=== PATIENT | male | born 1960 | race Caucasian/White ===

== ENCOUNTER 2018-08-30 12:33 | Emergency (ER) | payer OTHER ==
[2018-08-30] MEDS ORDERED: cloNIDine HCl 0.1 MG TAB ONE ×2 (13:21→14:18)
--- NOTE | 2018-08-30 14:29 | EKG ---
Test Date: 2018-08-30 Test Time: 13:43:54 Goodwill Representative: COLE MEASUREMENT RESULTS: Intervals: Rate: 64 TN: 186 QRSD: 88 QT: 424 QTc: 437 [place]: P: 76 TN: 186 QRS: 32 T: 66 INTERPRETIVE STATEMENTS: Normal sinus rhythm Normal ECG Compared to ECG 11/12/2015 10:42:46 No significant changes Electronically Signed On 08-30-18 14:28:56 CDT by Mingo Solis
--- NOTE | 2018-08-30 15:04 | EDPHYS ---
Physician Documentation [facility] Name: Frankie Padilla Age: 58 yrs Sex: Male : 1960 Arrival Date: 08/30/2018 Time: 12:42 Bed 8 Private MD: Madhu Quinteros ED Physician Chino Melendez HPI: 08/30 14:00 This 58 yrs old Male presents to ER via Wheelchair with complaints of High pm1 Blood Pressure. 14:00 The patient has elevated blood pressure and discovered this at a physician's office, pm1 and sent to the emergency department for evaluation. Onset: The symptoms/episode began/occurred Patient with a history of high blood pressure for multiple years. Patient has not taken his blood pressure medication for at least 5 years. Patient does not recall the name of the medication that he used to take for HTN. PCP is Neli. Patient seen by Dr. Cordero this AM for treatment and evaluation of his dementia and was sent to the ER for evaluation of his high blood pressure . Modifying factors: The symptoms are aggravated by discontinuation of meds, unknown medication. Last took blood pressure medication about 5 years. Took a single medication at that time. Not taking any medications until today. Was given a sample for dementia by Dr. Cordero today. Associated signs and symptoms: Pertinent negatives: chest pain, dizziness, dyspnea, headache, nausea, visual changes, vomiting, weakness. The patient has experienced similar episodes in the past, chronically. The patient has been recently seen by a physician: Dr. Cordero. 14:00 Patient without any complaints except for the presence of hypertension. pm1 Historical: - Allergies: 13:03 NKA; iw - PMHx: 13:05 Hypertension; Dementia; PseudoBulbar Affect; iw - Immunization history:: Adult Immunizations unknown. - Ebola Screening: : Patient negative for fever greater than or equal to 101.5 degrees Fahrenheit, and additional compatible Ebola Virus Disease symptoms Patient denies exposure to infectious person Patient denies travel to an Ebola-affected area in the 21 days before illness onset No symptoms or risks identified at this time. - Social history:: Smoking status: unknown. ROS: 14:00 Constitutional: Negative for fever, chills, and weight loss, Eyes: Negative for injury, pm1 pain, redness, and discharge, ENT: Negative for injury, pain, and discharge, Neck: Negative for injury, pain, and swelling, Cardiovascular: Negative for chest pain, palpitations, and edema, Respiratory: Negative for shortness of breath, cough, wheezing, and pleuritic chest pain, Abdomen/GI: Negative for abdominal pain, nausea, vomiting, diarrhea, and constipation, Back: Negative for injury and pain, : Negative for injury, bleeding, discharge, and swelling, MS/Extremity: Negative for injury and deformity, Skin: Negative for injury, rash, and discoloration, Neuro: Negative for headache, weakness, numbness, tingling, and seizure. Exam: 14:00 Constitutional: This is a well developed, well nourished patient who is awake, alert, pm1 and in no acute distress. Head/Face: Normocephalic, atraumatic. Eyes: Pupils equal round and reactive to light, extra-ocular motions intact. Lids and lashes normal. Conjunctiva and sclera are non-icteric and not injected. Cornea within normal limits. Periorbital areas with no swelling, redness, or edema. ENT: Nares patent. No nasal discharge, no septal abnormalities noted. Tympanic membranes are normal and external auditory canals are clear. Oropharynx with no redness, swelling, or masses, exudates, or evidence of obstruction, uvula midline. Mucous membranes moist. Neck: Trachea midline, no thyromegaly or masses palpated, and no cervical lymphadenopathy. Supple, full range of motion without nuchal rigidity, or vertebral point tenderness. No Meningismus. Chest/axilla: Normal chest wall appearance and motion. Nontender with no deformity. No lesions are appreciated. Cardiovascular: Regular rate and rhythm with a normal S1 and S2. No gallops, murmurs, or rubs. No pulse deficits. Respiratory: Lungs have equal breath sounds bilaterally, clear to auscultation and percussion. No rales, rhonchi or wheezes noted. No increased work of breathing, no retractions or nasal flaring. Abdomen/GI: Soft, non-tender, with normal bowel sounds. No distension or tympany. No guarding or rebound. No evidence of tenderness throughout. Back: No spinal tenderness. No costovertebral tenderness. Full range of motion. Skin: Warm, dry with normal turgor. Normal color with no rashes, no lesions, and no evidence of cellulitis. MS/ Extremity: Pulses equal, no cyanosis. Neurovascular intact. Full, normal range of motion. 14:00 Neuro: Orientation: is normal, Mentation: is normal, Cranial nerves: CN II- XII are normal as tested, Cerebellar function: normal finger to nose testing, Motor: is normal, moves all fours, strength is normal, strength is 5/5 in all extremities, Sensation: is normal, no obvious gross deficits, Gait: is steady, at a normal pace, without difficulty. Vital Signs: 13:03 BP 245 / 121; Pulse 64; Resp 16; Temp 98.2; Pulse Ox 98% on R/A; iw 15:17 BP 191 / 101; Pulse 60; Resp 18; Pulse Ox 100% on R/A; Pain 0/10; mg2 MDM: 12:46 Patient medically screened. pm1 14:55 ED course: Patient walking out the door to leave the ER. Asked the patient to return to pm1 his room and stay for a few minutes to at least be prescribed a blood pressure medication. Instructed the patient to follow up with his PCP for continued management of his blood pressure. 14:59 Data reviewed: vital signs. Data interpreted: Pulse oximetry: on room air is 98 %. pm1 Interpretation: normal. Counseling: I had a detailed discussion with the patient and/or guardian regarding: the historical points, exam findings, and any diagnostic results supporting the discharge/admit diagnosis, the need for outpatient follow up, Cyber Forensics Analyst and/or PCP, to return to the emergency department if symptoms worsen or persist or if there are any questions or concerns that arise at home. 08/30 13:11 Order name: EKG; Complete Time: 13:11 pm1 08/30 13:11 Order name: EKG - Nurse/Tech; Complete Time: 14:10 pm1 Administered Medications: 13:19 Drug: cloNIDine 0.2 mg Route: PO; jl7 14:09 Follow up: Response: No adverse reaction bp 14:13 Drug: cloNIDine 0.1 mg Route: PO; bp 15:16 Follow up: Response: No adverse reaction; Marked relief of symptoms; Blood sugar is mg2 lowered Disposition: 17:57 Co-signature as Attending Physician, Chino Melendez MD. rn Disposition: 08/30/18 15:03 Discharged to Home. Impression: Essential (primary) hypertension. - Condition is Stable. - Discharge Instructions: Hypertension, How to Take Your Blood Pressure, Ophj-at-Q[place], DASH Eating Plan, Managing Your Hypertension. - Prescriptions for Norvasc 10 mg Oral Tablet - take 1 tablet by ORAL route once daily; 30 tablet. - Medication Reconciliation Form, Thank You Letter form. - Follow up: Emergency Department; When: As needed; Reason: Worsening of condition. Follow up: Madhu Quinteros DO; When: 1 - 2 days; Reason: Recheck today's complaints, Continuance of care, Re-evaluation by your physician. - Problem is new. - Symptoms have improved. Signatures: Elina Leal, RN RN iw Chino Melendez MD MD rn Marinas, Patrick, MARIA ESTHER SURVEILLANCE DUAL RATE OFFICER pm1 Genoveva Iverson RN RN jl7 Mark Nair, RN RN bp Trey Jacob, RN RN mg2 Corrections: (The following items were deleted from the chart) 15:19 15:03 08/30/2018 15:03 Discharged to Home. Impression: Essential (primary) mg2 hypertension. Condition is Stable. Forms are Medication Reconciliation Form, Thank You Letter, Antibiotic Education, Prescription Opioid Use. Follow up: Emergency Department; When: As needed; Reason: Worsening of condition. Follow up: Madhu Quinteros; When: 1 - 2 days; Reason: Recheck today's complaints, Continuance of care, Re-evaluation by your physician. Problem is new. Symptoms have improved. pm1
--- NOTE | 2018-08-30 15:04 | ER ---
Nurse's Notes [facility] Name: Frankie Padilla Age: 58 yrs Sex: Male : 1960 Arrival Date: 08/30/2018 Time: 12:42 Bed 8 Private MD: Madhu Quinteros Diagnosis: Essential (primary) hypertension Presentation: 08/30 12:52 Presenting complaint: Friend states: was sent by Dr. Cordero for high BP, was 235/127, iw pt states he is prescribed a BP medicine but doesn't know what it is and hasn't been taking it. Transition of care: patient was not received from another setting of care. Onset of symptoms was August 30, 2018. Risk Assessment: Do you want to hurt yourself or someone else? Patient reports no desire to harm self or others. Initial Sepsis Screen: Does the patient meet any 2 criteria? No. Patient's initial sepsis screen is negative. Does the patient have a suspected source of infection? No. Patient's initial sepsis screen is negative. Care prior to arrival: None. 12:52 Method Of Arrival: Wheelchair iw 12:52 Acuity: LATESHA 3 iw Historical: - Allergies: 13:03 NKA; iw - PMHx: 13:05 Hypertension; Dementia; PseudoBulbar Affect; iw - Immunization history:: Adult Immunizations unknown. - Ebola Screening: : Patient negative for fever greater than or equal to 101.5 degrees Fahrenheit, and additional compatible Ebola Virus Disease symptoms Patient denies exposure to infectious person Patient denies travel to an Ebola-affected area in the 21 days before illness onset No symptoms or risks identified at this time. - Social history:: Smoking status: unknown. Screenin:20 Abuse screen: Denies threats or abuse. Denies injuries from another. Nutritional jl7 screening: No deficits noted. Tuberculosis screening: No symptoms or risk factors identified. Fall Risk None identified. Assessment: 13:20 General: Appears in no apparent distress. uncomfortable, Behavior is cooperative, jl7 anxious, quiet. Pain: Denies pain. Neuro: Level of Consciousness is awake, alert, obeys commands, Oriented to person, place, time, Denies weakness blurred vision dizziness, headache. Cardiovascular: Denies chest pain, lightheadedness, nausea, Patient's skin is warm and dry. Respiratory: Airway is patent Respiratory effort is even, unlabored, Respiratory pattern is regular, symmetrical. GI: No signs and/or symptoms were reported involving the gastrointestinal system. Patient currently denies diarrhea, nausea, vomiting. : No signs and/or symptoms were reported regarding the genitourinary system. EENT: No signs and/or symptoms were reported regarding the EENT system. Derm: Skin is pink, warm \T\ dry. Musculoskeletal: Range of motion: intact in all extremities. Vital Signs: 13:03 BP 245 / 121; Pulse 64; Resp 16; Temp 98.2; Pulse Ox 98% on R/A; iw 15:17 BP 191 / 101; Pulse 60; Resp 18; Pulse Ox 100% on R/A; Pain 0/10; mg2 ED Course: 12:42 Patient arrived in ED. mr 12:42 Madhu Quinteros DO is Private Physician. mr 12:46 Juan Frausto NP is PHCP. pm1 12:46 Chino Melendez MD is Attending Physician. pm1 12:59 Triage completed. iw 13:04 Genoveva Iverson, VALERIE is Primary Nurse. jl7 13:20 Patient has correct armband on for positive identification. Placed in gown. Bed in low jl7 position. Call light in reach. Side rails up X 1. double needle stitcher on. Pulse ox on. NIBP on. 13:37 Arm band placed on right wrist. jl7 14:05 EKG done, by health care technician. reviewed by Juan Frausto NP. sm3 15:02 Madhu Quinteros DO is Referral Physician. pm1 15:17 No provider procedures requiring assistance completed. Patient did not have IV access mg2 during this emergency room visit. Administered Medications: 13:19 Drug: cloNIDine 0.2 mg Route: PO; jl7 14:09 Follow up: Response: No adverse reaction bp 14:13 Drug: cloNIDine 0.1 mg Route: PO; bp 15:16 Follow up: Response: No adverse reaction; Marked relief of symptoms; Blood sugar is mg2 lowered Outcome: 15:03 Discharge ordered by . pm1 15:18 Discharged to home ambulatory, with family. mg2 15:18 Condition: stable 15:18 Discharge instructions given to patient, family, Instructed on discharge instructions, follow up and referral plans. medication usage, Demonstrated understanding of instructions, follow-up care, medications, Prescriptions given X 1. 15:19 Patient left the ED. mg2 Signatures: Arlene Conklin Irene, RN RN iw Juan Frausto NP HEALTHCARE CUSTOMER SERVICE pm1 Genoveva Iverson RN RN jl7 Mark Nair RN RN bp Trey Jacob RN RN mg2 Cassie Us 3
[2018-08-30 15:24] VITALS: TEMP 98.2
[2018-08-30 15:25] VITALS: BP 191/101; O2SAT 100
== END 2018-08-30 15:19 | disposition home or self-care (01) ==
LOC: ER 12:33
DX: I10 Essential (primary) hypertension (principal); F03.90 Unspecified dementia, unspecified severity, without behavioral disturbance, psychotic disturbance, mood disturbance, and anxiety
CPT/HCPCS: 93005; 99284

== ENCOUNTER 2018-11-13 15:31 | Inpatient (IN) | payer OTHER ==
--- NOTE | 2018-11-13 18:21 | RAD REPORT ---
EXAM DESCRIPTION: RAD - Femur Right - 11/13/2018 5:26 pm CLINICAL HISTORY: Fall, femur pain COMPARISON: None. FINDINGS: Transverse fracture of the femoral neck is present. The patient has a short femoral neck. Fracture is primarily subcapital. There is impaction present. No pathologic bone component. No AVN or focal femoral head acute finding. There is no dislocation. No pathologic bone process suspected. Sha ft and distal femur show no acute findings. There degenerative changes of the knee joint and postsurg ical changes to the proximal tibia that are only partially imaged. Mild SI joint degenerative changes are present. No acute findings of the right hemipelvis. No air or foreign body in the soft tissues. IMPRESSION: Impacted right femoral neck fracture.
--- NOTE | 2018-11-13 19:01 | RAD REPORT ---
EXAM DESCRIPTION: CT - Hip Right Wo Con - 11/13/2018 6:48 pm CLINICAL HISTORY: Fall, femur fracture, hip pain COMPARISON: Right femur films same date TECHNIQUE: Axial 2 millimeter thick images of the right hip joint were obtained including most of th e right hemipelvis. Sagittal and coronal reformatted images were generated and reviewed. The CT scan was performed using dose optimization techniques as appropriate to a performed exam incl uding one or more of the following: Automated exposure control, adjustment of the mA and/or kV accord ing to patient size (this includes techniques or standardized protocols for targeted exams where dose is matched to indication/reason for exam) and use of iterative reconstruction technique. FINDINGS: Transverse fracture of the right femoral neck is present. This is subcapital location lexi g the lateral margin and midportion of the cervical neck anteriorly. There is impaction along the pos terior margin of the fracture. No pathologic component. No AVN or focal femoral head finding. No disl ocation. No intertrochanteric involvement is present. No significant joint effusion is identifiable. There is minimal contusion in the periarticular soft t issues. Imaged portions of the right hemipelvis show old right ischium fracture. An acute fracture of the rig ht hemipelvis is not identified. There are old fracture changes to the superior pubic ramus. IMPRESSION: Right femoral neck fracture impacted along the posterior margin. No intertrochanteric involvement. No pathologic component. Old fracture changes to the right ischium and right superior pubic ramus.
[2018-11-13 19:16] LABS: Absolute Lymphocytes (CBC) 0.7 K/uL (0.7-4.9); Absolute Monocytes 1.1 K/uL (0.1-1.3); Absolute Neutrophil 13.4 K/uL (1.8-8.0); Basophils % 0.5 % (0-1.3); Eosinophils % 0.1 % (0-4.4); Hematocrit 31.4 % (39.6-49.0); Lymphocytes % 4.6 % (15.3-44.8); MPV 8.4 fL (7.6-11.3); Monocytes % 7.4 % (3.3-12.3); RBC Red Blood Cell Count 3.45 M/uL (4.33-5.43)
--- NOTE | 2018-11-13 19:27 | ER ---
Nurse's Notes [facility] Name: Frankie Padilla Age: 58 yrs Sex: Male : 1960 Arrival Date: 11/13/2018 Time: 15:32 Bed 9 Private MD: Diagnosis: Nondisplaced fracture of base of neck of right femur Presentation: 11/13 15:32 Presenting complaint: Patient states: fall from a standing position and hurt R leg, hj denies hitting and denies LOC; A\T\O x 4;. Transition of care: patient was not received from another setting of care. Onset of symptoms was November 13, 2018. Risk Assessment: Do you want to hurt yourself or someone else? Patient reports no desire to harm self or others. Initial Sepsis Screen: Does the patient meet any 2 criteria? No. Patient's initial sepsis screen is negative. Does the patient have a suspected source of infection? No. Patient's initial sepsis screen is negative. Care prior to arrival: None. 15:32 Method Of Arrival: EMS: [facility] 15:32 Acuity: LATESHA 4 15:35 Mechanism of Injury: Fall from standing position. Trauma event details: Injury occurred hj in the [facility], Injury occurred: at home. Injury occurred: November 13, 2018. 15:35 Note provided pt gown to pt, pt came without shirt; per daughter, pt has been taking synthetic marijuana, daughter wanted to report the incident to APS;. Triage Assessment: 15:35 General: Appears in no apparent distress. uncomfortable, Behavior is calm, cooperative, hj appropriate for age. Pain: Complains of pain in right leg. Trauma Activation: Not Applicable Physician: ED Physician; Name: ; Notified At: ; Arrived At: Physician: General Surgeon; Name: ; Notified At: ; Arrived At: Physician: Radiology; Name: ; Notified At: ; Arrived At: Physician: Respiratory; Name: ; Notified At: ; Arrived At: Physician: Lab; Name: ; Notified At: ; Arrived At: Historical: - Allergies: 15:34 NKA; hj - PMHx: 15:34 Dementia; Hypertension; pseudobulbar affect; hj - Immunization history:: Adult Immunizations up to date. - Social history:: Smoking status: Patient uses tobacco products, Patient/guardian denies using alcohol. - Ebola Screening: : Patient negative for fever greater than or equal to 101.5 degrees Fahrenheit, and additional compatible Ebola Virus Disease symptoms Patient denies exposure to infectious person Patient denies travel to an Ebola-affected area in the 21 days before illness onset. Screenin:34 Abuse screen: Denies threats or abuse. Denies injuries from another. Nutritional hj screening: No deficits noted. Tuberculosis screening: No symptoms or risk factors identified. Fall Risk Fall in past 12 months (25 points). Primary Survey: 16:22 NO uncontrolled hemorrhage observed. A: The patient is alert. Airway: patent. mg2 Breathing/Chest: Respiratory pattern: regular, Respiratory effort: spontaneous, unlabored. Circulation: Skin color: pink. Disability Alert. Exposure/Environment: There is no evidence of uncontrolled external bleeding. Assessment: 16:21 General: Appears in no apparent distress. comfortable, Behavior is calm, cooperative. mg2 Pain: Complains of pain in right hip Pain does not radiate. Quality of pain is described as aching, Pain began 2 hours ago. Is intermittent. Neuro: Level of Consciousness is awake, alert, obeys commands, Oriented to person, place, time, situation. Cardiovascular: Capillary refill < 3 seconds Patient's skin is warm and dry. Respiratory: No deficits noted. GI: No signs and/or symptoms were reported involving the gastrointestinal system. : No deficits noted. EENT: No signs and/or symptoms were reported regarding the EENT system. Derm: Skin is intact, is healthy with good turgor, Skin is pink, warm \T\ dry. normal. Musculoskeletal: Circulation, motion, and sensation intact. Capillary refill < 3 seconds, Reports pain in right hip. 20:46 Reassessment: patient refused for sweeney catheter insertion. provider informed. mg2 22:16 Reassessment: Patient appears in no apparent distress at this time. Patient and/or mg2 family updated on plan of care and expected duration. Pain level reassessed. Patient is alert, oriented x 3, equal unlabored respirations, skin warm/dry/pink. blood pressure decreased. 22:17 Reassessment: nurse will call back to receive the report.. mg2 Vital Signs: 15:35 BP 172 / 88; Pulse 95; Resp 18; Temp 97.8(TE); Pulse Ox 98% on R/A; Weight 81.65 kg; hj Height 5 ft. 7 in. (170.18 cm); Pain 10/10; 18:00 BP 170 / 80; Pulse 90; Resp 18; Temp 97(O); Pulse Ox 100% on R/A; Pain 4/10; mg2 19:00 BP 185 / 89; Pulse 101; Resp 18; Temp 97(O); Pulse Ox 100% ; mg2 20:37 BP 211 / 100; Pulse 105; Resp 18; Temp 97.9(O); Pulse Ox 100% ; mg2 21:16 BP 205 / 104; Pulse 101; Resp 18; Pulse Ox 100% on R/A; Pain 8/10; mg2 21:56 BP 195 / 97; Pulse 102; Resp 18; Pulse Ox 100% on R/A; mg2 22:02 BP 186 / 101; Pulse 100; Resp 18; Temp 98(O); Pulse Ox 100% ; Pain 5/10; mg2 15:35 Body Mass Index 28.19 (81.65 kg, 170.18 cm) hj ED Course: 15:32 Patient arrived in ED. hj 15:34 Triage completed. hj 15:35 Arm band placed on right wrist. hj 15:35 Patient has correct armband on for positive identification. Placed in gown. Bed in low hj position. Call light in reach. Side rails up X 1. 15:59 gave conley no skid slippers to patient while still in lobby. bd 16:18 Trey Jacob, VALERIE is Primary Nurse. mg2 16:19 Brenda Herrera FNP-C is PHCP. kb 16:19 Michoacano Coyle MD is Attending Physician. kb 17:01 No provider procedures requiring assistance completed. mg2 17:26 Femur Right XRAY In Process Unspecified. EDMS 18:24 PHCP role handed off by Brenda Herrera FNP-C jr8 18:24 Jong Hassan PA is PHCP. jr8 18:49 Hip Right Wo Con In Process Unspecified. EDMS 18:56 CT completed. Patient tolerated procedure well. Patient moved back from CT. vm2 19:11 Inserted saline lock: 20 gauge in left antecubital area, using aseptic technique. Blood mg2 collected. 19:26 Jose Khan MD is Hospitalizing Provider. jr8 20:47 Patient admitted, IV remains in place. mg2 Administered Medications: 19:46 Drug: fentaNYL (PF) 75 mcg Route: IVP; Site: left antecubital; mg2 20:16 Follow up: Response: No adverse reaction; Marked relief of symptoms mg2 19:46 Drug: Zofran 4 mg Route: IVP; Site: left antecubital; mg2 20:15 Follow up: Response: No adverse reaction; Marked relief of symptoms mg2 20:15 Drug: NS 0.9% 1000 ml Route: IV; Rate: 1000 ml; Site: left antecubital; mg2 22:30 Follow up: Response: No adverse reaction; IV Status: Completed infusion mg2 20:46 Drug: Labetalol 10 mg Route: IVP; Infused Over: 2 mins; Site: left antecubital; mg2 21:14 Follow up: Response: No adverse reaction; Blood pressure is unchanged mg2 21:14 Drug: Magnesium Sulfate 2 grams Route: IVPB; Infused Over: 2 hrs; Site: left mg2 antecubital; 22:09 Follow up: Response: No adverse reaction; IV Status: Completed infusion mg2 21:15 Drug: Labetalol 10 mg Route: IVP; Infused Over: 2 mins; Site: left antecubital; mg2 21:30 Follow up: Response: No adverse reaction; Blood pressure is unchanged; Cardiac rhythm mg2 changed 21:16 Drug: hydrALAZINE 10 mg Route: IV; Rate: calculated rate; Site: left antecubital; mg2 22:09 Follow up: Response: No adverse reaction; Blood pressure is lowered; IV Status: mg2 Completed infusion 22:08 Drug: fentaNYL (PF) 75 mcg Route: IVP; Site: left antecubital; mg2 22:10 Follow up: Response: No adverse reaction mg2 Outcome: 19:26 Decision to Hospitalize by Provider. jr8 22:23 Admitted to Med/surg accompanied by tech, via stretcher, room 208, with chart, Report mg2 called to VALERIE Gonzalez 22:23 Condition: stable 22:23 Instructed on the need for admit, Demonstrated understanding of instructions. 22:58 Patient left the ED. mg2 Signatures: Dispatcher [employer] EDMS Brenda Herrera, ANDI PAULINO-Simona Bocanegra Josh, PA PA jr8 Amadeo Garcia RN RN Naina Nichole [facility] Trey Jacob, RN RN mg2 Corrections: (The following items were deleted from the chart) 15:38 15:35 Pulse 95bpm; Resp 18bpm; Pulse Ox 98% RA; Temp 97.8F Temporal; 81.65 kg; Height 5 hj ft. 7 in.; BMI: 28.1; Pain 10/10; hj 16:32 15:35 Note per daughter, pt has been taking synthetic marijuana, daughter wanted to hj report the incident to APS; hj 19:11 17:01 Patient did not have IV access during this emergency room visit. mg2 mg2 20:37 19:00 BP 211 / 100; Pulse 105bpm; Resp 18bpm; Pulse Ox 100%; Temp 97.9F Oral; mg2 mg2 21:56 21:56 BP 206 / 97; Pulse 102bpm; Resp 18bpm; Pulse Ox 100% RA; mg2 mg2
--- NOTE | 2018-11-13 19:28 | EDPHYS ---
Physician Documentation [facility] Name: Frankie Padilla Age: 58 yrs Sex: Male : 1960 Arrival Date: 11/13/2018 Time: 15:32 Bed 9 Private MD: ED Physician Michoacano Coyle HPI: 11/13 16:40 This 58 yrs old Male presents to ER via EMS with complaints of Fall Injury. kb 16:40 Details of fall: The patient fell from an upright position, while walking. Onset: The kb symptoms/episode began/occurred 3 hour(s) ago. Associated injuries: The patient sustained right quadriceps, painful injury. Severity of symptoms: At their worst the symptoms were moderate, in the emergency department the symptoms are unchanged. The patient has not experienced similar symptoms in the past. The patient has not recently seen a physician. Historical: - Allergies: 15:34 NKA; hj - PMHx: 15:34 Dementia; Hypertension; pseudobulbar affect; hj - Immunization history:: Adult Immunizations up to date. - Social history:: Smoking status: Patient uses tobacco products, Patient/guardian denies using alcohol. - Ebola Screening: : Patient negative for fever greater than or equal to 101.5 degrees Fahrenheit, and additional compatible Ebola Virus Disease symptoms Patient denies exposure to infectious person Patient denies travel to an Ebola-affected area in the 21 days before illness onset. ROS: 16:39 Constitutional: Negative for fever, chills, and weight loss, Cardiovascular: Negative kb for chest pain, palpitations, and edema, Respiratory: Negative for shortness of breath, cough, wheezing, and pleuritic chest pain, Abdomen/GI: Negative for abdominal pain, nausea, vomiting, diarrhea, and constipation, Back: Negative for injury and pain, Skin: Negative for injury, rash, and discoloration, Neuro: Negative for headache, weakness, numbness, tingling, and seizure. 16:39 MS/extremity: Positive for injury or acute deformity, pain, tenderness, of the right quadriceps. Exam: 16:39 Constitutional: This is a well developed, well nourished patient who is awake, alert, kb and in no acute distress. Head/Face: Normocephalic, atraumatic. Chest/axilla: Normal chest wall appearance and motion. Nontender with no deformity. No lesions are appreciated. Cardiovascular: Regular rate and rhythm with a normal S1 and S2. No gallops, murmurs, or rubs. Normal PMI, no JVD. No pulse deficits. Respiratory: Lungs have equal breath sounds bilaterally, clear to auscultation and percussion. No rales, rhonchi or wheezes noted. No increased work of breathing, no retractions or nasal flaring. Abdomen/GI: Soft, non-tender, with normal bowel sounds. No distension or tympany. No guarding or rebound. No evidence of tenderness throughout. Skin: Warm, dry with normal turgor. Normal color with no rashes, no lesions, and no evidence of cellulitis. Neuro: Awake and alert, GCS 15, oriented to person, place, time, and situation. Cranial nerves II-XII grossly intact. Motor strength 5/5 in all extremities. Sensory grossly intact. Cerebellar exam normal. Normal gait. 16:39 Musculoskeletal/extremity: Extremities: grossly normal except: noted in the right quadriceps: pain, tenderness, ROM: intact in all extremities, Circulation is intact in all extremities. Sensation intact. Vital Signs: 15:35 BP 172 / 88; Pulse 95; Resp 18; Temp 97.8(TE); Pulse Ox 98% on R/A; Weight 81.65 kg; hj Height 5 ft. 7 in. (170.18 cm); Pain 10/10; 18:00 BP 170 / 80; Pulse 90; Resp 18; Temp 97(O); Pulse Ox 100% on R/A; Pain 4/10; mg2 19:00 BP 185 / 89; Pulse 101; Resp 18; Temp 97(O); Pulse Ox 100% ; mg2 20:37 BP 211 / 100; Pulse 105; Resp 18; Temp 97.9(O); Pulse Ox 100% ; mg2 21:16 BP 205 / 104; Pulse 101; Resp 18; Pulse Ox 100% on R/A; Pain 8/10; mg2 21:56 BP 195 / 97; Pulse 102; Resp 18; Pulse Ox 100% on R/A; mg2 22:02 BP 186 / 101; Pulse 100; Resp 18; Temp 98(O); Pulse Ox 100% ; Pain 5/10; mg2 15:35 Body Mass Index 28.19 (81.65 kg, 170.18 cm) hj MDM: 16:20 Patient medically screened. kb 16:39 Data reviewed: vital signs, nurses notes. Data interpreted: Pulse oximetry: on room air kb is 98 %. Interpretation: normal. 18:36 Physician consultation: Ugo Garza MD was called at 18:36, was contacted at [facility] 18:36, regarding consult, patient's condition, and will see patient in inpatient room. 11/13 18:32 Order name: CBC with Diff; Complete Time: 21:03 [facility] 11/13 18:32 Order name: Basic Metabolic Panel; Complete Time: 21:03 [facility] 11/13 18:32 Order name: Protime (+inr); Complete Time: 19:55 [facility] 11/13 18:32 Order name: Ptt, Activated; Complete Time: 19:55 [facility] 11/13 20:01 Order name: LFT's [facility] 11/13 20:01 Order name: Magnesium [facility] 11/13 16:32 Order name: Femur Right XRAY; Complete Time: 18:24 kb 11/13 20:01 Order name: NT PRO-BNP [facility] 11/13 20:01 Order name: Troponin (emerg Dept Use Only) [facility] 11/13 20:43 Order name: CBC Smear Scan; Complete Time: 21:03 EDIN 11/13 20:48 Order name: Liver (Hepatic) Function; Complete Time: 21:03 EDIN 11/13 20:48 Order name: Troponin (Emerg Dept Use Only); Complete Time: 21:03 EDIN 11/13 20:48 Order name: NT PRO-BNP; Complete Time: 21:03 [facility] 11/13 20:48 Order name: Magnesium; Complete Time: 21:03 [facility] 11/13 17:52 Order name: Hip Right Wo Con; Complete Time: 19:26 [facility] 11/13 18:32 Order name: EKG - Nurse/Tech; Complete Time: 19:11 [facility] 11/13 18:32 Order name: EKG; Complete Time: 18:32 [facility] 11/13 18:32 Order name: IV; Complete Time: 19:11 [facility] 11/13 20:01 Order name: XRAY Chest (1 view) [facility] 11/13 20:01 Order name: Cardiac monitoring; Complete Time: 22:10 [facility] 11/13 20:01 Order name: Labs collected and sent; Complete Time: 22:10 8 11/13 21:38 Order name: RAD; Complete Time: 21:44 EDMS 11/13 20:01 Order name: O2 Per Protocol; Complete Time: 22:8 11/13 20:01 Order name: O2 Sat Monitoring; Complete Time: 22: Administered Medications: 19:46 Drug: fentaNYL (PF) 75 mcg Route: IVP; Site: left antecubital; mg2 20:16 Follow up: Response: No adverse reaction; Marked relief of symptoms mg2 19:46 Drug: Zofran 4 mg Route: IVP; Site: left antecubital; mg2 20:15 Follow up: Response: No adverse reaction; Marked relief of symptoms mg2 20:15 Drug: NS 0.9% 1000 ml Route: IV; Rate: 1000 ml; Site: left antecubital; mg2 22:30 Follow up: Response: No adverse reaction; IV Status: Completed infusion mg2 20:46 Drug: Labetalol 10 mg Route: IVP; Infused Over: 2 mins; Site: left antecubital; mg2 21:14 Follow up: Response: No adverse reaction; Blood pressure is unchanged mg2 21:14 Drug: Magnesium Sulfate 2 grams Route: IVPB; Infused Over: 2 hrs; Site: left mg2 antecubital; 22:09 Follow up: Response: No adverse reaction; IV Status: Completed infusion mg2 21:15 Drug: Labetalol 10 mg Route: IVP; Infused Over: 2 mins; Site: left antecubital; mg2 21:30 Follow up: Response: No adverse reaction; Blood pressure is unchanged; Cardiac rhythm mg2 changed 21:16 Drug: hydrALAZINE 10 mg Route: IV; Rate: calculated rate; Site: left antecubital; mg2 22:09 Follow up: Response: No adverse reaction; Blood pressure is lowered; IV Status: mg2 Completed infusion 22:08 Drug: fentaNYL (PF) 75 mcg Route: IVP; Site: left antecubital; mg2 22:10 Follow up: Response: No adverse reaction mg2 Disposition: 11/14 15:55 Co-signature as Attending Physician, Michoacano Coyle MD I agree with the assessment and kdr plan of care. Disposition: 11/13/18 19:26 Hospitalization ordered by Jose Khan for Inpatient Admission. Preliminary diagnosis is Nondisplaced fracture of base of neck of right femur. - Bed requested for Telemetry/MedSurg (Inpatient). - Status is Inpatient Admission. mg2 - Condition is Stable. - Problem is new. - Symptoms have improved. UTI on Admission? No Signatures: Dispatcher [employer] EDBrenda Dolan FNP-C DINING ROOM HOST-CkKenia Mckoy RN RN Michoacano Coyle MD MD [facility] Jong Hassan PA PA [id number] Amadeo Garcia RN RN Trey Jacob RN RN mg2 Corrections: (The following items were deleted from the chart) 11/13 17:48 17:32 Counseling: I had a detailed discussion with the patient and/or guardian regarding: the historical points, exam findings, and any diagnostic results supporting the discharge/admit diagnosis, radiology results, the need for outpatient follow up, a family practitioner, to return to the emergency department if symptoms worsen or persist or if there are any questions or concerns that arise at home, 19:51 19:26 Hospitalization Ordered by Jose Khan MD for Inpatient Admission. Preliminary diagnosis is Nondisplaced fracture of base of neck of right femur. Bed requested for Telemetry/MedSurg (Inpatient). Status is Inpatient Admission. Condition is Stable. Problem is new. Symptoms have improved. UTI on Admission? No. jr8 20:50 19:51 11/13/2018 19:26 Hospitalization Ordered by Jose Khan MD for Inpatient mw Admission. Preliminary diagnosis is Nondisplaced fracture of base of neck of right femur. Bed requested for Telemetry/MedSurg (Inpatient). Status is Inpatient Admission. Condition is Stable. Problem is new. Symptoms have improved. UTI on Admission? No. mary 20:51 20:50 11/13/2018 19:26 Hospitalization Ordered by Jose Khan MD for Inpatient mw Admission. Preliminary diagnosis is Nondisplaced fracture of base of neck of right femur. Bed requested for Telemetry/MedSurg (Inpatient). Status is Inpatient Admission. Condition is Stable. Problem is new. Symptoms have improved. UTI on Admission? No. mary 22:58 20:51 11/13/2018 19:26 Hospitalization Ordered by Jose Khan MD for Inpatient mg2 Admission. Preliminary diagnosis is Nondisplaced fracture of base of neck of right femur. Bed requested for Telemetry/MedSurg (Inpatient). Status is Inpatient Admission. Condition is Stable. Problem is new. Symptoms have improved. UTI on Admission? No. mw
[2018-11-13 19:44] LABS: BUN Blood Urea Nitrogen 79 mg/dL (7-18); Bicarbonate 21 mmol/L (21-32); Glucose Level 142 mg/dL (74-106); Potassium 4.9 mmol/L (3.5-5.1); Sodium Level 146 mmol/L (136-145)
[2018-11-13 19:45] LABS: Protime INR 1.19
[2018-11-13] MEDS ORDERED: FENTANYL CITR 100 MCG/2 ML ONE ×2 (19:48→22:15)
[2018-11-13] MEDS ORDERED: ONDANSETRON 4 MG/2 ML VIAL ONE (19:49)
[2018-11-13] MEDS ORDERED: NA CHLORIDE 0.9% 1,000 ML ONE (20:19)
[2018-11-13] MEDS ORDERED: MORPHINE 2 MG/ML SYR IV PRN (20:32)
[2018-11-13] MEDS ORDERED: ONDANSETRON 4 MG/2 ML VIAL IV PRN (20:32)
[2018-11-13] MEDS ORDERED: HYDROCODONE/APAP 10/325 TAB PO PRN (20:36)
[2018-11-13 20:42] LABS: Blood Morphology Comment NOT SEEN (NOT SEEN); Platelet Estimate DECR; Urine White Blood Cell Casts OK
[2018-11-13 20:47] LABS: ALT/SGPT 24 U/L (12-78); AST/SGOT 15 U/L (15-37); Albumin 3.3 g/dL (3.4-5.0); Alkaline Phosphatase 80 U/L (45-117); Bilirubin Direct 0.1 mg/dL (0-0.2); Bilirubin Total 0.3 mg/dL (0.2-1.0); Magnesium 1.5 mg/dL (1.8-2.4); NT PRO-BNP 2384 pg/mL (<125); Protein, Total 7.2 g/dL (6.4-8.2); Troponin (Emerg Dept Use Only) < 0.02 ng/mL (0.0-0.045)
[2018-11-13] MEDS ORDERED: LABETALOL 20 MG/4ML SYRINGE IV ONE ×2 (20:51→21:19)
[2018-11-13] MEDS ORDERED: CEFAZOLIN/NS 1gm 1 GM/50 ML BAG IVPB SCH (21:00)
[2018-11-13] MEDS ORDERED: Magnesium Sulfate 2gm IVPB 2 G/50 ML BAG IV ONE (21:19)
[2018-11-13] MEDS ORDERED: HYDRALAZINE HCL 20 MG/ML VIAL ONE (21:19)
--- NOTE | 2018-11-13 21:36 | RAD REPORT ---
EXAM DESCRIPTION: RAD - Chest Single View - 11/13/2018 8:18 pm CLINICAL HISTORY: Chest pain COMPARISON: September 2017 TECHNIQUE: AP portable chest image was obtained 2011 hours . FINDINGS: Lung volumes are low. No focal lung parenchymal process. Interstitial markings are not sub stantially different when adjusting for the shallow inspiration. Heart and vasculature are normal. No measurable pleural effusion and no pneumothorax. No acute bony abnormality seen. No acute aortic findings suspected. IMPRESSION: No acute cardiopulmonary process. No significant interval change.
[2018-11-13] MEDS ORDERED: CEFAZOLIN 1GM (PREMIX IV) 1 GM/50 ML BAG ONE (23:36)
[2018-11-13] MEDS ORDERED: NA CHLORIDE 0.9% 50 ML ONE (23:37)
[2018-11-14 00:50] LABS: Urine Appearance CLEAR; Urine Bilirubin NEGATIVE (NEG); Urine Blood 1+ (NEG); Urine Color YELLOW; Urine Glucose TRACE (NEG); Urine Protein 2+ (NEG); Urine Urobilinogen 0.2 mg/dL (0.2-1.0); Urine pH 5.5 (5.0-7.0)
[2018-11-14 01:27] LABS: Urine Microscopic Reflex ORDER UMIC
[2018-11-14 01:30] LABS: Urine Amorphous Sediment 1+ /HPF (NONE SEEN); Urine Bacteria <20 /HPF (NONE SEEN); Urine Culture Reflex Order NOT NEEDED; Urine RBC <5 /HPF (NONE SEEN)
[2018-11-14] MEDS ORDERED: MORPHINE 4 MG/ML SYR IV PRN (01:55)
[2018-11-14] MEDS ORDERED: D5 0.45 NS 1,000 ML IV SCH (03:00)
[2018-11-14] MEDS: TERAZOSIN HCL 1 MG CAP PO SCH ×2 (03:00→15:00)
[2018-11-14] MEDS: AMLODIPINE 10 MG TAB PO SCH ×2 (03:19→15:00)
[2018-11-14] MEDS: HYDROMORPHONE HCL 1 MG/ML INJ IV PRN ×2 (05:59→12:31)
[2018-11-14 06:19] LABS: Absolute Lymphocytes (CBC) 1.8 K/uL (0.7-4.9); Absolute Monocytes 1.1 K/uL (0.1-1.3); Absolute Neutrophil 7.4 K/uL (1.8-8.0); Basophils % 0.5 % (0-1.3); Eosinophils % 0.1 % (0-4.4); Hematocrit 28.4 % (39.6-49.0); Lymphocytes % 17.3 % (15.3-44.8); MPV 8.7 fL (7.6-11.3); Monocytes % 10.6 % (3.3-12.3); RBC Red Blood Cell Count 3.15 M/uL (4.33-5.43)
[2018-11-14 06:57] LABS: Albumin 3.1 g/dL (3.4-5.0); Bilirubin Total 0.4 mg/dL (0.2-1.0); Potassium 4.8 mmol/L (3.5-5.1); Protein, Total 6.7 g/dL (6.4-8.2); Protime INR 1.23
[2018-11-14] MEDS ORDERED: ALBUTEROL 2.5 MG/3 ML NEB SOL NEB PRN (07:33)
[2018-11-14] MEDS ORDERED: LORazepam 2 MG/ML VIAL IV PRN (07:37)
[2018-11-14] MEDS ORDERED: MAGNESIUM SULFATE 1 gm IVPB 1 GM/100 ML BAG IV ONE (08:23)
--- NOTE | 2018-11-14 08:26 | RAD REPORT ---
EXAM DESCRIPTION: RAD - Chest Single View - 11/14/2018 7:49 am CLINICAL HISTORY: COPD, shortness of breath COMPARISON: November 13, 2018 TECHNIQUE: AP portable chest image was obtained 0735 hour . FINDINGS: No acute lung parenchymal process seen. Lung markings are similar to comparison. Heart and vasculature are normal. No measurable pleural effusion and no pneumothorax. No acute bony abnormalit y seen. No acute aortic findings suspected. IMPRESSION: No acute cardiopulmonary process.
--- NOTE | 2018-11-14 08:46 | EKG ---
Test Date: 2018-11-13 Test Time: 18:59:43 Console Assembler: MG MEASUREMENT RESULTS: Intervals: Rate: 105 DE: 176 QRSD: 78 QT: 334 QTc: 441 [employer]: P: 67 DE: 176 QRS: 28 T: 71 INTERPRETIVE STATEMENTS: Sinus tachycardia Otherwise normal ECG Compared to ECG 08/30/2018 13:43:54 Sinus rhythm no longer present Electronically Signed On 11-14-18 08:46:20 [employer]IE[employer] by Mingo Solis
[2018-11-14] MEDS: FLUOCINONIDE 0.05% CREAM 30GM TOP SCH ×3 (08:52→21:35)
[2018-11-14] MEDS: CITALOPRAM 10 MG TABLET PO SCH (08:52)
[2018-11-14] MEDS: levETIRAcetam 500 MG TAB PO SCH ×2 (08:52→21:34)
[2018-11-14] MEDS ORDERED: LOSARTAN POTASSIUM 50 MG TABLET PO SCH (09:00)
[2018-11-14] MEDS ORDERED: ATENOLOL 25 MG TAB PO SCH (09:00)
[2018-11-14] MEDS: D5 0.45 NS 1,000 ML IV SCH ×2 (09:53→21:36)
--- NOTE | 2018-11-14 09:53 | P.HP ---
Certification for Inpatient Patient admitted to: Inpatient With expected LOS: >2 Midnights Patient will require the following post-hospital care: None Practitioner: I am a practitioner with admitting privileges, knowledge of patient current condition, hospital course, and medical plan of care. Services: Services provided to patient in accordance with Admission requirements found in Title 42 Section 412.3 of the Code of Federal Regulations Patient History Date of Service: 11/13/18 Reason for admission: Impacted right hip fracture; acute kidney failure on chronic kidney disease History of Present Illness: Patient is a 58-year-old gentleman who came into the hospital for after falling. Patient had not been feeling well and was very dizzy. Patient apparently fell and landed on the right side of his hip. CT scan revealed a right-sided impacted hip fracture. Toe has acute kidney failure. Has a history of chronic kidney disease and has been seeing a local Nephrology. However, his renal function has continued to deteriorate. His electrolytes are abnormal. He will be admitted to the hospital for further workup. Allergies No Known Allergies Allergy (Verified 11/14/18 01:58) Home Medications: Colchicine [Colcrys] 0.6 mg PO BID 05/22/13 Fluocinonide Cream [Lidex 0.05% Cream*] 15 gm TP TID 05/22/13 Citalopram Hydrobromide [Celexa] 1 tab PO DAILY 10/28/14 Losartan Potassium [Cozaar] 1 tab PO DAILY 10/28/14 Amlodipine [Norvasc*] 10 mg PO Q12H #180 tab 10/29/14 Atenolol [Tenormin*] 25 mg PO DAILY #90 tab 10/29/14 Terazosin HCl [Hytrin*] 2 mg PO Q12H #180 cap 10/29/14 levETIRAcetam [Keppra*] 500 mg PO BID #180 tab 10/29/14 - Past Medical/Surgical History Has patient received pneumonia vaccine in the past: Yes Diabetic: No -: HTN -: Kidney disease chronic stage 3 -: gout -: hepatomegaly -: psoriasis -: R leg surgery/[facility] (plate) -: R ankle surgery (bolt) - Family History Mother Medical History: Hypertension, Kidney disease Sister Medical History: Hypertension, Kidney disease - Social History Smoking Status: Current every day smoker Alcohol use: No CD- Drugs: No Place of Residence: Home Review of Systems 10-point ROS is otherwise unremarkable Physical Examination - Vital Signs Temperature: 98.9 F Blood Pressure: 152/84 Pulse: 111 Respirations: 18 Pulse Ox (%): 95 - Physical Exam General: Alert, In no apparent distress, Oriented x2, Delirious HEENT: Atraumatic, PERRLA, Mucous membr. moist/pink, EOMI, Sclerae nonicteric Neck: Supple, 2+ carotid pulse no bruit, No LAD, Without JVD or thyroid abnormality Respiratory: Clear to auscultation bilaterally, Normal air movement Cardiovascular: Regular rate/rhythm, Normal S1 S2, No murmurs Gastrointestinal: Normal bowel sounds, Soft and benign, Non-distended, No tenderness Musculoskeletal: No clubbing, No swelling, No tenderness Integumentary: No rashes Neurological: Normal speech, Normal tone, Sensation intact, Cranial nerves 3-12 intact, Normal affect, Abnormal gait, Abnormal strength, Abnormal cranial nerve function Lymphatics: No axilla or inguinal lymphadenopathy - Studies Laboratory Data (last 24 hrs) 11/13/18 19:05: Magnesium Cancelled, Total Bilirubin Cancelled, AST Cancelled, ALT Cancelled, Alkaline Phosphatase Cancelled 11/13/18 19:05: PT 14.1 H, INR 1.19, APTT 37.9 H 11/13/18 19:05: Sodium 146 H, Potassium 4.9, BUN 79 H, Creatinine 11.70 H*, Glucose 142 H, Magnesium 1.5 L, Total Bilirubin 0.3, AST 15, ALT 24, Alkaline Phosphatase 80 11/13/18 19:05: WBC 15.3 H, Hgb 10.4 L, Hct 31.4 L, Plt Count 142 L Assessment & Plan - Problems (Diagnosis) (1) Impacted fracture of right hip Current Visit: Yes Status: Acute (2) Acute kidney failure Current Visit: Yes Status: Acute (3) Chronic kidney disease stage 3 Current Visit: No Status: Active (4) Hypertensive disorder, systemic arterial Current Visit: No Status: Active - Plan -management per Orthopedic surgery -PT evaluation once surgery is completed -DVT prophylaxis with SCDs and then post-operatively with lovenox if renal function improves -IV hydration and IV antibiotics -NPO -strict blood pressure and blood sugar control -monitor electrolytes and blood count closely -Dc Oliva catheter in 48 hrs -pain control Discharge Plan: Home Plan to discharge in: Greater than 2 days - Advance Directives Does patient have a Living Will: No Does patient have a Durable POA for Healthcare: No - Code Status/Comfort Care Code Status Assessed: Yes Code Status: Full Code Critical Care: No Time Spent Managing PTS Care (In Minutes): 50
[2018-11-14] MEDS: ARFORMOTEROL TARTRATE 15 MCG/2 ML VIAL.NEB NEB SCH ×2 (09:56→20:30)
--- NOTE | 2018-11-14 09:59 | P.PN ---
Subjective Date of Service: 11/14/18 Primary Care Provider: Dr. Quinteros(Int. Med/Nephrology) Chief Complaint: Impacted right hip fracture; acute kidney failure on chronic kidney disease Subjective: Other (Patient stable this today. Pain controlled.) Physical Examination - Vital Signs Temperature: 98.9 F Blood Pressure: 152/84 Pulse: 111 Respirations: 18 Pulse Ox (%): 95 - Physical Exam General: Alert, In no apparent distress, Oriented x3, Cooperative HEENT: Atraumatic Neck: Supple Respiratory: Expiratory wheezes (Bilateral), Inspiratory wheezes (Bilateral) Cardiovascular: Abnormal pulses (Mild sinus tachycardia) Gastrointestinal: Normal bowel sounds, No tenderness, No masses, No rebound, No guarding Musculoskeletal: No erythema, No tenderness, No warmth Integumentary: No erythema, No warmth, No cyanosis Neurological: Normal speech, Normal strength at 5/5 x4 extr, Normal tone, Normal affect - Studies Laboratory Data (last 24 hrs) 11/13/18 19:05: Magnesium Cancelled, Total Bilirubin Cancelled, AST Cancelled, ALT Cancelled, Alkaline Phosphatase Cancelled 11/13/18 19:05: PT 14.1 H, INR 1.19, APTT 37.9 H 11/13/18 19:05: Sodium 146 H, Potassium 4.9, BUN 79 H, Creatinine 11.70 H*, Glucose 142 H, Magnesium 1.5 L, Total Bilirubin 0.3, AST 15, ALT 24, Alkaline Phosphatase 80 11/13/18 19:05: WBC 15.3 H, Hgb 10.4 L, Hct 31.4 L, Plt Count 142 L Medications List Reviewed: Yes Assessment & Plan Discharge Plan: Other (Inpatient rehab) Plan to discharge in: Greater than 2 days Physician Review Additional Text: Impression: Fall leading to right femoral neck fracture, impacted along posterior margin Acute on chronic renal disease stage 5 not on chronic dialysis with history of polycystic kidney disease Hypertension, uncontrolled COPD with mild exacerbation Tobacco abuse with possible underlying marijuana use Alcohol abuse Seizure disorder Psoriasis Fatty liver History of noncompliance and follow up Plan: Fall leading to right femoral neck fracture, impacted along posterior margin: Patient admitted for treatment. Case discussed with orthopedics. Patient will require surgery. Will need to assess his renal disease first. This may require dialysis catheter placement and dialysis. Case discussed with nephrology. All are in agreement including patient. Surgery consulted for dialysis catheter placement. Will also consult cardiology for cardiac clearance. Will check renal ultrasound, echocardiogram and lab. Will monitor and address closely. Patient likely will require inpatient rehab after treatment. Anticipate surgery for hip fracture likely as early as tomorrow afternoon if patient receives dialysis if not the following day. I will turn the service over to Dr. Escobedo tomorrow. I will go over the plan of care with her. Acute on chronic renal disease stage 5 not on chronic dialysis with history of polycystic kidney disease: Patient was to have started dialysis in 2017. Patient did not get dialysis catheter placed. Patient did not follow up with nephrology as well. Case discussed at length with nephrology. Will have patient obtain dialysis catheter for dialysis. Patient will likely continue with chronic dialysis is an outpatient. Compliance will need to be addressed in detail. Hypertension, uncontrolled: Restart and continue home medication. Will monitor and address appropriately. Will check echocardiogram. COPD with mild exacerbation: Will start COPD medication. Will maintain sats above 90%. Tobacco abuse with possible underlying marijuana use: Will check urine drug screen. Will provide nicotine patch as needed. Cessation education will be provided. Alcohol abuse: Will check alcohol level. Cessation education will be provided. Seizure disorder: Will continue with medication-Keppra. Will monitor closely. Psoriasis: Will continue with topical steroid. Patient can follow up with Dermatology as an outpatient to further address. Fatty liver: Previous ultrasound shows fatty liver. Will monitor renal function. History of noncompliance and follow up: Will address noncompliance in detail especially as the patient will likely require chronic dialysis at discharge. . No intertrochanteric involvement. No pathologic component. Old fracture changes to the right ischium and right superior pubic ramus. Time Spent Managing Pts Care (In Minutes): 55
[2018-11-14] MEDS ORDERED: HYDRALAZINE HCL 20 MG/ML VIAL IV PRN (10:07)
[2018-11-14 10:29] LABS: Barbiturates NEGATIVE (NEGATIVE); Benzodiazepines NEGATIVE (NEGATIVE); Cocaine NEGATIVE (NEGATIVE); METHAMPHETAM NEGATIVE (NEGATIVE); Methadone NEGATIVE (NEGATIVE); Opiates NEGATIVE (NEGATIVE); Phencyclidine NEGATIVE (NEGATIVE); THC Cannibis NEGATIVE (NEGATIVE)
--- NOTE | 2018-11-14 10:41 | CON ---
CARDIOLOGY CONSULT Reason For Consult: Preoperative evaluation. History Of Present Illness: Mr. Padilla is 58. He fell at some point. It is not very clear. 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 Family members were not present or available during the intervie w. Mr. Padilla is a heavy cigarette smoker. He is vague or in denial about alcohol use, but I believ e he is a heavy alcohol user. He had known difficulties with his kidney several years ago, but has n ot followed through or had any dialysis and today his creatinine is 11.7. He is somewhat confused, n ot in a lot of pain. Denies having chest pain. Physical Examination: General: He is awake, not oriented. Lungs: Revealed diffuse wheezing. Heart: Reveals a regular rate and rhythm. No significant abnormality. Abdomen: Soft. Extremities: No edema. Laboratory Data: The troponin level is normal. Creatinine 11.0, BUN 79, potassium 4.8. Liver funct ion numbers are lower normal. N-terminal proBNP 2384. Impression: The patient's cardiac situation is largely unknown at this point. Even though his EKG i s normal, I am suspicious there could be something wrong. He is certainly at risk for having alcohol -induced cardiomyopathy or coronary artery disease; so before he goes through surgery, I will recomme nd he have an echocardiogram. He needs to have a lot of pulmonary toilet and probably needs to have a hemodialysis catheter inserted and undergo at least a couple rounds of hemodialysis before general anesthesia is attempted. The break is across the right femoral neck and the recommendation from Dr. Garza is for a bipolar device to be placed; a more complicated procedure than a simple hip nailing, so taking the time to get him ready for surgery will be rose OREILLY Voice ID: [id number] Report ID: [id number]
[2018-11-14 10:58] LABS: Arterial Blood Carboxyhemoglob 1.4 % (0-1.5); Blood Gas Oxyhemoglobin 94.4 % (94-97); Blood O2 Saturation 96.6 % (92-98.5)
[2018-11-14] MEDS: IPRATROPIUM BROM 0.5MG/2.5ML NEB PRN ×2 (10:59→20:30)
--- NOTE | 2018-11-14 11:02 | CON ---
Date of Consultation: 11/14/2018 History Of Present Illness: I may have seen this patient in the past. He does look a little flip r to me, but however, the patient is unable to give significant history of ever seeing me before, how ever, not for this problem. Apparently, he stated injury to his right lower extremity. He was seen and examined in the Emergency Department where he was admitted with diagnosis of a right hip fracture . I am called to see him as x-rays do demonstrate a displaced right femoral neck fracture without si gnificant degenerative change. Physical Examination: He does have a rash in his elbow, which appears to be consistent with psoriasis. Otherwise, all long bones and joints are palpated without pain or crepitation with exception of the right hip. On speaking with him, I am able to explain to him why he is in the hospital, what his problem is and did discuss risks and benefits. I am unsure how much he actually was able to retain for this informa tion as he does appear to be confused. Also, he has asked whether he walks normal at home and he say s that he does. I requested to speak with his family; however, the number that they have for him keiko spencer goes to his cellphone. Apparently, he was speaking with his family earlier; however, I am not able to do so at this time. He is under the care of the hospitalist and the hospitalist has communi cated with me that he has had some renal difficulties in the past and perhaps was even scheduled for some urologic procedure, which he did not follow through with. Now, apparently, he is in renal failu re. They have had a consult for a inbound sales advisor and there is a question whether or not they will plac e a dialysis catheter. Also, the bed machine operator has seen him, who says that his cardiac status has yet to be fully determined, but may have some difficulties there as well. We will at this time at least for our purposes have him n.p.o. after 7 a.m. tomorrow for the possibility we may proceed with bipol ar hemiarthroplasty tomorrow. Once again, these were discussed with him. I have communicated with him as well as possible. All of his questions have been invited and answered; however, he did not cottrell ve any for me. /MODL Voice ID: [id number] Report ID: [id number]
[2018-11-14 11:30] LABS: Ferritin 221.5 ng/mL (26-388)
[2018-11-14] MEDS: predniSONE 20 MG TAB PO SCH ×2 (11:31→21:34)
[2018-11-14 11:32] LABS: Thyroid Stimulating Hormone 3.8 uIU/mL (0.360-3.740)
--- NOTE | 2018-11-14 15:14 | RAD REPORT ---
EXAM DESCRIPTION: US - Renal Ultrasound-Complete - 11/14/2018 2:39 pm CLINICAL HISTORY: Acute on chronic renal disease, history of polycystic kidney disease COMPARISON: Ultrasound June 2017, CT study December 2008 FINDINGS: The right kidney measures 22.5 x 9.2 x 9.0 cm. The left kidney measures 22.4 x 10.4 x 8.3 cm. Renal cortical tissue is very poorly visualized. The patient has innumerable variably sized cyst s in each kidney. Largest on the right is 5.5 cm. Largest on the left is 4.4 cm. No accurate assessme nt of cortical thickness can be made in the setting of polycystic kidney disease. Visualize cortex do es show increased echogenicity. No hydronephrosis seen. No solid mass identified. No bladder wall thickening or mass. No intraluminal stone or mass. IMPRESSION: Polycystic kidney disease is evident with innumerable variably sized renal cysts. Cortex of each kidney is substantially distorted by the numerous cysts. Thickness cannot be accuratel y assessed. Underlying medical renal disease is evident. No hydronephrosis or solid mass.
--- NOTE | 2018-11-14 15:45 | CON ---
Date of Consultation: 11/14/2018 Diagnoses: Renal insufficiency and femur fracture on the right side. History Of Present Illness: This is the case of a 58-year-old patient with multiple medical problems , including dialysis in the past, comes to us with a right femur fracture. Orthopedic was planning t o fix that, but then they found out his kidneys are, once again, not improving. The doctors today re port to him about that and he decided that he will consider hemodialysis, so a surgical consult was o btained. He does not remember what happened except there was a possible fall from the standing posit ion. Review of Systems: Unable to be obtained. Past Medical History: Dementia, hypertension. Allergies: NONE. Social History: He does smoke and apparently also uses synthetic marijuana as seen and documented by the primary doctor from a report from [facility]. Family History: Noncontributory. Physical Examination: General: The patient is awake and alert, although he cannot give much information of what happened. HEENT: Pupils are reactive, anicteric. Neck: Supple. No pinpoint tenderness. Chest: Bilateral breath sounds. Abdomen: Soft and depressible. No guarding or rebound. Extremities: Good capillary refill. Laboratory Data: Blood work shows WBC count of 10.4, hemoglobin of 9.7, and platelets of 130. INR i s 1.23. Chemistry shows potassium is 4.8, creatinine is 11, and glucose 104. Renal ultrasound is st ill pending. Hip CT shows right femoral neck fracture. Assessment: This is a 58-year-old patient with renal insufficiency, hemodialysis catheter. Consulta tion options were requested. I have fully explained to the patient. Apparently, he has been in dial ysis before, though this time he was trying not to sign for dialysis, but he understands right now mi ght not be another option. I noticed the Cardiology consult about general surgery for orthopedic pro cedures. They preferred hemodialysis first. I would need to give hemodialysis, but this patient at bedside, I do not think is the best way to go unless we go femoral, but in this case he has right fem oral fracture, so I cannot go there. If I am going to go into that area, I will hope I can use fluor oscopy for more controlled setting and trying to see if Anesthesia at least allow us to do some sedat ion since the patient will not cooperate. We are going to keep the patient n.p.o. after midnight and obtain consent for tunneled hemodialysis catheter placement with benefits, alternatives, and risks i ncluding, but not limited to infection, bleeding, damage to adjacent structures, anesthesia complicat ion, pneumothorax, hemothorax, DVTs, pericardiac tamponade, deep vein thrombosis, [place], even . CARL/ERNST Voice ID: [id number] Report ID: [id number]
[2018-11-14] MEDS ORDERED: CEFAZOLIN/SWI 1gm 1 GM/10 ML SYR IV SCH (21:00)
[2018-11-14] MEDS: CALCIUM CARB 500MG/VIT D 200 IU TAB PO SCH (21:34)
[2018-11-14] MEDS: CEFAZOLIN 1GM (PREMIX IV) 1 GM/50 ML BAG IV SCH (21:34)
[2018-11-14] MEDS: FAMOTIDINE 20 MG TAB PO SCH (21:34)
[2018-11-15] MEDS: TERAZOSIN HCL 1 MG CAP PO SCH ×2 (02:59→21:00)
[2018-11-15] MEDS: AMLODIPINE 10 MG TAB PO SCH ×2 (03:00→22:15)
[2018-11-15 06:00] LABS: Absolute Lymphocytes (CBC) 0.6 K/uL (0.7-4.9); Absolute Monocytes 0.5 K/uL (0.1-1.3); Absolute Neutrophil 9.6 K/uL (1.8-8.0); Basophils % 0.2 % (0-1.3); Hematocrit 26.9 % (39.6-49.0); Lymphocytes % 5.5 % (15.3-44.8); MPV 9.2 fL (7.6-11.3); Monocytes % 4.4 % (3.3-12.3); RBC Red Blood Cell Count 2.97 M/uL (4.33-5.43)
[2018-11-15] MEDS: D5 0.45 NS 1,000 ML IV SCH (06:00)
[2018-11-15] MEDS: ATENOLOL 50 MG TAB PO SCH (06:00)
[2018-11-15 06:41] LABS: Bilirubin Total 0.3 mg/dL (0.2-1.0); Magnesium 2.2 mg/dL (1.8-2.4); Phosphorus 6.9 mg/dL (2.5-4.9); Protein, Total 6.7 g/dL (6.4-8.2)
[2018-11-15 06:52] LABS: Potassium 5.8 mmol/L (3.5-5.1)
[2018-11-15] MEDS: ARFORMOTEROL TARTRATE 15 MCG/2 ML VIAL.NEB NEB SCH ×3 (07:46→22:10)
[2018-11-15] MEDS ORDERED: NS 0.9% VIAL 10 ML ONE ×2 (08:35→11:56)
[2018-11-15] MEDS ORDERED: HEPARIN 5000 UNIT/ML 1 ML VIAL ONE ×3 (08:36→12:39)
[2018-11-15] MEDS ORDERED: NA CHLORIDE 0.9% 100 ML IV ONE ×2 (08:36→11:58)
[2018-11-15] MEDS ORDERED: LIDOCAINE 1% MPF 5 ML VIAL ONE (08:37)
[2018-11-15] MEDS ORDERED: NA CHLORIDE 0.9% 500 ML ONE ×2 (08:58→11:38)
[2018-11-15] MEDS: levETIRAcetam 500 MG TAB PO SCH ×2 (09:00→22:15)
[2018-11-15] MEDS: FLUOCINONIDE 0.05% CREAM 30GM TOP SCH ×3 (09:00→22:24)
[2018-11-15] MEDS: THIAMINE HCL 100 MG TABLET PO SCH (09:00)
[2018-11-15] MEDS: predniSONE 20 MG TAB PO SCH ×2 (09:00→22:17)
[2018-11-15] MEDS: CALCIUM CARB 500MG/VIT D 200 IU TAB PO SCH (09:00)
[2018-11-15] MEDS: FAMOTIDINE 20 MG TAB PO SCH ×2 (09:00→22:17)
[2018-11-15] MEDS: CITALOPRAM 10 MG TABLET PO SCH (09:00)
[2018-11-15] MEDS: FOLIC ACID 1 MG TABLET PO SCH (09:00)
[2018-11-15 10:00] LABS: Potassium 5.7 mmol/L (3.5-5.1)
[2018-11-15] MEDS ORDERED: LIDOCAINE 2% MPF 5 ML VIAL ONE (10:34)
[2018-11-15] MEDS ORDERED: FENTANYL CITR 100 MCG/2 ML ONE (10:34)
[2018-11-15] MEDS ORDERED: PROPOFOL 200 MG/20 ML VIAL IV ONE ×5 (10:34→12:13)
[2018-11-15] MEDS: CA ACETATE 667 MG CAP PO SCH ×2 (12:00→16:57)
--- NOTE | 2018-11-15 12:36 | RAD REPORT ---
EXAM DESCRIPTION: RAD - Fluoroscopy <1 Hour - 11/15/2018 12:28 pm CLINICAL HISTORY: Venous catheter insertion. HEMODIALYSIS CATHETER COMPARISON: No comparisons FINDINGS: Fluoroscopic imaging is submitted from placement of a venous catheter. Details of the pro cedure not available. Fluoroscopy time: 2.5 minutes.
--- NOTE | 2018-11-15 12:47 | RAD REPORT ---
EXAM DESCRIPTION: RAD - Chest Single View - 11/15/2018 12:42 pm CLINICAL HISTORY: Dialysis catheter placement COMPARISON: November 14, 2018 TECHNIQUE: AP portable chest image was obtained 2227 hours . FINDINGS: Right jugular dialysis catheter has been placed. Tip is in the mid SVC. There is no abnorm al bend or kink of the tubing. No pneumothorax. No acute pleural or parenchymal process. Heart and vasculature are normal. No acute bony abnormality seen. No acute aortic findings suspected. IMPRESSION: Right jugular dialysis catheter in good position. No pneumothorax.
--- NOTE | 2018-11-15 13:22 | P.BOP ---
Preoperative diagnosis: Renal failure, femur fracture, cardiac disease Postoperative diagnosis: same Primary procedure: 1. Placement of hemosplit HD catheter Secondary procedure: 2. Interpretation of fluoroscopy Other procedure(s): 3. Right neck ultrasound for cath placement Estimated blood loss: <20c Specimen: none Findings: as above Anesthesia: MAC (and local) Complications: None Drain(s): Other Transferred to: Recovery Room Condition: Good
[2018-11-15] MEDS: HYDROMORPHONE HCL 1 MG/ML INJ IV PRN ×2 (13:32→17:03)
--- NOTE | 2018-11-15 14:58 | CON ---
Date of Consultation: 11/15/2018 Reason For Consultation: Acute on chronic kidney disease. History Of Present Illness: Mr. Padilla is a 58-year-old male, who has a history of autosomal dominan t polycystic kidney disease, who was known to our service several years ago. My consultation was req lilian as patient has come in with a hip fracture and was found to have abnormal renal parameters. The patient is known to our service a few years ago, he was seen Dr. Quinter[facility] . Last note from Dr. Quinteros was in 2017. When the patient was seen in clinic was noted to have a c reatinine of 6 and was recommended to start dialysis at that time with patient's last followup. The patient currently is seen in the PACU and the patient is being prepared for dialysis catheter placeme nt. I spoke to the patient yesterday directly at his room and informed the patient about the need fo r dialysis. At that point, the patient was agreeable. Today, I spoke to him again and explained to him all the risks and benefits of dialysis. I explained to him the risk of cardiac instability. I a lso explained to him the risk of bleeding with dialysis and also risk of infection. I explain the be nefits of optimizing the patient's metabolic parameters prior to any operative procedures to repair h is hip. The patient was in agreement that he is now getting his dialysis catheter placed or he is up to get his dialysis catheter placed today. Overall, the patient is a poor historian. Upon speaking, the patient lives with his at home. Janet hopkins lives here in the local area. Reviewing the patient's recent history does reveal any NSAIDs or any contrast use. Review of Systems: No fevers, chills, chest pain, shortness of breath, nausea, vomiting, or diarrhea. Past Medical History: Significant for hypertension, gout, polycystic kidney disease, psoriasis. Family History: Of kidney disease in his mother and sister. However, patient is unclear of the dial ysis history. Physical Examination: Vital Signs: Blood pressure is 136/76, pulse 73, temperature 99.3. Input and Output: 175 of urine output was recorded. General: No acute distress, elderly. Heart: Regular rhythm. No murmurs, rubs, or gallops. Lungs: Clear to auscultation bilaterally. Abdomen: Soft. Palpable kidneys noted bilaterally. Extremities: No significant edema. Laboratory Data: CBC reviewed. Serum chemistry; sodium 137, potassium 5.7, chloride 109, CO2 19, BU N 86, creatinine 11.6, glucose 135, calcium is 7, phosphorus was 6.9. Iron panel showing transferrin saturation of 13.4, iron level of 37. Albumin level is 3. The patient's UA showed 1+ blood, 2+ pro tein. Tox screen was negative. Serology; hepatitis B antigen, as well as hepatitis A and C, and HIV are all pending. Impression: 1.Chronic kidney disease, likely now established as end-stage renal disease in the setting of autoso mal dominant polycystic kidney disease. 2.Acute hip fracture. 3.Hypertension. 4.Electrolyte abnormalities consistent with chronic kidney disease. 5.Hyperkalemia. Plan: The patient understands the need for renal replacement therapy. Dialysis catheter is to be pl aced today. The patient has hyperkalemia as well as metabolic acidosis. I have spoken with the oper ating room staff that the patient has been set up for line placement using the mild sedation. Dialys is orders have been placed. The patient will receive first dialysis today. The patient does have hy pertension which is improving with medications. We will continue monitored and hypertensive regimen should to be titrated. We will avoid WILFRIDO inhibitors and ARB with the patient's hyperkalemia. For jocelyn trevino's iron deficiency, we will recommend oral iron supplementation when n.p.o. Status is cleared. The patient also has hyperphosphatemia and hypocalcemia. We will place the patient on PhosLo with ea ch meal, which is a calcium based binder and thus we will discontinue calcium carbonate. The patient 's diet is currently n.p.o. Once diet is resumed, the patient should be on a renal diet at that time . The patient will also be placed on calcitriol with saturated vitamin D for the patient's hypercalc emia. PTH level has been ordered for the morning. Please contact with any questions or concerns. /ERNST Voice ID: [id number] Report ID: [id number]
[2018-11-15] MEDS ORDERED: NA CHLORIDE 0.9% 1,000 ML IV PRN (15:28)
[2018-11-15] MEDS ORDERED: ALBUMIN HUMAN 25% 50 ML IV SCH (16:00)
--- NOTE | 2018-11-15 16:24 | ECHO ---
HEIGHT: 5 ft 11 in WEIGHT: 180 lb 0 oz DATE OF STUDY: 11/15/[address]: Mingo Solis MD 2-DIMENSIONAL: YES M.MODE: YES DOPPLER: YES COLOR FLOW: YES TDS: PORTABLE: DEFINITY: BUBBLE STUDY: DIAGNOSIS: HYPERTENSION/ CARDIAC CLEARANCE. CARDIAC HISTORY: CATHERIZATION: NO SURGERY: NO PROSTHETIC VALVE: NO PACEMAKER: NO MEASUREMENTS (cm) DIASTOLIC (NORMALS) SYSTOLIC (NORMALS) IVSd 1.0 (0.6-1.2) LA Diam 4.0 (1.9-4.0) LVEF 70% LVIDd 3.6 (3.5-5.7) LVIDs 2.2 (2.0-3.5) %FS 39% LVPWd 1.2 (0.6-1.2) Ao Diam 3.1 (2.0-3.7) 2 DIMENSIONAL ASSESSMENT: RIGHT ATRIUM: NORMAL LEFT ATRIUM: NORMAL RIGHT VENTRICLE: NORMAL LEFT VENTRICLE: NORMAL TRICUSPID VALVE: NORMAL MITRAL VALVE: NORMAL PULMONIC VALVE: NORMAL AORTIC VALVE: NORMAL PERICARDIAL EFFUSION: NONE AORTIC ROOT: NORMAL LEFT VENTRICULAR WALL MOTION: NORMAL DOPPLER/COLOR FLOW: MILD MITRAL REGURGITATION. COMMENTS: NORMAL TWO DIMENSIONAL ECHOCARDIOGRAM. MILD MITRAL REGURGITATION. TECHNOLOGIST: MANOJ AIKEN
--- NOTE | 2018-11-15 16:51 | P.PN ---
Subjective Date of Service: 11/15/18 Primary Care Provider: Dr. Quinteros(Int. Med/Nephrology) Chief Complaint: Impacted right hip fracture; acute kidney failure on chronic kidney disease Patient seen and examined at bedside with RN. Chart reviewed. Case discussed with general surgery and nephrology at this time. Patient is scheduled for a hemodialysis catheter placement this morning. Doing well overall no complaints to offer this morning. Review of Systems 10-point ROS is otherwise unremarkable Physical Examination - Vital Signs Temperature: 98.2 F Blood Pressure: 157/80 Pulse: 71 Respirations: 16 Pulse Ox (%): 0 - Physical Exam General: Alert, In no apparent distress HEENT: Atraumatic, PERRLA, EOMI Neck: Supple, JVD not distended Respiratory: Clear to auscultation bilaterally, Normal air movement Cardiovascular: Regular rate/rhythm, Normal S1 S2 Gastrointestinal: Normal bowel sounds, No tenderness Musculoskeletal: No tenderness Integumentary: No rashes Neurological: Normal speech, Normal tone, Normal affect Lymphatics: No axilla or inguinal lymphadenopathy - Studies Medications List Reviewed: Yes Assessment And Plan - Current Problems (Diagnosis) (1) Impacted fracture of right hip Current Visit: Yes Status: Acute Plan: Pt with Right femoral neck fracture impacted by the posterior margin -Orthopedics Consulted. Appreciate Reccs -Plan for Surgery flex PM after cardiac Clearance and HD -cardiology consulted for cardiac clearance has pending echocardiogram at this time. -No Lovenox -NPO after 8AM -CM consulted for placement post Surgery -PT/OT consulted as well Qualifiers: Encounter type: initial encounter Fracture type: closed Qualified Code(s) : S72.091A - Other fracture of head and neck of right femur, initial encounter for closed fracture (2) ESRD (end stage renal disease) Current Visit: Yes Status: Acute Plan: Acute on Chronic Renal Disease Now with ESRD needing HD due to worsening Azotemia -Nephrology Consulted. Appreciated Reccs -Scheduled for HD catheter placement today with general Surgery -patient will get hemodialysis post catheter placement -will followup post dialysis -BUN creatinine elevated today. (3) Seizure Current Visit: Yes Status: Chronic (4) Hypertension, uncontrolled Onset Date: 10/29/14 Current Visit: No Status: Chronic (5) Tobacco abuse Current Visit: Yes Status: Chronic (6) COPD (chronic obstructive pulmonary disease) Current Visit: Yes Status: Chronic Qualifiers: COPD type: chronic bronchitis Chronic bronchitis type: simple Qualified Code(s): J41.0 - Simple chronic bronchitis (7) Noncompliance Current Visit: Yes Status: Chronic Discharge Plan: Home Plan to discharge in: Greater than 2 days - Code Status/Comfort Care Code Status Assessed: No Critical Care: No
--- NOTE | 2018-11-15 20:10 | OP ---
Date of Procedure: 11/15/2018 Surgeon: Amadeo Constantino MD Preoperative Diagnoses: Renal failure, femur fracture, cardiac disease. Postoperative Diagnoses: Renal failure, femur fracture, cardiac disease. Procedures: 1.Placement of a HemoSplit hemodialysis catheter. 2.Interpretation of fluoroscopy. 3.Right neck ultrasound for catheter placement. Estimated Blood Loss: Less than 20 cc. Specimen: None. Findings: As above. Anesthesia: Sedation plus local. Indications: This is the case of a 58-year-old patient with multiple medical problems that include a lso a femur fracture, history of cardiac disease. They need hemodialysis to be able to fix his hip. They asked us to do this on sedation. The patient is noncooperative, so will have to be taken to th e OR to be able to do this under sedation with benefits, alternatives, and risks explained, included but not limited to infection, bleeding, damage to adjacent structures, anesthesia complication, pneum othorax, hemothorax, cardiac arrhythmias, pulmonary emboli, [place], even . They also understand and the family also understands this may not relieve any symptoms. This might need more than one surgic al intervention. They also understand the risks of pneumothorax and/or pericarditis. They also unde rstand that this tube should be removed, it is a temporary move, and then he has to go to the vascula r surgeons in [place] to do peripheral access if they plan to continue with hemodialysis. They under stood. Consent was signed. Description Of Procedure: The patient was brought to the operating room, placed in supine position. Anesthesia was done without complication. Right neck and chest were prepped and draped in a sterile fashion. The patient was placed in Trendelenburg position. Time-out was called. An 18-gauge needl e was placed in the right internal jugular vein. A guidewire was passed through. The needle was rem felicity. A catheter was placed in the right upper chest and tunneled underneath to meet the new incisio n in the right neck region. Dilators were placed through the internal jugular vein under fluoroscopy guidance and also the introducer sheath under fluoroscopic guidance. The guidewire was removed. Ca theter was placed through the introducer sheath, and the sheath was peeled off. The catheter was hav ing excellent backflow, even though the catheter were flushed previously, the catheter was not flushi ng properly. We were trying to accommodate the area, but it was not successful, so we proceeded to c hange the catheter to a longer one. The catheter was caught holding the distal side. A guidewire wa s passed through under fluoroscopy. The distal catheter was removed. We replaced that with another catheter, once again tunneled underneath the skin, made in the right neck incision. The introducer s venus was placed through the guidewire. The guidewire was removed. The catheter was placed then. I ntroducer was peeled off. At this time, the catheter was flushing properly, excellent backflow and i nflow, both sides. We feel better about it. So area was irrigated. Once again, we used fluoroscopy for proper placement, looks good. The patient tolerated the procedure well. The area was secured w ith 3-0 chromic and nylon to secure the catheter. The catheter was flushed with heparin. I have to mention at the beginning of the case that we identified the internal jugular vein by right neck ultra sound, we were able to see internal jugular vein compressible and right carotid also, anterior. We u sed the ultrasound to also guide us in the puncture of the vein at the first attempt. The patient to lerated the procedure well. The patient was sent to Recovery in stable condition. A chest x-ray was ordered stat. CARL/ERNST Voice ID: [id number] Report ID: [id number]
[2018-11-15] MEDS: CEFAZOLIN 1GM (PREMIX IV) 1 GM/50 ML BAG IV SCH (21:00)
[2018-11-16] MEDS: HYDROMORPHONE HCL 1 MG/ML INJ IV PRN ×3 (03:14→21:46)
[2018-11-16 05:44] VITALS: BMI 25.1
[2018-11-16] MEDS: ATENOLOL 50 MG TAB PO SCH (05:45)
[2018-11-16 06:10] LABS: Absolute Lymphocytes (CBC) 0.5 K/uL (0.7-4.9); Absolute Monocytes 0.5 K/uL (0.1-1.3); Absolute Neutrophil 8.7 K/uL (1.8-8.0); Basophils % 0.3 % (0-1.3); Hematocrit 26.2 % (39.6-49.0); Lymphocytes % 4.8 % (15.3-44.8); MPV 9.5 fL (7.6-11.3); Monocytes % 4.9 % (3.3-12.3); RBC Red Blood Cell Count 2.92 M/uL (4.33-5.43)
[2018-11-16 07:04] LABS: Bilirubin Total 0.3 mg/dL (0.2-1.0); Magnesium 2.2 mg/dL (1.8-2.4); Potassium 5.2 mmol/L (3.5-5.1); Protein, Total 6.7 g/dL (6.4-8.2)
[2018-11-16] MEDS: CA ACETATE 667 MG CAP PO SCH ×3 (08:00→17:00)
[2018-11-16] MEDS: ARFORMOTEROL TARTRATE 15 MCG/2 ML VIAL.NEB NEB SCH ×2 (08:00→19:47)
[2018-11-16 08:32] LABS: Blood Morphology Comment NOTED (NOT SEEN); Platelet Estimate DECR; Rouleau NOTED; Urine White Blood Cell Casts OK
[2018-11-16] MEDS: FOLIC ACID 1 MG TABLET PO SCH (09:00)
[2018-11-16] MEDS: AMLODIPINE 10 MG TAB PO SCH (09:00)
[2018-11-16] MEDS: levETIRAcetam 500 MG TAB PO SCH ×2 (09:00→21:51)
[2018-11-16] MEDS: THIAMINE HCL 100 MG TABLET PO SCH (09:00)
[2018-11-16] MEDS: CITALOPRAM 10 MG TABLET PO SCH (09:00)
[2018-11-16] MEDS: predniSONE 20 MG TAB PO SCH ×2 (09:00→21:49)
[2018-11-16] MEDS: FAMOTIDINE 20 MG TAB PO SCH ×2 (09:00→21:49)
[2018-11-16] MEDS: TERAZOSIN HCL 1 MG CAP PO SCH ×2 (09:00→21:00)
[2018-11-16] MEDS: CALCITROL 0.25 MCG CAP PO SCH (09:00)
[2018-11-16] MEDS: FLUOCINONIDE 0.05% CREAM 30GM TOP SCH ×3 (09:00→21:50)
[2018-11-16 10:53] LABS: Absolute Lymphocytes (CBC) 0.7 K/uL (0.7-4.9); Absolute Neutrophil 8.1 K/uL (1.8-8.0); Basophils % 0.2 % (0-1.3); Hematocrit 24.2 % (39.6-49.0); Lymphocytes % 6.7 % (15.3-44.8); MPV 9.5 fL (7.6-11.3); Monocytes % 10.6 % (3.3-12.3); RBC Red Blood Cell Count 2.71 M/uL (4.33-5.43)
[2018-11-16 10:58] LABS: Protime INR 1.14
[2018-11-16] MEDS ORDERED: EPOETIN ALFA 10,000 UNIT/ML VIAL SQ SCH (11:15)
[2018-11-16 11:18] LABS: Potassium 4.4 mmol/L (3.5-5.1)
[2018-11-16] MEDS ORDERED: TRANEXAMIC ACID 1,000 MG in NA CHLORIDE 0.9% 50 ML IV ONE ×4 (15:00)
--- NOTE | 2018-11-16 15:53 | PN ---
Date of Progress Note: 11/16/2018 Subjective: The patient was seen and examined during dialysis. He seems to be tolerating the dialys is treatment well. Complaining of pain in his right leg. Physical Examination: Vital Signs: Showing temperature of 99.1, pulse rate of 75, respiratory rate of 16, and blood pressu re 116/73. General: He appears in no acute distress. Lungs: Auscultation of lungs revealed bilateral wheezes. Abdomen: Soft and nontender. Extremities: Without any evidence of edema. Laboratory Data: From this morning are showing sodium of 136, potassium of 5.2, chloride of 105, BUN of 65, and creatinine of 8.9. CBC showing hemoglobin of 8.3, hematocrit 24.2, and platelet count of 134. Current Medications: Include amlodipine 10 mg every 12 hours, atenolol 50 mg a day, calcitriol, calc ium acetate, Celexa, Dilaudid p.r.n. for pain, Keppra, lorazepam p.r.n., terazosin 2 mg every 12 hour s, and thiamine 100 mg a day. Impression: 1.End-stage renal disease. The patient has been started on dialysis and is receiving his second kiley atment today secondary to underlying uncontrolled hypertension and noncompliance with medications for a while. The patient has been started on dialysis and we will send of hepatitis panel and we will p jerardo on placing him at [facility]. Once he is ready to be discharged, we will re quest social work consult. 2.Impacted fracture of right hip. The patient with right femoral neck fracture by the yue suggs. Orthopedics has been following the patient and plan for surgery after cardiac clearance. 3.Seizures disorder, chronic. 4.Hypertension, currently on multiple medications. We will go ahead and decrease amlodipine to 5 mg b.i.d. to prevent side effects and also will decrease the terazosin to at bedtime and add WILFRIDO inhibi tors or ARBs to improve the blood pressures. 5.Chronic obstructive pulmonary disease. The patient is wheezing quite a bit. We will go ahead and order nebulizer treatments as well as inhalers to improve his shortness of breath. Plan: The patient is overall improving at this time. We will request social work consult. Plan for dialysis tomorrow 3rd treatment and then Tuesday, Tuesday, Tuesday from that point on. We will give Epogen with dialysis for improving the anemia related to renal failure. May need transfusion in the meanwhile and follow up closely. Continue all other medications and plan of care. JAZMIN/ERNST Voice ID: [id number] Report ID: [id number]
--- NOTE | 2018-11-16 15:55 | P.PN ---
Subjective Date of Service: 11/16/18 Primary Care Provider: Dr. Quinteros(Int. Med/Nephrology) Chief Complaint: Impacted right hip fracture; acute kidney failure on chronic kidney disease Patient seen and examined at bedside with RN. Chart reviewed. Case discussed with general surgery and nephrology at this time. Pt is s/p HD catheter placement with Gen Surgery. Continues to be lethargic this AM. Scheduled for 2nd session of dialysis today and then ORIF with Ortho. Review of Systems 10-point ROS is otherwise unremarkable Physical Examination - Vital Signs Temperature: 98.6 F Blood Pressure: 165/85 Pulse: 86 Respirations: 16 Pulse Ox (%): 95 - Physical Exam General: Mild distress, Other (Lethargic ) HEENT: Atraumatic, PERRLA, EOMI Neck: Supple, JVD not distended Respiratory: Clear to auscultation bilaterally, Normal air movement Cardiovascular: Regular rate/rhythm, Normal S1 S2 Gastrointestinal: Normal bowel sounds, No tenderness Musculoskeletal: No tenderness Integumentary: No rashes Neurological: Normal speech, Normal tone, Normal affect Lymphatics: No axilla or inguinal lymphadenopathy - Studies Medications List Reviewed: Yes Assessment And Plan - Current Problems (Diagnosis) (1) Impacted fracture of right hip Current Visit: Yes Status: Acute Plan: Pt with Right femoral neck fracture impacted by the posterior margin -Orthopedics Consulted. Appreciate Reccs -Scheduled for ORIF today -Cardiology clearance obtained -PT/OT consulted Therapy post procedure -CM for placement post surgery Qualifiers: Encounter type: initial encounter Fracture type: closed Qualified Code(s) : S72.091A - Other fracture of head and neck of right femur, initial encounter for closed fracture (2) ESRD (end stage renal disease) Current Visit: Yes Status: Acute Plan: Acute on Chronic Renal Disease Now with ESRD needing HD due to worsening Azotemia -Nephrology Consulted. Appreciated Reccs -s/p HD catheter placement with general Surgery -Will continue with HD as per nephrology reccs -Will need Outpt setup for dialysis (3) Seizure Current Visit: Yes Status: Chronic Plan: Restarted on Home medication (4) Hypertension, uncontrolled Onset Date: 10/29/14 Current Visit: No Status: Chronic Plan: Controlled for now (5) Tobacco abuse Current Visit: Yes Status: Chronic (6) COPD (chronic obstructive pulmonary disease) Current Visit: Yes Status: Chronic Qualifiers: COPD type: chronic bronchitis Chronic bronchitis type: simple Qualified Code(s): J41.0 - Simple chronic bronchitis (7) Noncompliance Current Visit: Yes Status: Chronic Discharge Plan: Other Plan to discharge in: Greater than 2 days - Code Status/Comfort Care Code Status Assessed: Yes Critical Care: No
[2018-11-16] MEDS ORDERED: NA CHLORIDE 0.9% 1,000 ML ONE (15:58)
[2018-11-16] MEDS ORDERED: ROCURONIUM 50 MG/5 ML VIAL IV ONE (16:10)
[2018-11-16] MEDS ORDERED: LIDOCAINE 2% MPF 5 ML VIAL ONE (16:10)
[2018-11-16] MEDS ORDERED: PROPOFOL 200 MG/20 ML VIAL IV ONE (16:10)
[2018-11-16] MEDS ORDERED: FENTANYL CITR 100 MCG/2 ML ONE ×2 (16:10→18:13)
[2018-11-16] MEDS ORDERED: CEFAZOLIN 2GM (PREMIX IV) 2 GM/50 ML BAG ONE (16:40)
[2018-11-16] MEDS ORDERED: DEXAMETHASONE 10 MG/ML VIAL ONE (17:26)
[2018-11-16] MEDS ORDERED: ONDANSETRON 4 MG/2 ML VIAL ONE (17:26)
[2018-11-16] MEDS ORDERED: GLYCOPYRROLATE 0.2 MG/ML SYR ONE (17:36)
[2018-11-16] MEDS ORDERED: Phenylephrine HCl 10 MG/ML 1 ML VIAL ONE (17:51)
[2018-11-16] MEDS: CARVEDILOL 12.5 MG TAB PO SCH (18:00)
--- NOTE | 2018-11-16 18:55 | P.BOP ---
Preoperative diagnosis: right hip femoral neck fracture Postoperative diagnosis: same Primary procedure: right hip hemiarthoplasty Estimated blood loss: 100 ccs Specimen: sent Anesthesia: General Complications: None Drain(s): Other Transferred to: Recovery Room Condition: Good
[2018-11-16] MEDS ORDERED: MIDAZOLAM HCL 2 MG/2 ML INJ ONE (19:23)
[2018-11-16] MEDS: CEFAZOLIN 1GM (PREMIX IV) 1 GM/50 ML BAG IV SCH (21:00)
[2018-11-16] MEDS: AMLODIPINE 5 MG TAB PO SCH (21:48)
--- NOTE | 2018-11-17 00:51 | PN ---
Date of Progress Note: 11/16/2018 Mr. Padilla has come in with a right femoral fracture. Creatinine is 11.6. He had a hemodialysis cat heter inserted yesterday. He is having dialysis today. Pulmonary toilet is continuing for severe CO PD. He had a normal echocardiogram. He is not having any cardiac symptoms. Shortness of breath has improved. He is in sinus rhythm. From our standpoint, he is cleared to undergo surgery. We will b e available for questions if the need arise. DONNELL/ERNST Voice ID: [id number] Report ID: [id number]
--- NOTE | 2018-11-17 05:09 | OP ---
Date of Procedure: 11/16/2018 Surgeon: Ugo Garza MD Preoperative Diagnosis: Right displaced femoral neck fracture. Postoperative Diagnosis: Right displaced femoral neck fracture. Procedure: Right hip bipolar hemiarthroplasty using the Biomet system. Estimated Blood Loss: 100 cc. Complications: There were no complications. Indications For Operation: Mr. Padilla is a 58-year-old male, who unfortunately does have apparently some problems with dementia, although he is able to respond appropriately to questions and all of his questions have been answered. He does understand that he has a broken hip and understands our plan. He has injured his right lower extremity and was seen and examined in the emergency department, whe re he was ruled out for other injuries; however, x-rays demonstrated displaced femoral neck fracture on the right. All risks, benefits, and alternatives to this procedure have been discussed with the p atient. He states he understands things as presented and wishes to proceed. This case is somewhat d elayed because unfortunately he also had renal difficulties and required placement for dialysis dalia ter that he had not had in the past, also with pulmonary issues which have since been addressed. Bas ed on patient's relative probable inability to follow directions and not having any previous arthriti c changes, decision was made to move forward with a bipolar as this would be less likely to dislocate . Obviously, he is only 58 years old and so there is a great deal of thinking which goes into this, but I believe this is the most appropriate for this particular patient and he agrees to proceed. Description Of Procedure: The patient was taken to the operating room and placed in the supine posit ion. General anesthesia was obtained by staff. Following this, he was then rolled left side down wi th an axillary roll. He was then properly positioned using hip positioners. His right lower extremi ty was then prepped and draped in usual sterile fashion for our arthroplasty. A standard posterior l ateral incision was taken down carefully through skin and soft tissues. Meticulous hemostasis was be ing maintained using Bovie electrocautery. This was followed by localization of the fascia. Small s tab wound was made in the fascia and the fascial incision was then carried up until the gluteus maxim us muscles were encountered. These were then spread using finger pressure. The sciatic nerve was pa lpated and protected as retractors were placed. There was a significant amount of tenacious bursa, w hich was removed carefully, care being taken to avoid injury to the sciatic nerve. Once this was rem felicity, the external rotators and capsule were taken down carefully and tagged for later repair. This allowed for visualization of the femoral neck, which is fractured fairly low. The standard femoral n vasiliy cut was then performed and any neck pieces were removed. This was followed by visualization of t he femoral head. The femoral head was then removed using a corkscrew. It was examined. This was fo und to be without any significant arthritic change. The acetabulum also was cleared of any soft tiss ues and there was no significant arthritic change there. The decision was now finally made to procee d with bipolar hemiarthroplasty and a box shook patcher was used to lateralize the stem. This was followed by canal-finding reamer and sequentially broached up to a size 13, which did seat fairly well, althou gh I did not think well enough to proceed with press fitting of the 13 or to attempt to place 14; the refore, the size 11 is selected. The canal was then irrigated until it runs completely clear. The b one plug was placed to appropriate depth and third generation cementation technique was then used for placement of a size 11 Biomet stem. This was held in place and allowed to harden in appropriate khadar johnnie and all unsupported cement was removed. Attention was then turned back to the acetabulum and it was cleared from any obstructions. It was then trialed with a standard ball, relocates fairly easil y with good extension. He is stable to flexion of 90 degrees, full adduction, and internal rotation to 20 degrees. Decision was made to trial a +3. The +3 did not appear to be excessively tight with extension, also is stable with above parameters with the exception that it is now stable to approxima tely 30-35 degrees internal rotation with full flexion and adduction. Decision was made to proceed w ith this. The final ball was then tapped into place. The acetabulum was cleared for any obstruction s and it was then reduced. Following this, the external rotators and capsule were then repaired back to the greater trochanter via bone tunnels. The wound was irrigated again and the fascia was closed in a watertight fashion using heavy Vicryl sutures, followed by closure of skin with Vicryl followed by enoch. The patient was then placed in Aquacel dressing, abduction pillow, awakened and taken to recovery room in good condition. There were no complications. /ERNST Voice ID: [id number] Report ID: [id number]
[2018-11-17] MEDS: CARVEDILOL 12.5 MG TAB PO SCH ×2 (06:01→17:54)
[2018-11-17 06:26] LABS: Absolute Lymphocytes (CBC) 0.5 K/uL (0.7-4.9); Absolute Monocytes 0.3 K/uL (0.1-1.3); Absolute Neutrophil 8.5 K/uL (1.8-8.0); Basophils % 0.2 % (0-1.3); Hematocrit 24.3 % (39.6-49.0); MPV 10.1 fL (7.6-11.3); Monocytes % 3.7 % (3.3-12.3)
[2018-11-17 07:59] LABS: Albumin 2.7 g/dL (3.4-5.0); Bilirubin Total 0.3 mg/dL (0.2-1.0); Magnesium 2.3 mg/dL (1.8-2.4); Protein, Total 6.1 g/dL (6.4-8.2)
[2018-11-17] MEDS: CA ACETATE 667 MG CAP PO SCH ×4 (08:00→17:00)
[2018-11-17] MEDS: ARFORMOTEROL TARTRATE 15 MCG/2 ML VIAL.NEB NEB SCH ×2 (08:00→20:50)
[2018-11-17 08:03] LABS: Potassium 5.6 mmol/L (3.5-5.1)
[2018-11-17] MEDS: FOLIC ACID 1 MG TABLET PO SCH ×2 (08:48→08:54)
[2018-11-17] MEDS: THIAMINE HCL 100 MG TABLET PO SCH ×2 (08:48→08:55)
[2018-11-17] MEDS: levETIRAcetam 500 MG TAB PO SCH ×3 (08:48→21:09)
[2018-11-17] MEDS: CITALOPRAM 10 MG TABLET PO SCH ×2 (08:48→08:54)
[2018-11-17] MEDS: CALCITROL 0.25 MCG CAP PO SCH ×2 (08:48→08:55)
[2018-11-17] MEDS: FAMOTIDINE 20 MG TAB PO SCH ×3 (08:49→21:09)
[2018-11-17] MEDS: AMLODIPINE 5 MG TAB PO SCH ×3 (08:49→21:10)
[2018-11-17] MEDS: predniSONE 20 MG TAB PO SCH ×3 (08:49→21:09)
[2018-11-17] MEDS: ENOXAPARIN 30 MG/0.3 ML SQ SCH ×2 (08:50→08:54)
[2018-11-17] MEDS: FLUOCINONIDE 0.05% CREAM 30GM TOP SCH ×3 (08:54→21:00)
[2018-11-17] MEDS ORDERED: SOD POLYSTYREN SUL 15 GM/60 ML UCUP PO ONE (09:00)
--- NOTE | 2018-11-17 10:46 | P.PN ---
Subjective Date of Service: 11/17/18 Primary Care Provider: Dr. Quinteros(Int. Med/Nephrology) Chief Complaint: Impacted right hip fracture; acute kidney failure on chronic kidney disease Patient seen and examined at bedside with RN. Chart reviewed. Case discussed with general surgery and nephrology at this time. Pt is s/p HD catheter placement and ORIF with orthopedics. This morning patient has been refusing all his medications and states that he would like to go home. Patient educated extensively at bedside today regarding the need to stay and continue treatment and working with physical therapy for safe discharge home. Review of Systems 10-point ROS is otherwise unremarkable Physical Examination - Vital Signs Temperature: 98.8 F Blood Pressure: 121/71 Pulse: 67 Respirations: 18 Pulse Ox (%): 96 - Physical Exam General: Alert, In no apparent distress HEENT: Atraumatic, PERRLA, EOMI Neck: Supple, JVD not distended Respiratory: Clear to auscultation bilaterally, Normal air movement Cardiovascular: Regular rate/rhythm, Normal S1 S2 Gastrointestinal: Normal bowel sounds, No tenderness Musculoskeletal: Tenderness Integumentary: No rashes Neurological: Normal speech, Normal tone, Normal affect Lymphatics: No axilla or inguinal lymphadenopathy - Studies Medications List Reviewed: Yes Assessment And Plan - Current Problems (Diagnosis) (1) Impacted fracture of right hip Current Visit: Yes Status: Acute Plan: Pt with Right femoral neck fracture impacted by the posterior margin -Orthopedics Consulted. Appreciate Reccs -status post ORIF POD 1 -doing well postprocedure -started on Lovenox today -PT/OT consulted Therapy post procedure -CM for placement post surgery Qualifiers: Encounter type: initial encounter Fracture type: closed Qualified Code(s) : S72.091A - Other fracture of head and neck of right femur, initial encounter for closed fracture (2) ESRD (end stage renal disease) Current Visit: Yes Status: Acute Plan: Acute on Chronic Renal Disease Now with ESRD needing HD due to worsening Azotemia -Nephrology Consulted. Appreciated Reccs -s/p HD catheter placement with general Surgery -patient with elevated creatinine and potassium this morning. -will follow up with nephrology regarding dialysis (3) Seizure Current Visit: Yes Status: Chronic Plan: Restarted on Home medication (4) Hypertension, uncontrolled Onset Date: 10/29/14 Current Visit: No Status: Chronic Plan: Controlled for now (5) Tobacco abuse Current Visit: Yes Status: Chronic (6) COPD (chronic obstructive pulmonary disease) Current Visit: Yes Status: Chronic Qualifiers: COPD type: chronic bronchitis Chronic bronchitis type: simple Qualified Code(s): J41.0 - Simple chronic bronchitis (7) Noncompliance Current Visit: Yes Status: Chronic - Plan Pending clinical improvement at this time. Patient is to work with physical therapy at this time case management consulted for placement. Patient refused all placement option and want to go home. Educated extensively regarding the need to stay and worked with physical therapy for safe discharge home. Agreeable at this time. Also need for dialysis. Will need to be set up for outpatient dialysis before discharge disposition can be made. Discharge Plan: Other Plan to discharge in: 72 Hours - Code Status/Comfort Care Code Status Assessed: Yes Critical Care: No
[2018-11-17] MEDS: TRAMADOL HCL 50 MG TAB PO PRN ×2 (11:59→23:35)
[2018-11-17 12:27] LABS: HIV 1/2 Antibody Diff Not indicated.; HIV AG/AB 4TH GEN Non-reactive (Non-reactive)
--- NOTE | 2018-11-17 16:29 | PN ---
Date of Progress Note: 11/17/2018 Subjective: The patient is seen and examined. He is status post open reduction and internal fixatio n of his right hip. He is working with physical therapy. States that his right leg is hurting. Oth erwise, denies any other complaints. Objective: Vital Signs: Showing temperature of 98.8, pulse rate of 67, respiratory rate of 18, and blood pressure 121/71. General: He appears in no acute distress. Lungs: Clear to auscultation. Heart: Auscultation of the heart revealed regular rate and rhythm. Abdomen: Soft. Extremities: Without any evidence of edema. Laboratory Data: Showing mild hyperkalemia with a potassium of 5.6, chloride of 103, BUN of 52, and creatinine of 7.02. CBC showing hemoglobin improving to 8.4, hematocrit 24.3, and platelet count of 143. Current Medications: Have been reviewed in detail. Impression: 1.End-stage renal disease on dialysis secondary to underlying polycystic kidney disease, currently o n dialysis. We will be getting his third dialysis treatment today. 2.Hypertension, improved, controlled. Remains on amlodipine, terazosin 2 mg at bedtime and can be m onitored. 3.Right hip fracture status post open reduction and internal fixation. The patient is being followe d by Orthopedic, undergoing Physical Therapy and Occupational Therapy. 4.Chronic anemia secondary to end-stage renal disease. Epogen has been ordered with dialysis. 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 Has been started on PhosLo with me als. Plan: The patient is overall doing better at this time. The patient will be getting his third dialy sis treatment today. Mild hyperkalemia can be monitored and will be getting Tuesday, Tuesday, y dialysis. We have requested social worker delinquency prevention consult for placement at chronic dialysis unit. Bruce shahe physical therapy, occupational therapy, and monitor his labs. VV/GARCIAL Voice ID: [id number] Report ID: [id number]
[2018-11-17] MEDS: IPRATROPIUM BROM 0.5MG/2.5ML NEB PRN (20:50)
[2018-11-17] MEDS: TERAZOSIN HCL 1 MG CAP PO SCH (21:00)
[2018-11-17] MEDS: CEFAZOLIN 1GM (PREMIX IV) 1 GM/50 ML BAG IV SCH (21:08)
--- NOTE | 2018-11-18 05:07 | PN ---
Date of Progress Note: 11/17/2018 The patient is seen today. He does have some complaints of pain related to his hip, which is underst andable. His incision is clean, dry, and intact with no sign of drainage or other problems. He is n eurovascularly intact. He is able to move his toes easily. On review of his laboratory, he does hav e a hemoglobin of 8.4 as well as high potassium and high creatinine. This is being treated by Nephro logy as well as the hospitalist. Discussed with him anticoagulation. Obviously, we will make a deci johnnie on any sort of medication changes for pain and need for transfusion. I am unsure when he is goi ng to get dialyzed again, probably fairly soon. The patient himself really does not have any complai nts other than some pain. He says he has been seen by Physical Therapy, though I do not see any note s here. All of his questions have otherwise been answered today. LYUDMILA Voice ID: [id number] Report ID: [id number]
[2018-11-18] MEDS: CARVEDILOL 12.5 MG TAB PO SCH ×2 (06:32→17:45)
[2018-11-18] MEDS: CA ACETATE 667 MG CAP PO SCH ×3 (08:00→16:25)
[2018-11-18] MEDS: ARFORMOTEROL TARTRATE 15 MCG/2 ML VIAL.NEB NEB SCH ×2 (08:15→20:00)
[2018-11-18] MEDS: ENOXAPARIN 30 MG/0.3 ML SQ SCH (09:00)
[2018-11-18] MEDS: THIAMINE HCL 100 MG TABLET PO SCH (09:00)
[2018-11-18] MEDS: levETIRAcetam 500 MG TAB PO SCH ×2 (09:00→21:47)
[2018-11-18] MEDS: FLUOCINONIDE 0.05% CREAM 30GM TOP SCH ×3 (09:00→21:00)
[2018-11-18] MEDS: FOLIC ACID 1 MG TABLET PO SCH (10:16)
[2018-11-18] MEDS: TRAMADOL HCL 50 MG TAB PO PRN ×3 (10:16→21:52)
[2018-11-18] MEDS: CALCITROL 0.25 MCG CAP PO SCH (10:16)
[2018-11-18] MEDS: predniSONE 20 MG TAB PO SCH ×2 (10:17→21:47)
[2018-11-18] MEDS: CITALOPRAM 10 MG TABLET PO SCH (10:17)
[2018-11-18] MEDS: AMLODIPINE 5 MG TAB PO SCH ×2 (10:17→21:47)
[2018-11-18] MEDS: FAMOTIDINE 20 MG TAB PO SCH ×2 (10:17→21:47)
[2018-11-18 12:38] LABS: Absolute Lymphocytes (CBC) 0.9 K/uL (0.7-4.9); Absolute Neutrophil 7.7 K/uL (1.8-8.0); Basophils % 0.1 % (0-1.3); Eosinophils % 0.1 % (0-4.4); Hematocrit 21.9 % (39.6-49.0); Lymphocytes % 9.8 % (15.3-44.8); MPV 10.4 fL (7.6-11.3); RBC Red Blood Cell Count 2.43 M/uL (4.33-5.43)
[2018-11-18 13:09] LABS: Albumin 2.5 g/dL (3.4-5.0); Bilirubin Total 0.3 mg/dL (0.2-1.0); Potassium 3.9 mmol/L (3.5-5.1); Protein, Total 5.6 g/dL (6.4-8.2)
--- NOTE | 2018-11-18 17:46 | P.PN ---
Subjective Date of Service: 11/18/18 Primary Care Provider: Dr. Quinteros(Int. Med/Nephrology) Chief Complaint: Impacted right hip fracture; acute kidney failure on chronic kidney disease Patient seen and examined at bedside with RN. Chart reviewed. Case discussed with general surgery and nephrology at this time. Pt is s/p HD catheter placement and ORIF with orthopedics. Patient educated extensively at bedside today regarding the need to stay and continue treatment and working with physical therapy for safe discharge home. Review of Systems 10-point ROS is otherwise unremarkable Physical Examination - Vital Signs Temperature: 98.3 F Blood Pressure: 115/74 Pulse: 66 Respirations: 18 Pulse Ox (%): 95 - Physical Exam General: Alert, In no apparent distress HEENT: Atraumatic, PERRLA, EOMI Neck: Supple, JVD not distended Respiratory: Clear to auscultation bilaterally, Normal air movement Cardiovascular: Regular rate/rhythm, Normal S1 S2 Gastrointestinal: Normal bowel sounds, No tenderness Musculoskeletal: No tenderness Integumentary: No rashes Neurological: Normal speech, Normal tone, Normal affect Lymphatics: No axilla or inguinal lymphadenopathy - Studies Medications List Reviewed: Yes Assessment And Plan - Current Problems (Diagnosis) (1) Impacted fracture of right hip Current Visit: Yes Status: Acute Plan: Pt with Right femoral neck fracture impacted by the posterior margin -Orthopedics Consulted. Appreciate Reccs -status post ORIF POD 2 -doing well post-procedure -started on Lovenox today -PT/OT consulted -CM for placement to possible Inpatient Rehab Qualifiers: Encounter type: initial encounter Fracture type: closed Qualified Code(s) : S72.091A - Other fracture of head and neck of right femur, initial encounter for closed fracture (2) ESRD (end stage renal disease) Current Visit: Yes Status: Acute Plan: Acute on Chronic Renal Disease Now with ESRD needing HD due to worsening Azotemia -Nephrology Consulted. Appreciated Reccs -s/p HD catheter placement with general Surgery -patient with elevated creatinine and potassium. Scheduled for dialysis flex. -will follow up with nephrology regarding dialysis (3) Seizure Current Visit: Yes Status: Chronic Plan: Restarted on Home medication (4) Hypertension, uncontrolled Onset Date: 10/29/14 Current Visit: No Status: Chronic Plan: Controlled for now (5) Tobacco abuse Current Visit: Yes Status: Chronic (6) COPD (chronic obstructive pulmonary disease) Current Visit: Yes Status: Chronic Qualifiers: COPD type: chronic bronchitis Chronic bronchitis type: simple Qualified Code(s): J41.0 - Simple chronic bronchitis (7) Noncompliance Current Visit: Yes Status: Chronic - Plan Pending clinical improvement at this time. Patient is to work with physical therapy at this time case management consulted for placement. Educated extensively regarding the need to stay and worked with physical therapy for safe discharge home. Agreeable at this time. Also need for dialysis. Will need to be set up for outpatient dialysis before discharge disposition can be made. Discharge Plan: Other Plan to discharge in: 48 Hours - Code Status/Comfort Care Code Status Assessed: Yes Critical Care: No
[2018-11-18] MEDS: TERAZOSIN HCL 1 MG CAP PO SCH (21:00)
[2018-11-18 21:29] LABS: HBsAG Nonreactive (Nonreactive); Hepatitis A IgM Antibody Nonreactive
--- NOTE | 2018-11-18 21:31 | PN ---
Date of Progress Note: 11/18/2018 Subjective: Patient is seen at the bedside. No overnight events reported. The patient feels well. He denies any fevers, chills, chest pain, shortness of breath, nausea, vomiting, or diarrhea. He is also complaining of pain in the area of the hip fracture, however, it is tolerable at this time. Objective: Vital Signs: Blood pressure 115/74, pulse 66, temperature 98.3. General: No acute distress. Heart: Regular rate and rhythm. No murmurs, rubs, gallops. Lungs: Clear to auscultation bilaterally. Abdomen: Soft, nontender, nondistended. Positive bowel sounds x4. Extremities: No significant edema. Laboratory Data: CBC showing hemoglobin and hematocrit 7.4/21.9. Serum chemistry; sodium 135, potas sium 3.9, chloride 99, CO2 of 27, BUN 46, creatinine 5.3, glucose 137, calcium 6.7. Current Medications: Reviewed. Of note, patient is on amlodipine 5 mg p.o. q.12 hours, calcitriol 0 .25 daily, PhosLo 667 mg p.o. 3 times daily, carvedilol 12.5 mg b.i.d., prednisone 20 mg b.i.d., billie zosin 2 mg at bedtime. Impression: 1.End-stage renal disease secondary to polycystic kidney disease, now requiring hemodialysis with ca theter placement with catheter having been placed. 2.Hip fracture. 3.Anemia, possibly from blood loss. 4.Hypocalcemia. Plan: The patients will have dialysis on a Tuesday, Tuesday, Tuesday schedule. Arrangements were alyssa avelar for the patient to have placement in the dialysis unit in [place]. Patient does have anemia, transfuse as needed. Transfusion will be allowed off dialysis if necessary as the patient as needed and will likely be able to handle the associated volume of a 1 unit blood transfusion. The patient has hypocalcemia and has been started on calcitriol. Ensure that the patient is taking the phosphate . His phosphorus binder with meals as hypocalcemia can be seen in the hyperphosphatemia associated w ith renal disease. SE/MODL Voice ID: [id number] Report ID: [id number]
[2018-11-18] MEDS: CEFAZOLIN 1GM (PREMIX IV) 1 GM/50 ML BAG IV SCH (21:47)
[2018-11-18] MEDS: ACETAMINOPHEN 500 MG TAB PO PRN (23:55)
[2018-11-19] MEDS: CARVEDILOL 12.5 MG TAB PO SCH ×2 (06:00→17:50)
[2018-11-19] MEDS: ARFORMOTEROL TARTRATE 15 MCG/2 ML VIAL.NEB NEB SCH ×2 (08:00→19:30)
[2018-11-19] MEDS: THIAMINE HCL 100 MG TABLET PO SCH (08:24)
[2018-11-19] MEDS: predniSONE 20 MG TAB PO SCH ×2 (08:24→20:42)
[2018-11-19] MEDS: CALCITROL 0.25 MCG CAP PO SCH (08:24)
[2018-11-19] MEDS: CA ACETATE 667 MG CAP PO SCH ×3 (08:24→17:50)
[2018-11-19] MEDS: TRAMADOL HCL 50 MG TAB PO PRN ×2 (08:24→20:44)
[2018-11-19] MEDS: FOLIC ACID 1 MG TABLET PO SCH (08:25)
[2018-11-19] MEDS: FAMOTIDINE 20 MG TAB PO SCH ×2 (08:25→20:42)
[2018-11-19] MEDS: levETIRAcetam 500 MG TAB PO SCH ×2 (08:25→20:42)
[2018-11-19] MEDS: CITALOPRAM 10 MG TABLET PO SCH (08:25)
[2018-11-19] MEDS: AMLODIPINE 5 MG TAB PO SCH ×2 (08:26→20:41)
[2018-11-19] MEDS: ENOXAPARIN 30 MG/0.3 ML SQ SCH (08:26)
[2018-11-19] MEDS: FLUOCINONIDE 0.05% CREAM 30GM TOP SCH ×3 (08:26→20:44)
[2018-11-19] MEDS: ACETAMINOPHEN 500 MG TAB PO PRN (11:47)
[2018-11-19] MEDS ORDERED: NA CHLORIDE 0.9% 250 ML ONE (12:19)
--- NOTE | 2018-11-19 12:19 | P.PN ---
Subjective Date of Service: 11/19/18 Primary Care Provider: Dr. Quinteros(Int. Med/Nephrology) Chief Complaint: Impacted right hip fracture; acute kidney failure on chronic kidney disease Patient seen and examined at bedside with RN. Chart reviewed. Case discussed with general surgery and nephrology at this time. Pt is s/p HD catheter placement and ORIF with orthopedics. Patient educated extensively at bedside today regarding the need to stay and continue treatment and working with physical therapy for safe discharge home. Review of Systems 10-point ROS is otherwise unremarkable Physical Examination - Vital Signs Temperature: 97.6 F Blood Pressure: 108/61 Pulse: 56 Respirations: 17 Pulse Ox (%): 99 - Physical Exam General: Alert, In no apparent distress HEENT: Atraumatic, PERRLA, EOMI Neck: Supple, JVD not distended Respiratory: Clear to auscultation bilaterally, Normal air movement Cardiovascular: Regular rate/rhythm, Normal S1 S2 Gastrointestinal: Normal bowel sounds, No tenderness Musculoskeletal: No tenderness Integumentary: No rashes Neurological: Normal speech, Normal tone, Normal affect Lymphatics: No axilla or inguinal lymphadenopathy - Studies Medications List Reviewed: Yes Assessment And Plan - Current Problems (Diagnosis) (1) Impacted fracture of right hip Current Visit: Yes Status: Acute Plan: Pt with Right femoral neck fracture impacted by the posterior margin -Orthopedics Consulted. Appreciate Reccs -status post ORIF POD 3 -doing well post-procedure -started on Lovenox today -PT/OT consulted -CM for placement to possible Inpatient Rehab Qualifiers: Encounter type: initial encounter Fracture type: closed Qualified Code(s) : S72.091A - Other fracture of head and neck of right femur, initial encounter for closed fracture (2) ESRD (end stage renal disease) Current Visit: Yes Status: Acute Plan: Acute on Chronic Renal Disease Now with ESRD needing HD due to worsening Azotemia -Nephrology Consulted. Appreciated Reccs -s/p HD catheter placement with general Surgery -Getting HD here in the hospital (3) Seizure Current Visit: Yes Status: Chronic Plan: Restarted on Home medication (4) Hypertension, uncontrolled Onset Date: 10/29/14 Current Visit: No Status: Chronic Plan: Controlled for now (5) Tobacco abuse Current Visit: Yes Status: Chronic (6) COPD (chronic obstructive pulmonary disease) Current Visit: Yes Status: Chronic Qualifiers: COPD type: chronic bronchitis Chronic bronchitis type: simple Qualified Code(s): J41.0 - Simple chronic bronchitis (7) Noncompliance Current Visit: Yes Status: Chronic - Plan Pending clinical improvement at this time. Patient is to work with physical therapy at this time case management consulted for placement. Educated extensively regarding the need to stay and worked with physical therapy for safe discharge home. Agreeable at this time. Also need for dialysis. Will need to be set up for outpatient dialysis before discharge disposition can be made. Discharge Plan: Other Plan to discharge in: 48 Hours - Code Status/Comfort Care Code Status Assessed: Yes Critical Care: No
[2018-11-19 12:35] LABS: Absolute Lymphocytes (CBC) 0.7 K/uL (0.7-4.9); Absolute Monocytes 0.6 K/uL (0.1-1.3); Absolute Neutrophil 8.9 K/uL (1.8-8.0); Basophils % 0.1 % (0-1.3); Hematocrit 23.3 % (39.6-49.0); Lymphocytes % 6.9 % (15.3-44.8); MPV 10.2 fL (7.6-11.3); Monocytes % 6.3 % (3.3-12.3); RBC Red Blood Cell Count 2.59 M/uL (4.33-5.43)
[2018-11-19 13:06] LABS: Albumin 2.6 g/dL (3.4-5.0); Bilirubin Total 0.3 mg/dL (0.2-1.0); Potassium 4.1 mmol/L (3.5-5.1)
[2018-11-19 17:57] LABS: Hematocrit 25.7 % (39.6-49.0)
[2018-11-19] MEDS: IPRATROPIUM BROM 0.5MG/2.5ML NEB PRN (19:30)
[2018-11-19] MEDS: TERAZOSIN HCL 1 MG CAP PO SCH (20:43)
[2018-11-19] MEDS ORDERED: LORazepam 2 MG/ML VIAL IV ONE (21:46)
[2018-11-20] MEDS: CARVEDILOL 12.5 MG TAB PO SCH (05:58)
[2018-11-20 05:59] LABS: Absolute Lymphocytes (CBC) 1.1 K/uL (0.7-4.9); Absolute Monocytes 0.7 K/uL (0.1-1.3); Absolute Neutrophil 10.9 K/uL (1.8-8.0); Basophils % 0.1 % (0-1.3); Hematocrit 27.5 % (39.6-49.0); Lymphocytes % 8.5 % (15.3-44.8); MPV 9.9 fL (7.6-11.3); Monocytes % 5.6 % (3.3-12.3); RBC Red Blood Cell Count 3.04 M/uL (4.33-5.43)
[2018-11-20 06:18] LABS: Albumin 2.8 g/dL (3.4-5.0); Bilirubin Total 0.4 mg/dL (0.2-1.0); Potassium 5.2 mmol/L (3.5-5.1); Protein, Total 6.2 g/dL (6.4-8.2)
[2018-11-20 06:33] LABS: Blood Morphology Comment NOT SEEN (NOT SEEN); Platelet Estimate ADEQ; Urine White Blood Cell Casts OK
[2018-11-20] MEDS: CA ACETATE 667 MG CAP PO SCH ×2 (08:00→12:12)
[2018-11-20] MEDS: ARFORMOTEROL TARTRATE 15 MCG/2 ML VIAL.NEB NEB SCH (08:05)
[2018-11-20] MEDS: AMLODIPINE 5 MG TAB PO SCH (09:00)
[2018-11-20] MEDS: FLUOCINONIDE 0.05% CREAM 30GM TOP SCH (09:00)
[2018-11-20 09:08] VITALS: O2SAT 96
[2018-11-20] MEDS: TRAMADOL HCL 50 MG TAB PO PRN (12:13)
[2018-11-20] MEDS: CALCITROL 0.25 MCG CAP PO SCH (12:13)
[2018-11-20] MEDS: THIAMINE HCL 100 MG TABLET PO SCH (12:13)
[2018-11-20] MEDS: CITALOPRAM 10 MG TABLET PO SCH (12:13)
[2018-11-20] MEDS: levETIRAcetam 500 MG TAB PO SCH (12:13)
[2018-11-20] MEDS: FAMOTIDINE 20 MG TAB PO SCH (12:14)
[2018-11-20] MEDS: ENOXAPARIN 30 MG/0.3 ML SQ SCH (12:14)
[2018-11-20] MEDS: FOLIC ACID 1 MG TABLET PO SCH (12:14)
[2018-11-20] MEDS: predniSONE 20 MG TAB PO SCH (12:14)
[2018-11-20 14:09] VITALS: BP 128/74; TEMP 97.9
--- NOTE | 2018-11-20 16:02 | P.DS ---
Admission Date: 11/13/18 Discharge Date: 11/20/18 Primary Care Provider: Dr. Quinteros(Int. Med/Nephrology) Discharge Condition: GOOD Reason for Admission: Impacted right hip fracture; acute kidney failure on chronic kidney disease Consultations: Orthopedics Nephrology Rehab - Problems (1) Impacted fracture of right hip Current Visit: Yes Status: Acute Qualifiers: Encounter type: initial encounter Fracture type: closed Qualified Code(s) : S72.091A - Other fracture of head and neck of right femur, initial encounter for closed fracture (2) ESRD (end stage renal disease) Current Visit: Yes Status: Acute (3) Seizure Current Visit: Yes Status: Chronic (4) Hypertension, uncontrolled Onset Date: 10/29/14 Current Visit: No Status: Chronic (5) Tobacco abuse Current Visit: Yes Status: Chronic (6) COPD (chronic obstructive pulmonary disease) Current Visit: Yes Status: Chronic Qualifiers: COPD type: chronic bronchitis Chronic bronchitis type: simple Qualified Code(s): J41.0 - Simple chronic bronchitis (7) Noncompliance Current Visit: Yes Status: Chronic Brief History of Present Illness: Patient is a 58-year-old gentleman who came into the hospital for after falling. Patient had not been feeling well and was very dizzy. Patient apparently fell and landed on the right side of his hip. CT scan revealed a right-sided impacted hip fracture. Toe has acute kidney failure. Has a history of chronic kidney disease and has been seeing a local Nephrology. However, his renal function has continued to deteriorate. His electrolytes are abnormal. He will be admitted to the hospital for further workup. Allergies Hospital Course: Overall during the hospital stay patient remained stable Patient was initially admitted to the hospital for right femoral neck fracture. Orthopedics were consulted. Who recommended the patient has electrolyte imbalance adjusted 1st before the surgery. Patient has chronic kidney disease which was causing him to have acute azotemia. Nephrology was consulted who recommended the patient be started on hemodialysis. General surgery was consulted who did a hemo split catheter to start dialysis while here in the hospital. Cardiology was consulted for cardiac clearance. Patient did get cardiac clearance from Cardiology after he was started on hemodialysis. At that point orthopedic took the patient to the OR and did opal reduction internal fixation. Patient tolerated the procedure well without any abnormalities. Physical therapy at that time was consulted. Patient worked well with physical therapy. Inpatient rehab was consulted done for placement. Patient then was transferred to inpatient rehab 1 acceptance was achieved. Patient continued on hemodialysis while here in the hospital. Had no complications from hemodialysis. Did have anemia of chronic disease along with acute blood loss anemia most likely secondary to surgery. Had 2 units of transfusion while here in the hospital. No complications were noted during this hospital visit. Patient was transferred to inpatient rehab under stable condition. Patient will be set up for outpatient hemodialysis while in inpatient rehab. All other chronic conditions remained stable while here in the hospital. Vital Signs/Physical Exam: Temp Pulse Resp BP Pulse Ox 97.9 F 61 20 128/74 96 11/20/18 12:00 11/20/18 12:00 11/20/18 12:00 11/20/18 12:00 11/20/18 12:00 General: Alert, In no apparent distress HEENT: Atraumatic, PERRLA, EOMI Neck: Supple, JVD not distended Respiratory: Clear to auscultation bilaterally, Normal air movement Cardiovascular: Regular rate/rhythm, Normal S1 S2 Gastrointestinal: Normal bowel sounds, No tenderness Musculoskeletal: No tenderness Integumentary: No rashes Neurological: Normal speech, Normal tone, Normal affect Lymphatics: No axilla or inguinal lymphadenopathy Laboratory Data at Discharge: WBC 12.7 K/uL (4.3-10.9) H D 11/20/18 05:31 Hgb 9.1 g/dL (13.6-17.9) L 11/20/18 05:31 Hct 27.5 % (39.6-49.0) L 11/20/18 05:31 Plt Count 172 K/uL (152-406) 11/20/18 05:31 PT 13.5 SECONDS (9.5-12.5) H 11/16/18 10:34 INR 1.14 11/16/18 10:34 APTT 30.3 SECONDS (24.3-36.9) 11/16/18 10:34 Sodium 134 mmol/L (136-145) L 11/20/18 05:31 Potassium 5.2 mmol/L (3.5-5.1) H 11/20/18 05:31 BUN 79 mg/dL (7-18) H 11/20/18 05:31 Creatinine 7.51 mg/dL (0.55-1.3) H* 11/20/18 05:31 Glucose 148 mg/dL (74-106) H 11/20/18 05:31 Phosphorus 6.9 mg/dL (2.5-4.9) H 11/15/18 05:31 Magnesium 2.3 mg/dL (1.8-2.4) 11/17/18 05:45 Total Bilirubin 0.4 mg/dL (0.2-1.0) 11/20/18 05:31 AST 13 U/L (15-37) L 11/20/18 05:31 ALT 7 U/L (12-78) L 11/20/18 05:31 Alkaline Phosphatase 48 U/L (45-117) 11/20/18 05:31 Home Medications: Colchicine [Colcrys] 0.6 mg PO BID 05/22/13 Fluocinonide Cream [Lidex 0.05% Cream*] 15 gm TP TID 05/22/13 Citalopram Hydrobromide [Celexa] 1 tab PO DAILY 10/28/14 Amlodipine [Norvasc*] 10 mg PO Q12H #180 tab 10/29/14 Terazosin HCl [Hytrin*] 2 mg PO Q12H #180 cap 10/29/14 levETIRAcetam [Keppra*] 500 mg PO BID #180 tab 10/29/14 Arformoterol Tartrate [Brovana] 15 mcg NEB BIDRESP #1 vial.neb 11/20/18 Carvedilol [Coreg*] 12.5 mg PO BID 6AM 6PM #60 tab 11/20/18 Famotidine [Pepcid*] 20 mg PO BID #60 tab 11/20/18 Thiamine HCl [Vitamin B-1*] 100 mg PO DAILY #30 tablet 11/20/18 predniSONE [Prednisone*] 20 mg PO BID #20 tab 11/20/18 traMADol HCL [Ultram*] 50 mg PO Q6H PRN #10 tab 11/20/18 New Medications: Arformoterol Tartrate [Brovana] 15 mcg NEB BIDRESP #1 vial.neb Carvedilol [Coreg*] 12.5 mg PO BID 6AM 6PM #60 tab Famotidine [Pepcid*] 20 mg PO BID #60 tab predniSONE [Prednisone*] 20 mg PO BID #20 tab Thiamine HCl [Vitamin B-1*] 100 mg PO DAILY #30 tablet traMADol HCL [Ultram*] 50 mg PO Q6H PRN #10 tab PRN Reason: Pain Diet: Regular Activity: Ad camilo Followup: Lyle Naylor MD [ACTIVE - CAN ADMIT] - Ugo Garza MD [ACTIVE - CAN ADMIT] -
[2018-11-21 21:17] LABS: Hep C Virus RNA (PCR)log 6.33 log IU/mL
--- NOTE | 2018-11-21 22:54 | P.PN ---
Date of Service: 11/20/18 Vital Signs Temp Pulse Resp BP Pulse Ox 97.9 F 61 20 128/74 96 11/20/18 12:00 11/20/18 12:00 11/20/18 12:00 11/20/18 12:00 11/20/18 12:00 Assessment/ Plan: Nephrology CPS stable without CP or SOB. No pain. No acute events overnight. Vitals, medications, blood work and imaging reviewed in the chart. NAD. MMM. Neck supple. CTA. RRR. Soft Abd. No C/C/E. No rash. AAO. Normal Speech. A/ ESRD. HD initiated. Hyperkalemia. DM II with CKD. HTN with CKD. Diastolic CHF, chronic. RUTHIE/ Secondary HyperPTH. Hypocalcemia. HyperPO4. Anemia in CKD. HCV. P/ Continue current POC and Medications other than the changes listed below. AM labs. Daily weight. No NSAIDs. Arrange for acute HD. Start binders and vitamin d. PT as tolerated.
[2018-11-22 03:52] LABS: HBsAG Nonreactive (Nonreactive)
== END 2018-11-20 13:20 | DRG 469 ==
LOC: ER 15:31 → ERHOLD 20:01 → 2ND 22:25 → UNDODISIN 11-20 13:20
PROVIDERS: ADMIT Hospitalist; ATTEND Family Medicine
PROC: 0JH60XZ Insertion of Tunneled Vascular Access Device into Chest Subcutaneous Tissue and Fascia, Open Approach (ICD-10-PCS; 2018-11-15)
PROC: 05HM33Z Insertion of Infusion Device into Right Internal Jugular Vein, Percutaneous Approach (ICD-10-PCS; 2018-11-15)
PROC: 5A1D70Z Performance of Urinary Filtration, Intermittent, Less than 6 Hours Per Day (ICD-10-PCS; 2018-11-15)
PROC: 5A1D70Z Performance of Urinary Filtration, Intermittent, Less than 6 Hours Per Day (ICD-10-PCS; 2018-11-16)
PROC: 0SRR0JZ Replacement of Right Hip Joint, Femoral Surface with Synthetic Substitute, Open Approach (ICD-10-PCS; principal; 2018-11-16 16:30)
PROC: 5A1D70Z Performance of Urinary Filtration, Intermittent, Less than 6 Hours Per Day (ICD-10-PCS; 2018-11-17)
PROC: 5A1D70Z Performance of Urinary Filtration, Intermittent, Less than 6 Hours Per Day (ICD-10-PCS; 2018-11-20)
DX: S72.001A Fracture of unspecified part of neck of right femur, initial encounter for closed fracture (principal); N18.6 End stage renal disease; N17.9 Acute kidney failure, unspecified; J44.1 Chronic obstructive pulmonary disease with (acute) exacerbation; Q61.3 Polycystic kidney, unspecified; I13.2 Hypertensive heart and chronic kidney disease with heart failure and with stage 5 chronic kidney disease, or end stage renal disease; I50.32 Chronic diastolic (congestive) heart failure; G40.909 Epilepsy, unspecified, not intractable, without status epilepticus; L40.9 Psoriasis, unspecified; K76.0 Fatty (change of) liver, not elsewhere classified; E87.5 Hyperkalemia; M10.9 Gout, unspecified; F10.10 Alcohol abuse, uncomplicated; R56.9 Unspecified convulsions; D63.1 Anemia in chronic kidney disease; E83.51 Hypocalcemia; F12.90 Cannabis use, unspecified, uncomplicated; W19.XXXA Unspecified fall, initial encounter; F17.200 Nicotine dependence, unspecified, uncomplicated; Z91.19 Patient's noncompliance with other medical treatment and regimen; Z99.2 Dependence on renal dialysis
CPT/HCPCS: 36415; 36430; 71045; 73700; 76000; 76770; 80048; 80053; 80074; 80076; 80307; 80320; 81003; 81015; 82550; 82607; 82728; 82805; 83540; 83735; 83880; 84100; 84439; 84443; 84466; 84484; 85014; 85018; 85025; 85610; 85730; 86317; 86704; 86706; 86850; 86900; 86901; 87070; 87205; 87340; 87389; 87522; 88305; 88311; 90935; 93005; 93306; 94640; 96361; 96365; 96375; 97116; 97163; 97165; 97530; 99285; C1752; J0360; J0690; J1100; J1170; J1644; J1650; J2250; J2370; J2405; J2704; J3010; J3475; J7030; J7512; J7605; P9016; Q4081

== ENCOUNTER 2018-11-20 09:42 | Inpatient (IN) | payer OTHER ==
--- NOTE | 2018-11-20 11:46 | R.PREADM ---
SCREENING DATE AND TIME 11/20/2018 10:01 (GAS ENGINE OPERATOR) ANTICIPATED REHAB ADMISSION DATE 11/22/2018 REFERRING FACILITY [facility] REFERRAL DATE AND TIME 11/20/2018 10:01 (GAS ENGINE OPERATOR) ACUTE ADMIT DATE 11/13/2018 Previous Rehabilitation(s): No. REFERRING PHYSICIAN Guillermina Escobedo REHAB FACILITY [facility] CLINICAL LIAISON Harley Aparicio PHYSICIAN REVIEWER Dr. Jeffy Cordero M.D. MR# [id number] NAME MILTON VARELA AD[address]ESS [address] [facility] [place]IP [address] DATE OF 1960 AGE 58 SSN# [id number] GENDER male MARITAL STATUS RACE white ADMIT FROM 02 - [facility] PRE-HOSPITAL LIVING SETTING 01 - Home (private home/apt. board/care, assisted living, jail, transitional living) HOME TYPE AND DETAILS Type of home: single family house # of steps within the residence: 0 # of steps to enter the residence: 2 # of levels in the residence: 1 PRE-HOSPITAL LIVING WITH Family/Relatives FAMILY SUPPORT Yes PRIMARY FAMILY CONTACT NAME Serena Salguero PRIMARY FAMILY CONTACT PHONE PHONE PRIMARY FAMILY CONTACT ON ADM.? no IS PRIMARY FAMILY CONTACT AUTH. REP.? no 1ST EMERGENCY CONTACT Serena Salguero 1ST CONTACT PHONE PHONE 1ST CONTACT ON ADM. no IS 1ST CONTACT AUTH. REP.? no PHONE 2ND CONTACT ON ADM.? no PATIENT EMPLOYMENT STATUS Employed [employer]alty [employer] PAYOR INFORMATION: 1ST PAYOR NAME Medicare 1ST PAYOR PHONE 1ST PAYOR INJURY/ILLNESS DUE TO ACCIDENT? No ANOTHER REPUBLICAN RESPONSIBLE? No PRIMARY REHAB/ACUTE DIAGNOSIS: R Femoral neck fx ESRD REHAB IMPAIRMENT CATEGORY (SANDRA): 07 Fracture of LE (FracLE) MEETS 60% rule AFFECTED EXTREMITIES: RLE PRIMARY DIAGNOSIS-RELATED SURGERIES: Emergency Unilateral Hip Fracture - performed by Ugo Garza on 11/16/2018 COMORBID REHAB/ACUTE DIAGNOSES: - N/A ckd stage III hypertensive disorder COPD INTERVENTIONS: - COPD 02 sats Medications Nebulizers Oxygen Resp. therapy X-rays RISK FOR COMPLICATIONS: - COPD Acute Resp failure Pneumonia Resp. Arrest SUMMARY OF ACUTE HOSPITALIZATION: Pt. is a 58 yo Right-handed white male. On 11/13/2018 he was admitted to [facility] and underwent emergency surgery for R Femoral neck fx (Unilateral Hip Fracture) by Guillermina Escobedo. Pre-morbidly, Pt. was independent/mod-I in Sphincter Control, Transfers Control, Communication, Socia l Cognition, Self-Care, and Locomotion; and he had good Sphincter Control. Currently, he has deficits of Safety Awareness, Transfers Control, Balance, Endurance, Locomotion, an d Self-Care. Pt. is now referred to [facility] for acute in-patient rehabilitation in order to maximize patient's functional independence in activities of daily living, strength, ROM, and mobi lity. Patient has realistic goal of being discharged at assistance level 6-Marlyn to reside at Home with Fam sharita/Relatives. PAST MEDICAL HISTORY COPD ckd stage III hypertensive disorder gout Hepatomegaly psoriasis PAST SURGICAL HISTORY: r leg surgery MEDICATION ALLERGIES: No Known Drug Allergies (NKDA) ENVIRONMENTAL ALLERGIES: - Substance Allergies None Known - Other Allergies None Known CODE STATUS: Full code WEIGHT/HEIGHT/BMI: WEIGHT 180 lbs HEIGHT 5' 11" BMI 25.1 DIET: - Diet Type Regular - Diet - Solid Texture Regular - Diet - Liquid Texture Regular - Tube Feed N/A SKIN DIAGRAM: Incision on Right hip; extent - small; stage - NS(Not Stageable). Treatment - Per Physician's Orders. REVIEW OF SYSTEMS: - Gen Alert and awake Lying in bed No apparent distress Oriented to: person, time, and place - Vital Signs Vital signs stable, afebrile - CVS RRR VITAL SIGNS Temperature: 97.8 F SBP/DBP: 129/72 Pulse: 56 Resp: 18 Vital signs stable, afebrile CURRENT SPHINCTER CONTROL: Pre-hospital bladder status: continent # of bladder accidents in the last 7 days prior to screenin Pre-hospital bowel status: continent # of bowel accidents in the last 7 days prior to screenin Last Bowel Movement Date: 11/20/2018 DETAILED CURRENT FUNCTIONAL STATUS: - Bladder accident frequency: Ind - No accidents in the past 7 days - Bowel accident frequency: Ind - No accidents in the past 7 days - Walking score based on distance walked: 3(>=150ft) FUNCTIONAL STATUS: - Self-Care A. Eating Ind Ind B. Grooming Ind Ind C. Bathing Ind Ind D. Dressing - Upper Ind Ind E. Dressing - Lower Ind Marge F. Toileting Ind sup - Sphincter Control G: Bladder control Ind Ind H: Bowel control Ind Ind - Transfers Control I. Bed/Chair/Wheelchair Ind sup J. Toilet Ind sup K. Tub/Shower Ind sup - Locomotion L. Walk/Wheelchair (B) Ind Marlyn M. Stairs Ind ADNO - Communication N. Comprehension (B) Ind Marlyn O. Expression (B) Ind Marlyn - Social Cognition P. Social Interaction Ind Marlyn Q. Problem Solving Ind Marlyn R. Memory Ind Marlyn - Endurance Fair - Balance Poor - Safety Awareness Fair CURRENT FUNC. DEFICITS: Safety Awareness, Transfers Control, Balance, Endurance, Locomotion, and Self-Care THERAPY NOTES FROM ACUTE CARE: Attached. SPECIAL NEEDS: - Safety Concerns Skin breakdown precautions needed due to skin breakdown risk PRECAUTIONS: - Posterior Hip Precaution No adduction across midline No external rotation No hip flexion >90 degrees No internal rotation No wheel chair propulsion - Weight Bearing Precaution WBAT right LE PATIENT NEEDS ACTIVE AND ONGOING THERAPEUTIC INTERVENTION OF MULTIPLE THERAPY DISCIPLINES, INCLUDING: - Occupational Therapy Evaluate and Treat. - Physical Therapy Evaluate and Treat. PATIENT NEEDS CLOSE MEDICAL SUPERVISION BY A REHABILITATION PHYSICIAN FOR: Bowel and Bladder Management Coordination of Treatment Team Medical and Co-Morbidity Management Post-Op Complications Wound Care PATIENT REQUIRES 24X7 REHAB NURSING FOR MEDICAL AND FUNCTIONAL MGT. OF THE FOLLOWING DEFICITS: ADL's Ambulation Bowel and Bladder Management Cognition Communication Disease Management Medication Management Patient/Family Education Providing Safe Environment Skin Integrity Transfers PATIENT REQUIRES INTENSIVE, COORDINATED INTERDISCIPLINARY APPROACH TO REHAB: Arranging Home Equipment/Services Discharge Planning Family Intervention/Training Terrazzo Tile Setter/Case Management PATIENT REHAB POTENTIAL: Expected level of measurable improvement will be of a practical value to patient's functional capacit y or adaptations to impairments Has a viable Discharge Plan Medically appropriate; condition is sufficiently stable to participate in intensive rehab program Patient is able and expected to receive 3 hours of individualized therapy daily on at least 5 of ever y 7 days Patient's prognosis for significant practical improvement within a reasonable period of time appears Good DISCHARGE PLAN: - Estimated Length of Stay (days) 14. - Consensus on plan Discharge plan has been discussed with primary caregiver. Patient/Family is in agreement with the krys n. Primary caregiver is in agreement with the plan. - Patient/Family Goals Return home with assistance. - Planned Living Setting Upon Discharge Home, to live with Family/Relatives. RECOMMENDED CARE LEVEL: IRF RECOMMENDATION DETAILS: Recommended Admission to Comprehensive Rehabilitation Program to Increase Functional [place] SCREENER'S COMPLETENESS CONFIRMATION: - Screening Confirmation The patient data collection on this preadmission screening form is finished PHYSICIANS REVIEW AND ADMISSION DETERMINATION Admit - Based on my review of the Pre-Admission Screening results, in my medical judgment and experie nce, I concur with the findings and recommend admission to [facility], as this patient requires an IRF level of care. SIGNATURE PANEL: Clinical Liaison - [electronically] signed by Cristina Brand on 11/20/2018 at 11:26 (GAS ENGINE OPERATOR) Clinical Liaison - [electronically] signed by Harley Aparicio PT on 11/20/2018 at 11:40 (GAS ENGINE OPERATOR) Physician Reviewer - [electronically] signed by Dr. Jeffy Cordero M.D. on 11/20/2018 at 11:45 (GAS ENGINE OPERATOR )
[2018-11-20] MEDS ORDERED: AMLODIPINE 10 MG TAB PO SCH (20:00)
[2018-11-20] MEDS ORDERED: FAMOTIDINE 20 MG TAB PO SCH (20:00)
[2018-11-20] MEDS ORDERED: CARVEDILOL 12.5 MG TAB PO SCH (20:00)
[2018-11-20] MEDS: FLUOCINONIDE 0.05% CREAM 30GM TOP SCH (20:35)
[2018-11-20] MEDS: predniSONE 20 MG TAB PO SCH (20:43)
[2018-11-20] MEDS: COLCHICINE 0.6 MG TAB PO SCH (20:43)
[2018-11-20] MEDS: levETIRAcetam 500 MG TAB PO SCH (20:43)
[2018-11-20] MEDS: TERAZOSIN HCL 1 MG CAP PO SCH (20:44)
[2018-11-20] MEDS: ARFORMOTEROL TARTRATE 15 MCG/2 ML VIAL.NEB NEB SCH (20:51)
[2018-11-20 21:09] LABS: Urine Appearance CLEAR; Urine Bilirubin NEGATIVE (NEG); Urine Blood 1+ (NEG); Urine Color YELLOW; Urine Glucose TRACE (NEG); Urine Protein 2+ (NEG); Urine Specific Gravity <=1.005 (1.005-1.030); Urine Urobilinogen 0.2 mg/dL (0.2-1.0)
[2018-11-20] MEDS ORDERED: LORAZEPAM 0.5 MG TABLET PO PRN (21:19)
[2018-11-20 21:26] LABS: Urine Amorphous Sediment TRACE /HPF (NONE SEEN); Urine Bacteria <20 /HPF (NONE SEEN); Urine Culture Reflex Order NOT NEEDED; Urine RBC <5 /HPF (NONE SEEN)
--- NOTE | 2018-11-21 01:38 | FAST ---
SHIFT START DATE/TIME: 11/20/2018 19:00 (SOFTWARE PROJECT LEAD) SHIFT END DATE/TIME: 11/21/2018 07:00 (SOFTWARE PROJECT LEAD) NAME MILTON VARELA DATE OF : 1960 DATE OF ADMISSION: 11/20/2018 17:22 (SOFTWARE PROJECT LEAD) PHONE: AGE: 58 SSN# [id number] GENDER: Male ENCOUNTER PHYSICIAN: Dr. Jeffy Cordero M.D. ADMISSION DIAGNOSIS: - Orthopaedic Disorders 08 - Unilateral Hip Fracture (06.24) R Femoral neck fx. ESRD. EATING: Activity did not occur on this shift EATING - SCORE: 0-UNK GROOMING: Activity did not occur on this shift GROOMING - SCORE: 0-UNK BATHING: Activity did not occur on this shift BATHING - SCORE: 0-UNK DRESSING - UPPER BODY: Activity did not occur on this shift ARTICLES SCORE Total number of steps: 0 DRESSING - UPPER BODY - SCORE: 0-UNK DRESSING - LOWER BODY: Activity did not occur on this shift ARTICLES SCORE Total number of steps: 0 DRESSING - LOWER BODY - SCORE: 0-UNK TOILETING: TOILETING - STEP 1: Does the patient require the assistance of a person or device, or need extra time with toileting? Yes . TOILETING - STEP 2: Does the patient require the assistance of a helper? Yes. TOILETING - STEP 3: How much assistance does the patient require from the helper? Only supervision TOILETING - SCORE: 5-SUP BLADDER MANAGEMENT: BLADDER MANAGEMENT - STEP 1: Does the patient control the bladder completely and intentionally without equipment or devices or med ications, and is always continent? No. BLADDER MANAGEMENT - STEP 2: Does the patient require the assistance of a helper? Yes. BLADDER MANAGEMENT - STEP 3: How much assistance does the patient require from the helper? Only set-up of equipment - such as plac ing it within reach of the patient or emptying a device - to maintain either satisfactory voiding pat tern or managing an external device, such as an absorbent pad, ileal device, or catheter BLADDER MANAGEMENT - SCORE: 5-SUP BOWEL MANAGEMENT: Activity did not occur on this shift BOWEL MANAGEMENT - SCORE: 7-IND TRANSFERS: BED, CHAIR, WHEELCHAIR: Activity did not occur on this shift TRANSFERS: BED, CHAIR, WHEELCHAIR - SCORE: 0-UNK TRANSFERS: TOILET: Activity did not occur on this shift TRANSFERS: TOILET - SCORE: 0-UNK TRANSFERS: SHOWER: Activity did not occur on this shift TRANSFERS: SHOWER - SCORE: 0-UNK TRANSFERS: TUB: Activity did not occur on this shift TRANSFERS: TUB - SCORE: 0-UNK LOCOMOTION: WALK: Activity did not occur on this shift LOCOMOTION: WALK - SCORE: 0-UNK LOCOMOTION: WHEELCHAIR: Activity did not occur on this shift LOCOMOTION: WHEELCHAIR - SCORE: 0-UNK COMPREHENSION: COMPREHENSION: TYPE: Both COMPREHENSION - STEP 1: Does the patient require help from a person or device, or need extra time to understand complex and a bstract ideas (such as current events, finances, discharge planning, medical issues, relationships, e tc)? Yes. COMPREHENSION - STEP 2: Does the patient require help to understand questions or statements about basic needs or ideas (such as hunger, thirst, sleep, safety, daily schedule, room location, or discomfort) half or more of the t dean? No. COMPREHENSION - STEP 3: How often does the patient need help to understand directions and conversation about basic needs? Les s than 10% of the time COMPREHENSION - SCORE: 5-SUP EXPRESSION EXPRESSION: TYPE: Both EXPRESSION - STEP 1: Does the patient require help from a person or device, or need extra time expressing complex and abst ract ideas (such as current events, finances, discharge planning, medical issues, relationships, etc) ? Yes. EXPRESSION - STEP 2: Does the patient require help to express basic necessities or ideas (such as hunger, thirst, sleep, s afety, daily schedule, room location, or discomfort) half or more of the time? No. EXPRESSION - STEP 3: How often does the patient need help to express directions and conversation about basic needs? Less t rosa 10% of the time EXPRESSION - SCORE: 5-SUP SOCIAL INTERACTION: SOCIAL INTERACTION - STEP 1: Does the patient require a helper to interact with others in social and therapeutic situations? Yes. SOCIAL INTERACTION - STEP 2: Does the patient interact appropriately half or more of the time? Yes. SOCIAL INTERACTION - STEP 3: How often does the patient need help to interact appropriately? Less than 10% of the time SOCIAL INTERACTION - SCORE: 5-SUP PROBLEM SOLVING: PROBLEM SOLVING - STEP 1: Does the patient need help from a person or device, or need extra time to solve complex problems such as managing a checking account or confronting interpersonal problems? Yes. PROBLEM SOLVING - STEP 2: Does the patient solve basic routine problems half or more of the time? Yes. PROBLEM SOLVING - STEP 3: How often does the patient need help to solve basic routine problems? Less than 10% of the time PROBLEM SOLVING - SCORE: 5-SUP MEMORY: MEMORY - STEP 1: Does the patient need help from a person or device, or need extra time to remember frequently encount ered people, daily routines, and executing requests? Yes. MEMORY - STEP 2: How often does the patient need help to remember frequently encountered people, daily routines, and e xecuting requests? 25% - 49% of the time MEMORY - SCORE: 3-MOD SIGNATURE PANEL: The following modified sections: Eating - Score, Grooming - Score, Bathing - Score, Dressing - Upper Body - Score, Dressing - Lower Body - Score, Toileting - Score, Bladder Management - Score, Bowel Man agement - Score, Transfers: Bed, Chair, Wheelchair - Score, Transfers: Toilet - Score, Transfers: Julieta wer - Score, Transfers: Tub - Score, Locomotion: Walk - Score, Locomotion: Wheelchair - Score, Compre hension - Score, Expression - Score, Social Interaction - Score, Problem Solving - Score, Memory - Sc ore were [electronically] signed by Zara Tilley RN on TueNov 21 2018 01:37:38 GMT-0600 (Central Stand mary Time)
[2018-11-21 06:18] LABS: Absolute Lymphocytes (CBC) 1.1 K/uL (0.7-4.9); Absolute Neutrophil 10.7 K/uL (1.8-8.0); Basophils % 0.1 % (0-1.3); Hematocrit 26.4 % (39.6-49.0); Lymphocytes % 8.4 % (15.3-44.8); MPV 9.6 fL (7.6-11.3); Monocytes % 7.9 % (3.3-12.3); RBC Red Blood Cell Count 2.95 M/uL (4.33-5.43)
[2018-11-21] MEDS: HEPARIN 5000 UNIT/ML 1 ML VIAL SQ SCH ×2 (07:30→20:56)
[2018-11-21 07:59] LABS: Blood Morphology Comment NOT SEEN (NOT SEEN); Platelet Estimate ADEQ
[2018-11-21] MEDS: TERAZOSIN HCL 1 MG CAP PO SCH ×2 (08:00→20:00)
[2018-11-21] MEDS: THIAMINE HCL 100 MG TABLET PO SCH (08:26)
[2018-11-21] MEDS: AMLODIPINE 10 MG TAB PO SCH (08:26)
[2018-11-21] MEDS: CARVEDILOL 12.5 MG TAB PO SCH ×2 (08:27→20:00)
[2018-11-21] MEDS: FAMOTIDINE 20 MG TAB PO SCH (08:27)
[2018-11-21] MEDS: predniSONE 20 MG TAB PO SCH ×2 (08:27→20:56)
[2018-11-21] MEDS: CITALOPRAM 10 MG TABLET PO SCH (08:27)
[2018-11-21] MEDS: TRAMADOL HCL 50 MG TAB PO PRN ×3 (08:28→16:35)
[2018-11-21] MEDS: ARFORMOTEROL TARTRATE 15 MCG/2 ML VIAL.NEB NEB SCH ×2 (08:45→20:50)
[2018-11-21] MEDS: FLUOCINONIDE 0.05% CREAM 30GM TOP SCH ×3 (08:58→20:58)
[2018-11-21 09:18] LABS: Albumin 2.4 g/dL (3.4-5.0); Magnesium 2.1 mg/dL (1.8-2.4); Potassium 3.9 mmol/L (3.5-5.1); Prealbumin 23.8 mg/dL (20-40)
[2018-11-21 10:46] VITALS: BMI 26.4
[2018-11-21] MEDS: COLCHICINE 0.6 MG TAB PO SCH ×2 (10:57→20:56)
[2018-11-21] MEDS: levETIRAcetam 500 MG TAB PO SCH ×2 (10:58→20:56)
[2018-11-21] MEDS ORDERED: MANNITOL 25% 12.5 GM/50 ML VIAL IV PRN (11:04)
[2018-11-21] MEDS ORDERED: NA CHLORIDE 0.9% 1,000 ML IV PRN (11:04)
[2018-11-21] MEDS ORDERED: ALBUMIN HUMAN 25% 50 ML IV SCH (12:00)
[2018-11-21] MEDS: SEVELAMER CARBONATE 800 MG TABLET PO SCH ×2 (12:27→16:35)
--- NOTE | 2018-11-21 13:32 | FAST ---
ENCOUNTER DATE AND TIME: 11/21/2018 08:00 (INTERNATIONAL FREIGHT FORWARDER) NAME MILTON VARELA DATE OF : 1960 DATE OF ADMISSION: 11/20/2018 17:22 (INTERNATIONAL FREIGHT FORWARDER) PHONE: AGE: 58 SSN# [id number] GENDER: Male ENCOUNTER PHYSICIAN: Dr. Jeffy Cordero M.D. ADMISSION DIAGNOSIS: - Orthopaedic Disorders 08 - Unilateral Hip Fracture (06.24) R Femoral neck fx. ESRD. EATING: Activity did not occur on this shift EATING - SCORE: 0-UNK GROOMING: Activity did not occur on this shift GROOMING - SCORE: 0-UNK BATHING: Activity did not occur on this shift BATHING - SCORE: 0-UNK DRESSING - UPPER BODY: Activity did not occur on this shift Patient is not dressing in public clothing ARTICLES SCORE Total number of steps: 0 DRESSING - UPPER BODY - SCORE: 0-UNK DRESSING - LOWER BODY: Activity did not occur on this shift Patient is not dressing in public clothing ARTICLES SCORE Total number of steps: 0 DRESSING - LOWER BODY - SCORE: 0-UNK TOILETING: Activity did not occur on this shift TOILETING - SCORE: 0-UNK BLADDER MANAGEMENT: Activity did not occur on this shift BLADDER MANAGEMENT - SCORE: 7-IND BOWEL MANAGEMENT: Activity did not occur on this shift BOWEL MANAGEMENT - SCORE: 7-IND TRANSFERS: BED, CHAIR, WHEELCHAIR: TRANSFERS: BED, CHAIR, WHEELCHAIR - STEP 1: Does the patient require assistance of a person or device, or need extra time with bed, chair, or whe elchair transfers? Yes. TRANSFERS: BED, CHAIR, WHEELCHAIR - STEP 2: Does the patient require the assistance of a helper? Yes. TRANSFERS: BED, CHAIR, WHEELCHAIR - STEP 3: How much assistance does the patient require from the helper? Only supervision TRANSFERS: BED, CHAIR, WHEELCHAIR - SCORE: 5-SUP TRANSFERS: TOILET: TRANSFERS: TOILET - STEP 1: Does the patient require the assistance of a person or device, or need extra time with toilet transfe rs? Yes. TRANSFERS: TOILET - STEP 2: Does the patient require the assistance of a helper? Yes. TRANSFERS: TOILET - STEP 3: How much assistance does the patient require from the helper? Only supervision, cuing, coaxing, OR he lp to set out transfer equipment or to lock brakes and/or lift foot rests TRANSFERS: TOILET - SCORE: 5-SUP TRANSFERS: SHOWER: Activity did not occur on this shift TRANSFERS: SHOWER - SCORE: 0-UNK TRANSFERS: TUB: Activity did not occur on this shift TRANSFERS: TUB - SCORE: 0-UNK LOCOMOTION: WALK: LOCOMOTION: WALK - STEP 1: Does the patient need help from a person or device, or need extra time to walk 150 feet? Yes. LOCOMOTION: WALK - STEP 2: How much assistance does the patient require to walk a minimum of 150 feet? Only supervision, cuing, or coaxing LOCOMOTION: WALK - SCORE: 5-SUP LOCOMOTION: WHEELCHAIR: LOCOMOTION: WHEELCHAIR - STEP 1: Does the patient need help to go 150 feet in a wheelchair? Yes. LOCOMOTION: WHEELCHAIR - STEP 2: How much assistance does the patient need from the helper? Only supervision, cuing, or coaxing LOCOMOTION: WHEELCHAIR - SCORE: 5-SUP LOCOMOTION: STAIRS: Activity did not occur on this shift LOCOMOTION: STAIRS - SCORE: 0-UNK LOCOMOTION: STAIRS - COMMENTS: Activity attempted but pt refused. COMPREHENSION: COMPREHENSION - SCORE: 0-UNK EXPRESSION EXPRESSION - SCORE: 0-UNK SOCIAL INTERACTION: SOCIAL INTERACTION - SCORE: 0-UNK PROBLEM SOLVING: PROBLEM SOLVING - SCORE: 0-UNK MEMORY: MEMORY - SCORE: 0-UNK SIGNATURE PANEL: The following modified sections: Transfers: Bed, Chair, Wheelchair - Score, Transfers: Toilet - Score , Locomotion: Walk - Score, Locomotion: Wheelchair - Score, Locomotion: Stairs - Score, Locomotion: S tairs - Comments: were [electronically] signed by Julia Rubio on TueNov 21 2018 13:31:26 GMT-060 0 (Central Standard Time)
--- NOTE | 2018-11-21 15:08 | FAST ---
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 Jeffy Cordero M.D. ADMISSION DIAGNOSIS: - Orthopaedic Disorders 08 - Unilateral Hip Fracture (06.24) R Femoral neck fx. ESRD. EATING: EATING - STEP 1: Does the patient require the assistance of a person or device, or need extra time when eating? Yes. EATING - STEP 2: Does the patient require the assistance of a helper? No, patient only requires an assistive device, O R s/he takes more than reasonable time to eat, OR there is a safety concern, OR s/he requires modifie d food consistency EATING - SCORE: 6-ALESSIO GROOMING: Activity did not occur on this shift GROOMING - SCORE: 0-UNK BATHING: Activity did not occur on this shift BATHING - SCORE: 0-UNK DRESSING - UPPER BODY: Activity did not occur on this shift ARTICLES SCORE Total number of steps: 0 DRESSING - UPPER BODY - SCORE: 0-UNK DRESSING - LOWER BODY: Activity did not occur on this shift ARTICLES SCORE Total number of steps: 0 DRESSING - LOWER BODY - SCORE: 0-UNK TOILETING: TOILETING - STEP 1: Does the patient require the assistance of a person or device, or need extra time with toileting? Yes . TOILETING - STEP 2: Does the patient require the assistance of a helper? Yes. TOILETING - STEP 3: How much assistance does the patient require from the helper? Hands-on assistance from the helper TOILETING - STEP 4: Of the 3 tasks: 1) Adjusting clothing prior to use, 2) Cleansing of perineal area, 3) Adjusting clot walker after use; How many tasks does the patient perform WITHOUT assistance of the helper? Two tasks TOILETING - SCORE: 3-MOD BLADDER MANAGEMENT: BLADDER MANAGEMENT - STEP 1: Does the patient control the bladder completely and intentionally without equipment or devices or med ications, and is always continent? Yes. BLADDER MANAGEMENT - SCORE: 7-IND BOWEL MANAGEMENT: Activity did not occur on this shift BOWEL MANAGEMENT - SCORE: 7-IND TRANSFERS: BED, CHAIR, WHEELCHAIR: TRANSFERS: BED, CHAIR, WHEELCHAIR - STEP 1: Does the patient require assistance of a person or device, or need extra time with bed, chair, or whe elchair transfers? Yes. TRANSFERS: BED, CHAIR, WHEELCHAIR - STEP 2: Does the patient require the assistance of a helper? Yes. TRANSFERS: BED, CHAIR, WHEELCHAIR - STEP 3: How much assistance does the patient require from the helper? Steadying/guiding assistance TRANSFERS: BED, CHAIR, WHEELCHAIR - SCORE: 4-MIN TRANSFERS: TOILET: TRANSFERS: TOILET - STEP 1: Does the patient require the assistance of a person or device, or need extra time with toilet transfe rs? Yes. TRANSFERS: TOILET - STEP 2: Does the patient require the assistance of a helper? Yes. TRANSFERS: TOILET - STEP 3: How much assistance does the patient require from the helper? Patient performs half or more of the tr ansferring tasks TRANSFERS: TOILET - STEP 4: Does the patient need only incidental help such as contact guard or steadying during toilet transfer? Yes. TRANSFERS: TOILET - SCORE: 4-MIN TRANSFERS: SHOWER: Activity did not occur on this shift TRANSFERS: SHOWER - SCORE: 0-UNK TRANSFERS: TUB: Activity did not occur on this shift TRANSFERS: TUB - SCORE: 0-UNK LOCOMOTION: WALK: Activity did not occur on this shift LOCOMOTION: WALK - SCORE: 0-UNK LOCOMOTION: WHEELCHAIR: Activity did not occur on this shift LOCOMOTION: WHEELCHAIR - SCORE: 0-UNK COMPREHENSION: COMPREHENSION: TYPE: Both COMPREHENSION - STEP 1: Does the patient require help from a person or device, or need extra time to understand complex and a bstract ideas (such as current events, finances, discharge planning, medical issues, relationships, e tc)? Yes. COMPREHENSION - STEP 2: Does the patient require help to understand questions or statements about basic needs or ideas (such as hunger, thirst, sleep, safety, daily schedule, room location, or discomfort) half or more of the t dean? No. COMPREHENSION - STEP 3: How often does the patient need help to understand directions and conversation about basic needs? Les s than 10% of the time COMPREHENSION - SCORE: 5-SUP EXPRESSION EXPRESSION: TYPE: Both EXPRESSION - STEP 1: Does the patient require help from a person or device, or need extra time expressing complex and abst ract ideas (such as current events, finances, discharge planning, medical issues, relationships, etc) ? Yes. EXPRESSION - STEP 2: Does the patient require help to express basic necessities or ideas (such as hunger, thirst, sleep, s afety, daily schedule, room location, or discomfort) half or more of the time? No. EXPRESSION - STEP 3: How often does the patient need help to express directions and conversation about basic needs? 10-24% of the time EXPRESSION - SCORE: 4-MIN SOCIAL INTERACTION: SOCIAL INTERACTION - STEP 1: Does the patient require a helper to interact with others in social and therapeutic situations? Yes. SOCIAL INTERACTION - STEP 2: Does the patient interact appropriately half or more of the time? Yes. SOCIAL INTERACTION - STEP 3: How often does the patient need help to interact appropriately? Less than 10% of the time SOCIAL INTERACTION - SCORE: 5-SUP PROBLEM SOLVING: PROBLEM SOLVING - STEP 1: Does the patient need help from a person or device, or need extra time to solve complex problems such as managing a checking account or confronting interpersonal problems? Yes. PROBLEM SOLVING - STEP 2: Does the patient solve basic routine problems half or more of the time? Yes. PROBLEM SOLVING - STEP 3: How often does the patient need help to solve basic routine problems? Less than 10% of the time PROBLEM SOLVING - SCORE: 5-SUP MEMORY: MEMORY - STEP 1: Does the patient need help from a person or device, or need extra time to remember frequently encount ered people, daily routines, and executing requests? Yes. MEMORY - STEP 2: How often does the patient need help to remember frequently encountered people, daily routines, and e xecuting requests? Less than 10% of the time MEMORY - SCORE: 5-SUP SIGNATURE PANEL: The following modified sections: Eating - Score, Grooming - Score, Bathing - Score, Dressing - Upper Body - Score, Dressing - Lower Body - Score, Toileting - Score, Bladder Management - Score, Bowel Man agement - Score, Transfers: Bed, Chair, Wheelchair - Score, Transfers: Shower - Score, Transfers: Alexander let - Score, Transfers: Tub - Score, Locomotion: Wheelchair - Score, Locomotion: Walk - Score, Compre hension - Score, Expression - Score, Social Interaction - Score, Problem Solving - Score, Memory - Sc ore were [electronically] signed by Gt Vela on TueNov 21 2018 15:08:26 GMT-0600 (Central Standard Time)
[2018-11-21] MEDS: FE SULF/FA/VIT B COMP & C TAB PO SCH (16:35)
[2018-11-21] MEDS: FERROUS SULFATE 325 MG TAB PO SCH (16:35)
--- NOTE | 2018-11-21 18:24 | R.HP ---
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 board/care, assisted living, shelter, transitional living) PRE-HOSPITAL LIVING WITH Family/Relatives ENCOUNTER PHYSICIAN: Dr. Jeffy Cordero M.D. REFERRING DOCTOR: guillermina Escobedo DATE OF ADMISSION: 11/20/2018 17:22 (WOOL DYER) REFERRING FACILITY [facility] HOME TYPE AND DETAILS: Type of home: single family house # of steps within the residence: 0 # of steps to enter the residence: 2 # of levels in the residence: 1 ADMISSION DIAGNOSIS: R Femoral neck fx ESRD PRIMARY DIAGNOSIS-RELATED SURGERIES: Emergency Unilateral Hip Fracture - performed by Ugo Garza on 11/16/2018 SECONDARY/COMORBID DIAGNOSES (TIERED): - N/A ckd stage III hypertensive disorder COPD HISTORY OF PRESENT ILLNESS (HPI): Pt. is a 58 yo Right-handed white male. On 11/13/2018 he was admitted to [facility] and underwent emergency surgery for R Femoral neck fx (Unilateral Hip Fracture) by Guillermina Escobedo. Pre-morbidly, Pt. was independent/mod-I in Sphincter Control, Transfers Control, Communication, Socia l Cognition, Self-Care, and Locomotion; and he had good Sphincter Control. Currently, he has deficits of Safety Awareness, Transfers Control, Balance, Endurance, Locomotion, an d Self-Care. Pt. is now referred to [facility] for acute in-patient rehabilitation in order to maximize patient's functional independence in activities of daily living, strength, ROM, and mobi lity. Patient has realistic goal of being discharged at assistance level 6-Marlyn to reside at Home with Fam sharita/Relatives. MEDICATION ALLERGIES: No Known Drug Allergies (NKDA) ENVIRONMENTAL ALLERGIES: - Substance Allergies None Known - Other Allergies None Known PAST MEDICAL HISTORY: COPD ckd stage III hypertensive disorder gout Hepatomegaly psoriasis PAST SURGICAL HISTORY: r leg surgery FAMILY HISTORY: Family history is not contributory. SOCIAL HISTORY: - Home Living Family/Relatives REVIEW OF SYSTEMS: - Gen No Chills Fatigue No Fever - Eyes No Double Vision No itchiness - ENMT No Difficulty Swallowing - CVS No Chest Discomfort No Chest Pain Fatigue No Weight Gain - Resp No Cough No Shortness of Breath - GI Continent No Abdominal Pain No Constipation No Diarrhea - Continent No Kidney Pain No Painful Urination No Urinary Urgency - MSK No Joint Pain Muscle Cramps Stiffness - Skin No Itching No Rash No Suspicious Lesions - Neuro Coordination Difficulty No Difficulty with Concentration No Memory Loss No Seizures Weakness - Psych No Anxiety No Depression No HIV Exposure No Persistent Infections No Seasonal Allergies - Endo No Cold/Heat Intolerance No Excessive Hunger No Excessive Thirst No Excessive Urination PHYSICAL EXAM - Gen Alert and awake Lying in bed No apparent distress Oriented to: person, time, and place - Skin No breakdown No abnormalities - Eyes No abnormalities - ENMT No abnormalities - Neck No abnormalities - CVS RRR - Chest No abnormalities - Abd + bowel sounds - GI Soft Deferred - No abnormalities - Ext no edema - MSK 4+/5 weakness in right lower extremity. - Neuro 4/5 strength right lower extremity - Psych No abnormalities VITAL SIGNS Temperature: 97.8 F SBP/DBP: 129/72 Pulse: 56 Resp: 18 NURSING: - Shower allowing shower - Skin care per protocol PRECAUTIONS: - Posterior Hip Precaution No adduction across midline No external rotation No hip flexion >90 degrees No internal rotation No wheel chair propulsion - Weight Bearing Precaution WBAT right LE ACTIVITIES OOB only with supervision FUNCTIONAL STATUS: - Self-Care A. Eating Ind Ind B. Grooming Ind Ind C. Bathing Ind Ind D. Dressing - Upper Ind Ind E. Dressing - Lower Ind Marge F. Toileting Ind sup - Sphincter Control G: Bladder control Ind Ind H: Bowel control Ind Ind - Transfers Control I. Bed/Chair/Wheelchair Ind sup J. Toilet Ind sup K. Tub/Shower Ind sup - Locomotion L. Walk/Wheelchair (B) Ind Marlyn M. Stairs Ind ADNO - Communication N. Comprehension (B) Ind Marlyn O. Expression (B) Ind Marlyn - Social Cognition P. Social Interaction Ind Marlyn Q. Problem Solving Ind Marlyn R. Memory Ind Marlyn - Endurance Fair - Balance Poor - Safety Awareness Fair CURRENT FUNC. DEFICITS: Safety Awareness, Transfers Control, Balance, Endurance, Locomotion, and Self-Care ASSESSMENT: Pt. is a 58 yo Right-handed white male.On 11/13/2018 he was admitted to [facility] and underwent emergency surgery for R Femoral neck fx (Unilateral Hip Fracture) by Guillermina Escobedo .Pre-morbidly, Pt. was independent/mod-I in Sphincter Control, Transfers Control, Communication, Soci al Cognition, Self-Care, and Locomotion; and he had good Sphincter Control.Currently, he has deficits of Safety Awareness, Transfers Control, Balance, Endurance, Locomotion, and Self-Care.Pt. is now ref erred to [facility] for acute in-patient rehabilitation in order to maximize p atient's functional independence in activities of daily living, strength, ROM, and mobility.- Rehab G oal Patient has realistic goal of being discharged at assistance level 6-Marlyn to reside at Home with Fam sharita/Relatives. REHAB PLAN: - Physical Therapy Decreased range of motion - to improve, our physical therapists will perform initial evaluation of pt 's status upon admission and devise an individualized program for increasing patient's Range of Motio n. Gait dysfunction - to improve, our physical therapists will perform initial evaluation of pt's status upon admission and devise an individualized program for Gait Training, and Wheel Chair mobility Inability to transfer - to improve, our physical therapists will perform initial evaluation of pt's s tatus upon admission and devise an individualized program for Bed mobility Need for home safety evaluation - to improve, our physical therapists will perform initial evaluation of pt's status upon admission and devise an individualized program for Home Evaluation Need in caregiver upon discharge - to improve, our physical therapists will perform initial evaluatio n of pt's status upon admission and devise an individualized program for Caregiver Training New precaution - to improve, our physical therapists will perform initial evaluation of pt's status u jennifer admission and devise an individualized program for Patient precaution education Poor balance - to improve, our physical therapists will perform initial evaluation of pt's status upo n admission and devise an individualized program for Balance Training Poor endurance - to improve, our physical therapists will perform initial evaluation of pt's status u jennifer admission and devise an individualized program for Endurance Training Weakness - to improve, our physical therapists will perform initial evaluation of pt's status upon ad mission and devise an individualized program for Aquatic Therapy, Neuromuscular Reeducation, and Stre ngthening Achieving independence - to improve, our physical therapists will perform initial evaluation of pt's status upon admission and devise an individualized program for Community Reintegration Activities - Occupational Therapy ADL deficits - to improve, our occupation therapists will perform initial evaluation of pt's status u jennifer admission and devise an individualized program for Bathing, Bed mobility, Community Reintegration , Cooking, Dressing, Eating, Fine Motor Skills, Grooming, Homemaking, Kitchen Mobility, Laundry, Yusra ent Education, Safety Awareness, Splinting - Positioning, Transfers(Toilet, Tub, Shower), and Wheel C hair Management Need for child care centre director - to improve, our occupation therapists will perform initial evaluation of pt's s tatus upon admission and devise an individualized program for Caregiver Training Weakness - to improve, our occupation therapists will perform initial evaluation of pt's status upon admission and devise an individualized program for Aquatic Therapy, Balance, Endurance, UE ROM, and U E strengthening MEDICAL PLAN: - Anterior Hip Precaution No abduction No active extension No adduction across midline No external rotation No hip flexion >90 degrees No internal rotation - Diet - Liquid Texture Start Regular - Tube Feed Start N/A - Diet Type Start Regular - Posterior Hip Precaution No adduction across midline No external rotation No hip flexion >90 degrees No internal rotation No wheel chair propulsion - Weight Bearing Precaution WBAT right LE - Skin care per protocol - Diet - Solid Texture Regular - Shower shower DISCHARGE PLAN: - Estimated Length of Stay (days) 14. - Consensus on plan Discharge plan has been discussed with primary caregiver. Patient/Family is in agreement with the krys n. Primary caregiver is in agreement with the plan. - Patient/Family Goals Return home with assistance. - Planned Living Setting Upon Discharge Home, to live with Family/Relatives. SIGNATURE PANEL: (WOOL DYER)
--- NOTE | 2018-11-21 18:26 | PAPE ---
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 Jeffy Cordero M.D. ADMISSION DIAGNOSIS: R Femoral neck fx ESRD ONSET DATE 11/13/2018 SECONDARY/COMORBID DIAGNOSES TIERED: - N/A ckd stage III hypertensive disorder COPD POST-ADMISSION FUNCTIONAL/MEDICAL STATUS: - Bladder Same accident frequency: Ind - No accidents in the past 7 days - Bowel Same accident frequency: Ind - No accidents in the past 7 days - Walking Same score based on distance walked: 3(>=150ft) STATUS CHANGE EVALUATION: No change in Functional or Medical Status is identified compared with Pre-Admission screening. PATIENT NEEDS CLOSE MEDICAL SUPERVISION BY A REHABILITATION PHYSICIAN FOR: Bowel and Bladder Management Coordination of Treatment Team Medical and Co-Morbidity Management Post-Op Complications Wound Care PATIENT REQUIRES 24X7 REHAB NURSING FOR MEDICAL AND FUNCTIONAL MGT. OF THE FOLLOWING DEFICITS: ADL's Ambulation Bowel and Bladder Management Cognition Communication Disease Management Medication Management Patient/Family Education Providing Safe Environment Skin Integrity Transfers PATIENT REQUIRES INTENSIVE, COORDINATED INTERDISCIPLINARY APPROACH TO REHAB: Arranging Home Equipment/Services Discharge Planning Family Intervention/Training Head Correction Officer/Case Management LIST OF IDENTIFIED AND POTENTIAL PROBLEMS: Alteration in leisure activities Bladder, Incontinence Bowel, Incontinence Infection, Actual or Potential Mobility Impaired Pain, Alteration in Comfort Self Care Deficit Skin Integrity, Actual or Potential Urinary Tract Infection (UTI), Actual or Potential RISK FOR COMPLICATIONS - COPD Acute Resp failure. Pneumonia. Resp. Arrest. INTERVENTIONS - COPD 02 sats. Medications. Nebulizers. Oxygen. Resp. therapy. X-rays. PATIENT COULD BE AT RISK FOR COMPLICATIONS FROM ADVERSE MEDICAL CONDITIONS DUE TO HIS/HER COMORBIDITI ES AND THE RIGORS OF THE INTENSIVE REHABILLITATION PROGRAM. METHODS OR INTERVENTIONS TO AVOID COMPLIC ATIONS INCLUDE: - Bleeding Assess lab values and manage abnormalities. Nursing to teach precautions for anti-coagulation therapy . Wound to be assessed every shift. - Infection Clinical staff to assess and manage the signs and symptoms of infection including fever, redness, war mth, etc. - Urinary Tract Infection - Falls Patient will be evaluated for Fall Precautions and will be placed on Fall Precautions as indicated pe r protocol. - Skin Breakdown Nursing will assess skin daily using assessment tool and will place on Skin Breakdown Precautions as indicated per protocol. - Pain Clinical staff may employ non-medication methods such as massage, distraction, decrease stimulus, etc . as needed. Clinical staff will assess patient's pain level every shift per protocol to assess and e nsure pain management effectiveness. Medications will be given and the pain level re-assessed. PRELIMINARY PLAN OF CARE: - Physical Therapy Patient needs Physical Therapy for a daily minimum of 1.5 hours at least 5 out of 7 days, to improve: Mobility, Strengthening, Transfers, Stretching, ROM, Endurance, Ability to manage stairs, Gait, and Balance. - Rehabilitation Nursing Patient requires 24x7 Rehabilitation Nursing for: Pain Issues, Identifying and preventing risk factor s, Monitoring and reporting current medical conditions, Assisting with ambulation and transfer, Jan ting with all ADL-s, Teaching patients about disease process and medications, Family teaching, Provid ing safe environment, Bowel and Bladder Issues, Skin Integrity, and Medication Management. Patient needs Head Correction Officer and/or Case Management for: Discharge Planning, Arranging Home Equipmen t or Services, and Family Interventions. - Dietary and Nutrition Services Patient needs Dietary and Nutrition Services for: Adequate Nutrition, Nutritional Supplements, and Nu tritional Education. - Occupational Therapy Patient needs Occupational Therapy for a daily minimum of 1.5 hours at least 5 out of 7 days, to impr ove Activities of Daily Living, including: Eating, Grooming, Bathing, Dressing, Toileting, Toilet Tra nsfers, Community Reintegration, Higher functional activities, Adaptive Equipment, Splinting, Househo ld Tasks, and Other activities as determined. POTENTIAL FUNCTIONAL GOALS FOR PATIENT TO ACHIEVE BY DISCHARGE: - Safety Precaution Patient will remain free from falls or injury at time of discharge. - Bed Mobility Patient will perform bed mobility at 4-Marge level of assistance. - Transfers Patient will complete transfers from bed to chair at 4-Marge level of assistance. - Mobility Patient will ambulate 150 ft with 4-Marge level of assistance with RW. PATIENT REHAB POTENTIAL Expected level of measurable improvement will be of a practical value to patient's functional capacit y or adaptations to impairments Has a viable Discharge Plan Medically appropriate; condition is sufficiently stable to participate in intensive rehab program Patient is able and expected to receive 3 hours of individualized therapy daily on at least 5 of ever y 7 days Patient's prognosis for significant practical improvement within a reasonable period of time appears Good DISCHARGE PLAN: - Estimated Length of Stay (days) 14. - Consensus on plan Discharge plan has been discussed with primary caregiver. Patient/Family is in agreement with the krys n. Primary caregiver is in agreement with the plan. - Patient/Family Goals Return home with assistance. - Planned Living Setting Upon Discharge Home, to live with Family/Relatives. CONCLUSION ON REHABILITATION NECESSITY: I have evaluated patient's pre-admission functional status and, comparing it to the patient's post-ad mission functional status now, I conclude that the pre-admission assessment was accurate. Patient's c ondition on admission supports the medical necessity of admission to IR[facility]. It is safe to proceed with patient's therapy program. 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
[2018-11-21] MEDS: PROMOD 30 ML DOSE PO SCH (20:58)
[2018-11-21 22:21] LABS: Barbiturates NEGATIVE (NEGATIVE); Benzodiazepines NEGATIVE (NEGATIVE); Cocaine NEGATIVE (NEGATIVE); METHAMPHETAM NEGATIVE (NEGATIVE); Methadone NEGATIVE (NEGATIVE); Opiates NEGATIVE (NEGATIVE); Phencyclidine NEGATIVE (NEGATIVE); THC Cannibis NEGATIVE (NEGATIVE)
--- NOTE | 2018-11-21 23:46 | P.CNS ---
Date of Consult: 11/21/18 Reason for Consult: ESRD Requesting Physician: Jeffy Cordero Chief Complaint: Hip fracture History of Present Illness: 58 yo WM CKD, PKD presented to the ER after a fall at home with an associated hip fracture. He has been admitted to the rehab floor for PT. Limited HPI/ ROS due to history of head injury. Allergies No Known Allergies Allergy (Verified 11/14/18 01:58) Home medications list reviewed: Yes Home Medications: Colchicine [Colcrys] 0.6 mg PO BID 05/22/13 Fluocinonide Cream [Lidex 0.05% Cream*] 15 gm TP TID 05/22/13 Citalopram Hydrobromide [Celexa] 1 tab PO DAILY 10/28/14 Amlodipine [Norvasc*] 10 mg PO Q12H #180 tab 10/29/14 Terazosin HCl [Hytrin*] 2 mg PO Q12H #180 cap 10/29/14 levETIRAcetam [Keppra*] 500 mg PO BID #180 tab 10/29/14 Arformoterol Tartrate [Brovana] 15 mcg NEB BIDRESP #1 vial.neb 11/20/18 Carvedilol [Coreg*] 12.5 mg PO BID 6AM 6PM #60 tab 11/20/18 Famotidine [Pepcid*] 20 mg PO BID #60 tab 11/20/18 Thiamine HCl [Vitamin B-1*] 100 mg PO DAILY #30 tablet 11/20/18 predniSONE [Prednisone*] 20 mg PO BID #20 tab 11/20/18 traMADol HCL [Ultram*] 50 mg PO Q6H PRN #10 tab 11/20/18 - Past Medical/Surgical History Diabetic: No -: HTN -: Kidney disease chronic stage 3 -: gout -: hepatomegaly -: psoriasis -: R leg surgery/memorial (plate) -: R ankle surgery (bolt) - Family History Mother Medical History: Hypertension, Kidney disease Sister Medical History: Hypertension, Kidney disease - Social History Smoking Status: Unknown if ever smoked Alcohol use: No CD- Drugs: No Caffeine use: Yes Place of Residence: Home Review of Systems 10-point ROS is otherwise unremarkable General: Weakness, Malaise Physical Examination Temp Pulse Resp BP Pulse Ox 97.2 F 54 18 101/64 95 01/08/19 21:52 11/21/18 21:52 11/21/18 21:52 11/21/18 21:52 11/21/18 21:52 General: In no apparent distress, Cooperative HEENT: Atraumatic Neck: Supple Respiratory: Clear to auscultation bilaterally Cardiovascular: No edema, Regular rate/rhythm Gastrointestinal: Soft and benign, Non-distended Musculoskeletal: No clubbing, No contractures Integumentary: No rashes, No cyanosis Neurological: Normal speech Laboratory Data (last 24 hrs) 11/21/18 05:58: Sodium 133 L, Potassium 3.9, BUN 58 H D, Creatinine 5.79 H* D, Glucose 126 H, Magnesium 2.1 11/21/18 05:58: WBC 12.8 H, Hgb 8.9 L, Hct 26.4 L, Plt Count 172 Imagings Data: Abd US and CT consistent with PKD. Conclusions/Impression: A/ ESRD due adPKD. HTN. Hyperkalemia. DM II with CKD. RUTHIE/ Secondary HyperPTH. Diastolic CHF, chronic. Anemia in CKD. HCV. P/ Continue current POC and Medications. Start vitamin D and binders. Give Epo. Arrange HD TIW. Renal diet. PT as tolerated. No NSAIDs. AM labs. Daily weight. Thank you kindly for the consultation.
--- NOTE | 2018-11-22 03:13 | FAST ---
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 Jeffy Cordero M.D. ADMISSION DIAGNOSIS: - Orthopaedic Disorders 08 - Unilateral Hip Fracture (06.24) R Femoral neck fx. ESRD. EATING: Activity did not occur on this shift EATING - SCORE: 0-UNK GROOMING: Activity did not occur on this shift GROOMING - SCORE: 0-UNK BATHING: Activity did not occur on this shift BATHING - SCORE: 0-UNK DRESSING - UPPER BODY: Patient is not dressing in public clothing ARTICLES SCORE Total number of steps: 0 DRESSING - UPPER BODY - SCORE: 0-UNK DRESSING - LOWER BODY: Patient is not dressing in public clothing ARTICLES SCORE Total number of steps: 0 DRESSING - LOWER BODY - SCORE: 0-UNK TOILETING: TOILETING - STEP 1: Does the patient require the assistance of a person or device, or need extra time with toileting? Yes . TOILETING - STEP 2: Does the patient require the assistance of a helper? Yes. TOILETING - STEP 3: How much assistance does the patient require from the helper? Only supervision TOILETING - SCORE: 5-SUP BLADDER MANAGEMENT: Patient is on renal dialysis or peritoneal dialysis and no voiding activity BLADDER MANAGEMENT - SCORE: 7-IND BOWEL MANAGEMENT: Activity did not occur on this shift BOWEL MANAGEMENT - SCORE: 7-IND TRANSFERS: BED, CHAIR, WHEELCHAIR: TRANSFERS: BED, CHAIR, WHEELCHAIR - STEP 1: Does the patient require assistance of a person or device, or need extra time with bed, chair, or whe elchair transfers? Yes. TRANSFERS: BED, CHAIR, WHEELCHAIR - STEP 2: Does the patient require the assistance of a helper? Yes. TRANSFERS: BED, CHAIR, WHEELCHAIR - STEP 3: How much assistance does the patient require from the helper? Only supervision TRANSFERS: BED, CHAIR, WHEELCHAIR - SCORE: 5-SUP TRANSFERS: TOILET: Activity did not occur on this shift TRANSFERS: TOILET - SCORE: 0-UNK TRANSFERS: SHOWER: Activity did not occur on this shift TRANSFERS: SHOWER - SCORE: 0-UNK TRANSFERS: TUB: Activity did not occur on this shift TRANSFERS: TUB - SCORE: 0-UNK LOCOMOTION: WALK: Activity did not occur on this shift LOCOMOTION: WALK - SCORE: 0-UNK LOCOMOTION: WHEELCHAIR: Activity did not occur on this shift LOCOMOTION: WHEELCHAIR - SCORE: 0-UNK COMPREHENSION: COMPREHENSION: TYPE: Both COMPREHENSION - STEP 1: Does the patient require help from a person or device, or need extra time to understand complex and a bstract ideas (such as current events, finances, discharge planning, medical issues, relationships, e tc)? Yes. COMPREHENSION - STEP 2: Does the patient require help to understand questions or statements about basic needs or ideas (such as hunger, thirst, sleep, safety, daily schedule, room location, or discomfort) half or more of the t dean? No. COMPREHENSION - STEP 3: How often does the patient need help to understand directions and conversation about basic needs? Les s than 10% of the time COMPREHENSION - SCORE: 5-SUP EXPRESSION EXPRESSION: TYPE: Both EXPRESSION - STEP 1: Does the patient require help from a person or device, or need extra time expressing complex and abst ract ideas (such as current events, finances, discharge planning, medical issues, relationships, etc) ? Yes. EXPRESSION - STEP 2: Does the patient require help to express basic necessities or ideas (such as hunger, thirst, sleep, s afety, daily schedule, room location, or discomfort) half or more of the time? No. EXPRESSION - STEP 3: How often does the patient need help to express directions and conversation about basic needs? Less t rosa 10% of the time EXPRESSION - SCORE: 5-SUP SOCIAL INTERACTION: SOCIAL INTERACTION - STEP 1: Does the patient require a helper to interact with others in social and therapeutic situations? Yes. SOCIAL INTERACTION - STEP 2: Does the patient interact appropriately half or more of the time? Yes. SOCIAL INTERACTION - STEP 3: How often does the patient need help to interact appropriately? Less than 10% of the time SOCIAL INTERACTION - SCORE: 5-SUP PROBLEM SOLVING: Patient requires bed/chair alarms due to attempts to get up unassisted when helper is needed. PROBLEM SOLVING - STEP 1: How often do the bed/chair alarms go off? Sometimes - the alarms go off about half the time PROBLEM SOLVING - SCORE: 3-MOD MEMORY: MEMORY - STEP 1: How often do the bed/chair alarms go off? Sometimes - the alarms go off about half the time MEMORY - SCORE: 3-MOD SIGNATURE PANEL: The following modified sections: Eating - Score, Grooming - Score, Bathing - Score, Dressing - Upper Body - Score, Dressing - Lower Body - Score, Toileting - Score, Bladder Management - Score, Bowel Man agement - Score, Transfers: Bed, Chair, Wheelchair - Score, Transfers: Toilet - Score, Transfers: Julieta wer - Score, Transfers: Tub - Score, Locomotion: Walk - Score, Locomotion: Wheelchair - Score, Compre hension - Score, Expression - Score, Social Interaction - Score, Problem Solving - Score, Memory - Sc ore were [electronically] signed by Zara Tilley RN on TueNov 22 2018 03:13:33 GMT-0600 (Central Stand mary Time)
[2018-11-22] MEDS: FLUOCINONIDE 0.05% CREAM 30GM TOP SCH ×3 (07:15→22:19)
[2018-11-22] MEDS: HEPARIN 5000 UNIT/ML 1 ML VIAL SQ SCH ×2 (07:30→22:18)
[2018-11-22] MEDS: ARFORMOTEROL TARTRATE 15 MCG/2 ML VIAL.NEB NEB SCH ×2 (07:30→20:00)
[2018-11-22] MEDS: TERAZOSIN HCL 1 MG CAP PO SCH ×2 (08:00→20:00)
[2018-11-22] MEDS: CARVEDILOL 12.5 MG TAB PO SCH ×2 (08:00→22:18)
[2018-11-22] MEDS: CALCITROL 0.25 MCG CAP PO SCH (08:17)
[2018-11-22] MEDS: FAMOTIDINE 20 MG TAB PO SCH (08:17)
[2018-11-22] MEDS: SEVELAMER CARBONATE 800 MG TABLET PO SCH ×3 (08:17→17:13)
[2018-11-22] MEDS: TRAMADOL HCL 50 MG TAB PO PRN ×2 (08:18→12:27)
[2018-11-22] MEDS: AMLODIPINE 10 MG TAB PO SCH (08:18)
[2018-11-22] MEDS: FERROUS SULFATE 325 MG TAB PO SCH (08:18)
[2018-11-22] MEDS: predniSONE 20 MG TAB PO SCH ×2 (08:18→22:18)
[2018-11-22] MEDS: CITALOPRAM 10 MG TABLET PO SCH (08:19)
[2018-11-22] MEDS: VITAMIN D 5,000 UNIT CAP PO SCH (08:19)
[2018-11-22] MEDS: FE SULF/FA/VIT B COMP & C TAB PO SCH (08:19)
[2018-11-22] MEDS: THIAMINE HCL 100 MG TABLET PO SCH (08:19)
[2018-11-22] MEDS: COLCHICINE 0.6 MG TAB PO SCH ×2 (08:19→22:17)
[2018-11-22] MEDS: levETIRAcetam 500 MG TAB PO SCH ×2 (08:20→22:19)
[2018-11-22] MEDS: PROMOD 30 ML DOSE PO SCH ×2 (09:43→22:20)
--- NOTE | 2018-11-22 13:26 | FAST ---
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 Jeffy Cordero M.D. ADMISSION DIAGNOSIS: - Orthopaedic Disorders 08 - Unilateral Hip Fracture (.) R Femoral neck fx. ESRD. EATING: EATING - STEP 1: Does the patient require the assistance of a person or device, or need extra time when eating? Yes. EATING - STEP 2: Does the patient require the assistance of a helper? No, patient only requires an assistive device, O R s/he takes more than reasonable time to eat, OR there is a safety concern, OR s/he requires modifie d food consistency EATING - SCORE: 6-ALESSIO GROOMING: Activity did not occur on this shift GROOMING - SCORE: 0-UNK BATHING: Activity did not occur on this shift BATHING - SCORE: 0-UNK DRESSING - UPPER BODY: Activity did not occur on this shift ARTICLES SCORE Total number of steps: 0 DRESSING - UPPER BODY - SCORE: 0-UNK DRESSING - LOWER BODY: Activity did not occur on this shift ARTICLES SCORE Total number of steps: 0 DRESSING - LOWER BODY - SCORE: 0-UNK TOILETING: TOILETING - STEP 1: Does the patient require the assistance of a person or device, or need extra time with toileting? Yes . TOILETING - STEP 2: Does the patient require the assistance of a helper? Yes. TOILETING - STEP 3: How much assistance does the patient require from the helper? Hands-on assistance from the helper TOILETING - STEP 4: Of the 3 tasks: 1) Adjusting clothing prior to use, 2) Cleansing of perineal area, 3) Adjusting clot walker after use; How many tasks does the patient perform WITHOUT assistance of the helper? Two tasks TOILETING - SCORE: 3-MOD BLADDER MANAGEMENT: BLADDER MANAGEMENT - STEP 1: Does the patient control the bladder completely and intentionally without equipment or devices or med ications, and is always continent? Yes. BLADDER MANAGEMENT - SCORE: 7-IND BLADDER MANAGEMENT - FREQUENCY OF ACCIDENTS: BLADDER MANAGEMENT(FA) - STEP 1: How many accidents has the patient had during the current shift? 0 BOWEL MANAGEMENT: Activity did not occur on this shift BOWEL MANAGEMENT - SCORE: 7-IND BOWEL MANAGEMENT - FREQUENCY OF ACCIDENTS: BOWEL MANAGEMENT(FA) - STEP 1: How many accidents has the patient had during the current shift? 0 TRANSFERS: BED, CHAIR, WHEELCHAIR: TRANSFERS: BED, CHAIR, WHEELCHAIR - STEP 1: Does the patient require assistance of a person or device, or need extra time with bed, chair, or whe elchair transfers? Yes. TRANSFERS: BED, CHAIR, WHEELCHAIR - STEP 2: Does the patient require the assistance of a helper? Yes. TRANSFERS: BED, CHAIR, WHEELCHAIR - STEP 3: How much assistance does the patient require from the helper? Steadying/guiding assistance TRANSFERS: BED, CHAIR, WHEELCHAIR - SCORE: 4-MIN TRANSFERS: TOILET: TRANSFERS: TOILET - STEP 1: Does the patient require the assistance of a person or device, or need extra time with toilet transfe rs? Yes. TRANSFERS: TOILET - STEP 2: Does the patient require the assistance of a helper? Yes. TRANSFERS: TOILET - STEP 3: How much assistance does the patient require from the helper? Patient performs half or more of the tr ansferring tasks TRANSFERS: TOILET - STEP 4: Does the patient need only incidental help such as contact guard or steadying during toilet transfer? Yes. TRANSFERS: TOILET - SCORE: 4-MIN TRANSFERS: SHOWER: Activity did not occur on this shift TRANSFERS: SHOWER - SCORE: 0-UNK TRANSFERS: TUB: Activity did not occur on this shift TRANSFERS: TUB - SCORE: 0-UNK LOCOMOTION: WALK: Activity did not occur on this shift LOCOMOTION: WALK - SCORE: 0-UNK LOCOMOTION: WHEELCHAIR: LOCOMOTION: WHEELCHAIR - STEP 1: Does the patient need help to go 150 feet in a wheelchair? Yes. LOCOMOTION: WHEELCHAIR - STEP 2: How much assistance does the patient need from the helper? Only supervision, cuing, or coaxing LOCOMOTION: WHEELCHAIR - SCORE: 5-SUP COMPREHENSION: COMPREHENSION: TYPE: Both COMPREHENSION - STEP 1: Does the patient require help from a person or device, or need extra time to understand complex and a bstract ideas (such as current events, finances, discharge planning, medical issues, relationships, e tc)? Yes. COMPREHENSION - STEP 2: Does the patient require help to understand questions or statements about basic needs or ideas (such as hunger, thirst, sleep, safety, daily schedule, room location, or discomfort) half or more of the t dean? No. COMPREHENSION - STEP 3: How often does the patient need help to understand directions and conversation about basic needs? Les s than 10% of the time COMPREHENSION - SCORE: 5-SUP EXPRESSION EXPRESSION: TYPE: Both EXPRESSION - STEP 1: Does the patient require help from a person or device, or need extra time expressing complex and abst ract ideas (such as current events, finances, discharge planning, medical issues, relationships, etc) ? Yes. EXPRESSION - STEP 2: Does the patient require help to express basic necessities or ideas (such as hunger, thirst, sleep, s afety, daily schedule, room location, or discomfort) half or more of the time? No. EXPRESSION - STEP 3: How often does the patient need help to express directions and conversation about basic needs? 10-24% of the time EXPRESSION - SCORE: 4-MIN SOCIAL INTERACTION: SOCIAL INTERACTION - STEP 1: Does the patient require a helper to interact with others in social and therapeutic situations? Yes. SOCIAL INTERACTION - STEP 2: Does the patient interact appropriately half or more of the time? Yes. SOCIAL INTERACTION - STEP 3: How often does the patient need help to interact appropriately? Less than 10% of the time SOCIAL INTERACTION - SCORE: 5-SUP PROBLEM SOLVING: PROBLEM SOLVING - STEP 1: Does the patient need help from a person or device, or need extra time to solve complex problems such as managing a checking account or confronting interpersonal problems? Yes. PROBLEM SOLVING - STEP 2: Does the patient solve basic routine problems half or more of the time? Yes. PROBLEM SOLVING - STEP 3: How often does the patient need help to solve basic routine problems? Less than 10% of the time PROBLEM SOLVING - SCORE: 5-SUP MEMORY: MEMORY - STEP 1: Does the patient need help from a person or device, or need extra time to remember frequently encount ered people, daily routines, and executing requests? Yes. MEMORY - STEP 2: How often does the patient need help to remember frequently encountered people, daily routines, and e xecuting requests? Less than 10% of the time MEMORY - SCORE: 5-SUP SIGNATURE PANEL: The following modified sections: Eating - Score, Grooming - Score, Bathing - Score, Dressing - Upper Body - Score, Dressing - Lower Body - Score, Toileting - Score, Bladder Management - Score, Bowel Man agement - Score, Transfers: Bed, Chair, Wheelchair - Score, Transfers: Toilet - Score, Transfers: Julieta wer - Score, Transfers: Tub - Score, Locomotion: Walk - Score, Locomotion: Wheelchair - Score, Compre hension - Score, Expression - Score, Social Interaction - Score, Problem Solving - Score, Memory - Sc ore were [electronically] signed by Amira Garza C.N.A. on TueNov 22 2018 13:25:30 GMT-0600 (Centra l Standard Time)
--- NOTE | 2018-11-22 19:02 | R.PN ---
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 Pt denied any Shortness of Breath. VITAL SIGNS Temperature: 97.8 F SBP/DBP: 145/74 Pulse: 87 Resp: 16 WBC elevated to 18.5 with normal differential. He has blood in his urine, treated by Dr. Dye with A ugmentin. Ambulated 120' with contact guard assistance using a rolling walker. MEDICATION ALLERGIES: No Known Drug Allergies (NKDA) ENVIRONMENTAL ALLERGIES: - Substance Allergies None Known - Other Allergies None Known NURSING: - Shower allowing shower - Skin care per protocol PRECAUTIONS: - Posterior Hip Precaution No adduction across midline No external rotation No hip flexion >90 degrees No internal rotation No wheel chair propulsion - Weight Bearing Precaution WBAT right LE ACTIVITIES OOB only with supervision THERAPIES: - Occupational Therapy Evaluate and Treat. - Physical Therapy Evaluate and Treat. PHYSICAL EXAM - Gen Alert and awake Lying in bed No apparent distress Oriented to: person, time, and place - Skin No breakdown No abnormalities - Eyes No abnormalities - ENMT No abnormalities - Neck No abnormalities - CVS RRR - Chest No abnormalities - Abd + bowel sounds - GI Soft Deferred - No abnormalities - Ext no edema - MSK 4+/5 weakness in right lower extremity. - Neuro 4/5 strength right lower extremity - Psych No abnormalities ASSESSMENT: Pt. is a 58 yo Right-handed white male.On 11/13/2018 he was admitted to [facility] and underwent emergency surgery for R Femoral neck fx (Unilateral Hip Fracture) by Guillermina Escobedo .Pre-morbidly, Pt. was independent/mod-I in Sphincter Control, Transfers Control, Communication, Soci al Cognition, Self-Care, and Locomotion; and he had good Sphincter Control.Currently, he has deficits of Safety Awareness, Transfers Control, Balance, Endurance, Locomotion, and Self-Care.Pt. is now ref erred to [facility] for acute in-patient rehabilitation in order to maximize p atient's functional independence in activities of daily living, strength, ROM, and mobility.- Rehab G oal Patient has realistic goal of being discharged at assistance level 6-Marlyn to reside at Home with Fam sharita/Relatives. MDM/PLAN: - Physical Therapy Decreased range of motion - to improve, our physical therapists will perform initial evaluation of p t's status upon admission and devise an individualized program for increasing patient's Range of Sherif on. Gait dysfunction - to improve, our physical therapists will perform initial evaluation of pt's statu s upon admission and devise an individualized program for Gait Training, and Wheel Chair mobility Inability to transfer - to improve, our physical therapists will perform initial evaluation of pt's status upon admission and devise an individualized program for Bed mobility Need for home safety evaluation - to improve, our physical therapists will perform initial evaluatio n of pt's status upon admission and devise an individualized program for Home Evaluation Need in caregiver upon discharge - to improve, our physical therapists will perform initial evaluati on of pt's status upon admission and devise an individualized program for Caregiver Training New precaution - to improve, our physical therapists will perform initial evaluation of pt's status upon admission and devise an individualized program for Patient precaution education Poor balance - to improve, our physical therapists will perform initial evaluation of pt's status up on admission and devise an individualized program for Balance Training Poor endurance - to improve, our physical therapists will perform initial evaluation of pt's status upon admission and devise an individualized program for Endurance Training Weakness - to improve, our physical therapists will perform initial evaluation of pt's status upon a dmission and devise an individualized program for Aquatic Therapy, Neuromuscular Reeducation, and Str engthening Achieving independence - to improve, our physical therapists will perform initial evaluation of pt's status upon admission and devise an individualized program for Community Reintegration Activities - Occupational Therapy ADL deficits - to improve, our occupation therapists will perform initial evaluation of pt's status upon admission and devise an individualized program for Bathing, Bed mobility, Community Reintegratio n, Cooking, Dressing, Eating, Fine Motor Skills, Grooming, Homemaking, Kitchen Mobility, Laundry, Pat ient Education, Safety Awareness, Splinting - Positioning, Transfers(Toilet, Tub, Shower), and Wheel Chair Management Need for patient care assistant - to improve, our occupation therapists will perform initial evaluation of pt's status upon admission and devise an individualized program for Caregiver Training Weakness - to improve, our occupation therapists will perform initial evaluation of pt's status upon admission and devise an individualized program for Aquatic Therapy, Balance, Endurance, UE ROM, and UE strengthening - Anterior Hip Precaution No abduction No active extension No adduction across midline No external rotation No hip flexion >90 degrees No internal rotation - Diet - Liquid Texture Continue Regular - Tube Feed Continue N/A - Diet Type Continue Regular - Posterior Hip Precaution No adduction across midline No external rotation No hip flexion >90 degrees No internal rotation No wheel chair propulsion - Weight Bearing Precaution WBAT right LE - Skin care per protocol - Diet - Solid Texture Continue Regular - Shower allowing shower FUNCTIONAL STATUS: UPDATED AT WEEKLY TEAM CONFERENCE - Bladder Same accident frequency: 7-Ind - No accidents in the past 7 days - Bowel Same accident frequency: 7-Ind - No accidents in the past 7 days - Walking Same score based on distance walked: 3(>=150ft) FUNCTIONAL STATUS: - Self-Care A. Eating Ind B. Grooming Ind C. Bathing Ind D. Dressing - Upper Ind E. Dressing - Lower Marge F. Toileting sup - Sphincter Control G: Bladder control Ind H: Bowel control Ind - Transfers Control I. Bed/Chair/Wheelchair sup J. Toilet sup K. Tub/Shower sup - Locomotion L. Walk/Wheelchair (B) Marlyn M. Stairs ADNO - Communication N. Comprehension (B) Marlyn O. Expression (B) Marlyn - Social Cognition P. Social Interaction Marlyn Q. Problem Solving Marlyn R. Memory Marlyn - Endurance Fair - Balance Poor - Safety Awareness Fair CURRENT FUNC. DEFICITS: Safety Awareness, Transfers Control, Balance, Endurance, Locomotion, and Self-Care SIGNATURE PANEL: (MUSCULOSKELETAL PHYSICIAN)
--- NOTE | 2018-11-22 21:05 | PN ---
Date of Progress Note: 11/22/2018 Subjective: Patient is feeling okay. Denies any complaints. Working well with physical therapy. N o issues noted. Objective: Vital Signs: Have been reviewed and are stable. General Examination: He appears in no acute distress. Lungs: Clear to auscultation. Abdomen: Soft and nontender. Extremities: Without any evidence of edema. Laboratory Data: From yesterday has been reviewed. Current Medications: Have been reviewed. Impression: 1.End-stage renal disease, on dialysis. 2.Right hip fracture status post hemiarthroplasty. 3.Hypertension. 4.Anemia secondary to renal failure, currently stable. Plan: The patient is overall doing okay. Continue Tuesday, Tuesday, Tuesday dialysis and physical t herapy for his hip. We will follow up on labs and adjust his medications as tolerated. The patient will need to be set up at [facility] in the future once he is ready to be discharged. JAZMIN/ERNST Voice ID: [id number] Report ID: [id number]
[2018-11-22] MEDS: EPOETIN ALFA 10,000 UNIT/ML VIAL IV SCH (21:15)
--- NOTE | 2018-11-23 02:58 | FAST ---
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 Jeffy Cordero M.D. ADMISSION DIAGNOSIS: - Orthopaedic Disorders 08 - Unilateral Hip Fracture (.) R Femoral neck fx. ESRD. EATING: Activity did not occur on this shift EATING - SCORE: 0-UNK GROOMING: Activity did not occur on this shift GROOMING - SCORE: 0-UNK BATHING: Activity did not occur on this shift BATHING - SCORE: 0-UNK DRESSING - UPPER BODY: Patient is not dressing in public clothing ARTICLES SCORE Total number of steps: 0 DRESSING - UPPER BODY - SCORE: 0-UNK DRESSING - LOWER BODY: Patient is not dressing in public clothing ARTICLES SCORE Total number of steps: 0 DRESSING - LOWER BODY - SCORE: 0-UNK TOILETING: TOILETING - STEP 1: Does the patient require the assistance of a person or device, or need extra time with toileting? Yes . TOILETING - STEP 2: Does the patient require the assistance of a helper? Yes. TOILETING - STEP 3: How much assistance does the patient require from the helper? Hands-on assistance from the helper TOILETING - STEP 4: Of the 3 tasks: 1) Adjusting clothing prior to use, 2) Cleansing of perineal area, 3) Adjusting clot walker after use; How many tasks does the patient perform WITHOUT assistance of the helper? Three tasks with steadying assistance from the helper TOILETING - SCORE: 4-MIN BLADDER MANAGEMENT: BLADDER MANAGEMENT - STEP 1: Does the patient control the bladder completely and intentionally without equipment or devices or med ications, and is always continent? No. BLADDER MANAGEMENT - STEP 2: Does the patient require the assistance of a helper? Yes. BLADDER MANAGEMENT - STEP 3: How much assistance does the patient require from the helper? Only supervision, stand-by, cuing, or c oaxing BLADDER MANAGEMENT - SCORE: 5-SUP BOWEL MANAGEMENT: Activity did not occur on this shift BOWEL MANAGEMENT - SCORE: 7-IND TRANSFERS: BED, CHAIR, WHEELCHAIR: TRANSFERS: BED, CHAIR, WHEELCHAIR - STEP 1: Does the patient require assistance of a person or device, or need extra time with bed, chair, or whe elchair transfers? Yes. TRANSFERS: BED, CHAIR, WHEELCHAIR - STEP 2: Does the patient require the assistance of a helper? Yes. TRANSFERS: BED, CHAIR, WHEELCHAIR - STEP 3: How much assistance does the patient require from the helper? Lifting of the legs TRANSFERS: BED, CHAIR, WHEELCHAIR - STEP 4: How many legs does the patient require the helper to lift? one leg TRANSFERS: BED, CHAIR, WHEELCHAIR - SCORE: 4-MIN TRANSFERS: TOILET: TRANSFERS: TOILET - STEP 1: Does the patient require the assistance of a person or device, or need extra time with toilet transfe rs? Yes. TRANSFERS: TOILET - STEP 2: Does the patient require the assistance of a helper? Yes. TRANSFERS: TOILET - STEP 3: How much assistance does the patient require from the helper? Patient performs half or more of the tr ansferring tasks TRANSFERS: TOILET - STEP 4: Does the patient need only incidental help such as contact guard or steadying during toilet transfer? Yes. TRANSFERS: TOILET - SCORE: 4-MIN TRANSFERS: SHOWER: Activity did not occur on this shift TRANSFERS: SHOWER - SCORE: 0-UNK TRANSFERS: TUB: Activity did not occur on this shift TRANSFERS: TUB - SCORE: 0-UNK LOCOMOTION: WALK: Activity did not occur on this shift LOCOMOTION: WALK - SCORE: 0-UNK LOCOMOTION: WHEELCHAIR: Activity did not occur on this shift LOCOMOTION: WHEELCHAIR - SCORE: 0-UNK COMPREHENSION: COMPREHENSION: TYPE: Both COMPREHENSION - STEP 1: Does the patient require help from a person or device, or need extra time to understand complex and a bstract ideas (such as current events, finances, discharge planning, medical issues, relationships, e tc)? No. COMPREHENSION - STEP 2: Does the patient need extra time, require an assistive device (such as glasses for visual comprehensi on or a hearing aid for auditory comprehension) or does s/he have mild difficulty understanding compl ex and abstract information? Yes. COMPREHENSION - SCORE: 6-ALESSIO EXPRESSION EXPRESSION: TYPE: Both EXPRESSION - STEP 1: Does the patient require help from a person or device, or need extra time expressing complex and abst ract ideas (such as current events, finances, discharge planning, medical issues, relationships, etc) ? No. EXPRESSION - STEP 2: Does the patient need extra time, require an assistive device (such as augmentive communication syste m or a communication board), OR does s/he have mild difficulty expressing complex and abstract ideas (including mild dysarthria or mild word-find problems)? No. EXPRESSION - SCORE: 7-IND SOCIAL INTERACTION: SOCIAL INTERACTION - STEP 1: Does the patient require a helper to interact with others in social and therapeutic situations? No. SOCIAL INTERACTION - STEP 2: Does the patient need extra time in social situations, OR does s/he interact with staff, other patien ts, and family members ONLY in structured environments, OR does s/he require medication for social in teraction? Yes, patient needs extra time SOCIAL INTERACTION - SCORE: 6-ALESSIO PROBLEM SOLVING: PROBLEM SOLVING - STEP 1: Does the patient need help from a person or device, or need extra time to solve complex problems such as managing a checking account or confronting interpersonal problems? No. PROBLEM SOLVING - STEP 2: Does the patient require extra time to make decisions or solve problems, OR does s/he have slight dif ficulty reading, initiating, or self-correcting in unfamiliar situations? Yes, patient needs extra ti me. PROBLEM SOLVING - SCORE: 6-ALESSIO MEMORY: MEMORY - STEP 1: Does the patient need help from a person or device, or need extra time to remember frequently encount ered people, daily routines, and executing requests? No. MEMORY - STEP 2: Does the patient have slight difficulty recognizing frequently encountered people, daily routines, or executing requests without the need for repetition or using self-initiated or environmental cues to remember? Yes. MEMORY - SCORE: 6-ALESSIO SIGNATURE PANEL: The following modified sections: Eating - Score, Grooming - Score, Dressing - Upper Body - Score, Jordon ssing - Lower Body - Score, Toileting - Score, Bladder Management - Score, Bowel Management - Score, Transfers: Bed, Chair, Wheelchair - Score, Transfers: Toilet - Score, Transfers: Shower - Score, Chacko sfers: Tub - Score, Locomotion: Walk - Score, Locomotion: Wheelchair - Score, Comprehension - Score, Expression - Score, Social Interaction - Score, Problem Solving - Score, Memory - Score were [electro nically] signed by Leandra Morrow CNA on TueNov 23 2018 02:58:13 GMT-0600 (Central Standard Time)
[2018-11-23 06:28] LABS: Absolute Lymphocytes (CBC) 0.8 K/uL (0.7-4.9); Absolute Monocytes 1.3 K/uL (0.1-1.3); Absolute Neutrophil 15.5 K/uL (1.8-8.0); Basophils % 0.1 % (0-1.3); Lymphocytes % 4.6 % (15.3-44.8); MPV 9.4 fL (7.6-11.3); Monocytes % 7.6 % (3.3-12.3); RBC Red Blood Cell Count 2.96 M/uL (4.33-5.43)
[2018-11-23 06:45] LABS: Albumin 2.5 g/dL (3.4-5.0); Potassium 4.1 mmol/L (3.5-5.1); Prealbumin 27.9 mg/dL (20-40)
[2018-11-23] MEDS: ARFORMOTEROL TARTRATE 15 MCG/2 ML VIAL.NEB NEB SCH ×2 (07:02→20:55)
[2018-11-23] MEDS: PROMOD 30 ML DOSE PO SCH ×2 (08:00→22:17)
[2018-11-23] MEDS: TERAZOSIN HCL 1 MG CAP PO SCH ×2 (08:00→20:00)
[2018-11-23 08:02] LABS: Anisocytosis 1+; Blood Morphology Comment NOTED (NOT SEEN); Platelet Estimate ADEQ
[2018-11-23] MEDS: HEPARIN 5000 UNIT/ML 1 ML VIAL SQ SCH ×2 (08:45→18:41)
[2018-11-23] MEDS: FAMOTIDINE 20 MG TAB PO SCH (08:47)
[2018-11-23] MEDS: FLUOCINONIDE 0.05% CREAM 30GM TOP SCH ×3 (08:47→21:00)
[2018-11-23] MEDS: levETIRAcetam 500 MG TAB PO SCH ×2 (08:47→22:16)
[2018-11-23] MEDS: THIAMINE HCL 100 MG TABLET PO SCH (08:47)
[2018-11-23] MEDS: FERROUS SULFATE 325 MG TAB PO SCH (08:47)
[2018-11-23] MEDS: CALCITROL 0.25 MCG CAP PO SCH (08:47)
[2018-11-23] MEDS: COLCHICINE 0.6 MG TAB PO SCH ×2 (08:47→22:17)
[2018-11-23] MEDS: CARVEDILOL 12.5 MG TAB PO SCH ×2 (08:47→22:16)
[2018-11-23] MEDS: AMLODIPINE 10 MG TAB PO SCH (08:48)
[2018-11-23] MEDS: TRAMADOL HCL 50 MG TAB PO PRN ×2 (08:48→14:17)
[2018-11-23] MEDS: SEVELAMER CARBONATE 800 MG TABLET PO SCH ×3 (08:48→17:00)
[2018-11-23] MEDS: VITAMIN D 5,000 UNIT CAP PO SCH (08:48)
[2018-11-23] MEDS: CITALOPRAM 10 MG TABLET PO SCH (08:48)
[2018-11-23] MEDS: FE SULF/FA/VIT B COMP & C TAB PO SCH (08:48)
[2018-11-23] MEDS: predniSONE 20 MG TAB PO SCH ×2 (08:50→22:17)
--- NOTE | 2018-11-23 12:14 | FAST ---
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 Jeffy Cordero M.D. ADMISSION DIAGNOSIS: - Orthopaedic Disorders 08 - Unilateral Hip Fracture (.) R Femoral neck fx. ESRD. EATING: EATING - STEP 1: Does the patient require the assistance of a person or device, or need extra time when eating? No. EATING - SCORE: 7-IND GROOMING: Comb/brush hair Oral care Wash, rinse, and dry face Wash, rinse, and dry hands GROOMING - STEP 1: Does the patient require the assistance of a person or device, or need extra time when grooming? No. GROOMING - SCORE: 7-IND BATHING: Abdomen Buttocks Chest Left arm Left lower leg and foot Left upper leg Perineal area Right arm Right lower leg and foot Right upper leg BATHING - STEP 1: Does the patient require the assistance of a person or device, or need extra time when bathing? Yes. BATHING - STEP 2: Does the patient require the assistance of a helper? Yes. BATHING - STEP 3: How much assistance does the patient require from the helper? Only incidental help such as placement of a wash cloth in his/her hand a few times as s/he bathes OR help to bathe just one or two areas of the body BATHING - SCORE: 4-MIN DRESSING - UPPER BODY: Patient is not dressing in public clothing ARTICLES SCORE Total number of steps: 0 DRESSING - UPPER BODY - SCORE: 0-UNK DRESSING - LOWER BODY: Sock - Left foot (one step) Sock - Right foot (one step) Underwear (three steps) ARTICLES SCORE Total number of steps: 5 DRESSING - LOWER BODY - STEP 1: Does the patient require help from a person or device, or need extra time when dressing below the edel st? Yes. DRESSING - LOWER BODY - STEP 2: Does the patient require the assistance of a helper? Yes. DRESSING - LOWER BODY - STEP 3: Does the helper touch the patient while dressing? Yes. DRESSING - LOWER BODY - STEP 4: How many of the total steps does the patient complete on his/her own? 1 DRESSING - LOWER BODY - STEP 5: Does patient require total assistance for dressing below the waist such as the helper holding clothin g and performing basically all the activities? No. DRESSING - LOWER BODY - SCORE: 2-MAX TOILETING: TOILETING - STEP 1: Does the patient require the assistance of a person or device, or need extra time with toileting? Yes . TOILETING - STEP 2: Does the patient require the assistance of a helper? Yes. TOILETING - STEP 3: How much assistance does the patient require from the helper? Hands-on assistance from the helper TOILETING - STEP 4: Of the 3 tasks: 1) Adjusting clothing prior to use, 2) Cleansing of perineal area, 3) Adjusting clot walker after use; How many tasks does the patient perform WITHOUT assistance of the helper? Three tasks with steadying assistance from the helper TOILETING - SCORE: 4-MIN BLADDER MANAGEMENT: Activity did not occur on this shift BLADDER MANAGEMENT - SCORE: 7-IND BOWEL MANAGEMENT: Activity did not occur on this shift BOWEL MANAGEMENT - SCORE: 7-IND TRANSFERS: BED, CHAIR, WHEELCHAIR: Activity did not occur on this shift TRANSFERS: BED, CHAIR, WHEELCHAIR - SCORE: 0-UNK TRANSFERS: TOILET: TRANSFERS: TOILET - STEP 1: Does the patient require the assistance of a person or device, or need extra time with toilet transfe rs? Yes. TRANSFERS: TOILET - STEP 2: Does the patient require the assistance of a helper? Yes. TRANSFERS: TOILET - STEP 3: How much assistance does the patient require from the helper? Patient performs half or more of the tr ansferring tasks TRANSFERS: TOILET - STEP 4: Does the patient need only incidental help such as contact guard or steadying during toilet transfer? Yes. TRANSFERS: TOILET - SCORE: 4-MIN TRANSFERS: SHOWER: TRANSFERS: SHOWER - STEP 1: Does the patient require the assistance of a person or device, or need extra time with shower transfe rs? Yes. TRANSFERS: SHOWER - STEP 2: Does the patient require the assistance of a helper? Yes. TRANSFERS: SHOWER - STEP 3: How much assistance does the patient require from the helper? Only incidental help such as contact gu arding or steadying during shower transfers, or help to lift one leg into the shower TRANSFERS: SHOWER - SCORE: 4-MIN TRANSFERS: TUB: Activity did not occur on this shift TRANSFERS: TUB - SCORE: 0-UNK LOCOMOTION: WALK: Activity did not occur on this shift LOCOMOTION: WALK - SCORE: 0-UNK LOCOMOTION: WHEELCHAIR: Activity did not occur on this shift LOCOMOTION: WHEELCHAIR - SCORE: 0-UNK LOCOMOTION: STAIRS: Activity did not occur on this shift LOCOMOTION: STAIRS - SCORE: 0-UNK COMPREHENSION: COMPREHENSION: TYPE: Both COMPREHENSION - STEP 1: Does the patient require help from a person or device, or need extra time to understand complex and a bstract ideas (such as current events, finances, discharge planning, medical issues, relationships, e tc)? No. COMPREHENSION - STEP 2: Does the patient need extra time, require an assistive device (such as glasses for visual comprehensi on or a hearing aid for auditory comprehension) or does s/he have mild difficulty understanding compl ex and abstract information? Yes. COMPREHENSION - SCORE: 6-ALESSIO EXPRESSION EXPRESSION: TYPE: Both EXPRESSION - STEP 1: Does the patient require help from a person or device, or need extra time expressing complex and abst ract ideas (such as current events, finances, discharge planning, medical issues, relationships, etc) ? No. EXPRESSION - STEP 2: Does the patient need extra time, require an assistive device (such as augmentive communication syste m or a communication board), OR does s/he have mild difficulty expressing complex and abstract ideas (including mild dysarthria or mild word-find problems)? Yes. EXPRESSION - SCORE: 6-ALESSIO SOCIAL INTERACTION: SOCIAL INTERACTION - STEP 1: Does the patient require a helper to interact with others in social and therapeutic situations? No. SOCIAL INTERACTION - STEP 2: Does the patient need extra time in social situations, OR does s/he interact with staff, other patien ts, and family members ONLY in structured environments, OR does s/he require medication for social in teraction? Yes, patient needs extra time SOCIAL INTERACTION - SCORE: 6-ALESSIO PROBLEM SOLVING: PROBLEM SOLVING - STEP 1: Does the patient need help from a person or device, or need extra time to solve complex problems such as managing a checking account or confronting interpersonal problems? Yes. PROBLEM SOLVING - STEP 2: Does the patient solve basic routine problems half or more of the time? Yes. PROBLEM SOLVING - STEP 3: How often does the patient need help to solve basic routine problems? 10%-24% of the time PROBLEM SOLVING - SCORE: 4-MIN MEMORY: MEMORY - STEP 1: Does the patient need help from a person or device, or need extra time to remember frequently encount ered people, daily routines, and executing requests? Yes. MEMORY - STEP 2: How often does the patient need help to remember frequently encountered people, daily routines, and e xecuting requests? 25% - 49% of the time MEMORY - SCORE: 3-MOD SIGNATURE PANEL: The following modified sections: Eating - Score, Grooming - Score, Bathing - Score, Dressing - Upper Body - Score, Dressing - Lower Body - Score, Toileting - Score, Transfers: Bed, Chair, Wheelchair - S core, Transfers: Toilet - Score, Transfers: Tub - Score, Transfers: Shower - Score, Comprehension - S core, Expression - Score, Social Interaction - Score, Problem Solving - Score, Memory - Score were [e lectronically] signed by Shea Santana OT on TueNov 23 2018 12:13:33 GMT-0600 (Central Standard T dean)
--- NOTE | 2018-11-23 14:47 | FAST ---
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 Jeffy Cordero M.D. ADMISSION DIAGNOSIS: - Orthopaedic Disorders 08 - Unilateral Hip Fracture (.) R Femoral neck fx. ESRD. EATING: EATING - STEP 1: Does the patient require the assistance of a person or device, or need extra time when eating? Yes. EATING - STEP 2: Does the patient require the assistance of a helper? Yes. EATING - STEP 3: Does the patient perform half or more of the eating tasks? Yes. EATING - STEP 4: Does the patient need only supervision, cuing, coaxing OR help to apply an orthosis OR help to cut fo od, open containers, pour liquids, or butter bread? Yes. EATING - SCORE: 5-SUP GROOMING: Activity did not occur on this shift GROOMING - SCORE: 0-UNK BATHING: Activity did not occur on this shift BATHING - SCORE: 0-UNK DRESSING - UPPER BODY: Activity did not occur on this shift ARTICLES SCORE Total number of steps: 0 DRESSING - UPPER BODY - SCORE: 0-UNK DRESSING - LOWER BODY: Activity did not occur on this shift ARTICLES SCORE Total number of steps: 0 DRESSING - LOWER BODY - SCORE: 0-UNK TOILETING: TOILETING - STEP 1: Does the patient require the assistance of a person or device, or need extra time with toileting? Yes . TOILETING - STEP 2: Does the patient require the assistance of a helper? Yes. TOILETING - STEP 3: How much assistance does the patient require from the helper? Hands-on assistance from the helper TOILETING - STEP 4: Of the 3 tasks: 1) Adjusting clothing prior to use, 2) Cleansing of perineal area, 3) Adjusting clot walker after use; How many tasks does the patient perform WITHOUT assistance of the helper? Three tasks with steadying assistance from the helper TOILETING - SCORE: 4-MIN BLADDER MANAGEMENT: BLADDER MANAGEMENT - STEP 1: Does the patient control the bladder completely and intentionally without equipment or devices or med ications, and is always continent? No. BLADDER MANAGEMENT - STEP 2: Does the patient require the assistance of a helper? Yes. BLADDER MANAGEMENT - STEP 3: How much assistance does the patient require from the helper? Only supervision, stand-by, cuing, or c oaxing BLADDER MANAGEMENT - SCORE: 5-SUP BLADDER MANAGEMENT - COMMENTS: Pt uses sweeney and helper empties sweeney BLADDER MANAGEMENT - FREQUENCY OF ACCIDENTS: BLADDER MANAGEMENT(FA) - STEP 1: How many accidents has the patient had during the current shift? 0 BOWEL MANAGEMENT: Activity did not occur on this shift BOWEL MANAGEMENT - SCORE: 7-IND BOWEL MANAGEMENT - FREQUENCY OF ACCIDENTS: BOWEL MANAGEMENT(FA) - STEP 1: How many accidents has the patient had during the current shift? 0 TRANSFERS: BED, CHAIR, WHEELCHAIR: TRANSFERS: BED, CHAIR, WHEELCHAIR - STEP 1: Does the patient require assistance of a person or device, or need extra time with bed, chair, or whe elchair transfers? Yes. TRANSFERS: BED, CHAIR, WHEELCHAIR - STEP 2: Does the patient require the assistance of a helper? Yes. TRANSFERS: BED, CHAIR, WHEELCHAIR - STEP 3: How much assistance does the patient require from the helper? Steadying/guiding assistance TRANSFERS: BED, CHAIR, WHEELCHAIR - SCORE: 4-MIN TRANSFERS: TOILET: TRANSFERS: TOILET - STEP 1: Does the patient require the assistance of a person or device, or need extra time with toilet transfe rs? Yes. TRANSFERS: TOILET - STEP 2: Does the patient require the assistance of a helper? Yes. TRANSFERS: TOILET - STEP 3: How much assistance does the patient require from the helper? Patient performs half or more of the tr ansferring tasks TRANSFERS: TOILET - STEP 4: Does the patient need only incidental help such as contact guard or steadying during toilet transfer? Yes. TRANSFERS: TOILET - SCORE: 4-MIN TRANSFERS: SHOWER: Activity did not occur on this shift TRANSFERS: SHOWER - SCORE: 0-UNK TRANSFERS: TUB: Activity did not occur on this shift TRANSFERS: TUB - SCORE: 0-UNK LOCOMOTION: WALK: Activity did not occur on this shift LOCOMOTION: WALK - SCORE: 0-UNK LOCOMOTION: WHEELCHAIR: Activity did not occur on this shift LOCOMOTION: WHEELCHAIR - SCORE: 0-UNK COMPREHENSION: COMPREHENSION: TYPE: Both COMPREHENSION - STEP 1: Does the patient require help from a person or device, or need extra time to understand complex and a bstract ideas (such as current events, finances, discharge planning, medical issues, relationships, e tc)? Yes. COMPREHENSION - STEP 2: Does the patient require help to understand questions or statements about basic needs or ideas (such as hunger, thirst, sleep, safety, daily schedule, room location, or discomfort) half or more of the t dean? No. COMPREHENSION - STEP 3: How often does the patient need help to understand directions and conversation about basic needs? Les s than 10% of the time COMPREHENSION - SCORE: 5-SUP EXPRESSION EXPRESSION: TYPE: Both EXPRESSION - STEP 1: Does the patient require help from a person or device, or need extra time expressing complex and abst ract ideas (such as current events, finances, discharge planning, medical issues, relationships, etc) ? Yes. EXPRESSION - STEP 2: Does the patient require help to express basic necessities or ideas (such as hunger, thirst, sleep, s afety, daily schedule, room location, or discomfort) half or more of the time? No. EXPRESSION - STEP 3: How often does the patient need help to express directions and conversation about basic needs? 10-24% of the time EXPRESSION - SCORE: 4-MIN SOCIAL INTERACTION: SOCIAL INTERACTION - STEP 1: Does the patient require a helper to interact with others in social and therapeutic situations? Yes. SOCIAL INTERACTION - STEP 2: Does the patient interact appropriately half or more of the time? Yes. SOCIAL INTERACTION - STEP 3: How often does the patient need help to interact appropriately? Less than 10% of the time SOCIAL INTERACTION - SCORE: 5-SUP PROBLEM SOLVING: PROBLEM SOLVING - STEP 1: Does the patient need help from a person or device, or need extra time to solve complex problems such as managing a checking account or confronting interpersonal problems? Yes. PROBLEM SOLVING - STEP 2: Does the patient solve basic routine problems half or more of the time? Yes. PROBLEM SOLVING - STEP 3: How often does the patient need help to solve basic routine problems? Less than 10% of the time PROBLEM SOLVING - SCORE: 5-SUP MEMORY: MEMORY - STEP 1: Does the patient need help from a person or device, or need extra time to remember frequently encount ered people, daily routines, and executing requests? Yes. MEMORY - STEP 2: How often does the patient need help to remember frequently encountered people, daily routines, and e xecuting requests? Less than 10% of the time MEMORY - SCORE: 5-SUP SIGNATURE PANEL: The following modified sections: Eating - Score, Grooming - Score, Bathing - Score, Dressing - Upper Body - Score, Dressing - Lower Body - Score, Toileting - Score, Bladder Management - Score, Bladder M anagement - Comments:, Bowel Management - Score, Transfers: Bed, Chair, Wheelchair - Score, Transfers : Toilet - Score, Transfers: Shower - Score, Transfers: Tub - Score, Locomotion: Walk - Score, Locomo tion: Wheelchair - Score, Comprehension - Score, Expression - Score, Social Interaction - Score, Prob sheldon Solving - Score, Memory - Score were [electronically] signed by Nader AlcalaNRhiannon on TueNov 142018 14:45:58 GMT-0600 (Central Standard Time)
--- NOTE | 2018-11-23 15:16 | RAD REPORT ---
EXAM DESCRIPTION: RAD - Chest Single View - 11/23/2018 3:00 pm CLINICAL HISTORY: Cough, fever COMPARISON: November 15 TECHNIQUE: AP portable chest image was obtained 1458 hours . FINDINGS: No pneumonia or focal lung parenchymal process seen. Interstitial markings are similar to comparison. Right-sided dialysis catheter remains in place. Heart and vasculature are normal. No nick urable pleural effusion and no pneumothorax. No acute bony abnormality seen. No acute aortic findings suspected. IMPRESSION: No pneumonia or acute cardiopulmonary finding seen.
[2018-11-23] MEDS ORDERED: levoFLOXacin 500 MG TAB PO SCH (16:00)
[2018-11-23] MEDS: levoFLOXacin 500 MG TAB PO SCH (16:00)
--- NOTE | 2018-11-23 16:25 | FAST ---
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 Jeffy Cordero M.D. ADMISSION DIAGNOSIS: - Orthopaedic Disorders 08 - Unilateral Hip Fracture (.) R Femoral neck fx. ESRD. EATING: Activity did not occur on this shift EATING - SCORE: 0-UNK GROOMING: Activity did not occur on this shift GROOMING - SCORE: 0-UNK BATHING: Activity did not occur on this shift BATHING - SCORE: 0-UNK DRESSING - UPPER BODY: Activity did not occur on this shift Patient is not dressing in public clothing ARTICLES SCORE Total number of steps: 0 DRESSING - UPPER BODY - SCORE: 0-UNK DRESSING - LOWER BODY: Activity did not occur on this shift Patient is not dressing in public clothing ARTICLES SCORE Total number of steps: 0 DRESSING - LOWER BODY - SCORE: 0-UNK TOILETING: Activity did not occur on this shift TOILETING - SCORE: 0-UNK BLADDER MANAGEMENT: Activity did not occur on this shift BLADDER MANAGEMENT - SCORE: 7-IND BOWEL MANAGEMENT: Activity did not occur on this shift BOWEL MANAGEMENT - SCORE: 7-IND TRANSFERS: BED, CHAIR, WHEELCHAIR: TRANSFERS: BED, CHAIR, WHEELCHAIR - STEP 1: Does the patient require assistance of a person or device, or need extra time with bed, chair, or whe elchair transfers? Yes. TRANSFERS: BED, CHAIR, WHEELCHAIR - STEP 2: Does the patient require the assistance of a helper? Yes. TRANSFERS: BED, CHAIR, WHEELCHAIR - STEP 3: How much assistance does the patient require from the helper? Only supervision TRANSFERS: BED, CHAIR, WHEELCHAIR - SCORE: 5-SUP TRANSFERS: TOILET: Activity did not occur on this shift TRANSFERS: TOILET - SCORE: 0-UNK TRANSFERS: SHOWER: Activity did not occur on this shift TRANSFERS: SHOWER - SCORE: 0-UNK TRANSFERS: TUB: Activity did not occur on this shift TRANSFERS: TUB - SCORE: 0-UNK LOCOMOTION: WALK: LOCOMOTION: WALK - STEP 1: Does the patient need help from a person or device, or need extra time to walk 150 feet? Yes. LOCOMOTION: WALK - STEP 2: How much assistance does the patient require to walk a minimum of 150 feet? Only supervision, cuing, or coaxing LOCOMOTION: WALK - SCORE: 5-SUP LOCOMOTION: WHEELCHAIR: LOCOMOTION: WHEELCHAIR - STEP 1: Does the patient need help to go 150 feet in a wheelchair? Yes. LOCOMOTION: WHEELCHAIR - STEP 2: How much assistance does the patient need from the helper? Only supervision, cuing, or coaxing LOCOMOTION: WHEELCHAIR - SCORE: 5-SUP LOCOMOTION: STAIRS: LOCOMOTION: STAIRS - STEP 1: Does the patient need help to go up and down 12 to 14 stairs? Yes. LOCOMOTION: STAIRS - STEP 2: How much assistance does the patient need from the helper to go a minimum of 12 to 14 stairs? Only isaac pervision, cuing, or coaxing LOCOMOTION: STAIRS - SCORE: 5-SUP COMPREHENSION: COMPREHENSION - SCORE: 0-UNK EXPRESSION EXPRESSION - SCORE: 0-UNK SOCIAL INTERACTION: SOCIAL INTERACTION - SCORE: 0-UNK PROBLEM SOLVING: PROBLEM SOLVING - SCORE: 0-UNK MEMORY: MEMORY - SCORE: 0-UNK SIGNATURE PANEL: The following modified sections: Transfers: Bed, Chair, Wheelchair - Score, Transfers: Toilet - Score , Locomotion: Walk - Score, Locomotion: Wheelchair - Score, Locomotion: Stairs - Score were [litzy spencer] signed by Brigido Ramon PTA on TueNov 23 2018 16:25:11 GMT-0600 (Central Standard Time)
--- NOTE | 2018-11-23 16:26 | FAST ---
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 Jeffy Cordero M.D. ADMISSION DIAGNOSIS: - Orthopaedic Disorders 08 - Unilateral Hip Fracture (08.11) R Femoral neck fx. ESRD. EATING: Activity did not occur on this shift EATING - SCORE: 0-UNK GROOMING: Activity did not occur on this shift GROOMING - SCORE: 0-UNK BATHING: Activity did not occur on this shift BATHING - SCORE: 0-UNK DRESSING - UPPER BODY: Activity did not occur on this shift Patient is not dressing in public clothing ARTICLES SCORE Total number of steps: 0 DRESSING - UPPER BODY - SCORE: 0-UNK DRESSING - LOWER BODY: Activity did not occur on this shift Patient is not dressing in public clothing ARTICLES SCORE Total number of steps: 0 DRESSING - LOWER BODY - SCORE: 0-UNK TOILETING: Activity did not occur on this shift TOILETING - SCORE: 0-UNK BLADDER MANAGEMENT: Activity did not occur on this shift BLADDER MANAGEMENT - SCORE: 7-IND BOWEL MANAGEMENT: Activity did not occur on this shift BOWEL MANAGEMENT - SCORE: 7-IND TRANSFERS: BED, CHAIR, WHEELCHAIR: TRANSFERS: BED, CHAIR, WHEELCHAIR - STEP 1: Does the patient require assistance of a person or device, or need extra time with bed, chair, or whe elchair transfers? Yes. TRANSFERS: BED, CHAIR, WHEELCHAIR - STEP 2: Does the patient require the assistance of a helper? No. Patient only requires an assistive device fo r bed, chair, wheelchair transfers such as a sliding board, grab bar, or brace, OR s/he takes more th an reasonable time, OR there is a safety concern when s/he performs the transfers TRANSFERS: BED, CHAIR, WHEELCHAIR - SCORE: 6-ALESSIO TRANSFERS: TOILET: Activity did not occur on this shift TRANSFERS: TOILET - SCORE: 0-UNK TRANSFERS: SHOWER: Activity did not occur on this shift TRANSFERS: SHOWER - SCORE: 0-UNK TRANSFERS: TUB: Activity did not occur on this shift TRANSFERS: TUB - SCORE: 0-UNK LOCOMOTION: WALK: LOCOMOTION: WALK - STEP 1: Does the patient need help from a person or device, or need extra time to walk 150 feet? No. LOCOMOTION: WALK - STEP 2: Does the patient need an assistive device (such as an orthosis, prosthesis, crutches, or walker) to g o 150 feet, OR does s/he take more than reasonable time, OR is there a concern for safety? Yes, the p atient needs an assistive device LOCOMOTION: WALK - SCORE: 6-ALESSIO LOCOMOTION: WHEELCHAIR: LOCOMOTION: WHEELCHAIR - STEP 1: Does the patient need help to go 150 feet in a wheelchair? No. LOCOMOTION: WHEELCHAIR - SCORE: 6-ALESSIO LOCOMOTION: STAIRS: LOCOMOTION: STAIRS - STEP 1: Does the patient need help to go up and down 12 to 14 stairs? No. LOCOMOTION: STAIRS - STEP 2: Does the patient require an assistive device - such as handrails or cane - to go up and down one flig ht of stairs, OR does s/he take more than reasonable time, OR is there a concern for safety? Yes, the patient requires an assistive device LOCOMOTION: STAIRS - SCORE: 6-ALESSOI COMPREHENSION: COMPREHENSION - SCORE: 0-UNK EXPRESSION EXPRESSION - SCORE: 0-UNK SOCIAL INTERACTION: SOCIAL INTERACTION - SCORE: 0-UNK PROBLEM SOLVING: PROBLEM SOLVING - SCORE: 0-UNK MEMORY: MEMORY - SCORE: 0-UNK SIGNATURE PANEL: The following modified sections: Transfers: Bed, Chair, Wheelchair - Score, Transfers: Toilet - Score , Locomotion: Walk - Score, Locomotion: Wheelchair - Score, Locomotion: Stairs - Score were [litzy spencer] signed by Brigido Ramon PTA on TueNov 23 2018 16:26:21 GMT-0600 (Central Standard Time)
[2018-11-23] MEDS ORDERED: PIPER/TAZO/NS 3.375gm 3.375 GM/100 ML BAG IVPB SCH ×2 (17:00)
--- NOTE | 2018-11-23 18:27 | R.PN ---
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 Pt denied any Shortness of Breath. VITAL SIGNS Temperature: 98.2 F SBP/DBP: 150/77 Pulse: 64 Resp: 16 WBC elevated to 18.5 with normal differential. He has blood in his urine, treated by Dr. Dye with A ugmentin. Ambulated 1000' with modified independence using a rolling walker. Up and down 15 steps with modified independence. Self propelled wheelchair 500' with modified independence. MEDICATION ALLERGIES: No Known Drug Allergies (NKDA) ENVIRONMENTAL ALLERGIES: - Substance Allergies None Known - Other Allergies None Known NURSING: - Shower allowing shower - Skin care per protocol PRECAUTIONS: - Posterior Hip Precaution No adduction across midline No external rotation No hip flexion >90 degrees No internal rotation No wheel chair propulsion - Weight Bearing Precaution WBAT right LE ACTIVITIES OOB only with supervision THERAPIES: - Occupational Therapy Evaluate and Treat. - Physical Therapy Evaluate and Treat. PHYSICAL EXAM - Gen Alert and awake Lying in bed No apparent distress Oriented to: person, time, and place - Skin No breakdown No abnormalities - Eyes No abnormalities - ENMT No abnormalities - Neck No abnormalities - CVS RRR - Chest No abnormalities - Abd + bowel sounds - GI Soft Deferred - No abnormalities - Ext no edema - MSK 4+/5 weakness in right lower extremity. - Neuro 4/5 strength right lower extremity - Psych No abnormalities ASSESSMENT: Pt. is a 58 yo Right-handed white male.On 11/13/2018 he was admitted to [facility] and underwent emergency surgery for R Femoral neck fx (Unilateral Hip Fracture) by Guillermina Escobedo .Pre-morbidly, Pt. was independent/mod-I in Sphincter Control, Transfers Control, Communication, Soci al Cognition, Self-Care, and Locomotion; and he had good Sphincter Control.Currently, he has deficits of Safety Awareness, Transfers Control, Balance, Endurance, Locomotion, and Self-Care.Pt. is now ref erred to [facility] for acute in-patient rehabilitation in order to maximize p atient's functional independence in activities of daily living, strength, ROM, and mobility.- Rehab G oal Patient has realistic goal of being discharged at assistance level 6-Marlyn to reside at Home with Fam sharita/Relatives. MDM/PLAN: - Physical Therapy Decreased range of motion - to improve, our physical therapists will perform initial evaluation of p t's status upon admission and devise an individualized program for increasing patient's Range of Sherif on. Gait dysfunction - to improve, our physical therapists will perform initial evaluation of pt's statu s upon admission and devise an individualized program for Gait Training, and Wheel Chair mobility Inability to transfer - to improve, our physical therapists will perform initial evaluation of pt's status upon admission and devise an individualized program for Bed mobility Need for home safety evaluation - to improve, our physical therapists will perform initial evaluatio n of pt's status upon admission and devise an individualized program for Home Evaluation Need in caregiver upon discharge - to improve, our physical therapists will perform initial evaluati on of pt's status upon admission and devise an individualized program for Caregiver Training New precaution - to improve, our physical therapists will perform initial evaluation of pt's status upon admission and devise an individualized program for Patient precaution education Poor balance - to improve, our physical therapists will perform initial evaluation of pt's status up on admission and devise an individualized program for Balance Training Poor endurance - to improve, our physical therapists will perform initial evaluation of pt's status upon admission and devise an individualized program for Endurance Training Weakness - to improve, our physical therapists will perform initial evaluation of pt's status upon a dmission and devise an individualized program for Aquatic Therapy, Neuromuscular Reeducation, and Str engthening Achieving independence - to improve, our physical therapists will perform initial evaluation of pt's status upon admission and devise an individualized program for Community Reintegration Activities - Occupational Therapy ADL deficits - to improve, our occupation therapists will perform initial evaluation of pt's status upon admission and devise an individualized program for Bathing, Bed mobility, Community Reintegratio n, Cooking, Dressing, Eating, Fine Motor Skills, Grooming, Homemaking, Kitchen Mobility, Laundry, Pat ient Education, Safety Awareness, Splinting - Positioning, Transfers(Toilet, Tub, Shower), and Wheel Chair Management Need for caretaker - to improve, our occupation therapists will perform initial evaluation of pt's status upon admission and devise an individualized program for Caregiver Training Weakness - to improve, our occupation therapists will perform initial evaluation of pt's status upon admission and devise an individualized program for Aquatic Therapy, Balance, Endurance, UE ROM, and UE strengthening - Anterior Hip Precaution No abduction No active extension No adduction across midline No external rotation No hip flexion >90 degrees No internal rotation - Diet - Liquid Texture Continue Regular - Tube Feed Continue N/A - Diet Type Continue Regular - Posterior Hip Precaution No adduction across midline No external rotation No hip flexion >90 degrees No internal rotation No wheel chair propulsion - Weight Bearing Precaution WBAT right LE - Skin care per protocol - Diet - Solid Texture Continue Regular - Shower allowing shower FUNCTIONAL STATUS: UPDATED AT WEEKLY TEAM CONFERENCE - Bladder Same accident frequency: 7-Ind - No accidents in the past 7 days - Bowel Same accident frequency: 7-Ind - No accidents in the past 7 days - Walking Same score based on distance walked: 3(>=150ft) FUNCTIONAL STATUS: - Self-Care A. Eating Ind B. Grooming Ind C. Bathing Ind D. Dressing - Upper Ind E. Dressing - Lower Marge F. Toileting sup - Sphincter Control G: Bladder control Ind H: Bowel control Ind - Transfers Control I. Bed/Chair/Wheelchair sup J. Toilet sup K. Tub/Shower sup - Locomotion L. Walk/Wheelchair (B) Marlyn M. Stairs ADNO - Communication N. Comprehension (B) Marlyn O. Expression (B) Marlyn - Social Cognition P. Social Interaction Marlyn Q. Problem Solving Marlyn R. Memory Marlyn - Endurance Fair - Balance Poor - Safety Awareness Fair CURRENT FUNC. 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
[2018-11-23] MEDS ORDERED: CRANBERRY FRUIT EXTRACT 200 MG CAP PO SCH (20:00)
--- NOTE | 2018-11-23 20:27 | P.PN ---
Date of Service: 11/23/18 Vital Signs Temp Pulse Resp BP Pulse Ox 98.2 F 64 16 150/77 H 97 11/23/18 07:16 11/23/18 08:47 11/23/18 07:16 11/23/18 08:47 11/23/18 07:16 Medications Amlodipine Besylate (Norvasc) 10 mg PO DAILY EZEKIEL Stop: 12/21/18 08:01 Last Admin: 11/23/18 08:48 Dose: 10 mg Arformoterol Tartrate (Brovana) 15 mcg NEB BIDRESP EZEKIEL Stop: 12/20/18 20:01 Last Admin: 11/23/18 07:02 Dose: 15 mcg Calcitriol (Rocaltrol) 0.5 mcg PO DAILY EZEKIEL Stop: 12/22/18 08:01 Last Admin: 11/23/18 08:47 Dose: 0.5 mcg Carvedilol (Coreg) 25 mg PO BID EZEKIEL Stop: 12/21/18 08:01 Last Admin: 11/23/18 08:47 Dose: 25 mg Cholecalciferol (Vitamin D 5,000 Iu Cap) 5,000 unit PO DAILY EZEKIEL Stop: 12/22/18 08:01 Last Admin: 11/23/18 08:48 Dose: 5,000 unit Citalopram Hydrobromide (Celexa) 20 mg PO DAILY EZEKIEL Stop: 12/21/18 08:01 Last Admin: 11/23/18 08:48 Dose: 20 mg Colchicine (Colcrys) 0.6 mg PO BID EZEKIEL Stop: 12/20/18 20:01 Last Admin: 11/23/18 08:47 Dose: 0.6 mg Epoetin Vinicio (Procrit) 10,000 unit IV EVERY HD EZEKIEL Stop: 12/21/18 11:16 Last Admin: 11/22/18 21:15 Dose: 10,000 unit Famotidine (Pepcid) 20 mg PO DAILY EZEKIEL Stop: 12/21/18 08:01 Last Admin: 11/23/18 08:47 Dose: 20 mg Ferrous Sulfate (Feosol) 325 mg PO DAILY EZEKIEL Stop: 12/21/18 14:01 Last Admin: 11/23/18 08:47 Dose: 325 mg Fluocinonide (Lidex 0.05% Cream) 1 appl TOP TID EZEKIEL Stop: 12/20/18 21:01 Last Admin: 11/23/18 13:01 Dose: 1 appl Heparin Sodium (Porcine) (Heparin 5,000 Units/Ml) 5,000 unit SQ Q12HR [facility] Stop: 12/21/18 08:01 Last Admin: 11/23/18 18:41 Dose: 5,000 unit Heparin Sodium (Porcine) (Heparin 1,000 Units/Ml) 6,000 unit IV EVERY HD PRN PRN Reason: FLUSH AFTER EACH USE Stop: 12/21/18 11:05 Last Admin: 11/22/18 21:15 Dose: 6,000 unit Albumin Human (Albumin 25%) 50 mls @ 100 mls/hr IV EVERY HD [facility] Stop: 12/21/18 12:01 Levetiracetam (Keppra Tab) 500 mg PO BID [facility] Stop: 12/20/18 20:01 Last Admin: 11/23/18 08:47 Dose: 500 mg Levofloxacin (Levaquin) 500 mg PO DAILY [facility]; Protocol Stop: 11/30/18 16:01 Last Admin: 11/23/18 16:00 Dose: 500 mg Lorazepam (Ativan) 0.5 mg PO Q8H PRN PRN Reason: ANXIETY Stop: 12/20/18 21:20 Mannitol (Mannitol 12.5 Gm/50 Ml Vial) 12.5 gm IV EVERY HD PRN PRN Reason: BP support at hemodialysis Stop: 12/21/18 11:05 Multivitamins/Iron (Hemocyte Plus) 1 tab PO DAILY WITH BREAKFAST [facility] Stop: 12/21/18 14:01 Last Admin: 11/23/18 08:48 Dose: 1 tab Nutritional Formula (Promod Liquid Protein) 30 ml PO BID EZEKIEL Stop: 12/21/18 20:01 Last Admin: 11/23/18 08:00 Dose: 30 ml Prednisone (Deltasone) 20 mg PO BID [facility] Stop: 12/20/18 20:01 Last Admin: 11/23/18 08:50 Dose: 20 mg Sevelamer Carbonate (Renvela) 800 mg PO TIDWM [facility] Stop: 12/21/18 12:01 Last Admin: 11/23/18 17:00 Dose: 800 mg Terazosin HCl (Hytrin) 2 mg PO BID [facility] Stop: 12/20/18 20:01 Last Admin: 11/23/18 08:00 Dose: 2 mg Thiamine HCl (Vitamin B-1) 100 mg PO DAILY EZEKIEL Stop: 12/21/18 08:01 Last Admin: 11/23/18 08:47 Dose: 100 mg Tramadol HCl (Ultram) 50 mg PO Q4HP PRN PRN Reason: PAIN MILD TO MODERATE Stop: 12/21/18 12:27 Last Admin: 11/23/18 14:17 Dose: 50 mg Lab Results (last 24 hrs) 11/23/18 14:45: Procalcitonin 1.22 H 11/23/18 14:45: Lactate Dehydrogenase 153 11/23/18 05:59: Sodium 136, Potassium 4.1, Chloride 100, Carbon Dioxide 28, BUN 42 H, Creatinine 4.63 H D, Estimated GFR 13 L, Glucose 128 H, Calcium 7.2 L, Albumin 2.5 L, Prealbumin 27.9 11/23/18 05:59: WBC 17.7 H D, RBC 2.96 L, Hgb 9.0 L, Hct 27.0 L, MCV 91.2, MCH 30.2, MCHC 33.2, RDW 14.4, Plt Count 163, MPV 9.4, Neutrophils % 87.7 H, Lymphocytes % 4.6 L, Monocytes % 7.6, Eosinophils % 0.0, Basophils % 0.1, Absolute Neutrophils 15.5 H, Segmented Neutrophils 87 H, Band Neutrophils 1, Absolute Lymphocytes 0.8, Lymphocytes 5 L, Monocytes 7, Absolute Monocytes 1.3, Absolute Eosinophils 0.0, Absolute Basophils 0.0, Anisocytosis 1+, Morphology Comment Noted Microbiology Results 11/20/18 20:40 Clean Catch Urine [place] Count - Final 11/20/18 20:40 Clean Catch Urine - Final Assessment/ Plan: Nephrology CPS stable without CP or SOB. No pain. No acute events overnight. Vitals, medications, blood work and imaging reviewed in the chart. General: In no apparent distress, Cooperative HEENT: Atraumatic Neck: Supple Respiratory: Clear to auscultation bilaterally Cardiovascular: No edema, Regular rate/rhythm Gastrointestinal: Soft and benign, Non-distended Musculoskeletal: No clubbing, No contractures Integumentary: No rashes, No cyanosis Neurological: Normal speech Laboratory Data (last 24 hrs) 11/21/18 05:58: Sodium 133 L, Potassium 3.9, BUN 58 H D, Creatinine 5.79 H* D, Glucose 126 H, Magnesium 2.1 11/21/18 05:58: WBC 12.8 H, Hgb 8.9 L, Hct 26.4 L, Plt Count 172 Imagings Data: Abd US and CT consistent with PKD. Conclusions/Impression: A/ ESRD due adPKD. HTN. Hyperkalemia. DM II with CKD. RUTHIE/ Secondary HyperPTH. Diastolic CHF, chronic. Anemia in CKD. HCV. P/ Continue current POC and Medications. Give Epo. HD TIW. Renal diet. PT as tolerated. No NSAIDs. AM labs. Daily weight.
--- NOTE | 2018-11-24 01:27 | FAST ---
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 Jeffy Cordero M.D. ADMISSION DIAGNOSIS: - Orthopaedic Disorders 08 - Unilateral Hip Fracture (.) R Femoral neck fx. ESRD. EATING: Activity did not occur on this shift EATING - SCORE: 0-UNK GROOMING: Activity did not occur on this shift GROOMING - SCORE: 0-UNK BATHING: Activity did not occur on this shift BATHING - SCORE: 0-UNK DRESSING - UPPER BODY: Patient is not dressing in public clothing ARTICLES SCORE Total number of steps: 0 DRESSING - UPPER BODY - SCORE: 0-UNK DRESSING - LOWER BODY: Patient is not dressing in public clothing ARTICLES SCORE Total number of steps: 0 DRESSING - LOWER BODY - SCORE: 0-UNK TOILETING: TOILETING - STEP 1: Does the patient require the assistance of a person or device, or need extra time with toileting? Yes . TOILETING - STEP 2: Does the patient require the assistance of a helper? Yes. TOILETING - STEP 3: How much assistance does the patient require from the helper? Hands-on assistance from the helper TOILETING - STEP 4: Of the 3 tasks: 1) Adjusting clothing prior to use, 2) Cleansing of perineal area, 3) Adjusting clot walker after use; How many tasks does the patient perform WITHOUT assistance of the helper? Three tasks with steadying assistance from the helper TOILETING - SCORE: 4-MIN BLADDER MANAGEMENT: BLADDER MANAGEMENT - STEP 1: Does the patient control the bladder completely and intentionally without equipment or devices or med ications, and is always continent? No. BLADDER MANAGEMENT - STEP 2: Does the patient require the assistance of a helper? Yes. BLADDER MANAGEMENT - STEP 3: How much assistance does the patient require from the helper? Only supervision, stand-by, cuing, or c oaxing BLADDER MANAGEMENT - SCORE: 5-SUP BOWEL MANAGEMENT: Activity did not occur on this shift BOWEL MANAGEMENT - SCORE: 7-IND TRANSFERS: BED, CHAIR, WHEELCHAIR: TRANSFERS: BED, CHAIR, WHEELCHAIR - STEP 1: Does the patient require assistance of a person or device, or need extra time with bed, chair, or whe elchair transfers? Yes. TRANSFERS: BED, CHAIR, WHEELCHAIR - STEP 2: Does the patient require the assistance of a helper? Yes. TRANSFERS: BED, CHAIR, WHEELCHAIR - STEP 3: How much assistance does the patient require from the helper? Steadying/guiding assistance TRANSFERS: BED, CHAIR, WHEELCHAIR - SCORE: 4-MIN TRANSFERS: TOILET: TRANSFERS: TOILET - STEP 1: Does the patient require the assistance of a person or device, or need extra time with toilet transfe rs? Yes. TRANSFERS: TOILET - STEP 2: Does the patient require the assistance of a helper? Yes. TRANSFERS: TOILET - STEP 3: How much assistance does the patient require from the helper? Only supervision, cuing, coaxing, OR he lp to set out transfer equipment or to lock brakes and/or lift foot rests TRANSFERS: TOILET - SCORE: 5-SUP TRANSFERS: SHOWER: Activity did not occur on this shift TRANSFERS: SHOWER - SCORE: 0-UNK TRANSFERS: TUB: Activity did not occur on this shift TRANSFERS: TUB - SCORE: 0-UNK LOCOMOTION: WALK: Activity did not occur on this shift LOCOMOTION: WALK - SCORE: 0-UNK LOCOMOTION: WHEELCHAIR: Activity did not occur on this shift LOCOMOTION: WHEELCHAIR - SCORE: 0-UNK COMPREHENSION: COMPREHENSION: TYPE: Both COMPREHENSION - STEP 1: Does the patient require help from a person or device, or need extra time to understand complex and a bstract ideas (such as current events, finances, discharge planning, medical issues, relationships, e tc)? No. COMPREHENSION - STEP 2: Does the patient need extra time, require an assistive device (such as glasses for visual comprehensi on or a hearing aid for auditory comprehension) or does s/he have mild difficulty understanding compl ex and abstract information? Yes. COMPREHENSION - SCORE: 6-ALESSIO EXPRESSION EXPRESSION: TYPE: Both EXPRESSION - STEP 1: Does the patient require help from a person or device, or need extra time expressing complex and abst ract ideas (such as current events, finances, discharge planning, medical issues, relationships, etc) ? No. EXPRESSION - STEP 2: Does the patient need extra time, require an assistive device (such as augmentive communication syste m or a communication board), OR does s/he have mild difficulty expressing complex and abstract ideas (including mild dysarthria or mild word-find problems)? No. EXPRESSION - SCORE: 7-IND SOCIAL INTERACTION: SOCIAL INTERACTION - STEP 1: Does the patient require a helper to interact with others in social and therapeutic situations? No. SOCIAL INTERACTION - STEP 2: Does the patient need extra time in social situations, OR does s/he interact with staff, other patien ts, and family members ONLY in structured environments, OR does s/he require medication for social in teraction? Yes, patient needs extra time SOCIAL INTERACTION - SCORE: 6-ALESSIO PROBLEM SOLVING: PROBLEM SOLVING - STEP 1: Does the patient need help from a person or device, or need extra time to solve complex problems such as managing a checking account or confronting interpersonal problems? No. PROBLEM SOLVING - STEP 2: Does the patient require extra time to make decisions or solve problems, OR does s/he have slight dif ficulty reading, initiating, or self-correcting in unfamiliar situations? Yes, patient needs extra ti me. PROBLEM SOLVING - SCORE: 6-ALESSIO MEMORY: MEMORY - STEP 1: Does the patient need help from a person or device, or need extra time to remember frequently encount ered people, daily routines, and executing requests? No. MEMORY - STEP 2: Does the patient have slight difficulty recognizing frequently encountered people, daily routines, or executing requests without the need for repetition or using self-initiated or environmental cues to remember? Yes. MEMORY - SCORE: 6-ALESSIO SIGNATURE PANEL: The following modified sections: Eating - Score, Grooming - Score, Dressing - Upper Body - Score, Jordon ssing - Lower Body - Score, Toileting - Score, Bladder Management - Score, Bowel Management - Score, Transfers: Bed, Chair, Wheelchair - Score, Transfers: Toilet - Score, Transfers: Shower - Score, [place]ack[place] sfers: Tub - Score, Locomotion: Walk - Score, Locomotion: Wheelchair - Score, Comprehension - Score, Expression - Score, Social Interaction - Score, Problem Solving - Score, Memory - Score were [electro nically] signed by Leandra Morrow CNA on TueNov 24 2018 01:25:57 GMT-0600 (Central Standard Time)
[2018-11-24 07:05] LABS: Absolute Lymphocytes (CBC) 1.3 K/uL (0.7-4.9); Absolute Monocytes 1.3 K/uL (0.1-1.3); Absolute Neutrophil 15.6 K/uL (1.8-8.0); Basophils % 0.6 % (0-1.3); Eosinophils % 0.1 % (0-4.4); Hematocrit 28.3 % (39.6-49.0); Lymphocytes % 7.2 % (15.3-44.8); MPV 9.6 fL (7.6-11.3); Monocytes % 7.1 % (3.3-12.3); RBC Red Blood Cell Count 3.08 M/uL (4.33-5.43)
[2018-11-24] MEDS: ARFORMOTEROL TARTRATE 15 MCG/2 ML VIAL.NEB NEB SCH ×2 (07:05→19:39)
[2018-11-24 07:30] LABS: Potassium 4.2 mmol/L (3.5-5.1)
[2018-11-24] MEDS: SEVELAMER CARBONATE 800 MG TABLET PO SCH ×4 (08:00→16:26)
[2018-11-24] MEDS: levoFLOXacin 500 MG TAB PO SCH (08:52)
[2018-11-24] MEDS: CALCITROL 0.25 MCG CAP PO SCH (08:52)
[2018-11-24] MEDS: FAMOTIDINE 20 MG TAB PO SCH (08:52)
[2018-11-24] MEDS: levETIRAcetam 500 MG TAB PO SCH ×2 (08:52→21:06)
[2018-11-24] MEDS: FE SULF/FA/VIT B COMP & C TAB PO SCH (08:53)
[2018-11-24] MEDS: predniSONE 20 MG TAB PO SCH (08:53)
[2018-11-24] MEDS: THIAMINE HCL 100 MG TABLET PO SCH (08:53)
[2018-11-24] MEDS: CARVEDILOL 12.5 MG TAB PO SCH ×2 (08:53→21:06)
[2018-11-24] MEDS: COLCHICINE 0.6 MG TAB PO SCH ×2 (08:53→21:06)
[2018-11-24] MEDS: VITAMIN D 5,000 UNIT CAP PO SCH (08:53)
[2018-11-24] MEDS: TERAZOSIN HCL 1 MG CAP PO SCH ×2 (08:53→21:06)
[2018-11-24] MEDS: FERROUS SULFATE 325 MG TAB PO SCH (08:53)
[2018-11-24] MEDS: CITALOPRAM 10 MG TABLET PO SCH (08:53)
[2018-11-24] MEDS: AMLODIPINE 10 MG TAB PO SCH (08:54)
[2018-11-24] MEDS: FLUOCINONIDE 0.05% CREAM 30GM TOP SCH ×3 (08:54→21:00)
[2018-11-24] MEDS: HEPARIN 5000 UNIT/ML 1 ML VIAL SQ SCH ×2 (08:54→21:10)
[2018-11-24] MEDS: PROMOD 30 ML DOSE PO SCH ×2 (08:54→21:07)
[2018-11-24 08:58] LABS: Blood Morphology Comment NOT SEEN (NOT SEEN); Platelet Estimate ADEQ; Urine White Blood Cell Casts OK
--- NOTE | 2018-11-24 09:12 | P.RH.PN ---
Vital Signs: Last Vital Signs Temp 98.2 F 11/23/18 20:00 Pulse 58 11/24/18 08:54 Resp 16 11/23/18 20:00 BP 157/84 H 11/24/18 08:54 Pulse Ox 97 11/23/18 20:00 Laboratory: Laboratory Last Values WBC 18.3 K/uL (4.3-10.9) H 11/24/18 06:13 RBC 3.08 M/uL (4.33-5.43) L 11/24/18 06:13 Hgb 9.4 g/dL (13.6-17.9) L 11/24/18 06:13 Hct 28.3 % (39.6-49.0) L 11/24/18 06:13 MCV 91.8 fL (80-100) 11/24/18 06:13 MCH 30.6 pg (27.0-35.0) 11/24/18 06:13 MCHC 33.4 g/dL (32.0-36.0) 11/24/18 06:13 RDW 14.6 % (12.1-15.2) 11/24/18 06:13 Plt Count 198 K/uL (152-406) D 11/24/18 06:13 MPV 9.6 fL (7.6-11.3) 11/24/18 06:13 Plt Distribution Width Cancelled 11/24/18 06:00 Absolute Nucleated RBC Cancelled 11/24/18 06:00 Neutrophils % 85.0 % (41.7-73.7) H 11/24/18 06:13 Lymphocytes % 7.2 % (15.3-44.8) L 11/24/18 06:13 Monocytes % 7.1 % (3.3-12.3) 11/24/18 06:13 Eosinophils % 0.1 % (0-4.4) 11/24/18 06:13 Basophils % 0.6 % (0-1.3) 11/24/18 06:13 Nucleated RBC % Cancelled 11/24/18 06:00 Absolute Neutrophils 15.6 K/uL (1.8-8.0) H 11/24/18 06:13 Segmented Neutrophils 87 % (40-80) H 11/23/18 05:59 Band Neutrophils 1 % (0-1) 11/23/18 05:59 Absolute Lymphocytes 1.3 K/uL (0.7-4.9) 11/24/18 06:13 Lymphocytes 5 % (15-42) L 11/23/18 05:59 Monocytes 7 % (0-10) 11/23/18 05:59 Absolute Monocytes 1.3 K/uL (0.1-1.3) 11/24/18 06:13 Absolute Eosinophils 0.0 K/uL (0-0.5) 11/24/18 06:13 Absolute Basophils 0.1 K/uL (0-0.5) 11/24/18 06:13 Metamyelocytes 2 % (0-0) H 11/21/18 05:58 Myelocytes 1 % (0-0) H 11/21/18 05:58 Diff Path Review Cancelled 11/24/18 06:00 Anisocytosis 1+ 11/23/18 05:59 Morphology Comment Not seen (NOT SEEN) 11/24/18 06:13 ESR Westergren 28 mm/HR (0-20) H 11/24/18 06:13 Sodium 135 mmol/L (136-145) L 11/24/18 06:13 Potassium 4.2 mmol/L (3.5-5.1) 11/24/18 06:13 Chloride 100 mmol/L (98-107) 11/24/18 06:13 Carbon Dioxide 25 mmol/L (21-32) 11/24/18 06:13 BUN 60 mg/dL (7-18) H 11/24/18 06:13 Creatinine 6.11 mg/dL (0.55-1.3) H* D 11/24/18 06:13 Estimated GFR 9 mL/min (=/>90) L 11/24/18 06:13 Glucose 150 mg/dL (74-106) H 11/24/18 06:13 Calcium 7.2 mg/dL (8.5-10.1) L 11/24/18 06:13 Magnesium 2.1 mg/dL (1.8-2.4) 11/21/18 05:58 Lactate Dehydrogenase 153 U/L (87-241) 11/23/18 14:45 Albumin 2.5 g/dL (3.4-5.0) L 11/23/18 05:59 Prealbumin 27.9 mg/dL (20-40) 11/23/18 05:59 Procalcitonin 1.15 ng/mL (<0.50) H 11/23/18 20:35 Urine Color Yellow 11/20/18 20:40 Urine Appearance Clear 11/20/18 20:40 Urine pH 7.0 (5.0-7.0) 11/20/18 20:40 Ur Specific [place] <=1.005 (1.005-1.030) 11/20/18 20:40 Urine Ketones Negative (NEG) 11/20/18 20:40 Urine Blood 1+ (NEG) H 11/20/18 20:40 Urine Nitrite Negative (NEG) 11/20/18 20:40 Urine Bilirubin Negative (NEG) 11/20/18 20:40 Urine Urobilinogen 0.2 mg/dL (0.2-1.0) 11/20/18 20:40 Ur Leukocyte Esterase Trace (NEG) H 11/20/18 20:40 Urine RBC <5 /HPF (NONE SEEN) 11/20/18 20:40 Urine WBC <5 /HPF (<5) 11/20/18 20:40 Ur Squamous Epith Cells <5 /HPF (NONE SEEN) 11/20/18 20:40 Amorphous Sediment Trace /HPF (NONE SEEN) 11/20/18 20:40 Urine Bacteria <20 /HPF (NONE SEEN) 11/20/18 20:40 Urine Culture Reflexed Not needed 11/20/18 20:40 Urine Glucose Trace (NEG) 11/20/18 20:40 Urine Total Protein 2+ (NEG) H 11/20/18 20:40 Opiates Screen Negative (NEGATIVE) 11/21/18 21:30 Methadone Screen Negative (NEGATIVE) 11/21/18 21:30 Ur Barbiturates Screen Negative (NEGATIVE) 11/21/18 21:30 Ur Phencyclidine Scrn Negative (NEGATIVE) 11/21/18 21:30 Amphetamines Screen Negative (NEGATIVE) 11/21/18 21:30 Benzodiazepines Screen Negative (NEGATIVE) 11/21/18 21:30 Cocaine Screen Negative (NEGATIVE) 11/21/18 21:30 Ur THC Screen Negative (NEGATIVE) 11/21/18 21:30 Miscellaneous Test Sent 11/21/18 20:50 Weight: 189 lb 8 oz Wound Present: Yes Closed Surgical Incision Present: Yes Negative Pressure Wound Therapy Present: No Physician Update: Mr. Padilla's labs have been reviewed. His procalcitonin has improved to 1.15 from 1.22, but his WBC's increased to 18 while in prednisone 20 mg bid. Will decrease steroids to 10 kmg bid. He is on levaquin. He is followed by the renal service. He is giving poor effort with all therapy. He does not want to continue with therapy. Medical Issues: WBC -17.7, on Levaquin 500mg Daily PO Pain Issues: Tramadol 50mg Q4H PRN PO Functional Improvement: Patient physically completing tasks w/ Mod I. Patient continues to present w/ difficulty w/ cognitively indicating hip precautions. Speech Therapy Update: Mr. Padilla has demonstrated limited to no progress in speech therapy. He exhibits low motivation and requires max encouragement to participate and recall safety precautions. Pt requires frequent repetitions, simplified instruction, and verbal cues to attend and answer questions. He is at MOD A for auditory comprehension, SUPV for verbal expression, MOD A for social interaction, MAX A for problem solving, and MAX A for memory. Patient keeps saying that he is ready to go home but given moderate cognitive deficits pt is not safe to be left alone for longer than a few hours at a time. He is a high fall risk and is not adhering to hip precautions without a lot of reminders. 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 Please see the Rehabilitation Signature page for all necessary signatures.
--- NOTE | 2018-11-24 14:05 | FAST ---
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 Jeffy Cordero M.D. ADMISSION DIAGNOSIS: - Orthopaedic Disorders 08 - Unilateral Hip Fracture (06.24) R Femoral neck fx. ESRD. EATING: EATING - STEP 1: Does the patient require the assistance of a person or device, or need extra time when eating? No. EATING - SCORE: 7-IND GROOMING: Activity did not occur on this shift GROOMING - SCORE: 0-UNK BATHING: Activity did not occur on this shift BATHING - SCORE: 0-UNK DRESSING - UPPER BODY: Activity did not occur on this shift ARTICLES SCORE Total number of steps: 0 DRESSING - UPPER BODY - SCORE: 0-UNK DRESSING - LOWER BODY: Activity did not occur on this shift ARTICLES SCORE Total number of steps: 0 DRESSING - LOWER BODY - SCORE: 0-UNK TOILETING: TOILETING - STEP 1: Does the patient require the assistance of a person or device, or need extra time with toileting? No. TOILETING - SCORE: 7-IND BLADDER MANAGEMENT: BLADDER MANAGEMENT - STEP 1: Does the patient control the bladder completely and intentionally without equipment or devices or med ications, and is always continent? Yes. BLADDER MANAGEMENT - SCORE: 7-IND BLADDER MANAGEMENT - FREQUENCY OF ACCIDENTS: BLADDER MANAGEMENT(FA) - STEP 1: How many accidents has the patient had during the current shift? 0 BOWEL MANAGEMENT: BOWEL MANAGEMENT - STEP 1: Does the patient control bowels completely and intentionally without equipment devices or medications AND is always continent? Yes. BOWEL MANAGEMENT - SCORE: 7-IND BOWEL MANAGEMENT - FREQUENCY OF ACCIDENTS: BOWEL MANAGEMENT(FA) - STEP 1: How many accidents has the patient had during the current shift? 0 TRANSFERS: BED, CHAIR, WHEELCHAIR: TRANSFERS: BED, CHAIR, WHEELCHAIR - STEP 1: Does the patient require assistance of a person or device, or need extra time with bed, chair, or whe elchair transfers? Yes. TRANSFERS: BED, CHAIR, WHEELCHAIR - STEP 2: Does the patient require the assistance of a helper? Yes. TRANSFERS: BED, CHAIR, WHEELCHAIR - STEP 3: How much assistance does the patient require from the helper? Only supervision TRANSFERS: BED, CHAIR, WHEELCHAIR - SCORE: 5-SUP TRANSFERS: TOILET: TRANSFERS: TOILET - STEP 1: Does the patient require the assistance of a person or device, or need extra time with toilet transfe rs? Yes. TRANSFERS: TOILET - STEP 2: Does the patient require the assistance of a helper? Yes. TRANSFERS: TOILET - STEP 3: How much assistance does the patient require from the helper? Only supervision, cuing, coaxing, OR he lp to set out transfer equipment or to lock brakes and/or lift foot rests TRANSFERS: TOILET - SCORE: 5-SUP TRANSFERS: SHOWER: Activity did not occur on this shift TRANSFERS: SHOWER - SCORE: 0-UNK TRANSFERS: TUB: Activity did not occur on this shift TRANSFERS: TUB - SCORE: 0-UNK LOCOMOTION: WALK: Activity did not occur on this shift LOCOMOTION: WALK - SCORE: 0-UNK LOCOMOTION: WHEELCHAIR: Activity did not occur on this shift LOCOMOTION: WHEELCHAIR - SCORE: 0-UNK COMPREHENSION: COMPREHENSION - SCORE: 0-UNK EXPRESSION EXPRESSION - SCORE: 0-UNK SOCIAL INTERACTION: SOCIAL INTERACTION - SCORE: 0-UNK PROBLEM SOLVING: PROBLEM SOLVING - SCORE: 0-UNK MEMORY: MEMORY - SCORE: 0-UNK SIGNATURE PANEL: The following modified sections: Eating - Score, Grooming - Score, Bathing - Score, Dressing - Upper Body - Score, Dressing - Lower Body - Score, Toileting - Score, Bladder Management - Score, Bowel Man agement - Score, Transfers: Bed, Chair, Wheelchair - Score, Transfers: Toilet - Score, Transfers: Julieta wer - Score, Transfers: Tub - Score, Locomotion: Walk - Score, Locomotion: Wheelchair - Score, Compre hension - Score, Expression - Score, Social Interaction - Score, Problem Solving - Score, Memory - Sc ore were [electronically] signed by Julee Flowers CNA on TueNov 24 2018 14:04:35 GMT-0600 (Centra [place] Standard Time)
--- NOTE | 2018-11-24 15:07 | FAST ---
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 Jeffy Cordero M.D. ADMISSION DIAGNOSIS: - Orthopaedic Disorders 08 - Unilateral Hip Fracture (.) R Femoral neck fx. ESRD. EATING: Activity did not occur on this shift EATING - SCORE: 0-UNK GROOMING: Activity did not occur on this shift GROOMING - SCORE: 0-UNK BATHING: Activity did not occur on this shift BATHING - SCORE: 0-UNK DRESSING - UPPER BODY: Activity did not occur on this shift Patient is not dressing in public clothing ARTICLES SCORE Total number of steps: 0 DRESSING - UPPER BODY - SCORE: 0-UNK DRESSING - LOWER BODY: Activity did not occur on this shift Patient is not dressing in public clothing ARTICLES SCORE Total number of steps: 0 DRESSING - LOWER BODY - SCORE: 0-UNK TOILETING: Activity did not occur on this shift TOILETING - SCORE: 0-UNK BLADDER MANAGEMENT: Activity did not occur on this shift BLADDER MANAGEMENT - SCORE: 7-IND BOWEL MANAGEMENT: Activity did not occur on this shift BOWEL MANAGEMENT - SCORE: 7-IND TRANSFERS: BED, CHAIR, WHEELCHAIR: TRANSFERS: BED, CHAIR, WHEELCHAIR - STEP 1: Does the patient require assistance of a person or device, or need extra time with bed, chair, or whe elchair transfers? Yes. TRANSFERS: BED, CHAIR, WHEELCHAIR - STEP 2: Does the patient require the assistance of a helper? No. Patient only requires an assistive device fo r bed, chair, wheelchair transfers such as a sliding board, grab bar, or brace, OR s/he takes more th an reasonable time, OR there is a safety concern when s/he performs the transfers TRANSFERS: BED, CHAIR, WHEELCHAIR - SCORE: 6-ALESSIO TRANSFERS: TOILET: Activity did not occur on this shift TRANSFERS: TOILET - SCORE: 0-UNK TRANSFERS: SHOWER: Activity did not occur on this shift TRANSFERS: SHOWER - SCORE: 0-UNK TRANSFERS: TUB: Activity did not occur on this shift TRANSFERS: TUB - SCORE: 0-UNK LOCOMOTION: WALK: LOCOMOTION: WALK - STEP 1: Does the patient need help from a person or device, or need extra time to walk 150 feet? No. LOCOMOTION: WALK - STEP 2: Does the patient need an assistive device (such as an orthosis, prosthesis, crutches, or walker) to g o 150 feet, OR does s/he take more than reasonable time, OR is there a concern for safety? Yes, the p atient needs an assistive device LOCOMOTION: WALK - SCORE: 6-ALESSIO LOCOMOTION: WHEELCHAIR: LOCOMOTION: WHEELCHAIR - STEP 1: Does the patient need help to go 150 feet in a wheelchair? No. LOCOMOTION: WHEELCHAIR - SCORE: 6-ALESSIO LOCOMOTION: STAIRS: LOCOMOTION: STAIRS - STEP 1: Does the patient need help to go up and down 12 to 14 stairs? No. LOCOMOTION: STAIRS - STEP 2: Does the patient require an assistive device - such as handrails or cane - to go up and down one flig ht of stairs, OR does s/he take more than reasonable time, OR is there a concern for safety? Yes, the patient requires an assistive device LOCOMOTION: STAIRS - SCORE: 6-ALESSIO COMPREHENSION: COMPREHENSION - SCORE: 0-UNK EXPRESSION EXPRESSION - SCORE: 0-UNK SOCIAL INTERACTION: SOCIAL INTERACTION - SCORE: 0-UNK PROBLEM SOLVING: PROBLEM SOLVING - SCORE: 0-UNK MEMORY: MEMORY - SCORE: 0-UNK SIGNATURE PANEL: The following modified sections: Transfers: Bed, Chair, Wheelchair - Score, Transfers: Toilet - Score , Locomotion: Walk - Score, Locomotion: Wheelchair - Score, Locomotion: Stairs - Score were [litzy spencer] signed by Brigido Ramon PTA on TueNov 24 2018 15:06:28 GMT-0600 (Central Standard Time)
[2018-11-24] MEDS: EPOETIN ALFA 10,000 UNIT/ML VIAL IV SCH (16:54)
--- NOTE | 2018-11-24 19:04 | P.PN ---
Date of Service: 11/24/18 Vital Signs Temp Pulse Resp BP Pulse Ox 98.0 F 58 16 157/84 H 97 11/24/18 07:30 11/24/18 08:54 11/24/18 07:30 11/24/18 08:54 11/24/18 07:30 Medications Amlodipine Besylate (Norvasc) 10 mg PO DAILY EZEKIEL Stop: 12/21/18 08:01 Last Admin: 11/24/18 08:54 Dose: 10 mg Arformoterol Tartrate (Brovana) 15 mcg NEB BIDRESP EZEKIEL Stop: 12/20/18 20:01 Last Admin: 11/24/18 07:05 Dose: 15 mcg Calcitriol (Rocaltrol) 0.5 mcg PO DAILY EZEKI[facility] Stop: 12/22/18 08:01 Last Admin: 11/24/18 08:52 Dose: 0.5 mcg Carvedilol (Coreg) 25 mg PO BID EZEKIEL Stop: 12/21/18 08:01 Last Admin: 11/24/18 08:53 Dose: 25 mg Cholecalciferol (Vitamin D 5,000 Iu Cap) 5,000 unit PO DAILY E[facility]KIEL Stop: 12/22/18 08:01 Last Admin: 11/24/18 08:53 Dose: 5,000 unit Citalopram Hydrobromide (Celexa) 20 mg PO DAILY E[facility]KI[facility] Stop: 12/21/18 08:01 Last Admin: 11/24/18 08:53 Dose: 20 mg Colchicine (Colcrys) 0.6 mg PO BID [facility] Stop: 12/20/18 20:01 Last Admin: 11/24/18 08:53 Dose: 0.6 mg Epoetin Vinicio (Procrit) 10,000 unit IV EVERY HD [facility] Stop: 12/21/18 11:16 Last Admin: 11/24/18 16:54 Dose: 10,000 unit Famotidine (Pepcid) 20 mg PO DAILY [facility] Stop: 12/21/18 08:01 Last Admin: 11/24/18 08:52 Dose: 20 mg Ferrous Sulfate (Feosol) 325 mg PO DAILY E[facility]KIEL Stop: 12/21/18 14:01 Last Admin: 11/24/18 08:53 Dose: 325 mg Fluocinonide (Lidex 0.05% Cream) 1 appl TOP TID EZEKIEL Stop: 12/20/18 21:01 Last Admin: 11/24/18 14:00 Dose: Not Given Heparin Sodium (Porcine) (Heparin 5,000 Units/Ml) 5,000 unit SQ Q12HR [facility] Stop: 12/21/18 08:01 Last Admin: 11/24/18 08:54 Dose: 5,000 unit Heparin Sodium (Porcine) (Heparin 1,000 Units/Ml) 6,000 unit IV EVERY HD PRN PRN Reason: FLUSH AFTER EACH USE Stop: 12/21/18 11:05 Last Admin: 11/22/18 21:15 Dose: 6,000 unit Albumin Human (Albumin 25%) 50 mls @ 100 mls/hr IV EVERY HD [facility] Stop: 12/21/18 12:01 Levetiracetam (Keppra Tab) 500 mg PO BID [facility] Stop: 12/20/18 20:01 Last Admin: 11/24/18 08:52 Dose: 500 mg Levofloxacin (Levaquin) 500 mg PO DAILY [facility]; Protocol Stop: 11/30/18 16:01 Last Admin: 11/24/18 08:52 Dose: 500 mg Lorazepam (Ativan) 0.5 mg PO Q8H PRN PRN Reason: ANXIETY Stop: 12/20/18 21:20 Mannitol (Mannitol 12.5 Gm/50 Ml Vial) 12.5 gm IV EVERY HD PRN PRN Reason: BP support at hemodialysis Stop: 12/21/18 11:05 Multivitamins/Iron (Hemocyte Plus) 1 tab PO DAILY WITH BREAKFAST [facility] Stop: 12/21/18 14:01 Last Admin: 11/24/18 08:53 Dose: 1 tab Nutritional Formula (Promod Liquid Protein) 30 ml PO BID [facility] Stop: 12/21/18 20:01 Last Admin: 11/24/18 08:54 Dose: 30 ml Prednisone (Deltasone) 10 mg PO BID [facility] Stop: 12/24/18 20:01 Sevelamer Carbonate (Renvela) 800 mg PO TIDWM [facility] Stop: 12/21/18 12:01 Last Admin: 11/24/18 16:26 Dose: Not Given Terazosin HCl (Hytrin) 2 mg PO BID [facility] Stop: 12/20/18 20:01 Last Admin: 11/24/18 08:53 Dose: 2 mg Thiamine HCl (Vitamin B-1) 100 mg PO DAILY [facility] Stop: 12/21/18 08:01 Last Admin: 11/24/18 08:53 Dose: 100 mg Tramadol HCl (Ultram) 50 mg PO Q4HP PRN PRN Reason: PAIN MILD TO MODERATE Stop: 12/21/18 12:27 Last Admin: 11/23/18 14:17 Dose: 50 mg Lab Results (last 24 hrs) 11/24/18 06:13: Sodium 135 L, Potassium 4.2, Chloride 100, Carbon Dioxide 25, BUN 60 H, Creatinine 6.11 H* D, Estimated GFR 9 L, Glucose 150 H, Calcium 7.2 L 11/24/18 06:13: WBC 18.3 H, RBC 3.08 L, Hgb 9.4 L, Hct 28.3 L, MCV 91.8, MCH 30.6, MCHC 33.4, RDW 14.6, Plt Count 198 D, MPV 9.6, Neutrophils % 85.0 H, Lymphocytes % 7.2 L, Monocytes % 7.1, Eosinophils % 0.1, Basophils % 0.6, Absolute Neutrophils 15.6 H, Absolute Lymphocytes 1.3, Absolute Monocytes 1.3, Absolute Eosinophils 0.0, Absolute Basophils 0.1, Morphology Comment Not seen, ESR [place] 28 H 11/24/18 06:00: WBC Cancelled, RBC Cancelled, Hgb Cancelled, Hct Cancelled, MCV Cancelled, MCH Cancelled, MCHC Cancelled, RDW Cancelled, Plt Count Cancelled, MPV Cancelled, Plt Distribution Width Cancelled, Absolute Nucleated RBC Cancelled, Neutrophils % Cancelled, Lymphocytes % Cancelled, Monocytes % Cancelled, Eosinophils % Cancelled, Basophils % Cancelled, Nucleated RBC % Cancelled, Absolute Neutrophils Cancelled, Absolute Lymphocytes Cancelled, Absolute Monocytes Cancelled, Absolute Eosinophils Cancelled, Absolute Basophils Cancelled, Diff Path Review Cancelled 11/23/18 20:35: Procalcitonin 1.15 H Microbiology Results 11/23/18 15:07 Blood - Blood Aerobic Blood Culture - Preliminary No growth in 24 hours. 11/23/18 15:07 Blood - Blood Anaerobic Blood Culture - Preliminary No growth in 24 hours. 11/23/18 14:45 Blood - Blood Aerobic Blood Culture - Preliminary No growth in 24 hours. 11/23/18 14:45 Blood - Blood Anaerobic Blood Culture - Preliminary No growth in 24 hours. 11/20/18 20:40 Clean Catch Urine [place] Count - Final 11/20/18 20:40 Clean Catch Urine - Final Assessment/ Plan: Nephrology CPS stable without CP or SOB. No pain. No acute events overnight. Nurse reports poor cooperation with PT. Vitals, medications, blood work and imaging reviewed in the chart. General: In no apparent distress, Cooperative HEENT: Atraumatic Neck: Supple Respiratory: Clear to auscultation bilaterally Cardiovascular: No edema, Regular rate/rhythm Gastrointestinal: Soft and benign, Non-distended Musculoskeletal: No clubbing, No contractures Integumentary: No rashes, No cyanosis Neurological: Normal speech Laboratory Data (last 24 hrs) 11/21/18 05:58: Sodium 133 L, Potassium 3.9, BUN 58 H D, Creatinine 5.79 H* D, Glucose 126 H, Magnesium 2.1 11/21/18 05:58: WBC 12.8 H, Hgb 8.9 L, Hct 26.4 L, Plt Count 172 Imagings Data: Abd US and CT consistent with PKD. Conclusions/Impression: A/ ESRD due adPKD. HTN. Hyperkalemia. DM II with CKD. RUTHIE/ Secondary HyperPTH. Diastolic CHF, chronic. Anemia in CKD. HCV. P/ Continue current POC and Medications. Give Epo. HD TIW. Renal diet. PT as tolerated. No NSAIDs. AM labs. Daily weight.
[2018-11-24] MEDS: predniSONE 10 MG TAB PO SCH (21:07)
--- NOTE | 2018-11-25 02:35 | FAST ---
SHIFT START DATE/TIME: 11/24/2018 19:00 ([employer]EL ATTENDANTS) SHIFT END DATE/TIME: 11/25/2018 07:00 ([employer] ATT[employer]) NAME MILTON VARELA DATE OF : 1960 DATE OF ADMISSION: 11/20/2018 17:22 ([employer] ATT[employer]) PHONE: AGE: 58 SSN# [id number] GENDER: Male ENCOUNTER PHYSICIAN: Dr. Jeffy Cordero M.D. ADMISSION DIAGNOSIS: - Orthopaedic Disorders 08 - Unilateral Hip Fracture (06.24) R Femoral neck fx. ESRD. EATING: Activity did not occur on this shift EATING - SCORE: 0-UNK GROOMING: Activity did not occur on this shift GROOMING - SCORE: 0-UNK BATHING: Activity did not occur on this shift BATHING - SCORE: 0-UNK DRESSING - UPPER BODY: Patient is not dressing in public clothing ARTICLES SCORE Total number of steps: 0 DRESSING - UPPER BODY - SCORE: 0-UNK DRESSING - LOWER BODY: Patient is not dressing in public clothing ARTICLES SCORE Total number of steps: 0 DRESSING - LOWER BODY - SCORE: 0-UNK TOILETING: TOILETING - STEP 1: Does the patient require the assistance of a person or device, or need extra time with toileting? Yes . TOILETING - STEP 2: Does the patient require the assistance of a helper? Yes. TOILETING - STEP 3: How much assistance does the patient require from the helper? Only supervision TOILETING - SCORE: 5-SUP BLADDER MANAGEMENT: BLADDER MANAGEMENT - STEP 1: Does the patient control the bladder completely and intentionally without equipment or devices or med ications, and is always continent? Yes. BLADDER MANAGEMENT - SCORE: 7-IND BOWEL MANAGEMENT: BOWEL MANAGEMENT - STEP 1: Does the patient control bowels completely and intentionally without equipment devices or medications AND is always continent? Yes. BOWEL MANAGEMENT - SCORE: 7-IND TRANSFERS: BED, CHAIR, WHEELCHAIR: TRANSFERS: BED, CHAIR, WHEELCHAIR - STEP 1: Does the patient require assistance of a person or device, or need extra time with bed, chair, or whe elchair transfers? Yes. TRANSFERS: BED, CHAIR, WHEELCHAIR - STEP 2: Does the patient require the assistance of a helper? Yes. TRANSFERS: BED, CHAIR, WHEELCHAIR - STEP 3: How much assistance does the patient require from the helper? Only supervision TRANSFERS: BED, CHAIR, WHEELCHAIR - SCORE: 5-SUP TRANSFERS: TOILET: TRANSFERS: TOILET - STEP 1: Does the patient require the assistance of a person or device, or need extra time with toilet transfe rs? Yes. TRANSFERS: TOILET - STEP 2: Does the patient require the assistance of a helper? Yes. TRANSFERS: TOILET - STEP 3: How much assistance does the patient require from the helper? Only supervision, cuing, coaxing, OR he lp to set out transfer equipment or to lock brakes and/or lift foot rests TRANSFERS: TOILET - SCORE: 5-SUP TRANSFERS: SHOWER: Activity did not occur on this shift TRANSFERS: SHOWER - SCORE: 0-UNK TRANSFERS: TUB: Activity did not occur on this shift TRANSFERS: TUB - SCORE: 0-UNK LOCOMOTION: WALK: Activity did not occur on this shift LOCOMOTION: WALK - SCORE: 0-UNK LOCOMOTION: WHEELCHAIR: Activity did not occur on this shift LOCOMOTION: WHEELCHAIR - SCORE: 0-UNK COMPREHENSION: COMPREHENSION: TYPE: Both COMPREHENSION - STEP 1: Does the patient require help from a person or device, or need extra time to understand complex and a bstract ideas (such as current events, finances, discharge planning, medical issues, relationships, e tc)? No. COMPREHENSION - STEP 2: Does the patient need extra time, require an assistive device (such as glasses for visual comprehensi on or a hearing aid for auditory comprehension) or does s/he have mild difficulty understanding compl ex and abstract information? Yes. COMPREHENSION - SCORE: 6-ALESSIO EXPRESSION EXPRESSION: TYPE: Both EXPRESSION - STEP 1: Does the patient require help from a person or device, or need extra time expressing complex and abst ract ideas (such as current events, finances, discharge planning, medical issues, relationships, etc) ? No. EXPRESSION - STEP 2: Does the patient need extra time, require an assistive device (such as augmentive communication syste m or a communication board), OR does s/he have mild difficulty expressing complex and abstract ideas (including mild dysarthria or mild word-find problems)? Yes. EXPRESSION - SCORE: 6-ALESSIO SOCIAL INTERACTION: SOCIAL INTERACTION - STEP 1: Does the patient require a helper to interact with others in social and therapeutic situations? No. SOCIAL INTERACTION - STEP 2: Does the patient need extra time in social situations, OR does s/he interact with staff, other patien ts, and family members ONLY in structured environments, OR does s/he require medication for social in teraction? Yes, patient needs extra time SOCIAL INTERACTION - SCORE: 6-ALESSIO PROBLEM SOLVING: PROBLEM SOLVING - STEP 1: Does the patient need help from a person or device, or need extra time to solve complex problems such as managing a checking account or confronting interpersonal problems? No. PROBLEM SOLVING - STEP 2: Does the patient require extra time to make decisions or solve problems, OR does s/he have slight dif ficulty reading, initiating, or self-correcting in unfamiliar situations? Yes, patient needs extra ti me. PROBLEM SOLVING - SCORE: 6-ALESSIO MEMORY: MEMORY - STEP 1: Does the patient need help from a person or device, or need extra time to remember frequently encount ered people, daily routines, and executing requests? No. MEMORY - STEP 2: Does the patient have slight difficulty recognizing frequently encountered people, daily routines, or executing requests without the need for repetition or using self-initiated or environmental cues to remember? Yes. MEMORY - SCORE: 6-ALESSIO
[2018-11-25 06:59] LABS: Absolute Lymphocytes (CBC) 1.5 K/uL (0.7-4.9); Absolute Neutrophil 15.5 K/uL (1.8-8.0); Basophils % 0.5 % (0-1.3); Hematocrit 29.7 % (39.6-49.0); Monocytes % 10.4 % (3.3-12.3)
[2018-11-25 07:30] LABS: Blood Morphology Comment NOT SEEN (NOT SEEN); Platelet Estimate ADEQ; Urine White Blood Cell Casts OK
[2018-11-25] MEDS: CARVEDILOL 12.5 MG TAB PO SCH (08:00)
[2018-11-25] MEDS: CALCITROL 0.25 MCG CAP PO SCH (08:00)
[2018-11-25] MEDS: PROMOD 30 ML DOSE PO SCH (08:00)
[2018-11-25] MEDS: HEPARIN 5000 UNIT/ML 1 ML VIAL SQ SCH (08:00)
[2018-11-25] MEDS: SEVELAMER CARBONATE 800 MG TABLET PO SCH ×2 (08:00→12:00)
[2018-11-25] MEDS: ARFORMOTEROL TARTRATE 15 MCG/2 ML VIAL.NEB NEB SCH (08:10)
[2018-11-25] MEDS: levETIRAcetam 500 MG TAB PO SCH (08:36)
[2018-11-25] MEDS: levoFLOXacin 500 MG TAB PO SCH (08:37)
[2018-11-25] MEDS: predniSONE 10 MG TAB PO SCH (08:37)
[2018-11-25] MEDS: CITALOPRAM 10 MG TABLET PO SCH (08:37)
[2018-11-25] MEDS: AMLODIPINE 10 MG TAB PO SCH (08:40)
[2018-11-25] MEDS: FE SULF/FA/VIT B COMP & C TAB PO SCH (08:40)
[2018-11-25] MEDS: TRAMADOL HCL 50 MG TAB PO PRN (08:40)
[2018-11-25] MEDS: FERROUS SULFATE 325 MG TAB PO SCH (08:40)
[2018-11-25] MEDS: FAMOTIDINE 20 MG TAB PO SCH (08:41)
[2018-11-25] MEDS: VITAMIN D 5,000 UNIT CAP PO SCH (08:41)
[2018-11-25] MEDS: THIAMINE HCL 100 MG TABLET PO SCH (08:41)
[2018-11-25] MEDS: TERAZOSIN HCL 1 MG CAP PO SCH (08:42)
[2018-11-25] MEDS: COLCHICINE 0.6 MG TAB PO SCH (08:43)
[2018-11-25] MEDS: FLUOCINONIDE 0.05% CREAM 30GM TOP SCH (08:46)
[2018-11-25 08:57] VITALS: BP 161/72; TEMP 98.8
[2018-11-25] MEDS ORDERED: ZIPRASIDONE 20 MG CAP PO ONE (09:10)
[2018-11-25] MEDS ORDERED: AMOX/CLAV 200 MG/5 ML ORAL SUSP (100 ML BTL) PO SCH (09:15)
[2018-11-25] MEDS ORDERED: AMOX/K CLAV 500 MG TAB PO SCH (09:30)
--- NOTE | 2018-11-25 09:58 | FAST ---
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 Jeffy Cordero M.D. ADMISSION DIAGNOSIS: - Orthopaedic Disorders 08 - Unilateral Hip Fracture (.) R Femoral neck fx. ESRD. EATING: EATING - STEP 1: Does the patient require the assistance of a person or device, or need extra time when eating? Yes. EATING - STEP 2: Does the patient require the assistance of a helper? Yes. EATING - STEP 3: Does the patient perform half or more of the eating tasks? Yes. EATING - STEP 4: Does the patient need only supervision, cuing, coaxing OR help to apply an orthosis OR help to cut fo od, open containers, pour liquids, or butter bread? Yes. EATING - SCORE: 5-SUP GROOMING: Activity did not occur on this shift GROOMING - SCORE: 0-UNK BATHING: Activity did not occur on this shift BATHING - SCORE: 0-UNK DRESSING - UPPER BODY: Patient is not dressing in public clothing ARTICLES SCORE Total number of steps: 0 DRESSING - UPPER BODY - SCORE: 0-UNK DRESSING - LOWER BODY: Patient is not dressing in public clothing ARTICLES SCORE Total number of steps: 0 DRESSING - LOWER BODY - SCORE: 0-UNK TOILETING: TOILETING - STEP 1: Does the patient require the assistance of a person or device, or need extra time with toileting? Yes . TOILETING - STEP 2: Does the patient require the assistance of a helper? Yes. TOILETING - STEP 3: How much assistance does the patient require from the helper? Hands-on assistance from the helper TOILETING - STEP 4: Of the 3 tasks: 1) Adjusting clothing prior to use, 2) Cleansing of perineal area, 3) Adjusting clot walker after use; How many tasks does the patient perform WITHOUT assistance of the helper? Two tasks TOILETING - SCORE: 3-MOD BLADDER MANAGEMENT: BLADDER MANAGEMENT - STEP 1: Does the patient control the bladder completely and intentionally without equipment or devices or med ications, and is always continent? Yes. BLADDER MANAGEMENT - SCORE: 7-IND BOWEL MANAGEMENT: Activity did not occur on this shift BOWEL MANAGEMENT - SCORE: 7-IND TRANSFERS: BED, CHAIR, WHEELCHAIR: TRANSFERS: BED, CHAIR, WHEELCHAIR - STEP 1: Does the patient require assistance of a person or device, or need extra time with bed, chair, or whe elchair transfers? Yes. TRANSFERS: BED, CHAIR, WHEELCHAIR - STEP 2: Does the patient require the assistance of a helper? Yes. TRANSFERS: BED, CHAIR, WHEELCHAIR - STEP 3: How much assistance does the patient require from the helper? Only supervision TRANSFERS: BED, CHAIR, WHEELCHAIR - SCORE: 5-SUP TRANSFERS: BED, CHAIR, WHEELCHAIR - COMMENTS: Pt transfers himself without calling TRANSFERS: TOILET: TRANSFERS: TOILET - STEP 1: Does the patient require the assistance of a person or device, or need extra time with toilet transfe rs? Yes. TRANSFERS: TOILET - STEP 2: Does the patient require the assistance of a helper? Yes. TRANSFERS: TOILET - STEP 3: How much assistance does the patient require from the helper? Only supervision, cuing, coaxing, OR he lp to set out transfer equipment or to lock brakes and/or lift foot rests TRANSFERS: TOILET - SCORE: 5-SUP TRANSFERS: SHOWER: Activity did not occur on this shift TRANSFERS: SHOWER - SCORE: 0-UNK TRANSFERS: TUB: Activity did not occur on this shift TRANSFERS: TUB - SCORE: 0-UNK LOCOMOTION: WALK: Activity did not occur on this shift LOCOMOTION: WALK - SCORE: 0-UNK LOCOMOTION: WHEELCHAIR: LOCOMOTION: WHEELCHAIR - STEP 1: Does the patient need help to go 150 feet in a wheelchair? Yes. LOCOMOTION: WHEELCHAIR - STEP 2: How much assistance does the patient need from the helper? Only incidental help such as around corner s or over thresholds LOCOMOTION: WHEELCHAIR - SCORE: 4-MIN COMPREHENSION: COMPREHENSION: TYPE: Both COMPREHENSION - STEP 1: Does the patient require help from a person or device, or need extra time to understand complex and a bstract ideas (such as current events, finances, discharge planning, medical issues, relationships, e tc)? No. COMPREHENSION - STEP 2: Does the patient need extra time, require an assistive device (such as glasses for visual comprehensi on or a hearing aid for auditory comprehension) or does s/he have mild difficulty understanding compl ex and abstract information? Yes. COMPREHENSION - SCORE: 6-ALESSIO EXPRESSION EXPRESSION: TYPE: Both EXPRESSION - STEP 1: Does the patient require help from a person or device, or need extra time expressing complex and abst ract ideas (such as current events, finances, discharge planning, medical issues, relationships, etc) ? No. EXPRESSION - STEP 2: Does the patient need extra time, require an assistive device (such as augmentive communication syste m or a communication board), OR does s/he have mild difficulty expressing complex and abstract ideas (including mild dysarthria or mild word-find problems)? Yes. EXPRESSION - SCORE: 6-ALESSIO SOCIAL INTERACTION: SOCIAL INTERACTION - STEP 1: Does the patient require a helper to interact with others in social and therapeutic situations? No. SOCIAL INTERACTION - STEP 2: Does the patient need extra time in social situations, OR does s/he interact with staff, other patien ts, and family members ONLY in structured environments, OR does s/he require medication for social in teraction? Yes, patient needs extra time SOCIAL INTERACTION - SCORE: 6-ALESSIO PROBLEM SOLVING: PROBLEM SOLVING - STEP 1: Does the patient need help from a person or device, or need extra time to solve complex problems such as managing a checking account or confronting interpersonal problems? No. PROBLEM SOLVING - STEP 2: Does the patient require extra time to make decisions or solve problems, OR does s/he have slight dif ficulty reading, initiating, or self-correcting in unfamiliar situations? Yes, patient needs extra ti me. PROBLEM SOLVING - SCORE: 6-ALESSIO MEMORY: MEMORY - STEP 1: Does the patient need help from a person or device, or need extra time to remember frequently encount ered people, daily routines, and executing requests? No. MEMORY - STEP 2: Does the patient have slight difficulty recognizing frequently encountered people, daily routines, or executing requests without the need for repetition or using self-initiated or environmental cues to remember? Yes. MEMORY - SCORE: 6-ALESSIO SIGNATURE PANEL: The following modified sections: Eating - Score, Grooming - Score, Bathing - Score, Dressing - Upper Body - Score, Dressing - Lower Body - Score, Toileting - Score, Bladder Management - Score, Bowel Man agement - Score, Transfers: Bed, Chair, Wheelchair - Score, Transfers: Bed, Chair, Wheelchair - Comme nts:, Transfers: Toilet - Score, Transfers: Shower - Score, Transfers: Tub - Score, Locomotion: Walk - Score, Locomotion: Wheelchair - Score, Comprehension - Score, Expression - Score, Social Interactio n - Score, Problem Solving - Score, Memory - Score were [electronically] signed by Gt Vela on Sat Nov 25 2018 09:57:34 GMT-0600 (Central Standard Time)
--- NOTE | 2018-11-25 10:05 | P.PN ---
Date of Service: 11/25/18 Vital Signs Temp Pulse Resp BP Pulse Ox 98.8 F 60 16 161/72 H 97 11/25/18 08:00 11/25/18 08:00 11/25/18 08:00 11/25/18 08:00 11/25/18 08:00 Medications Amlodipine Besylate (Norvasc) 10 mg PO DAILY EZEKIEL Stop: 12/21/18 08:01 Last Admin: 11/25/18 08:40 Dose: 10 mg Amoxicillin/Clavulanate Potassium (Augmentin 500-125 Mg Tab) 500 mg PO BID EZEKIEL Stop: 12/25/18 09:31 Last Admin: 11/25/18 09:24 Dose: 500 mg Arformoterol Tartrate (Brovana) 15 mcg NEB BIDRESP EZEKIEL Stop: 12/20/18 20:01 Last Admin: 11/25/18 08:10 Dose: 15 mcg Calcitriol (Rocaltrol) 0.5 mcg PO DAILY EZEKIEL Stop: 12/22/18 08:01 Last Admin: 11/25/18 08:00 Dose: Not Given Carvedilol (Coreg) 25 mg PO BID EZEKIEL Stop: 12/21/18 08:01 Last Admin: 11/25/18 08:00 Dose: Not Given Cholecalciferol (Vitamin D 5,000 Iu Cap) 5,000 unit PO DAILY EZEKIEL Stop: 12/22/18 08:01 Last Admin: 11/25/18 08:41 Dose: 5,000 unit Citalopram Hydrobromide (Celexa) 20 mg PO DAILY EZEKIEL Stop: 12/21/18 08:01 Last Admin: 11/25/18 08:37 Dose: 20 mg Colchicine (Colcrys) 0.6 mg PO BID EZEKIEL Stop: 12/20/18 20:01 Last Admin: 11/25/18 08:43 Dose: 0.6 mg Epoetin Vinicoi (Procrit) 10,000 unit IV EVERY HD EZEKIEL Stop: 12/21/18 11:16 Last Admin: 11/24/18 16:54 Dose: 10,000 unit Famotidine (Pepcid) 20 mg PO DAILY EZEKIEL Stop: 12/21/18 08:01 Last Admin: 11/25/18 08:41 Dose: 20 mg Ferrous Sulfate (Feosol) 325 mg PO DAILY EZEKIEL Stop: 12/21/18 14:01 Last Admin: 11/25/18 08:40 Dose: 325 mg Fluocinonide (Lidex 0.05% Cream) 1 appl TOP TID [facility] Stop: 12/20/18 21:01 Last Admin: 11/25/18 08:46 Dose: Not Given Heparin Sodium (Porcine) (Heparin 5,000 Units/Ml) 5,000 unit SQ Q12HR [facility] Stop: 12/21/18 08:01 Last Admin: 11/25/18 08:00 Dose: Not Given Heparin Sodium (Porcine) (Heparin 1,000 Units/Ml) 6,000 unit IV EVERY HD PRN PRN Reason: FLUSH AFTER EACH USE Stop: 12/21/18 11:05 Last Admin: 11/22/18 21:15 Dose: 6,000 unit Albumin Human (Albumin 25%) 50 mls @ 100 mls/hr IV EVERY HD [facility] Stop: 12/21/18 12:01 Levetiracetam (Keppra Tab) 500 mg PO BID [facility] Stop: 12/20/18 20:01 Last Admin: 11/25/18 08:36 Dose: 500 mg Levofloxacin (Levaquin) 500 mg PO DAILY [facility]; Protocol Stop: 11/30/18 16:01 Last Admin: 11/25/18 08:37 Dose: 500 mg Lorazepam (Ativan) 0.5 mg PO Q8H PRN PRN Reason: ANXIETY Stop: 12/20/18 21:20 Mannitol (Mannitol 12.5 Gm/50 Ml Vial) 12.5 gm IV EVERY HD PRN PRN Reason: BP support at hemodialysis Stop: 12/21/18 11:05 Multivitamins/Iron (Hemocyte Plus) 1 tab PO DAILY WITH BREAKFAST [facility] Stop: 12/21/18 14:01 Last Admin: 11/25/18 08:40 Dose: 1 tab Nutritional Formula (Promod Liquid Protein) 30 ml PO BID [facility] Stop: 12/21/18 20:01 Last Admin: 11/25/18 08:00 Dose: Not Given Prednisone (Deltasone) 5 mg PO BID [facility] Stop: 12/25/18 20:01 Sevelamer Carbonate (Renvela) 800 mg PO TIDWM [facility] Stop: 12/21/18 12:01 Last Admin: 11/25/18 08:00 Dose: Not Given Terazosin HCl (Hytrin) 2 mg PO BID [facility] Stop: 12/20/18 20:01 Last Admin: 11/25/18 08:42 Dose: 2 mg Thiamine HCl (Vitamin B-1) 100 mg PO DAILY [facility] Stop: 12/21/18 08:01 Last Admin: 11/25/18 08:41 Dose: 100 mg Tramadol HCl (Ultram) 50 mg PO Q4HP PRN PRN Reason: PAIN MILD TO MODERATE Stop: 12/21/18 12:27 Last Admin: 11/25/18 08:40 Dose: 50 mg Lab Results (last 24 hrs) 11/25/18 06:50: WBC 19.1 H, RBC 3.20 L, Hgb 9.8 L, Hct 29.7 L, MCV 92.8, MCH 30.5, MCHC 32.9, RDW 14.5, Plt Count 210, MPV 9.0, Neutrophils % 81.1 H, Lymphocytes % 8.0 L, Monocytes % 10.4, Eosinophils % 0.0, Basophils % 0.5, Absolute Neutrophils 15.5 H, Absolute Lymphocytes 1.5, Absolute Monocytes 2.0 H , Absolute Eosinophils 0.0, Absolute Basophils 0.1, Morphology Comment Not seen Microbiology Results 11/23/18 15:07 Blood - Blood Aerobic Blood Culture - Preliminary No growth in 24 hours. 11/23/18 15:07 Blood - Blood Anaerobic Blood Culture - Preliminary No growth in 24 hours. 11/23/18 14:45 Blood - Blood Aerobic Blood Culture - Preliminary No growth in 24 hours. 11/23/18 14:45 Blood - Blood Anaerobic Blood Culture - Preliminary No growth in 24 hours. 11/20/18 20:40 Clean Catch Urine [place] Count - Final 11/20/18 20:40 Clean Catch Urine - Final Assessment/ Plan: Nephrology CPS stable without CP or SOB. No pain. No acute events overnight. Nurse reports poor cooperation with PT. Vitals, medications, blood work and imaging reviewed in the chart. General: In no apparent distress, Cooperative HEENT: Atraumatic Neck: Supple Respiratory: Clear to auscultation bilaterally Cardiovascular: No edema, Regular rate/rhythm Gastrointestinal: Soft and benign, Non-distended Musculoskeletal: No clubbing, No contractures Integumentary: No rashes, No cyanosis Neurological: Normal speech Laboratory Data (last 24 hrs) 11/21/18 05:58: Sodium 133 L, Potassium 3.9, BUN 58 H D, Creatinine 5.79 H* D, Glucose 126 H, Magnesium 2.1 11/21/18 05:58: WBC 12.8 H, Hgb 8.9 L, Hct 26.4 L, Plt Count 172 Imagings Data: Abd US and CT consistent with PKD. Conclusions/Impression: A/ ESRD due adPKD. HTN. Hyperkalemia. DM II with CKD. RUTHIE/ Secondary HyperPTH. Diastolic CHF, chronic. Anemia in CKD. HCV. P/ Continue current POC and Medications. HD TIW. Renal diet. PT as tolerated. No NSAIDs. AM labs. Daily weight.
[2018-11-25] MEDS ORDERED: predniSONE 5 MG TAB PO SCH (20:00)
== END 2018-11-25 13:55 | disposition home health service (06) | DRG 559 ==
LOC: 5TH 17:22
PROVIDERS: ADMIT Psychiatry & Neurology Neurology with Special Qualifications in Child Neurology; ATTEND Psychiatry & Neurology Neurology with Special Qualifications in Child Neurology
DX: S72.001D Fracture of unspecified part of neck of right femur, subsequent encounter for closed fracture with routine healing (principal); N18.6 End stage renal disease; I13.2 Hypertensive heart and chronic kidney disease with heart failure and with stage 5 chronic kidney disease, or end stage renal disease; I50.32 Chronic diastolic (congestive) heart failure; N25.81 Secondary hyperparathyroidism of renal origin; J44.9 Chronic obstructive pulmonary disease, unspecified; E11.22 Type 2 diabetes mellitus with diabetic chronic kidney disease; Z99.2 Dependence on renal dialysis; E87.5 Hyperkalemia
CPT/HCPCS: 36415; 71045; 80048; 80307; 81001; 82040; 83615; 83735; 84134; 84145; 85025; 85652; 87040; 87086; 87088; 90935; 92507; 92523; 94640; 97110; 97116; 97163; 97165; 97530; J1644; J2543; J7512; J7605; Q4081

== ENCOUNTER 2018-12-17 14:27 | Emergency (ER) | payer OTHER ==
--- NOTE | 2018-12-17 15:44 | RAD REPORT ---
EXAM DESCRIPTION: RAD - Pelvis - 12/17/2018 3:34 pm CLINICAL HISTORY: PAIN Right hip pain, recent surgery. COMPARISON: None FINDINGS: AP pelvis, right hip and right femur - multiple projections are submitted A right total hip arthroplasty is noted. Hardware loosening is not identified. Surgical skin enoch are present laterally. Evidence previous right hemipelvis fracture seen. Partially imaged hardware in the proximal tibia also seen. No acute fracture or subluxation identified.
[2018-12-17] MEDS ORDERED: Mastisol Adhesive Liq ONE (16:54)
[2018-12-17 17:05] LABS: Absolute Lymphocytes (CBC) 1.6 K/uL (0.7-4.9); Absolute Monocytes 0.6 K/uL (0.1-1.3); Absolute Neutrophil 4.6 K/uL (1.8-8.0); Basophils % 0.9 % (0-1.3); Eosinophils % 3.7 % (0-4.4); Hematocrit 34.9 % (39.6-49.0); Lymphocytes % 22.3 % (15.3-44.8); MPV 9.4 fL (7.6-11.3); Monocytes % 8.9 % (3.3-12.3); RBC Red Blood Cell Count 3.78 M/uL (4.33-5.43)
--- NOTE | 2018-12-17 17:10 | EDPHYS ---
Physician Documentation [facility] Name: Frankie Padilla Age: 58 yrs Sex: Male : 1960 Arrival Date: 12/17/2018 Time: 14:29 Bed 8 Private MD: ED Physician Antolin Akbar HPI: 12/17 14:57 This 58 yrs old Male presents to ER via EMS with complaints of Hip Injury. jennifer 14:57 The patient or guardian reports pain. that occurred at home, sustained from unknown jennifer reason. The complaints affect the right hip. Onset: The symptoms/episode began/occurred just prior to arrival. Modifying factors: The symptoms are alleviated by nothing, the symptoms are aggravated by nothing. Associated signs and symptoms: Pertinent positives: dementia, of the pelvis and right hip. Severity of symptoms: At their worst the symptoms were mild, in the emergency department the symptoms. The patient has not experienced similar symptoms in the past. Historical: - Allergies: 14:35 NKA; bp - Home Meds: 14:35 None [Active]; bp - PMHx: 14:35 Dementia; Hypertension; pseudobulbar affect; bp - PSHx: 14:35 R HIP SURGERY; bp - Immunization history:: Adult Immunizations up to date. - Social history:: Smoking status: Patient uses tobacco products, denies chronic smoking, but will smoke occasionally. - Ebola Screening: : Patient negative for fever greater than or equal to 101.5 degrees Fahrenheit, and additional compatible Ebola Virus Disease symptoms Patient denies exposure to infectious person Patient denies travel to an Ebola-affected area in the 21 days before illness onset No symptoms or risks identified at this time. - Family history:: not pertinent. ROS: 14:57 Constitutional: Negative for fever, chills, and weight loss, Eyes: Negative for injury, jennifer pain, redness, and discharge, ENT: Negative for injury, pain, and discharge, Neck: Negative for injury, pain, and swelling, Cardiovascular: Negative for chest pain, palpitations, and edema, Respiratory: Negative for shortness of breath, cough, wheezing, and pleuritic chest pain, Abdomen/GI: Negative for abdominal pain, nausea, vomiting, diarrhea, and constipation, Back: Negative for injury and pain, : Negative for injury, bleeding, discharge, and swelling, Skin: Negative for injury, rash, and discoloration, Neuro: Negative for headache, weakness, numbness, tingling, and seizure, Psych: Negative for depression, anxiety, suicide ideation, homicidal ideation, and hallucinations, Allergy/Immunology: Negative for hives, rash, and allergies, Endocrine: Negative for neck swelling, polydipsia, polyuria, polyphagia, and marked weight changes, Hematologic/Lymphatic: Negative for swollen nodes, abnormal bleeding, and unusual bruising. 14:57 MS/extremity: Positive for pain, tenderness, of the right hip. Exam: 14:57 Constitutional: This is a well developed, well nourished patient who is awake, alert, jennifer and in no acute distress. Head/Face: Normocephalic, atraumatic. Eyes: Pupils equal round and reactive to light, extra-ocular motions intact. Lids and lashes normal. Conjunctiva and sclera are non-icteric and not injected. Cornea within normal limits. Periorbital areas with no swelling, redness, or edema. ENT: Nares patent. No nasal discharge, no septal abnormalities noted. Tympanic membranes are normal and external auditory canals are clear. Oropharynx with no redness, swelling, or masses, exudates, or evidence of obstruction, uvula midline. Mucous membranes moist. Neck: Trachea midline, no thyromegaly or masses palpated, and no cervical lymphadenopathy. Supple, full range of motion without nuchal rigidity, or vertebral point tenderness. No Meningismus. Chest/axilla: Normal chest wall appearance and motion. Nontender with no deformity. No lesions are appreciated. Cardiovascular: Regular rate and rhythm with a normal S1 and S2. No gallops, murmurs, or rubs. Normal PMI, no JVD. No pulse deficits. Respiratory: Lungs have equal breath sounds bilaterally, clear to auscultation and percussion. No rales, rhonchi or wheezes noted. No increased work of breathing, no retractions or nasal flaring. Abdomen/GI: Soft, non-tender, with normal bowel sounds. No distension or tympany. No guarding or rebound. No evidence of tenderness throughout. Back: No spinal tenderness. No costovertebral tenderness. Full range of motion. Male : Normal genitalia with no discharge or lesions. Skin: Warm, dry with normal turgor. Normal color with no rashes, no lesions, and no evidence of cellulitis. MS/ Extremity: Pulses equal, no cyanosis. Neurovascular intact. Full, normal range of motion. Psych: Awake, alert, with orientation to person, place and time. Behavior, mood, and affect are within normal limits. 14:57 Neuro: Orientation: to person, place, Not oriented to time, situation, rearful. Vital Signs: 14:35 BP 167 / 96; Pulse 71; Resp 16; Temp 97.4; Pulse Ox 100% ; Weight 79.38 kg; bp Procedures: 17:10 Suture/Staple removal: Removed 20 enoch, from right hip, site appears well healed, [facility] effusion, superficial, dressed with steristrips. Patient tolerated well. MDM: 14:31 Patient medically screened. [facility] 15:00 Data reviewed: vital signs, nurses notes, lab test result(s), radiologic studies, plain jennifer films. 12/17 14:57 Order name: CBC with Diff; Complete Time: 17:12 [facility] 12/17 14:57 Order name: Comprehensive Metabolic Panel; Complete Time: 17:34 [facility] 12/17 14:57 Order name: Pelvis XRAY; Complete Time: 16:02 [facility] 12/17 14:57 Order name: Hip Right 2 View XRAY [facility] 12/17 14:57 Order name: Femur Right XRAY [facility] 12/17 17:35 Order name: XRAY Chest (1 view) [facility] 12/17 15:39 Order name: Staple Remover Setup: please add steri strips; Complete Time: 17:06 [facility] 12/17 17:35 Order name: Cardiac monitoring [facility] 12/17 17:35 Order name: EKG - Nurse/Tech [facility] 12/17 17:35 Order name: IV Saline Lock [facility] 12/17 17:35 Order name: Labs collected and sent [facility] 12/17 17:35 Order name: O2 Per Protocol [facility] 12/17 17:35 Order name: O2 Sat Monitoring [facility] Administered Medications: 17:29 Not Given (Patient Refused): NS 0.9% 500 ml IV at bolus once iw Disposition: 12/17/18 18:02 Patient has left against medical advice. Impression: Pain in right hip - effusion, enoch removed, End stage renal disease - on HD, poorly compliant, Dementia in other diseases classified elsewhere - Alert and Oriented. - Patients states they are going to Home. - Condition is Fair. - Discharge Instructions: Dementia, Dialysis, End-Stage Kidney Disease, Hip Pain, Dialysis Diet, [id number], Dementia, [id number]. Follow up: Madhu Quinteros DO; When: Tomorrow; Reason: Recheck today's complaints, Continuance of care, Re-evaluation by your physician. Follow up: Ugo Garza MD; When: 2 - 3 days; Reason: Recheck today's complaints, Continuance of care, Re-evaluation by your physician. - Problem is new. - Symptoms have improved. Signatures: Dispatcher [employer] EDMI Antolin Akbar MD MD cha Williams, Irene, VALERIE RN iw Mark Nair RN RN bp Corrections: (The following items were deleted from the chart) 17:04 17:04 12/17/2018 17:04 Discharged to Home. Impression: Pain in right hip - enoch jennifer removed. Condition is Stable. Discharge Instructions: Dementia, Fall Prevention in the Home, Fall Prevention in the Home, [id number], Hip Pain, Dementia, [id number]. Forms are Medication Reconciliation Form, Thank You Letter, Antibiotic Education, Prescription Opioid Use. Follow up: Private Physician; When: 2 - 3 days; Reason: Recheck today's complaints, Continuance of care, Re-evaluation by your physician. Follow up: Ugo Garza; When: 2 - 3 days; Reason: Recheck today's complaints, Continuance of care, Re-evaluation by your physician. Problem is new. Symptoms have improved. [facility] 17:24 17:10 12/17/2018 17:10 Patients has left against medical advice. Impression: Pain in jennifer right hip - superficial effusion, enoch removed; Dementia in other diseases classified elsewhere. Patient states they are going to Home. Condition is Stable. Follow up: Private Physician; When: 2 - 3 days; Reason: Recheck today's complaints, Continuance of care, Re-evaluation by your physician. Follow up: Ugo Garza; When: 2 - 3 days; Reason: Recheck today's complaints, Continuance of care, Re-evaluation by your physician. Problem is new. Symptoms have improved. [facility] 17:33 17:24 12/17/2018 17:24 Discharged to Home. Impression: Pain in right hip - enoch jennifer removed; Dementia in other diseases classified elsewhere. Condition is Stable. Forms are Medication Reconciliation Form, Thank You Letter, Antibiotic Education, Prescription Opioid Use. Follow up: Private Physician; When: 2 - 3 days; Reason: Recheck today's complaints, Continuance of care, Re-evaluation by your physician. Follow up: Ugo Garza; When: 2 - 3 days; Reason: Recheck today's complaints, Continuance of care, Re-evaluation by your physician. Problem is new. Symptoms have improved. jennifer 18:55 18:02 12/17/2018 18:02 Patients has left against medical advice. Impression: Pain in iw right hip - effusion, enoch removed; End stage renal disease - on HD, poorly compliant; Dementia in other diseases classified elsewhere - Alert and Oriented. Patient states they are going to Home. Condition is Fair. Follow up: Madhu Quinteros; When: Tomorrow; Reason: Recheck today's complaints, Continuance of care, Re-evaluation by your physician. Follow up: Ugo Garza; When: 2 - 3 days; Reason: Recheck today's complaints, Continuance of care, Re-evaluation by your physician. Problem is new. Symptoms have improved. jennifer
--- NOTE | 2018-12-17 17:10 | ER ---
Nurse's Notes [facility] Name: Frankie Padilla Age: 58 yrs Sex: Male : 1960 Arrival Date: 12/17/2018 Time: 14:29 Bed 8 Private MD: Diagnosis: Pain in right hip-effusion, enoch removed;End stage renal disease-on HD, poorly compliant;Dementia in other diseases classified elsewhere-Alert and Oriented Presentation: 12/17 14:31 Presenting complaint: EMS states: 2 WEEKS POST-OP WITH R HIP PAIN. Transition of care: bp patient was not received from another setting of care. Onset of symptoms is unknown. Risk Assessment: Do you want to hurt yourself or someone else? Patient reports no desire to harm self or others. Initial Sepsis Screen: Does the patient meet any 2 criteria? No. Patient's initial sepsis screen is negative. Does the patient have a suspected source of infection? No. Patient's initial sepsis screen is negative. Care prior to arrival: None. 14:31 Method Of Arrival: EMS: [facility] bp 14:31 Acuity: LATESHA 4 bp Triage Assessment: 14:35 General: Appears in no apparent distress. comfortable, Behavior is calm, cooperative, bp appropriate for age. Pain: Complains of pain in right hip. Historical: - Allergies: 14:35 NKA; bp - Home Meds: 14:35 None [Active]; bp - PMHx: 14:35 Dementia; Hypertension; pseudobulbar affect; bp - PSHx: 14:35 R HIP SURGERY; bp - Immunization history:: Adult Immunizations up to date. - Social history:: Smoking status: Patient uses tobacco products, denies chronic smoking, but will smoke occasionally. - Ebola Screening: : Patient negative for fever greater than or equal to 101.5 degrees Fahrenheit, and additional compatible Ebola Virus Disease symptoms Patient denies exposure to infectious person Patient denies travel to an Ebola-affected area in the 21 days before illness onset No symptoms or risks identified at this time. - Family history:: not pertinent. Screenin:37 Abuse screen: Denies threats or abuse. Denies injuries from another. Nutritional bp screening: No deficits noted. Tuberculosis screening: No symptoms or risk factors identified. Fall Risk None identified. Assessment: 14:36 General: SEE TRIAGE NOTE. bp 16:01 Reassessment: PT REFUSING TO COOPERATE WITH LAB COLLECTION OR IV PLACEMENT. MD NOTIFIED.bp 16:36 Reassessment: PT NOW REFUSING TO COOPERATE WITH STAPLE REMOVAL, STATING HE IS LEAVING. bp MD NOTIFIED. 16:43 Reassessment: PT ATTEMPTED TO ELOPE FROM ER, REDIRECTED TO BED BY . PT CONTINUES TO bp BE UNCOOPERATIVE AND BELLIGERENT. ENOCH REMOVED BY MD. 17:40 Reassessment: Pt's family at bedside, pt refusing to stay, family able to talk pt in to jl7 sitting on the bed and awaiting lab results, pt demands IV to be removed, IV removed from arm at this time. Family reports pt refused his last dialysis, pt continues to refuse treatment at this time. MD aware. Vital Signs: 14:35 BP 167 / 96; Pulse 71; Resp 16; Temp 97.4; Pulse Ox 100% ; Weight 79.38 kg; bp ED Course: 14:29 Patient arrived in ED. bp 14:31 Antolin Akbar MD is Attending Physician. jennifer 14:34 Triage completed. bp 14:35 Arm band placed on. bp 14:37 Patient has correct armband on for positive identification. Bed in low position. Call bp light in reach. Side rails up X2. 15:11 Mark Nair, RN is Primary Nurse. bp 15:34 Pelvis XRAY In Process Unspecified. EDMS 15:34 Hip Right 2 View XRAY In Process Unspecified. EDMS 15:34 Femur Right XRAY In Process Unspecified. EDMS 16:44 Removal of Removed enoch from right hip Enoch site is reddened Patient tolerated bp poorly. 16:50 Initial lab(s) drawn, by ct, sent to lab. Inserted saline lock: 20 gauge in right jl7 antecubital area, using aseptic technique. Blood collected. 17:04 Ugo Garza MD is Referral Physician. jennifer 17:08 Ugo Garza MD is Referral Physician. jennifer 17:24 Ugo Garza MD is Referral Physician. jennifer 17:59 Madhu Quinteros DO is Referral Physician. jennifer 18:00 Ugo Garza MD is Referral Physician. jennifer 18:03 XRAY Chest (1 view) In Process Unspecified. EDMS Administered Medications: 17:29 Not Given (Patient Refused): NS 0.9% 500 ml IV at bolus once iw Outcome: 17:04 Discharge ordered by . jennifer 17:24 Discharge ordered by . jennifer 18:55 Patient left the ED. iw Signatures: Dispatcher [employer] EDAntolin Olguin MD MD cha Williams, Irene RN RN Genoveva Quesada RN RN jl7 Mark Nair RN RN bp
[2018-12-17 17:31] LABS: Albumin 3.4 g/dL (3.4-5.0); Bilirubin Total 0.4 mg/dL (0.2-1.0); Potassium 4.7 mmol/L (3.5-5.1); Protein, Total 7.2 g/dL (6.4-8.2)
--- NOTE | 2018-12-17 18:24 | RAD REPORT ---
EXAM DESCRIPTION: RAD - Chest Single View - 12/17/2018 6:02 pm CLINICAL HISTORY: COUGH Chest pain. COMPARISON: Chest Single View dated 11/23/2018; Chest Single View dated 11/15/2018; Chest Single View d ated 11/14/2018; Chest Single View dated 11/13/2018 FINDINGS: Portable technique limits examination quality. The lungs are grossly clear. The heart is normal in size. Old traumatic changes involve right shoulde r.Right-sided venous catheter has tip in the SVC. IMPRESSION: No acute intrathoracic process suspected.
[2018-12-17 20:55] VITALS: BP 167/96; TEMP 97.4; O2SAT 100
--- NOTE | 2018-12-18 13:40 | RAD REPORT ---
EXAM DESCRIPTION: RAD - Hip Right 2 View - 12/17/2018 3:34 pm CLINICAL HISTORY: PAIN Right hip pain, recent surgery. COMPARISON: None FINDINGS: AP pelvis, right hip and right femur - multiple projections are submitted A right total hip arthroplasty is noted. Hardware loosening is not identified. Surgical skin enoch are present laterally. Evidence previous right hemipelvis fracture seen. Partially imaged hardware in the proximal tibia also seen. No acute fracture or subluxation identified.
--- NOTE | 2018-12-18 13:40 | RAD REPORT ---
EXAM DESCRIPTION: RAD - Femur Right - 12/17/2018 3:34 pm CLINICAL HISTORY: PAIN Right hip pain, recent surgery. COMPARISON: None FINDINGS: AP pelvis, right hip and right femur - multiple projections are submitted A right total hip arthroplasty is noted. Hardware loosening is not identified. Surgical skin enoch are present laterally. Evidence previous right hemipelvis fracture seen. Partially imaged hardware in the proximal tibia also seen. No acute fracture or subluxation identified.
== END 2018-12-17 18:55 | disposition left against medical advice (07) ==
LOC: ER 14:27
DX: M25.551 Pain in right hip (principal); M25.451 Effusion, right hip; Z48.02 Encounter for removal of sutures; Z96.641 Presence of right artificial hip joint; Z53.29 Procedure and treatment not carried out because of patient's decision for other reasons; I12.0 Hypertensive chronic kidney disease with stage 5 chronic kidney disease or end stage renal disease; N18.6 End stage renal disease; Z99.2 Dependence on renal dialysis; Z91.15 Patient's noncompliance with renal dialysis; F03.90 Unspecified dementia, unspecified severity, without behavioral disturbance, psychotic disturbance, mood disturbance, and anxiety; Z72.0 Tobacco use
CPT/HCPCS: 36415; 71045; 72170; 80053; 85025; 99284

== ENCOUNTER 2019-01-09 11:13 | Emergency (ER) | payer OTHER ==
--- NOTE | 2019-01-09 12:12 | RAD REPORT ---
EXAM DESCRIPTION: RAD - Hip Right 2 View - 01/09/2019 12:03 pm CLINICAL HISTORY: Right hip pain, right hip surgery approximately 1 month earlier COMPARISON: Postop hip imaging December 17 FINDINGS: AP and frog-leg views of the right hip were obtained. Bipolar prosthesis is in place. No subsidence of the implant. No acute bone or implant abnormality identifiable. No acute or destructive bony process seen. No periarticular abnormality seen. IMPRESSION: Right bipolar prosthesis in place showing no acute bone, joint or implant finding.
--- NOTE | 2019-01-09 12:13 | RAD REPORT ---
EXAM DESCRIPTION: RAD - Chest Single View - 01/09/2019 12:06 pm CLINICAL HISTORY: Shortness of breath, end-stage renal disease, hypertension COMPARISON: December 17 TECHNIQUE: AP portable chest image was obtained 1202 hours . FINDINGS: No focal lung parenchymal process. Interstitial markings are prominent but stable. Dialysi s catheter is in place similar to comparison. Heart and vasculature are normal. No measurable pleural effusion and no pneumothorax. No acute bony abnormality seen. No acute aortic findings suspected. IMPRESSION: No acute cardiopulmonary process. No significant interval change.
[2019-01-09 12:16] LABS: Potassium 4.3 mmol/L (3.5-5.1)
--- NOTE | 2019-01-09 13:07 | ER ---
Nurse's Notes [facility] Name: Frankie Padilla Age: 58 yrs Sex: Male : 1960 Arrival Date: 01/09/2019 Time: 11:15 Bed 18 Private MD: Madhu Quinteros Diagnosis: End stage renal disease;Acidosis Presentation: 01/09 11:40 Presenting complaint: Family reports that pt has not had dialysis in 1 month, reports ph that pt has hx of non-compliance w/ dialysis, states, " He wasn't getting it done regularly and then needed a hip sx and they had to dialyze him before the surgery could be done. Now we want to get him back on dialysis and the dialysis center said to come here." Pt denies swelling, SOB, fatigue or chest pain, reports that he is urinating regularly, c/o pain to R hip, dialysis catheter in place to RU chest. Transition of care: patient was not received from another setting of care. Onset of symptoms was January 09, 2019. Risk Assessment: Do you want to hurt yourself or someone else? Patient reports no desire to harm self or others. Initial Sepsis Screen: Does the patient meet any 2 criteria? No. Patient's initial sepsis screen is negative. Does the patient have a suspected source of infection? No. Patient's initial sepsis screen is negative. Care prior to arrival: None. 11:40 Method Of Arrival: Wheelchair ph 11:40 Acuity: LATESHA 3 ph Triage Assessment: 11:46 General: Appears in no apparent distress. uncomfortable, Behavior is calm, cooperative, hj appropriate for age. Pain: Complains of pain in R hip. Historical: - Allergies: 11:45 NKA; ph - PMHx: 11:45 Dementia; Hypertension; pseudobulbar affect; Dialysis; ph - PSHx: 11:45 R HIP SURGERY; ph - Immunization history:: Adult Immunizations unknown. - Ebola Screening: : No symptoms or risks identified at this time. - Social history:: Smoking status: unknown Patient/guardian denies using alcohol. - Family history:: not pertinent. - Hospitalizations: : The patient was recently seen at [facility]. Screenin:45 Abuse screen: Denies threats or abuse. Denies injuries from another. Nutritional hj screening: No deficits noted. Tuberculosis screening: No symptoms or risk factors identified. Fall Risk None identified. Assessment: 11:47 General: Appears in no apparent distress. uncomfortable, Behavior is calm, cooperative, hj appropriate for age. Pain: Complains of pain in R hip. Neuro: Level of Consciousness is awake, alert, obeys commands, Oriented to person, place, time, situation, Appropriate for age. Cardiovascular: Capillary refill < 3 seconds Patient's skin is warm and dry. Respiratory: Airway is patent Respiratory effort is even, unlabored, Respiratory pattern is regular, symmetrical. GI: No signs and/or symptoms were reported involving the gastrointestinal system. : carol on R upper chest. EENT: No signs and/or symptoms were reported regarding the EENT system. Derm: No signs and/or symptoms reported regarding the dermatologic system. Musculoskeletal: No signs and/or symptoms reported regarding the musculoskeletal system. 12:55 Reassessment: No changes from previously documented assessment. Patient and/or family pc1 updated on plan of care and expected duration. Pain level reassessed. Patient is alert, oriented x 3, equal unlabored respirations, skin warm/dry/pink. Vital Signs: 11:45 BP 190 / 102; Pulse 92; Resp 20; Temp 98.0; Pulse Ox 97% on R/A; ph 12:04 BP 175 / 88; Pulse 89; Resp 18; Pulse Ox 98% on R/A; hj 13:01 BP 190 / 101; Pulse 72; Resp 16; Pulse Ox 100% on R/A; pc1 ED Course: 11:15 Patient arrived in ED. as 11:15 Madhu Quinteros DO is Private Physician. as 11:25 Chino Melendez MD is Attending Physician. rn 11:36 Amadeo Garcia RN is Primary Nurse. hj 11:44 Triage completed. ph 11:45 Arm band placed on Patient placed in an exam room, on a stretcher. ph 11:46 Patient has correct armband on for positive identification. Bed in low position. Call light in reach. Side rails up X 1. Adult w/ patient. 11:50 Initial lab(s) drawn, by ED staff, sent to lab. Inserted saline lock: 20 gauge in right antecubital area, using aseptic technique. ,using aseptic technique. SN Juan Blood collected. 12:02 X-ray completed. Portable x-ray completed in exam room. Patient tolerated procedure jb2 well. 12:03 XRAY Chest (1 view) In Process Unspecified. EDMS 12:03 XRAY Hip RIGHT 2 view In Process Unspecified. EDMS 12:04 EKG done, by cable technician. reviewed by Chino Melendez MD. at1 12:21 Notified ED physician of a critical lab result(s). Creatinine 12.1. dm5 13:07 Katina Parnell MD is Hospitalizing Provider. rn 13:15 Madhu Quinteros DO is Referral Physician. rn 13:20 No provider procedures requiring assistance completed. IV discontinued, intact, hj bleeding controlled, No redness/swelling at site. Pressure dressing applied. Administered Medications: No medications were administered Outcome: 13:07 Decision to Hospitalize by Provider. rn 13:21 AMA AMA form signed hj 13:21 Condition: stable 13:21 Instructed on follow up and referral plans. Demonstrated understanding of follow-up care, AMA signed by pt, witnessed by RN and field technician 13:22 Patient left the ED. hj Signatures: Dispatcher [employer] EDMS Tiffanie Oliver, RN RN dm5 Johnathon Munoz jb2 Orly Constantino Roman, MD MD rn Gonzales, Amanda, shop firer/fireman EKG Tat1 Yaneth Blakely, RN Amadeo Anaya ph RN Juan Caraballo
--- NOTE | 2019-01-09 13:07 | EDPHYS ---
Physician Documentation [facility] Name: Frankie Padilla Age: 58 yrs Sex: Male : 1960 Arrival Date: 01/09/2019 Time: 11:15 Bed 18 Private MD: Madhu Quinteros ED Physician Chino Melendez HPI: 01/09 11:53 This 58 yrs old Male presents to ER via Wheelchair with complaints of Missed manager internet x1 mth. 11:53 Reports last had dilaysis 1 month ago when admitted for hip surgery, hasn't had united states attorney since, otherwise feels ok, has appt to get catheter removed tomorrow, family under the impression he still needs dialysis so tried to take him to dialysis, they directed him here since hadn't had dialysis in a while. NO fever/cough/sob/swelling. . Onset: The symptoms/episode began/occurred at an unknown time. Severity of symptoms: At their worst the symptoms were very mild. The patient has experienced similar episodes in the past. The patient has been recently been admitted at [facility]. Historical: - Allergies: 11:45 NKA; ph - PMHx: 11:45 Dementia; Hypertension; pseudobulbar affect; Dialysis; ph - PSHx: 11:45 R HIP SURGERY; ph - Immunization history:: Adult Immunizations unknown. - Ebola Screening: : No symptoms or risks identified at this time. - Social history:: Smoking status: unknown Patient/guardian denies using alcohol. - Family history:: not pertinent. - Hospitalizations: : The patient was recently seen at [facility]. ROS: 11:53 Constitutional: Negative for fever, chills, and weight loss, Eyes: Negative for injury, rn pain, redness, and discharge, Neck: Negative for injury, pain, and swelling, Cardiovascular: Negative for chest pain, palpitations, and edema, Respiratory: Negative for shortness of breath, cough, wheezing, and pleuritic chest pain, Abdomen/GI: Negative for abdominal pain, nausea, vomiting, diarrhea, and constipation, MS/Extremity: + mild right hip pain since surgery Skin: Negative for injury, rash, and discoloration, Neuro: Negative for headache, weakness, numbness, tingling, and seizure. Exam: 11:53 Constitutional: This is a well developed, well nourished patient who is awake, alert, rn and in no acute distress. Head/Face: Normocephalic, atraumatic. ENT: MMM Cardiovascular: Regular rate and rhythm. No pulse deficits. Respiratory: Lungs have equal breath sounds bilaterally, clear to auscultation. No increased work of breathing, no retractions or nasal flaring. Skin: Warm, dry with normal turgor. Normal color with no rashes, no lesions, and no evidence of cellulitis. MS/ Extremity: Pulses equal, no cyanosis. Neurovascular intact. Full, normal range of motion. Equal circumference. Neuro: Awake and alert, GCS 15, oriented to person, place, time, and situation. Cranial nerves II-XII grossly intact. Motor strength 5/5 in all extremities. Sensory grossly intact. Ambulatory with mild right limp Vital Signs: 11:45 BP 190 / 102; Pulse 92; Resp 20; Temp 98.0; Pulse Ox 97% on R/A; ph 12:04 BP 175 / 88; Pulse 89; Resp 18; Pulse Ox 98% on R/A; hj 13:01 BP 190 / 101; Pulse 72; Resp 16; Pulse Ox 100% on R/A; pc1 MDM: 11:25 Patient medically screened. rn 13:05 Differential Diagnosis ESRD, acidosis, dehydration. Data reviewed: vital signs, nurses rn notes, lab test result(s), EKG, radiologic studies, plain films, and as a result, I will admit patient. Counseling: I had a detailed discussion with the patient and/or guardian regarding: the historical points, exam findings, and any diagnostic results supporting the discharge/admit diagnosis, lab results, radiology results, the need for further work-up and treatment in the hospital. Admission orders: after a detailed discussion of the patient's condition and case, the admit orders are written by me. ED course: Consulted with Dr. Quinteros, happy to give dialysis if patient is willing, patient has in past chosen to not get dialysis, family has convinced him to stay and get dialysis, will admit to Dr. Parnell with Dr. Quinteros consult.. 13:14 ED course: After our long discussion and patient was going to be admitted, patient got rn upset, threatening to pull out his IV, and no longer wants to be admitted. Signed out AMA, family states they can no longer reason with him. They plan on seeing Dr. Quinteros for removal of catheter.. 01/09 11:37 Order name: Basic Metabolic Panel; Complete Time: 12:35 rn 01/09 11:37 Order name: XRAY Chest (1 view); Complete Time: 12:14 rn 01/09 11:37 Order name: IV Start; Complete Time: 11:49 rn 01/09 11:37 Order name: EKG; Complete Time: 11:38 rn 01/09 11:37 Order name: EKG - Nurse/Tech; Complete Time: 11:48 rn 01/09 11:43 Order name: XRAY Hip RIGHT 2 view; Complete Time: 12:14 rn Administered Medications: No medications were administered Disposition: 01/09/19 13:16 Patient has left against medical advice. Impression: End stage renal disease, Acidosis. - Patients states they are going to Home. - Condition is Stable. - Discharge Instructions: Dialysis, End-Stage Kidney Disease. Follow up: Madhu Quinteros DO; When: As needed; Reason: Recheck today's complaints, Re-evaluation by your physician. - Problem is an ongoing problem. - Symptoms are unchanged. Signatures: Dispatcher [employer] EDMS Chino Melendez MD MD rn Hall, Patricia, RN RN ph Joaquin, Henry, RN RN Corrections: (The following items were deleted from the chart) 13:15 13:07 Hospitalization Ordered by Katina Parnell MD for Observation. Preliminary diagnosis rn is End stage renal disease; Acidosis. Bed requested for Telemetry/MedSurg (observation). Status is Observation. Condition is Stable. Problem is an ongoing problem. Symptoms are unchanged. UTI on Admission? No. rn 13:22 13:16 01/09/2019 13:16 Patients has left against medical advice. Impression: End stage hj renal disease; Acidosis. Patient states they are going to Home. Condition is Stable. Follow up: Madhu Quinteros; When: As needed; Reason: Recheck today's complaints, Re-evaluation by your physician. Problem is an ongoing problem. Symptoms are unchanged. rn
[2019-01-09 13:37] VITALS: TEMP 98
[2019-01-09 13:39] VITALS: BP 190/101; O2SAT 100
--- NOTE | 2019-01-09 14:46 | EKG ---
Test Date: 2019-01-09 Test Time: 11:58:54 Underwriting Analyst: CHARO MEASUREMENT RESULTS: Intervals: Rate: 66 NV: 188 QRSD: 92 QT: 420 QTc: 440 Hoffman: P: 70 NV: 188 QRS: 18 T: 65 INTERPRETIVE STATEMENTS: Normal sinus rhythm Normal ECG Compared to ECG 11/13/2018 18:59:43 Sinus tachycardia no longer present Electronically Signed On 01-09-19 14:44:14 OUTDOOR ADVERTISING LEASING AGENT by Stalin Atwood
== END 2019-01-09 13:22 | disposition left against medical advice (07) ==
LOC: ER 11:13
DX: E87.2 Acidosis (principal); I12.0 Hypertensive chronic kidney disease with stage 5 chronic kidney disease or end stage renal disease; N18.6 End stage renal disease; Z99.2 Dependence on renal dialysis; Z91.15 Patient's noncompliance with renal dialysis
CPT/HCPCS: 36415; 71045; 80048; 93005; 99284

== ENCOUNTER 2019-03-16 23:21 | Inpatient (IN) | payer OTHER ==
--- OUTSIDE RECORDS SUMMARY | 2019-03-16 23:23 | XMS REPORT ---
:1960 [facility] Address [address] [place] [address] Dr. Granados [address] [place] [id number] Care Team Providers Name Role Phone Unavailable Unavailable Unavailable Problems This patient has no known problems. Allergies, Adverse Reactions, Alerts This patient has no known allergies or adverse reactions. Medications This patient has no known medications.
[2019-03-17 00:04] LABS: Arterial Blood Carboxyhemoglob 2.9 % (0-1.5); Blood Gas Oxyhemoglobin 89.8 % (94-97); Blood O2 Saturation 93.4 % (92-98.5)
[2019-03-17] MEDS ORDERED: IPRATROPIUM BROM 0.5MG/2.5ML ONE (00:07)
[2019-03-17] MEDS ORDERED: ALBUTEROL 2.5 MG/3 ML NEB SOL ONE (00:07)
[2019-03-17] MEDS ORDERED: METHYLPREDNISOLONE 125 MG INJ ONE (00:07)
[2019-03-17 00:53] LABS: Absolute Lymphocytes (CBC) 1.9 K/uL (0.7-4.9); Absolute Monocytes 1.1 K/uL (0.1-1.3); Absolute Neutrophil 8.2 K/uL (1.8-8.0); Basophils % 0.4 % (0-1.3); Eosinophils % 1.3 % (0-4.4); Hematocrit 34.7 % (39.6-49.0); MPV 9.2 fL (7.6-11.3); Monocytes % 9.7 % (3.3-12.3); RBC Red Blood Cell Count 3.95 M/uL (4.33-5.43)
[2019-03-17] MEDS ORDERED: LORazepam 2 MG/ML VIAL ONE (00:53)
[2019-03-17 00:54] LABS: Protime INR 1.06
[2019-03-17 01:17] LABS: ALT/SGPT 22 U/L (12-78); AST/SGOT 15 U/L (15-37); Albumin 3.5 g/dL (3.4-5.0); Alkaline Phosphatase 51 U/L (45-117); BUN Blood Urea Nitrogen 92 mg/dL (7-18); Bicarbonate 21 mmol/L (21-32); Bilirubin Direct 0.2 mg/dL (0-0.2); Bilirubin Total 0.3 mg/dL (0.2-1.0); Glucose Level 104 mg/dL (74-106); Lipase 512 U/L (73-393); Magnesium 1.8 mg/dL (1.8-2.4); NT PRO-BNP 5638 pg/mL (<125); Potassium 3.7 mmol/L (3.5-5.1); Protein, Total 7.2 g/dL (6.4-8.2); Sodium Level 143 mmol/L (136-145); Troponin (Emerg Dept Use Only) < 0.02 ng/mL (0.0-0.045)
[2019-03-17 02:02] LABS: Barbiturates NEGATIVE (NEGATIVE); Benzodiazepines NEGATIVE (NEGATIVE); Cocaine NEGATIVE (NEGATIVE); METHAMPHETAM NEGATIVE (NEGATIVE); Methadone NEGATIVE (NEGATIVE); Opiates NEGATIVE (NEGATIVE); Phencyclidine NEGATIVE (NEGATIVE); THC Cannibis NEGATIVE (NEGATIVE)
--- NOTE | 2019-03-17 02:23 | EDPHYS ---
Physician Documentation [facility] Name: Frankie Padilla Age: 59 yrs Sex: Male : 1960 Arrival Date: 03/16/2019 Time: 23:27 Bed 8 Private MD: ED Physician Antolin Akbar HPI: 03/16 23:44 This 59 yrs old Male presents to ER via EMS with complaints of sudden sob, jennifer smoking. 23:40 The patient has shortness of breath at rest, with light activity. Onset: The jennifer symptoms/episode began/occurred just prior to arrival. The patient's shortness of breath has no apparent modifying factors. The patient or guardian reports cough, difficulty breathing. Associated signs and symptoms: The patient has no apparent associated signs or symptoms. Severity of symptoms: At their worst the symptoms were moderate severe in the emergency department the symptoms have improved moderately. Historical: - Allergies: 23:39 NKA; tl1 - Home Meds: 23:39 None [Active]; tl1 - PMHx: 23:39 Dementia; Hypertension; pseudobulbar affect; Dialysis; tl1 - Immunization history:: Adult Immunizations unknown. - Social history:: Smoking status: Patient uses tobacco products, smokes one pack cigarettes per day. Patient uses street drugs, synthetic marijuana. - Ebola Screening: : Patient negative for fever greater than or equal to 101.5 degrees Fahrenheit, and additional compatible Ebola Virus Disease symptoms Patient denies exposure to infectious person Patient denies travel to an Ebola-affected area in the 21 days before illness onset. ROS: 23:42 Constitutional: Negative for fever, chills, and weight loss, Eyes: Negative for injury, jennifer pain, redness, and discharge, ENT: Negative for injury, pain, and discharge, Neck: Negative for injury, pain, and swelling, Cardiovascular: Negative for chest pain, palpitations, and edema, Abdomen/GI: Negative for abdominal pain, nausea, vomiting, diarrhea, and constipation, Back: Negative for injury and pain, : Negative for injury, bleeding, discharge, and swelling, MS/Extremity: Negative for injury and deformity, Skin: Negative for injury, rash, and discoloration, Neuro: Negative for headache, weakness, numbness, tingling, and seizure, Psych: Negative for depression, anxiety, suicide ideation, homicidal ideation, and hallucinations, Allergy/Immunology: Negative for hives, rash, and allergies, Endocrine: Negative for neck swelling, polydipsia, polyuria, polyphagia, and marked weight changes, Hematologic/Lymphatic: Negative for swollen nodes, abnormal bleeding, and unusual bruising. 23:42 Respiratory: Positive for cough, with no reported sputum, shortness of breath, at rest. 23:42 MS/extremity: Negative for acute changes. Exam: 23:42 Constitutional: This is a well developed, well nourished patient who is awake, alert, jennifer and in no acute distress. Head/Face: Normocephalic, atraumatic. Eyes: Pupils equal round and reactive to light, extra-ocular motions intact. Lids and lashes normal. Conjunctiva and sclera are non-icteric and not injected. Cornea within normal limits. Periorbital areas with no swelling, redness, or edema. ENT: Nares patent. No nasal discharge, no septal abnormalities noted. Tympanic membranes are normal and external auditory canals are clear. Oropharynx with no redness, swelling, or masses, exudates, or evidence of obstruction, uvula midline. Mucous membranes moist. Neck: Trachea midline, no thyromegaly or masses palpated, and no cervical lymphadenopathy. Supple, full range of motion without nuchal rigidity, or vertebral point tenderness. No Meningismus. Chest/axilla: Normal chest wall appearance and motion. Nontender with no deformity. No lesions are appreciated. Cardiovascular: Regular rate and rhythm with a normal S1 and S2. No gallops, murmurs, or rubs. Normal PMI, no JVD. No pulse deficits. Respiratory: Lungs have equal breath sounds bilaterally, clear to auscultation and percussion. No rales, rhonchi or wheezes noted. No increased work of breathing, no retractions or nasal flaring. Abdomen/GI: Soft, non-tender, with normal bowel sounds. No distension or tympany. No guarding or rebound. No evidence of tenderness throughout. Back: No spinal tenderness. No costovertebral tenderness. Full range of motion. Male : Normal genitalia with no discharge or lesions. Skin: Warm, dry with normal turgor. Normal color with no rashes, no lesions, and no evidence of cellulitis. MS/ Extremity: Pulses equal, no cyanosis. Neurovascular intact. Full, normal range of motion. Neuro: Awake and alert, GCS 15, oriented to person, place, time, and situation. Cranial nerves II-XII grossly intact. Motor strength 5/5 in all extremities. Sensory grossly intact. Cerebellar exam normal. Normal gait. Psych: Awake, alert, with orientation to person, place and time. Behavior, mood, and affect are within normal limits. 23:43 Musculoskeletal/extremity: DVT Exam: No signs of deep vein thrombosis. no pain, no jennifer swelling, no tenderness, negative Homans' sign noted on exam, no appreciated bluish discoloration, no erythema, no increased warmth. Vital Signs: 23:40 BP 180 / 99; Pulse 98; Resp 20; Temp 98(O); Pulse Ox 96% on R/A; Weight 78.4 kg; Height tl1 5 ft. 11 in. (180.34 cm); Pain 0/10; 03/17 00:17 BP 163 / 109; Pulse 102; Resp 22; Pulse Ox 100% on Nebulizer Mask; Pain 0/10; tl1 00:33 Pulse Ox 100% on 2 lpm NC; tl1 00:45 BP 179 / 102; Pulse 99; Resp 19; Pulse Ox 99% on 2 lpm NC; Pain 0/10; tl1 01:14 BP 144 / 98; Pulse 115; Resp 15; Pulse Ox 100% on 2 lpm NC; Pain 0/10; tl1 02:01 BP 142 / 92; Pulse 102; Resp 21; Pulse Ox 97% on 2 lpm NC; Pain 0/10; tl1 02:48 BP 148 / 89; Pulse 100; Resp 22; Pulse Ox 94% on 1 lpm NC; Pain 0/10; tl1 03:30 BP 158 / 97; Pulse 108; Resp 22 S; Pulse Ox 96% on 2 lpm NC; jd3 04:46 BP 152 / 94; Pulse 108; Resp 19 S; Pulse Ox 100% on R/A; jd3 05:49 Pulse 96; Resp 19 S; Pulse Ox 99% on R/A; jd3 03/16 23:40 Body Mass Index 24.11 (78.40 kg, 180.34 cm) tl1 MDM: 03/16 23:32 Patient medically screened. [facility] 23:44 Data reviewed: vital signs, nurses notes, lab test result(s), EKG, radiologic studies, jennifer CT scan, plain films. 03/16 23:40 Order name: Basic Metabolic Panel [facility] 03/16 23:40 Order name: CBC with Diff [facility] 03/16 23:40 Order name: LFT's [facility] 03/16 23:40 Order name: Magnesium [facility] 03/16 23:40 Order name: NT PRO-BNP [facility] 03/16 23:40 Order name: PT-INR [facility] 03/16 23:40 Order name: Troponin (emerg Dept Use Only) [facility] 03/16 23:40 Order name: Blood Culture Adult (2) [facility] 03/16 23:40 Order name: Lipase [facility] 03/16 23:40 Order name: Acetaminophen [facility] 03/16 23:40 Order name: ETOH Level [facility] 03/16 23:40 Order name: Ptt, Activated [facility] 03/16 23:40 Order name: Salicylate; Complete Time: 01:11 [facility] 03/16 23:40 Order name: Urine Drug Screen; Complete Time: 02:16 [facility] 03/16 23:40 Order name: XRAY Chest (1 view) [facility] 03/16 23:40 Order name: ABG; Complete Time: 02:16 [facility] 03/16 23:40 Order name: D-Dimer; Complete Time: 00:56 [facility] 03/16 23:40 Order name: Basic Metabolic Panel; Complete Time: 02:16 [facility] 03/16 23:41 Order name: CBC with Automated Diff; Complete Time: 00:56 [facility] 03/16 23:41 Order name: Liver (Hepatic) Function; Complete Time: 02:16 [facility] 03/16 23:41 Order name: Magnesium; Complete Time: 02:16 [facility] 03/16 23:41 Order name: NT PRO-BNP; Complete Time: 02:16 [facility] 03/16 23:41 Order name: Protime (+INR); Complete Time: 00:56 [facility] 03/16 23:41 Order name: Troponin (Emerg Dept Use Only); Complete Time: 02:16 [facility] 03/16 23:41 Order name: Blood Culture [facility] 03/16 23:41 Order name: Lipase; Complete Time: 02:16 [facility] 03/16 23:41 Order name: Acetaminophen Level; Complete Time: 02:16 [facility] 03/16 23:41 Order name: Alcohol Serum/Plasma; Complete Time: 01:11 [facility] 03/16 23:41 Order name: PTT, Activated Partial Thromb; Complete Time: 00:56 [facility] 03/17 01:37 Order name: Urine Dipstick--Ancillary (enter results) cm6 03/16 23:40 Order name: EKG; Complete Time: 23:41 [facility] 03/16 23:40 Order name: Cardiac monitoring; Complete Time: 23:57 [facility] 03/16 23:40 Order name: EKG - Nurse/Tech; Complete Time: 23:57 [facility] 03/16 23:40 Order name: IV Saline Lock; Complete Time: 23:57 [facility] 03/16 23:40 Order name: Labs collected and sent; Complete Time: 23:57 [facility] 03/16 23:40 Order name: O2 Per Protocol; Complete Time: 23:57 [facility] 03/16 23:40 Order name: O2 Sat Monitoring; Complete Time: 23:57 [facility] 03/16 23:40 Order name: Urine Dipstick-Ancillary (obtain specimen); Complete Time: 02:40 [facility] 03/17 02:23 Order name: VQ scan (Nuclear Medicine) [facility] Administered Medications: 03/17 00:01 Drug: SOLU-Medrol 125 mg Route: IVP; Infused Over: 2 mins; Site: left antecubital; tl1 01:00 Follow up: Response: No adverse reaction jd3 00:01 Drug: Albuterol - atroVENT (3:1) (2.5 mg - 0.5 mg) 3 ml Route: Nebulizer; tl1 01:00 Follow up: Response: No adverse reaction jd3 00:44 Drug: Ativan 1 mg Route: IVP; Infused Over: 2 mins; Site: left antecubital; tl1 01:15 Follow up: Response: No adverse reaction; Marked relief of symptoms; Anxiety decreased tl1 02:42 Drug: Heparin (IA-Bolus No thrombolytic) - HEParin 60 units/kg {Co-Signature: jd3 tl1 (Tramaine Wells RN).} Route: IVP; Infused Over: 1 mins; Site: left antecubital; 02:48 Follow up: Response: No adverse reaction; No change in condition tl1 02:42 Drug: Aspirin 162 mg Route: PO; tl1 02:48 Follow up: Response: No adverse reaction; No change in condition tl1 02:44 Drug: Heparin (IA Drip) 12 units/kg/hr - (HEParin 96373 units, D5W 500 ml) tl1 {Co-Signature: akua (Tramaine Wells RN).} Route: IV; Rate: 936 units/hr; Site: left antecubital; 05:50 Follow up: Response: No adverse reaction; IV Status: Infusion continued upon admission jd3 Disposition: 03/17/19 02:22 Hospitalization ordered by Nia Galdamez for Inpatient Admission. Preliminary diagnosis are Chest pain on breathing, Chest pain, unspecified, End stage renal disease, Chronic obstructive pulmonary disease, unspecified, Tobacco abuse counseling, Tobacco use, Essential (primary) hypertension, Dementia in other diseases classified elsewhere. - Bed requested for Telemetry/MedSurg (observation). - Status is Inpatient Admission. jd3 - Condition is Stable. - Problem is new. - Symptoms have improved. UTI on Admission? No Signatures: Dispatcher [employer] EDAntolin Olguin MD MD cha Lasagna, Tonya, RN RN tl1 Yeimy Wong RN RN Tramaine Wells RN RN jd3 Tramaine Wells RN jd3 Corrections: (The following items were deleted from the chart) 02:22 Hospitalization Ordered by Nia Galdamez MD for Inpatient Admission. Preliminary jennifer diagnosis is Chest pain on breathing; Chest pain, unspecified; End stage renal disease; Chronic obstructive pulmonary disease, unspecified; Tobacco abuse counseling; Tobacco use; Essential (primary) hypertension. Bed requested for Telemetry/MedSurg (observation). Status is Inpatient Admission. Condition is Stable. Problem is new. Symptoms have improved. UTI on Admission? No. jennifer 04:56 02:26 03/17/2019 02:22 Hospitalization Ordered by Nia Galdamez MD for Inpatient cg Admission. Preliminary diagnosis is Chest pain on breathing; Chest pain, unspecified; End stage renal disease; Chronic obstructive pulmonary disease, unspecified; Tobacco abuse counseling; Tobacco use; Essential (primary) hypertension; Dementia in other diseases classified elsewhere. Bed requested for Telemetry/MedSurg (observation). Status is Inpatient Admission. Condition is Stable. Problem is new. Symptoms have improved. UTI on Admission? No. jennifer 06:00 04:56 03/17/2019 02:22 Hospitalization Ordered by Nia Galdamez MD for Inpatient jd3 Admission. Preliminary diagnosis is Chest pain on breathing; Chest pain, unspecified; End stage renal disease; Chronic obstructive pulmonary disease, unspecified; Tobacco abuse counseling; Tobacco use; Essential (primary) hypertension; Dementia in other diseases classified elsewhere. Bed requested for Telemetry/MedSurg (observation). Status is Inpatient Admission. Condition is Stable. Problem is new. Symptoms have improved. UTI on Admission? No. cg
--- NOTE | 2019-03-17 02:23 | ER ---
Nurse's Notes [facility] Name: Frankie Padilla Age: 59 yrs Sex: Male : 1960 Arrival Date: 03/16/2019 Time: 23:27 Bed 8 Private MD: Diagnosis: Chest pain on breathing;Chest pain, unspecified;End stage renal disease;Chronic obstructive pulmonary disease, unspecified;Tobacco abuse counseling;Tobacco use;Essential (primary) hypertension;Dementia in other diseases classified elsewhere Presentation: 03/16 23:28 Presenting complaint: Patient states: I smoke marijuana but not the real kind and I tl1 smoked today. I felt short of breath and my blood pressure was high. I felt like my chest was tight. Transition of care: patient was not received from another setting of care. Onset of symptoms was March 16, 2019. Risk Assessment: Do you want to hurt yourself or someone else? Patient reports no desire to harm self or others. Initial Sepsis Screen: Does the patient meet any 2 criteria? No. Patient's initial sepsis screen is negative. Does the patient have a suspected source of infection? No. Patient's initial sepsis screen is negative. Care prior to arrival: None. 23:28 Method Of Arrival: EMS: [facility] tl1 23:28 Acuity: LATESHA 2 tl1 Historical: - Allergies: 23:39 NKA; tl1 - Home Meds: 23:39 None [Active]; tl1 - PMHx: 23:39 Dementia; Hypertension; pseudobulbar affect; Dialysis; tl1 - Immunization history:: Adult Immunizations unknown. - Social history:: Smoking status: Patient uses tobacco products, smokes one pack cigarettes per day. Patient uses street drugs, synthetic marijuana. - Ebola Screening: : Patient negative for fever greater than or equal to 101.5 degrees Fahrenheit, and additional compatible Ebola Virus Disease symptoms Patient denies exposure to infectious person Patient denies travel to an Ebola-affected area in the 21 days before illness onset. Screenin:59 Abuse screen: Denies threats or abuse. Nutritional screening: No deficits noted. jd3 Tuberculosis screening: No symptoms or risk factors identified. Fall Risk IV access (20 points). Ambulatory Aid- Crutches/Cane/Walker (15 pts). Gait- Weak (10 pts.). Mental Status- Overestimates/Forgets Limitations (15 pts.). Total Chavez Fall Scale indicates High Risk Score (45 or more points). Fall prevention measures have been instituted. Side Rails Up X 2 Placed Close to Nursing Station Frequent Obs/Assessments Occuring. Assessment: 23:42 General: Appears in no apparent distress. Behavior is cooperative, crying. Pain: Denies tl1 pain. Neuro: Level of Consciousness is awake, alert, obeys commands. Cardiovascular: Reports shortness of breath, Denies chest pain. Respiratory: Airway is patent Trachea midline Respiratory effort is even, unlabored, Breath sounds are clear bilaterally. GI: No signs and/or symptoms were reported involving the gastrointestinal system. : No signs and/or symptoms were reported regarding the genitourinary system. EENT: No signs and/or symptoms were reported regarding the EENT system. Derm: No signs and/or symptoms reported regarding the dermatologic system. 03/17 02:01 Reassessment: Patient and/or family updated on plan of care and expected duration. Pain tl1 level reassessed. Patient denies pain at this time. Patient states feeling better. Patient states symptoms have improved. 02:51 Reassessment: Dialysis catheter noted to right upper chest wall. tl1 03:45 Reassessment: Patient appears in no apparent distress at this time. No changes from jd3 previously documented assessment. Patient and/or family updated on plan of care and expected duration. Pain level reassessed. 04:02 Reassessment: Patient appears in no apparent distress at this time. No changes from jd3 previously documented assessment. Patient and/or family updated on plan of care and expected duration. Pain level reassessed. 04:51 Reassessment: Patient appears in no apparent distress at this time. No changes from jd3 previously documented assessment. Patient and/or family updated on plan of care and expected duration. Pain level reassessed. 05:48 Reassessment: Patient appears in no apparent distress at this time. No changes from jd3 previously documented assessment. Patient and/or family updated on plan of care and expected duration. Pain level reassessed. Vital Signs: 03/16 23:40 BP 180 / 99; Pulse 98; Resp 20; Temp 98(O); Pulse Ox 96% on R/A; Weight 78.4 kg; Height tl1 5 ft. 11 in. (180.34 cm); Pain 0/10; 04 00:17 BP 163 / 109; Pulse 102; Resp 22; Pulse Ox 100% on Nebulizer Mask; Pain 0/10; tl1 00:33 Pulse Ox 100% on 2 lpm NC; tl1 00:45 BP 179 / 102; Pulse 99; Resp 19; Pulse Ox 99% on 2 lpm NC; Pain 0/10; tl1 01:14 BP 144 / 98; Pulse 115; Resp 15; Pulse Ox 100% on 2 lpm NC; Pain 0/10; tl1 02:01 BP 142 / 92; Pulse 102; Resp 21; Pulse Ox 97% on 2 lpm NC; Pain 0/10; tl1 02:48 BP 148 / 89; Pulse 100; Resp 22; Pulse Ox 94% on 1 lpm NC; Pain 0/10; tl1 03:30 BP 158 / 97; Pulse 108; Resp 22 S; Pulse Ox 96% on 2 lpm NC; jd3 04:46 BP 152 / 94; Pulse 108; Resp 19 S; Pulse Ox 100% on R/A; jd3 05:49 Pulse 96; Resp 19 S; Pulse Ox 99% on R/A; jd3 03/16 23:40 Body Mass Index 24.11 (78.40 kg, 180.34 cm) tl1 ED Course: 03/16 23:27 Patient arrived in ED. ds1 23:28 Carley Esquivel, VALERIE is Primary Nurse. tl1 23:32 Antolin Akbar MD is Attending Physician. jennifer 23:38 Triage completed. tl1 23:42 Arm band placed on right wrist. EKG completed in triage. Results shown to . tl1 23:52 X-ray completed. Portable x-ray completed in exam room. Patient tolerated procedure az well. 23:53 XRAY Chest (1 view) In Process Unspecified. EDMS 23:58 Maintain EMS IV. Dressing intact. Good blood return noted. Site clean \T\ dry. Gauge \T\ siddharth 3 site: 18 G left AC.. 23:59 Patient has correct armband on for positive identification. Placed in gown. Bed in low jd3 position. Call light in reach. Side rails up X2. 03/17 00:55 Notified ED physician of a critical lab result(s). d dimer 1228. fc 01:18 Notified ED physician of a critical lab result(s). ca of 6.4,. creat of 12.8. fc 02:20 Nia Galdamez MD is Hospitalizing Provider. jennifer 02:50 No apparent distress. Resting quietly. Awaiting bed assignment. tl1 02:51 No provider procedures requiring assistance completed. tl1 05:49 Patient admitted, IV remains in place. jd3 Administered Medications: 00:01 Drug: SOLU-Medrol 125 mg Route: IVP; Infused Over: 2 mins; Site: left antecubital; tl1 01:00 Follow up: Response: No adverse reaction jd3 00:01 Drug: Albuterol - atroVENT (3:1) (2.5 mg - 0.5 mg) 3 ml Route: Nebulizer; tl1 01:00 Follow up: Response: No adverse reaction jd3 00:44 Drug: Ativan 1 mg Route: IVP; Infused Over: 2 mins; Site: left antecubital; tl1 01:15 Follow up: Response: No adverse reaction; Marked relief of symptoms; Anxiety decreased tl1 02:42 Drug: Heparin (NH-Bolus No thrombolytic) - HEParin 60 units/kg {Co-Signature: akua tl1 (Tramaine Wells RN).} Route: IVP; Infused Over: 1 mins; Site: left antecubital; 02:48 Follow up: Response: No adverse reaction; No change in condition tl1 02:42 Drug: Aspirin 162 mg Route: PO; tl1 02:48 Follow up: Response: No adverse reaction; No change in condition tl1 02:44 Drug: Heparin (NH Drip) 12 units/kg/hr - (HEParin 96037 units, D5W 500 ml) tl1 {Co-Signature: akua (Tramaine Wells RN).} Route: IV; Rate: 936 units/hr; Site: left antecubital; 05:50 Follow up: Response: No adverse reaction; IV Status: Infusion continued upon admission jd3 Outcome: 02:22 Decision to Hospitalize by Provider. jennifer 05:48 Admitted to Tele accompanied by joe, via wheelchair, room 219, with chart, Report jd3 called to Yesi PADILLA 05:48 Condition: stable 05:48 Instructed on the need for admit, Demonstrated understanding of instructions. 06:00 Patient left the ED. jd3 Signatures: Dispatcher [employer] EDAntolin Olguin MD MD cha Chretien, Felicia RN RN Mikaela Castillo ds1 Carley Esquivel RN RN tl1 Tramaine Wells RN RN jd3 Dariela Barriga RN jd3 Corrections: (The following items were deleted from the chart) 02:43 05/03 23:40 BP 180 / 99; Pulse 98bpm; Resp 20bpm; Pulse Ox 96% RA; Temp 98F Oral; 81.65 tl1 kg; Height 5 ft. 11 in.; BMI: 25.1; Pain 0/10; tl1
[2019-03-17] MEDS ORDERED: HEPARIN/D5W 25,000 UNIT/500 ML BAG IV ONE (02:47)
[2019-03-17] MEDS ORDERED: HEPARIN 5000 UNIT/ML 1 ML VIAL ONE (02:47)
[2019-03-17] MEDS ORDERED: ASPIRIN 81 MG CHEWABLE TABLET ONE (02:48)
[2019-03-17 03:00] LABS: Urine Blood 1+ (NEG); Urine Glucose NEGATIVE (NEG); Urine Protein 3+ (NEG); Urine pH 5.5 (5.0-7.0)
[2019-03-17] MEDS ORDERED: CALCIUM GLUC 10% INJ 4.65 MEQ in NA CHLORIDE 0.9% 100 ML IV ONE (04:57)
--- NOTE | 2019-03-17 05:01 | P.HP ---
Certification for Inpatient Patient admitted to: Inpatient With expected LOS: >2 Midnights Practitioner: I am a practitioner with admitting privileges, knowledge of patient current condition, hospital course, and medical plan of care. Services: Services provided to patient in accordance with Admission requirements found in Title 42 Section 412.3 of the Code of Federal Regulations Patient History Date of Service: 03/17/19 Reason for admission: acute on ckd, History of Present Illness: Ms Padilla is a 59 years old male with history of HTN, psoriasis, gout, CKD stage V, about to start HD tomorrow, who came to ED complaining of SOB. The patient states that he smoked synthetic marihuana, and after that, his symptoms got worse. He denied chest pain, no nausea, vomiting or diarrhea. At arrival, hi BP was elevated, O2 sat 96% on RA. Lab work significantly abnormal, leukocytosis 11.4K, creatinine 12.8, hypocalcemia, elevated D-Dimer. CXR shows signs of mild CHF, awaiting radiology report Allergies No Known Allergies Allergy (Verified 11/14/18 01:58) Home Medications: Colchicine [Colcrys] 0.6 mg PO BID 05/22/13 Fluocinonide Cream [Lidex 0.05% Cream*] 15 gm TP TID 05/22/13 Citalopram Hydrobromide [Celexa] 1 tab PO DAILY 10/28/14 Amlodipine [Norvasc*] 10 mg PO Q12H #180 tab 10/29/14 Terazosin HCl [Hytrin*] 2 mg PO Q12H #180 cap 10/29/14 levETIRAcetam [Keppra*] 500 mg PO BID #180 tab 10/29/14 Arformoterol Tartrate [Brovana] 15 mcg NEB BIDRESP #1 vial.neb 11/20/18 Famotidine [Pepcid*] 20 mg PO BID #60 tab 11/20/18 Thiamine HCl [Vitamin B-1*] 100 mg PO DAILY #30 tablet 11/20/18 traMADol HCL [Ultram*] 50 mg PO Q6H PRN #10 tab 11/20/18 Amox/Clavulanate [Augmentin 500-125 mg Tab*] 500 mg PO BID #10 tab 11/25/18 Arformoterol Tartrate [Brovana] 15 mcg NEB BIDRESP vial.neb 11/25/18 Calcitrol [Rocaltrol*] 0.5 mcg PO DAILY cap 11/25/18 Carvedilol [Coreg*] 25 mg PO BID #120 tab 11/25/18 Cholecalciferol (Vitamin D3) [Vitamin D 5,000 IU Cap*] 5,000 unit PO DAILY cap 11/25/18 Colchicine [Colcrys *] 0.6 mg PO BID tab 11/25/18 Epoetin [Procrit*] 10,000 unit IV EVERY HD vial 11/25/18 Heparin [Heparin 1,000 units/mL *] 6,000 unit IV EVERY HD PRN vial 11/25/18 Heparin [Heparin Sodium*] 5,000 unit SQ Q12HR #60 vial 11/25/18 Iron/FA/Vit B-Com W/C [Hemocyte Plus*] 1 tab PO DAILY WITH BREAKFAST #30 tab 11/01 Mannitol 25% [Mannitol*] 12.5 gm IV EVERY HD PRN vial 11/25/18 Sevelamer Carbonate [Renvela*] 800 mg PO TIDWM #90 tablet 11/25/18 levoFLOXacin [Levaquin*] 500 mg PO DAILY #7 tab 11/25/18 predniSONE [Prednisone*] 5 mg PO BID #60 tab 11/25/18 - Past Medical/Surgical History Diabetic: No -: HTN -: Kidney disease chronic stage 3 -: gout -: hepatomegaly -: psoriasis -: R leg surgery/[facility] (plate) -: R ankle surgery (bolt) - Family History Mother -: Hypertension, Kidney disease Sister -: Hypertension, Kidney disease - Social History Smoking Status: Current every day smoker Counseled patient to stop smoking for: less than 10 minutes Alcohol use: No CD- Drugs: No Caffeine use: Yes Place of Residence: Home Review of Systems 10-point ROS is otherwise unremarkable Physical Examination - Physical Exam General: Alert, In no apparent distress HEENT: Atraumatic, PERRLA, Mucous membr. moist/pink, EOMI, Sclerae nonicteric Neck: Supple, 2+ carotid pulse no bruit, No LAD, Without JVD or thyroid abnormality Respiratory: Diminished, Crackles/rales (bibasilar rales) Cardiovascular: Regular rate/rhythm, Normal S1 S2 Gastrointestinal: Normal bowel sounds, No tenderness Musculoskeletal: No tenderness Integumentary: No rashes Neurological: Normal speech, Normal strength at 5/5 x4 extr, Normal tone, Normal affect Lymphatics: No axilla or inguinal lymphadenopathy - Studies Laboratory Data (last 24 hrs) 03/16/19 23:30: PT 12.5, INR 1.06, APTT 32.4 03/16/19 23:30: WBC 11.4 H, Hgb 11.9 L, Hct 34.7 L, Plt Count 189 03/16/19 23:30: Sodium 143, Potassium 3.7, BUN 92 H, Creatinine 12.80 H*, Glucose 104, Magnesium 1.8, Total Bilirubin 0.3, AST 15, ALT 22, Alkaline Phosphatase 51, Lipase 512 H Assessment and Plan - Problems (Diagnosis) (1) Hypocalcemia Current Visit: Yes Status: Acute (2) Hypertensive disorder, systemic arterial Current Visit: No Status: Active (3) ESRD (end stage renal disease) Current Visit: No Status: Acute (4) COPD (chronic obstructive pulmonary disease) Current Visit: No Status: Chronic Qualifiers: COPD type: chronic bronchitis Chronic bronchitis type: simple Qualified Code(s): J41.0 - Simple chronic bronchitis (5) Tobacco abuse Current Visit: No Status: Chronic - Plan The patient will be admitted due to acute on CKD, at this point he needs to start HD, will consult Dr Quinteros. Elevated D-dimer, will order LE doppler ultrasound. VQ scan already ordered. - Advance Directives Does patient have a Living Will: No Does patient have a Durable POA for Healthcare: No - Code Status/Comfort Care Code Status Assessed: Yes Code Status: Full Code
[2019-03-17 06:17] VITALS: O2SAT 99
[2019-03-17] MEDS ORDERED: HYDRALAZINE HCL 20 MG/ML VIAL IV PRN (06:30)
[2019-03-17] MEDS ORDERED: ONDANSETRON 4 MG/2 ML VIAL IV PRN (06:30)
[2019-03-17 06:34] VITALS: BMI 20.2
--- NOTE | 2019-03-17 06:47 | EKG ---
Test Date: 2019-03-16 Test Time: 23:31:44 Sap Consultant: RICKIE MEASUREMENT RESULTS: Intervals: Rate: 98 MS: 176 QRSD: 88 QT: 388 QTc: 495 [place]: P: 74 MS: 176 QRS: 12 T: 70 INTERPRETIVE STATEMENTS: Normal sinus rhythm Possible Left atrial enlargement Prolonged QT Abnormal ECG Compared to ECG 01/09/2019 11:58:54 Prolonged QT interval now present Electronically Signed On 03-17-19 06:46:16 CDT by Mingo Solis
--- NOTE | 2019-03-17 08:57 | RAD REPORT ---
EXAM DESCRIPTION: NM - Vent Perfusion VQ Scan - 03/17/2019 8:41 am CLINICAL HISTORY: Shortness of breath COMPARISON: March 16, 2019 chest x-ray TECHNIQUE: 21.4 Mci [id number] was administered by inhalation. First breath, equilibrium, and washout images of the lungs obtained Seven millicuries Technetium-99 MAA was administered intravenously. Anterior, posterior, lateral and oblique views of the lungs were taken. FINDINGS: The lungs demonstrate relatively homogeneous radiotracer activity on ventilation and perfu johnnie sequences. No mismatched segmental or lobar perfusion defects are seen. IMPRESSION: No evidence of a pulmonary embolus
[2019-03-17] MEDS ORDERED: CARVEDILOL 12.5 MG TAB PO SCH (09:00)
[2019-03-17] MEDS ORDERED: NICOTINE 21 MG/PAT TD SCH (09:00)
--- NOTE | 2019-03-17 10:06 | RAD REPORT ---
EXAM DESCRIPTION: Felicia Single View03/16/2019 11:55 pm CLINICAL HISTORY: Chest pain COMPARISON: December 2018 FINDINGS: The lungs appear clear of acute infiltrate. The heart is normal size. Central venous line remains in place IMPRESSION: No acute abnormalities displayed
[2019-03-17] MEDS ORDERED: ALBUTEROL 2.5 MG/3 ML NEB SOL NEB PRN (11:15)
[2019-03-17] MEDS ORDERED: IPRATROPIUM BROM 0.5MG/2.5ML NEB PRN (11:15)
--- NOTE | 2019-03-17 11:26 | P.PN ---
Subjective Date of Service: 03/17/19 Primary Care Provider: unknown Chief Complaint: acute on ckd, Subjective: Doing well Physical Examination - Vital Signs Temperature: 97.1 F Blood Pressure: 182/106 Pulse: 89 Respirations: 20 Pulse Ox (%): 97 - Physical Exam General: Alert, In no apparent distress, Cooperative HEENT: Atraumatic Neck: Supple Respiratory: Clear to auscultation bilaterally, Normal air movement Cardiovascular: Normal pulses, Regular rate/rhythm Gastrointestinal: Normal bowel sounds, No tenderness, No masses, No rebound, No guarding Musculoskeletal: No tenderness, No warmth Integumentary: No tenderness/swelling, No erythema, No warmth, No cyanosis Neurological: Normal speech, Normal strength at 5/5 x4 extr, Normal tone - Studies Laboratory Data (last 24 hrs) 03/16/19 23:30: PT 12.5, INR 1.06, APTT 32.4 03/16/19 23:30: WBC 11.4 H, Hgb 11.9 L, Hct 34.7 L, Plt Count 189 03/16/19 23:30: Sodium 143, Potassium 3.7, BUN 92 H, Creatinine 12.80 H*, Glucose 104, Magnesium 1.8, Total Bilirubin 0.3, AST 15, ALT 22, Alkaline Phosphatase 51, Lipase 512 H Medications List Reviewed: Yes Assessment & Plan Discharge Plan: Home Plan to discharge in: Greater than 2 days Physician Review Additional Text: Impression: Shortness of breath secondary to End-stage renal disease with poor follow up and compliance Hypertension, uncontrolled with poor compliance Alcohol abuse COPD Tobacco abuse Anemia of chronic disease Plan: Shortness of breath secondary to End-stage renal disease with poor follow up and compliance: V/Q scan unremarkable. Case discussed with nephrology. Patient has been in and out of dialysis with poor follow up and compliance. Patient has missed episodes of dialysis between several months. Nephrology has address compliance multiple times. We need to have family discussion along with nephrology and patient to determine whether the patient is going to be compliant with medication, dialysis and follow up. Patient appears that he wants dialysis. Will discuss further with nephrology. Hypertension, uncontrolled with poor compliance: Will start blood pressure medication. Patient likely to start dialysis. Alcohol abuse: Will monitor for alcohol withdrawal. Will discuss cessation education. COPD: Will start COPD medication. Tobacco abuse: Will provide nicotine patch. Will provide cessation education. Anemia of chronic disease: Will monitor closely. Time Spent Managing Pts Care (In Minutes): 55
[2019-03-17] MEDS ORDERED: ALTEPLASE 2 MG/VIAL IV SCH (14:00)
--- NOTE | 2019-03-17 14:10 | P.CNS ---
Date of Consult: 03/17/19 Reason for Consult: ESRD Requesting Physician: Kushal German Primary Care Provider: unknown Chief Complaint: acute on ckd, History of Present Illness: Ms Padilla is a 59 years old male with history of HTN, psoriasis, gout, CKD stage V, about to start HD tomorrow, who came to ED complaining of SOB. The patient states that he smoked synthetic marihuana, and after that, his symptoms got worse. He denied chest pain, no nausea, vomiting or diarrhea. At arrival, hi BP was elevated, O2 sat 96% on RA. Lab work significantly abnormal, leukocytosis 11.4K, creatinine 12.8, hypocalcemia, elevated D-Dimer. CXR shows signs of mild CHF, awaiting radiology report. 23:44 This 59 yrs old Male presents to ER via EMS with complaints of sudden sob, jennifer smoking. 23:40 The patient has shortness of breath at rest, with light activity. Onset: The jennifer symptoms/episode began/occurred just prior to arrival. The patient's shortness of breath has no apparent modifying factors. The patient or guardian reports cough, difficulty breathing. Associated signs and symptoms: The patient has no apparent associated signs or symptoms. Severity of symptoms: At their worst the symptoms were moderate severe in the emergency department the symptoms have improved moderately. Hx of poor compliance with dialysis. He has started dialysis twice in the last few years and then decided not to continue. Allergies No Known Allergies Allergy (Verified 11/14/18 01:58) Home medications list reviewed: Yes Home Medications: Albuterol Inhaler [Ventolin Inhaler] 2 puff IH Q4H PRN 03/17/19 Amlodipine [Norvasc] 10 mg PO DAILY 03/17/19 Carvedilol [Coreg] 12.5 mg PO BID 03/17/19 Ferrous Fumarate [Hemocyte] 324 mg PO DAILY 03/17/19 - Past Medical/Surgical History Diabetic: No -: HTN -: Kidney disease chronic stage 3 -: gout -: hepatomegaly -: psoriasis -: R leg surgery/[facility] (plate) -: R ankle surgery (bolt) - Family History Mother Medical History: Hypertension, Kidney disease Sister Medical History: Hypertension, Kidney disease - Social History Smoking Status: Current every day smoker Alcohol use: No CD- Drugs: No Caffeine use: No Place of Residence: Home Review of Systems 10-point ROS is otherwise unremarkable General: Weakness, Malaise Respiratory: Cough, Shortness of Breath Gastrointestinal: Nausea Physical Examination Temp Pulse Resp BP Pulse Ox 97.5 F 87 18 191/106 H 98 03/17/19 12:00 03/17/19 12:00 03/17/19 12:00 03/17/19 12:00 03/17/19 12:00 General: Oriented x3, Cooperative, Mild distress HEENT: Atraumatic, Mucous membr. moist/pink Neck: Supple Respiratory: Expiratory wheezes Cardiovascular: No edema, Regular rate/rhythm Gastrointestinal: Soft and benign, Non-distended Musculoskeletal: No clubbing, No contractures Integumentary: No cyanosis, Rash(es) Neurological: Normal speech Urinary: Dialysis catheter Laboratory Data (last 24 hrs) 03/16/19 23:30: PT 12.5, INR 1.06, APTT 32.4 03/16/19 23:30: WBC 11.4 H, Hgb 11.9 L, Hct 34.7 L, Plt Count 189 03/16/19 23:30: Sodium 143, Potassium 3.7, BUN 92 H, Creatinine 12.80 H*, Glucose 104, Magnesium 1.8, Total Bilirubin 0.3, AST 15, ALT 22, Alkaline Phosphatase 51, Lipase 512 H Imagings Data: EXAM DESCRIPTION: Felicia Single View03/16/2019 11:55 pm CLINICAL HISTORY: Chest pain COMPARISON: December 2018 FINDINGS: The lungs appear clear of acute infiltrate. The heart is normal size. Central venous line remains in place IMPRESSION: No acute abnormalities displayed Conclusions/Impression: A/ ESRD non-compliant with dialysis. aPKD. HTN with CKD. Diastolic CHF, chronic. COPD with exacerbation. Anemia in chronic illness. RUTHIE/ Secondary HyperPTH. Hypocalcemia. Gout. Psoriasis. P/ Continue current POC and Medications. Non functioning dialysis catheter; arrange for cathflo today. Arrange for acute HD today if the catheter regains function. Discontinue Coreg; Start Metoprolol and Doxazosin. Start Vitamin D. Check Hep Panel. No NSAIDs. AM labs. Daily weight. Thank you kindly for the consultation. Case discussed with Dr. German.
[2019-03-17] MEDS ORDERED: NA CHLORIDE 0.9% 1,000 ML IV PRN (14:18)
[2019-03-17] MEDS ORDERED: MANNITOL 25% 12.5 GM/50 ML VIAL IV PRN (14:18)
[2019-03-17] MEDS ORDERED: EPOETIN ALFA 10,000 UNIT/ML VIAL IV SCH (14:30)
[2019-03-17] MEDS ORDERED: WATER FOR INJ,STERILE 10 ML IV ONE (15:00)
[2019-03-17] MEDS ORDERED: ALBUMIN HUMAN 25% 50 ML IV SCH (15:00)
[2019-03-17] MEDS ORDERED: METOPROLOL XL 50 MG TAB PO SCH (18:00)
[2019-03-17 20:59] VITALS: BP 178/90; TEMP 97.9
[2019-03-17] MEDS ORDERED: DULERA 100/5 (MOMETASONE/FORMOTEROL) INHALER IH SCH (21:00)
[2019-03-17] MEDS ORDERED: DOXAZOSIN 2 MG TAB PO SCH (21:00)
[2019-03-18] MEDS ORDERED: VITAMIN D 5,000 UNIT CAP PO SCH (09:00)
[2019-03-18] MEDS ORDERED: AMLODIPINE 10 MG TAB PO SCH (09:00)
[2019-03-18] MEDS ORDERED: CALCITROL 0.25 MCG CAP PO SCH (09:00)
[2019-03-18] MEDS ORDERED: FERROUS FUMARATE 324 MG PO SCH (09:00)
[2019-03-21 19:19] LABS: HBsAG Nonreactive (Nonreactive)
[2019-03-22 15:02] LABS: Hep C Virus RNA (PCR)log 6.71 log IU/mL
== END 2019-03-17 21:31 | disposition left against medical advice (07) | DRG 683 ==
LOC: ER 23:21 → ERHOLD 03-17 04:49 → 2ND 03-17 05:57
PROVIDERS: ADMIT Internal Medicine; ATTEND Family Medicine
PROC: 5A1D70Z Performance of Urinary Filtration, Intermittent, Less than 6 Hours Per Day (ICD-10-PCS; principal; 2019-03-17)
DX: N17.9 Acute kidney failure, unspecified (principal); I13.2 Hypertensive heart and chronic kidney disease with heart failure and with stage 5 chronic kidney disease, or end stage renal disease; I50.32 Chronic diastolic (congestive) heart failure; J44.1 Chronic obstructive pulmonary disease with (acute) exacerbation; E83.51 Hypocalcemia; F17.210 Nicotine dependence, cigarettes, uncomplicated; N18.6 End stage renal disease; Z91.15 Patient's noncompliance with renal dialysis; Z91.19 Patient's noncompliance with other medical treatment and regimen; F10.10 Alcohol abuse, uncomplicated; D63.8 Anemia in other chronic diseases classified elsewhere; L40.9 Psoriasis, unspecified; M10.9 Gout, unspecified
CPT/HCPCS: 36415; 71045; 78582; 80048; 80076; 80307; 80320; 80329; 81003; 82805; 83690; 83735; 83880; 84484; 85025; 85379; 85610; 85730; 86317; 86704; 86803; 87040; 87340; 87522; 90935; 93005; 94640; 96365; 96366; 96375; 99285; A9540; A9558; J0360; J0610; J1644; J2405; J2997; J7606; Q4081

== ENCOUNTER 2019-03-19 19:34 | Emergency (ER) | payer OTHER ==
--- OUTSIDE RECORDS SUMMARY | 2019-03-19 19:36 | XMS REPORT ---
:1960 [facility] Address [address] [place] [address] Dr. Granados [address] [place] [id number] Care Team Providers Name Role Phone Unavailable Unavailable Unavailable Problems This patient has no known problems. Allergies, Adverse Reactions, Alerts This patient has no known allergies or adverse reactions. Medications This patient has no known medications.
[2019-03-19] MEDS ORDERED: ALBUTEROL 2.5 MG/3 ML NEB SOL ONE (20:34)
[2019-03-19] MEDS ORDERED: IPRATROPIUM BROM 0.5MG/2.5ML ONE (20:34)
--- NOTE | 2019-03-19 20:39 | RAD REPORT ---
EXAM DESCRIPTION: RAD - Chest Single View - 03/19/2019 8:23 pm CLINICAL HISTORY: Shortness of breath, chest tightness COMPARISON: March 16 TECHNIQUE: AP portable chest image was obtained 2020 hours . FINDINGS: Lungs are clear. Heart and vasculature are normal. No measurable pleural effusion and no p neumothorax. No acute bony abnormality seen. No acute aortic findings. Right-sided dialysis catheter is in place. IMPRESSION: No acute cardiopulmonary process. No significant change from short interval March 16 study.
[2019-03-19 20:41] LABS: Absolute Monocytes 1.1 K/uL (0.1-1.3); Absolute Neutrophil 8.4 K/uL (1.8-8.0); Basophils % 0.8 % (0-1.3); Eosinophils % 1.7 % (0-4.4); Hematocrit 36.8 % (39.6-49.0); Lymphocytes % 17.2 % (15.3-44.8); MPV 8.9 fL (7.6-11.3); RBC Red Blood Cell Count 4.12 M/uL (4.33-5.43)
[2019-03-19 20:46] LABS: Urine Blood 1+ (NEG); Urine Glucose TRACE (NEG); Urine Protein 3+ (NEG); Urine pH 5.5 (5.0-7.0)
[2019-03-19 20:51] LABS: Protime INR 1.04
[2019-03-19] MEDS ORDERED: METHYLPREDNISOLONE 125 MG INJ ONE (21:00)
[2019-03-19 21:04] LABS: ALT/SGPT 21 U/L (12-78); AST/SGOT 16 U/L (15-37); Albumin 3.6 g/dL (3.4-5.0); Alkaline Phosphatase 56 U/L (45-117); BUN Blood Urea Nitrogen 70 mg/dL (7-18); Bicarbonate 21 mmol/L (21-32); Bilirubin Direct 0.1 mg/dL (0-0.2); Bilirubin Total 0.3 mg/dL (0.2-1.0); Glucose Level 105 mg/dL (74-106); Lipase 676 U/L (73-393); NT PRO-BNP 6990 pg/mL (<125); Potassium 4.2 mmol/L (3.5-5.1); Protein, Total 7.3 g/dL (6.4-8.2); Sodium Level 139 mmol/L (136-145); Troponin (Emerg Dept Use Only) < 0.02 ng/mL (0.0-0.045)
--- NOTE | 2019-03-19 21:23 | EDPHYS ---
Physician Documentation [facility] Name: Frankie Padilla Age: 59 yrs Sex: Male : 1960 Arrival Date: 03/19/2019 Time: 19:45 Bed 27 Private MD: ED Physician Fab Kent HPI: 03/19 20:14 This 59 yrs old Male presents to ER via EMS with complaints of "I can't jr8 breathe". 20:14 Onset: The symptoms/episode began/occurred gradually, today. Severity of symptoms: Pain jr8 is currently a 0 / 10. Unable to obtain HPI due to patient is being uncooperative. The patient has not recently seen a physician. On questioning patient is uncooperative with medical history or HPI details. Reports only that he "can't breathe and needs oxygen." Reports abdominal pain as well. Denies chest pain, fever, cough. States he does not remember when his last dialysis was. Historical: - Allergies: 20:04 NKA; mg2 - Home Meds: 20:04 inhaler [Active]; mg2 - PMHx: 20:04 Dementia; Dialysis; Hypertension; pseudobulbar affect; mg2 - PSHx: 20:04 None; mg2 - Immunization history:: Flu vaccine is up to date. - Social history:: Smoking status: Patient uses tobacco products, smokes one pack cigarettes per day. - Ebola Screening: : No symptoms or risks identified at this time. ROS: 20:17 Constitutional: Negative for fever, chills, and weight loss, Eyes: Negative for injury, jr8 pain, redness, and discharge, ENT: Negative for injury, pain, and discharge, Cardiovascular: Negative for chest pain, palpitations, and edema, Back: Negative for injury and pain, MS/Extremity: Negative for injury and deformity, Skin: Negative for injury, rash, and discoloration, Neuro: Negative for headache, weakness, numbness, tingling, and seizure. 20:17 Respiratory: Positive for shortness of breath, at rest. wheezing, Negative for cough, hemoptysis, orthopnea. 20:17 Abdomen/GI: Positive for abdominal pain, Negative for nausea, vomiting, and diarrhea. Exam: 20:18 Constitutional: This is a well developed, well nourished patient who is awake, alert, jr8 and in no acute distress. Eyes: Pupils equal round and reactive to light, extra-ocular motions intact. Lids and lashes normal. Conjunctiva and sclera are non-icteric and not injected. Cornea within normal limits. Periorbital areas with no swelling, redness, or edema. ENT: Nares patent. No nasal discharge, no septal abnormalities noted. Tympanic membranes are normal and external auditory canals are clear. Oropharynx with no redness, swelling, or masses, exudates, or evidence of obstruction, uvula midline. Mucous membranes moist. Chest/axilla: Normal chest wall appearance and motion. Nontender with no deformity. No lesions are appreciated. Cardiovascular: Regular rate and rhythm with a normal S1 and S2. No gallops, murmurs, or rubs. Normal PMI, no JVD. No pulse deficits. Abdomen/GI: Soft, non-tender, with normal bowel sounds. No distension or tympany. No guarding or rebound. No evidence of tenderness throughout. Skin: Warm, dry with normal turgor. Normal color with no rashes, no lesions, and no evidence of cellulitis. MS/ Extremity: Pulses equal, no cyanosis. Neurovascular intact. Full, normal range of motion. 20:18 Respiratory: the patient does not display signs of respiratory distress, Respirations: normal, symetrical, no use of accessory muscles, no grunting, no evidence of nasal flaring, no pursed lip breathing, no retractions, Breath sounds: wheezing: inspiratory expiratory that is mild, is heard diffusely. 21:21 ECG was reviewed by the Attending Physician. [facility] Vital Signs: 20:02 BP 144 / 99; Pulse 98; Resp 19; Temp 97.8; Pulse Ox 97% on 2 lpm NC; Weight 81.65 kg; mg2 Height 5 ft. 11 in. (180.34 cm); Pain 0/10; 21:37 BP 155 / 78; Pulse 90; Resp 18; Temp 98.5(O); Pulse Ox 98% on 2 lpm NC; Pain 0/10; mg2 20:02 Body Mass Index 25.10 (81.65 kg, 180.34 cm) mg2 MDM: 19:55 Patient medically screened. [facility] 21:19 Data reviewed: vital signs, nurses notes, old medical records, Labs and images that jr8 were done 3 days ago were compared. Improvement noted or no change at all to labs. Negative for PE. Was admitted and d/c'd at that time. lab test result(s), EKG, radiologic studies, plain films. Data interpreted: Pulse oximetry: on room air is 97 %. Interpretation: normal. Counseling: I had a detailed discussion with the patient and/or guardian regarding: the historical points, exam findings, and any diagnostic results supporting the discharge/admit diagnosis, lab results, radiology results, the need for outpatient follow up, a radiology physician assistant, a family practitioner, to return to the emergency department if symptoms worsen or persist or if there are any questions or concerns that arise at home. Response to treatment: the patient's symptoms have markedly improved after treatment. ED course: Mild wheezing on physical exam that has improved with treatment. Mild bronchitis suspected. No other acute finding noted. Off oxygen patient is at 97-99% RA. No acute distress. Rest of VS stable. Will d/c home to f/u with PCP . 03/19 20:11 Order name: Basic Metabolic Panel; Complete Time: 21:17 03/19 20:11 Order name: CBC with Diff; Complete Time: 20:48 03/19 20:11 Order name: LFT's; Complete Time: 21:17 03/19 20:11 Order name: Magnesium; Complete Time: 21:17 03/19 20:11 Order name: NT PRO-BNP; Complete Time: 21:17 03/19 20:11 Order name: PT-INR; Complete Time: 20:54 03/19 20:11 Order name: Troponin (emerg Dept Use Only); Complete Time: 21:17 03/19 20:11 Order name: XRAY Chest (1 view); Complete Time: 20:44 03/19 20:11 Order name: EKG; Complete Time: 20:12 03/19 20:12 Order name: Lipase; Complete Time: 21:17 03/19 20:12 Order name: Influenza Screen (a \\T\\ B); Complete Time: 21:17 03/19 20:43 Order name: Urine Dipstick--Ancillary (enter results); Complete Time: 20:48 [facility] 03/19 20:11 Order name: EKG - Nurse/Tech; Complete Time: 20:49 03/19 20:11 Order name: IV Saline Lock; Complete Time: :36 8 03/19 20:11 Order name: Labs collected and sent; Complete Time: 03/19 20:11 Order name: O2 Per Protocol; Complete Time: 03/19 20:11 Order name: O2 Sat Monitoring; Complete Time: 03/19 20:12 Order name: Urine Dipstick-Ancillary (obtain specimen); Complete Time: :36 jr8 EC: Rate is 79 beats/min. Rhythm is regular, Normal Sinus Rhythm. QRS [place] is Normal. MS jr8 interval is normal at 176 msec. QRS interval is normal at 88 msec. QT interval is normal at 396 msec. No Q waves. T waves are Inverted in lead aVL. No ST changes noted. Clinical impression: Normal ECG and No evidence of ischemia. Interpreted by me. Reviewed by me. Administered Medications: 20:36 Drug: Albuterol - atroVENT (3:1) (2.5 mg - 0.5 mg) 3 ml Route: Nebulizer; mg2 21:28 Follow up: Response: No adverse reaction; Marked relief of symptoms mg2 21:04 Drug: SOLU-Medrol 125 mg Route: IVP; Site: right antecubital; mg2 21:28 Follow up: Response: No adverse reaction; Marked relief of symptoms mg2 Disposition: 03/20 00:41 Co-signature as Attending Physician, Fab Kent MD. [email or web address] Disposition: 03/19/19 21:22 Discharged to Home. Impression: Bronchitis, not specified as acute or chronic. - Condition is Stable. - Discharge Instructions: Acute Bronchitis, Adult. - Prescriptions for Prednisone 20 mg Oral Tablet - take 1 tablet by ORAL route once daily for 5 days; 5 tablet. Albuterol Sulfate 90 mcg/actuation - inhale 1-2 puff by INHALATION route every 4-6 hours; 1 Inhaler. - Medication Reconciliation Form, Thank You Letter, Antibiotic Education, Prescription Opioid Use form. - Follow up: Private Physician; When: 5 - 6 days; Reason: Recheck today's complaints, Continuance of care, Re-evaluation by your physician. - Problem is new. - Symptoms have improved. Signatures: Dispatcher [employer] EDFab Segal MD MD pkl Jong Hassan PA PA jr8 Trey Jacob, RN RN mg2 Corrections: (The following items were deleted from the chart) 03/19 21:38 21:22 03/19/2019 21:22 Discharged to Home. Impression: Bronchitis, not specified as mg2 acute or chronic. Condition is Stable. Forms are Medication Reconciliation Form, Thank You Letter, Antibiotic Education, Prescription Opioid Use. Follow up: Private Physician; When: 5 - 6 days; Reason: Recheck today's complaints, Continuance of care, Re-evaluation by your physician. Problem is new. Symptoms have improved. jr8
--- NOTE | 2019-03-19 21:23 | ER ---
Nurse's Notes [facility] Name: Frankie Padilla Age: 59 yrs Sex: Male : 1960 Arrival Date: 03/19/2019 Time: 19:45 Bed 27 Private MD: Diagnosis: Bronchitis, not specified as acute or chronic Presentation: 03/19 19:45 Presenting complaint: EMS states: patient has been complaining of shortness of breath mg2 and chest tightness. denies cough and fever. 20:01 Transition of care: patient was not received from another setting of care. Onset of mg2 symptoms was February 2019. Risk Assessment: Do you want to hurt yourself or someone else? Patient reports no desire to harm self or others. Initial Sepsis Screen: Does the patient meet any 2 criteria? No. Patient's initial sepsis screen is negative. Does the patient have a suspected source of infection? No. Patient's initial sepsis screen is negative. Care prior to arrival: None. 20:01 Method Of Arrival: EMS: [facility] mg2 20:01 Acuity: LATESHA 3 mg2 Historical: - Allergies: 20:04 NKA; mg2 - Home Meds: 20:04 inhaler [Active]; mg2 - PMHx: 20:04 Dementia; Dialysis; Hypertension; pseudobulbar affect; mg2 - PSHx: 20:04 None; mg2 - Immunization history:: Flu vaccine is up to date. - Social history:: Smoking status: Patient uses tobacco products, smokes one pack cigarettes per day. - Ebola Screening: : No symptoms or risks identified at this time. Screenin:04 Abuse screen: Denies threats or abuse. Denies injuries from another. Nutritional mg2 screening: No deficits noted. Tuberculosis screening: No symptoms or risk factors identified. Fall Risk Assessment: 20:30 General: Appears in no apparent distress. comfortable, Behavior is calm, cooperative. mg2 Pain: Denies pain. Neuro: Level of Consciousness is awake, alert, obeys commands, Oriented to person, place, time, situation. Cardiovascular: Reports shortness of breath, since chest tightness Capillary refill < 3 seconds Patient's skin is warm and dry. Respiratory: Airway is patent Respiratory effort is even, unlabored, Respiratory pattern is regular, symmetrical, Breath sounds with wheezes bilaterally. in mediastinum, right upper lobe, right middle lobe and right lower lobe. GI: No signs and/or symptoms were reported involving the gastrointestinal system. : No signs and/or symptoms were reported regarding the genitourinary system. EENT: No signs and/or symptoms were reported regarding the EENT system. Derm: Skin is intact, is healthy with good turgor, Skin is pink, warm \T\ dry. normal. 20:30 Musculoskeletal: Circulation, motion, and sensation intact. Capillary refill < 3 mg2 seconds. 21:38 Reassessment: Patient states feeling better. Patient states symptoms have improved. mg2 Vital Signs: 20:02 BP 144 / 99; Pulse 98; Resp 19; Temp 97.8; Pulse Ox 97% on 2 lpm NC; Weight 81.65 kg; mg2 Height 5 ft. 11 in. (180.34 cm); Pain 0/10; 21:37 BP 155 / 78; Pulse 90; Resp 18; Temp 98.5(O); Pulse Ox 98% on 2 lpm NC; Pain 0/10; mg2 20:02 Body Mass Index 25.10 (81.65 kg, 180.34 cm) mg2 ED Course: 19:45 Patient arrived in ED. mg2 19:45 Trey Jacob, VALERIE is Primary Nurse. mg2 19:55 Jong Hassan PA is PHCP. jr8 19:55 Fab Kent MD is Attending Physician. jr8 20:02 Triage completed. mg2 20:04 Arm band placed on. mg2 20:22 XRAY Chest (1 view) In Process Unspecified. EDMS 20:30 Patient has correct armband on for positive identification. mg2 20:30 Door closed. Warm blanket given. mg2 20:30 Inserted saline lock: 20 gauge in right antecubital area, using aseptic technique. mg2 Blood collected. 21:36 No provider procedures requiring assistance completed. mg2 21:37 IV discontinued, intact, bleeding controlled, No redness/swelling at site. Pressure mg2 dressing applied. Administered Medications: 20:36 Drug: Albuterol - atroVENT (3:1) (2.5 mg - 0.5 mg) 3 ml Route: Nebulizer; mg2 21:28 Follow up: Response: No adverse reaction; Marked relief of symptoms mg2 21:04 Drug: SOLU-Medrol 125 mg Route: IVP; Site: right antecubital; mg2 21:28 Follow up: Response: No adverse reaction; Marked relief of symptoms mg2 Outcome: 21:22 Discharge ordered by MD. cortez 21:38 Discharged to home ambulatory. mg2 21:38 Condition: stable 21:38 Discharge instructions given to patient, Instructed on discharge instructions, follow up and referral plans. medication usage, Demonstrated understanding of instructions, follow-up care, medications, Prescriptions given X 2. 21:38 Patient left the ED. mg2 Signatures: Dispatcher [employer] EDJong Guan PA PA [id number] Gardose, Michele RN RN mg2 Corrections: (The following items were deleted from the chart) 20:02 19:45 Presenting complaint: EMS states: patient has been complaining of shortness of mg2 breath. mg2
[2019-03-19 21:49] VITALS: BP 155/78; TEMP 98.5; O2SAT 98
--- NOTE | 2019-03-20 18:27 | EKG ---
Test Date: 2019-03-19 Test Time: 20:44:39 Final Inspector Paper: MAGDAT MEASUREMENT RESULTS: Intervals: Rate: 79 [place]: 176 QRSD: 88 QT: 396 QTc: 454 [place]: P: 70 [place]: 176 QRS: 5 T: 72 INTERPRETIVE STATEMENTS: Normal sinus rhythm Normal ECG Compared to ECG 03/16/2019 23:31:44 Prolonged QT interval no longer present Electronically Signed On 03-20-19 18:24:00 CDT by Stalin Atwood
== END 2019-03-19 21:38 | disposition home or self-care (01) ==
LOC: ER 19:34
DX: J40 Bronchitis, not specified as acute or chronic (principal); F03.90 Unspecified dementia, unspecified severity, without behavioral disturbance, psychotic disturbance, mood disturbance, and anxiety; I10 Essential (primary) hypertension; F17.210 Nicotine dependence, cigarettes, uncomplicated
CPT/HCPCS: 93005; 85025; 80048; 36415; 83735; 85610; 80076; 81003; 84484; 83690; 83880; 87804 ×2; 71045; 94640; 96374; 99284; J2930